=== PATIENT | female | born 1950 | race Caucasian/White ===

== ENCOUNTER 2016-04-16 23:35 | Inpatient (IN) | payer MEDICARE ==
[~2016-04-16 23:35] MED LIST: CALC250 PO; CHLO25 PO; CLON.1 PO; DUONI NEB; FLUT50SP EACH NARE; METO25 PO; POLY119S PO; POTA-243 PO; PROT40TA PO; SPIRCAP INH; THERM PO; THIA100T PO; ZOFR4TAB3 SL
[2016-04-16 23:40] VITALS: BP 83/62; PULSE 102; RESP 16; TEMP 99.9; O2SAT 100; O2SAT 97
[2016-04-16] MEDS ORDERED: SODIUM CHLOR 0.9% 1000 ML INJ 1,000 ML IV ONE ×2 (23:45)
[2016-04-17] VITALS (24 sets, daily range): BP systolic 70–128; BP diastolic 50–89; PULSE 85–106; RESP 16–20; TEMP 97.4–100.6; O2SAT 95–100
[2016-04-17 00:01] LABS: BLOOD GAS BASE EXCESS -5.6 mmol/L (-2-2); BLOOD GAS CARBOXYHEMOGLOBIN 3.6 % (0-4); BLOOD GAS HCO3 19 mmol/L (22-26); BLOOD GAS METHEMOGLOBIN 1.7 % (0-2); BLOOD GAS O2 HGB SATURATION 94 % (90-100); BLOOD GAS OXYGEN CONTENT 19.3 Vol % (12.0-20.0); BLOOD GAS PCO2 37 mmHg (38-42); BLOOD GAS PO2 237 mmHG (61-120); BLOOD GAS TOTAL HGB 14.2 G/DL (12.0-16.0); CRITICAL VALUE NO; DRAW SITE RT FEMORAL; FIO2 100 %; NUMBER OF ARTERIAL PUNCTURES 1; OXYGEN DEVICE VENTILATOR; STAT YES; TEMP CORR TO 98.6; ULNAR PULSE PRESENT; VENT SETTINGS AC/450/16/PEEP5
[2016-04-17] MEDS ORDERED: NOREPINEPHRINE 4 MG/4 ML AMP ONE (00:07)
[2016-04-17 00:16] LABS: BLOOD, URINE NEG (NEG); GLUCOSE,URINE NEG (NEG); HYALINE CAST, URINE 18 /lpf (RARE); KETONE, URINE NEG (NEG); MUCUS URINE FEW /lpf (OCC); NITRITE,URINE NEG (NEG); SQUAMOUS EPITHELIAL CELL URINE 2 /hpf (0-5); TRANSITIONAL EPI CELLS, URINE 1 /hpf; URINE COLOR YELLOW (YELLW/STRAW)
[2016-04-17 00:17] LABS: AUTOMATED NEUTROPHIL # 15.4 TH/MM3 (1.8-7.7); BASOPHIL % 0.1 % (0.0-2.0); HEMATOCRIT 41.1 % (35.0-46.0); LYMPH % 1.4 % (9.0-44.0); LYMPHOCYTE # 0.2 TH/MM3 (1.0-4.8); MEAN CELL VOLUME 92.7 FL (80.0-100.0); MEAN CORPUSCULAR HEMOGLOBIN 31.4 PG (27.0-34.0); MEAN CORPUSCULAR HGB CONC 33.9 % (32.0-36.0); MONO % 9.7 % (0.0-8.0); NEUT % 88.8 % (16.0-70.0); PLATELET COUNT 156 TH/MM3 (150-450); RED BLOOD COUNT 4.43 MIL/MM3 (4.00-5.30); RED CELL DISTRIBUTION WIDTH 16.1 % (11.6-17.2); WHITE BLOOD COUNT 17.3 TH/MM3 (4.0-11.0)
[2016-04-17 00:18] LABS: COMMENT (UR) CATH-CULT NOT IND; CULTURE IF INDICATED CATH CULTURE NOT IND
[2016-04-17] MEDS ORDERED: IOHEXOL 350 MG/ML 10 ML VIAL (for RAD DIAG) IV ONE (00:31)
[2016-04-17 00:32] LABS: APTT (PATIENT) 34.3 SEC (24.3-30.1); INTERNATIONAL NORMALIZED RATIO 1.1 RATIO; PROTHROMBIN TIME - PATIENT 12.2 SEC (9.8-11.6)
[2016-04-17 00:33] LABS: HEMO FLAGS AUTO DIFF
[2016-04-17 00:46] LABS: ALT (GPT) 12 U/L (10-53); ANION GAP 12 MEQ/L (5-15); AST (GOT) 19 U/L (15-37); BICARBONATE 22.2 MEQ/L (21.0-32.0); BLOOD UREA NITROGEN 76 MG/DL (7-18); CHLORIDE 94 MEQ/L (98-107); GLOMERULAR FILTRATION RATE 11 ML/MIN (>89); MAGNESIUM 0.6 MG/DL (1.5-2.5); POTASSIUM 4.6 MEQ/L (3.5-5.1); SODIUM (NA) 128 MEQ/L (136-145)
[2016-04-17 00:50] LABS: ALKALINE PHOSPHATASE 80 U/L (45-117)
--- NOTE | 2016-04-17 00:50 | RADRPT ---
EXAM DATE/TIME: 04/17/2016 00:28 [facility] COMPARISON: CT BRAIN W/O CONTRAST, November 23, 2015, 19:41. INDICATIONS : Altered mental status, unresponsive. RADIATION DOSE: 56.35 CTDIvol (mGy) MEDICAL HISTORY : Hypertension. Carcinoma, breast. SURGICAL HISTORY : None. ENCOUNTER: Initial ACUITY: 1 day PAIN SCALE: 2/10 LOCATION: cranial TECHNIQUE: Multiple contiguous axial images were obtained of the head. Using automated exposure control and adj ustment of the mA and/or kV according to patient size, radiation dose was kept as low as reasonably a chievable to obtain optimal diagnostic quality images. FINDINGS: There are no signs of intracranial hemorrhage or mass. Patchy decreased attenuation in the bilateral centrum semiovale and periventricular white matter identified most likely on the basis of chronic harshad rovascular ischemic disease. No fractures. CONCLUSION: No acute disease. Percy Barnes MD on April 17, 2016 at 0:48 Board Certified Radiologist. This report was verified electronically.
--- NOTE | 2016-04-17 00:57 | RADRPT ---
EXAM DATE/TIME: 04/17/2016 00:31 [facility] COMPARISON: CHEST SINGLE AP, November 23, 2015, 19:30. INDICATIONS : Found unresponsive. IV CONTRAST: 74 cc Omnipaque 350 (iohexol) IV RADIATION DOSE: 5.55 CTDIvol (mGy) MEDICAL HISTORY : Hypertension. Carcinoma, breast. COPD, CHF, a-fib SURGICAL HISTORY : right lumpectomy ENCOUNTER: Initial ACUITY: 1 day PAIN SCALE: Non-responsive LOCATION: chest TECHNIQUE: Volumetric scanning of the chest was performed using a pulmonary embolism protocol MIP images were re constructed. Using automated exposure control and adjustment of the mA and/or kV according to patien t size, radiation dose was kept as low as reasonably achievable to obtain optimal diagnostic quality images. FINDINGS: There are severe emphysematous changes noted bilaterally. There is dense consolidation seen in the en tire left lower lobe. There is also peripheral consolidation in the right lower lobe posteriorly. End otracheal tube is present and the tip terminates at the level of the akua. NG tube is also present terminating at the esophagogastric junction. A left adrenal mass is suspected measuring 2 Hounsfield units and incompletely evaluated on this study. Measures 3.8 x 2.4 cm likely representing an adenoma. There is a mass at the upper pole of the left kidney medially measuring 3.9 x 2.8 cm and 37 Hounsfie ld units which is incompletely evaluated on this study. There is excellent opacification of the pulmo nary arteries without evidence for pulmonary embolism. There is bilateral hilar adenopathy measuring up to 1.4 cm on the left and centimeters on the right. CONCLUSION: 1. Severe emphysema without evidence for pleural or embolism. 2. Bilateral hilar adenopathy, and dense bilateral pulmonary consolidation in the lower lobes left gr eater than right. 3. Left adrenal mass incompletely characterized, and left renal mass measuring soft tissue density. W orkup with MRI of the abdomen with and without contrast of these findings is recommended on a nonemer gent outpatient basis. 4. Mild nodularity seen within the right middle lobe abutting the fissure measuring 9 mm and 7 mm on image 95. Most likely nodular infiltrate suspected. There is linear atelectasis in the right middle l obe. Short interval followup CT in 3 months recommended. Percy Barnes MD on April 17, 2016 at 0:52 Board Certified Radiologist. This report was verified electronically.
--- NOTE | 2016-04-17 00:58 | PD ---
HPI Chief Complaint: respiratory failure Time Seen by Provider: 23:44 Travel History International Travel<30 days: No Contact w/Intl Traveler<30days: No History of Present Illness HPI 65-year-old woman, presents to the emergency department brought in by EMS intubated for respiratory distress. EMS states that they were called because the patient was having abdominal pain. They found her with the patient sitting on the floor begins chair in marked respiratory distress. 80% on room air. They're in the next few minutes she rapidly deteriorated waning mental status increased with shallow respirations. Systolic blood pressure was in the 60s, increase in the 80s with IV fluid. They intubated her after giving her 4 of Ativan and 20 mg of it, today. Medical hypertension is a history of hypertension COPD history of breast cancer and alcohol abuse. History Past Medical History Narrative Medical Hypertension COPD History of breast cancer Alcohol abuse Neuropathy Menopausal: Yes Social History Alcohol Use: Yes (2-6 DRINKS PER DAY) Tobacco Use: Yes (2 PK PER DAY) Allergies-Medications (Allergen,Severity, Reaction): Coded Allergies: Camphor (Verified Allergy, Unknown, Swelling, 11/23/15) Reported Meds & Prescriptions Reported Meds & Active Scripts Active Zofran ODT (Ondansetron HCl) 4 Mg Tab 4 Mg SL Q6HR PRN FOR NAUSEA/VOMITING Vitamin B1 (Thiamine HCl) 100 Mg Tab 100 Mg PO DAILY 30 Days Metoprolol Tartrate 25 mg (Metoprolol Tartrate) 25 Mg Tab 75 Mg PO Q8HR 30 Days Librium 25 mg Cap (Chlordiazepoxide) 25 Mg Cap 25 Mg PO TID 7 Days Catapres (Clonidine HCl) 0.1 Mg Tab 0.1 Mg PO Q6H PRN 14 Days Resp: Albuterol/Ipratropium 2.5 Mg/0.5 Mg (Albuterol/Ipratropium) 1 Ampule Nebu 1 Ampule NEB Q6HR NEB PRN Oscal-D 250 MG /125 UNITS Tab (Calcium/Vitamin D) 250 Mg Tab 250 Mg PO Q12HR Thera M Plus (Multivitamins/Minerals Therap) 1 Tab Tab 1 Tab PO DAILY Fluticasone Propionate (Nasal) 50 Mcg Spr 1 [place] EACH NARE BID 30 Days Spiriva Handihaler (Tiotropium [place]) 18 Mcg Cap 1 Puff INH DAILY 30 Days DO NOT SWALLOW CAPSULES Protonix (Pantoprazole Sodium) 40 Mg Tabdr 40 Mg PO DAILY Reported K-Dur (Potassium Chloride) 10 Meq Tabcr 20 Meq PO DAILY Miralax 119 Gm Bottle (Polyethylene Glycol) 119 Gm Powd 17 Gm PO DAILY 17 GRAMS = 1 TABLESPOON DISSOLVED IN 4 TO 8 OUNCES OF BEVERAGE Review of Systems ROS Limitations: Clinical Condition Physical Exam Narrative GENERAL: 65-year-old woman, obtunded, poorly perfused. SKIN: Cool and mottled. HEAD: Atraumatic. Normocephalic. EYES: Pupils equal and round. No scleral icterus. No injection or drainage. ENT: No nasal bleeding or discharge. Mucous membranes pink and moist. NECK: Trachea midline. Moderate JVD. CARDIOVASCULAR: Regular rate and rhythm. No murmur appreciated. RESPIRATORY: Coarse breath sounds throughout the posterior lung vera. Some gagging but minimal spontaneous respiratory effort. GASTROINTESTINAL: Abdomen soft, non-tender, nondistended. Hepatic and splenic margins not palpable. MUSCULOSKELETAL: No obvious deformities. Decreased muscle bulk. No edema. NEUROLOGICAL: Obtunded. Occasional gagging. No other purposeful movement. Data Data Last Documented VS Vital Signs Date Time Temp Pulse Resp B/P Pulse Ox O2 Delivery O2 Flow Rate FiO2 04/17/16 01:48 16 Ventilator 04/17/16 01:46 100 80 04/17/16 01:16 92 70/52 04/16/16 23:40 99.9 Orders Electrocardiogram (04/16/16 23:44) Complete Blood Count With Diff (04/16/16 23:44) Comprehensive Metabolic Panel (04/16/16 23:44) Prothrombin Time / Inr (Pt) (04/16/16 23:44) Act Partial Throm Time (Ptt) (04/16/16 23:44) Lactic Acid Sepsis Protocol (04/16/16 23:44) Magnesium (Mg) (04/16/16 23:44) Lipase (04/16/16 23:44) Troponin I (04/16/16 23:44) Urinalysis - C+S If Indicated (04/16/16 23:44) Influenzae A/B Antigen (04/16/16 23:44) Blood Culture (04/16/16 23:44) Chest, Single Ap (04/16/16 23:44) Arterial Blood Gas (Abg) (04/16/16 23:44) Blood Glucose (04/16/16 23:44) Ecg Monitoring (04/16/16 23:44) Iv Access Insert/Monitor (04/16/16 23:44) Oximetry (04/16/16 23:44) Oxygen Administration (04/16/16 23:44) Ed Poc Ultrasound (04/16/16 23:44) Sodium Chlor 0.9% 1000 Ml Inj (Ns 1000 M (04/16/16 23:45) Sodium Chlor 0.9% 1000 Ml Inj (Ns 1000 M (04/16/16 23:45) Norepinephrine Inj (Levophed Inj) (04/17/16 00:07) Ct Pulmonary Angiogram (04/17/16 ) Ct Brain W/O Iv Contrast(Rout) (04/17/16 23:44) Sodium Chlor 0.9% 1000 Ml Inj (Ns 1000 M (04/17/16 01:00) Sodium Chlor 0.9% 1000 Ml Inj (Ns 1000 M (04/17/16 01:00) Piperacil-Tazo 4.5 Gm Premix (Zosyn 4.5 (04/17/16 00:59) Azithromycin Inj (Zithromax Inj) (04/17/16 00:59) Ct Abd/Pel W/O Iv Contrast (04/17/16 ) Admit Order (Ed Use Only) (04/17/16 ) Labs Laboratory Tests Test 04/16/16 04/16/16 04/17/16 23:51 23:55 00:01 Blood Gas Puncture Site RT FEMORAL Blood Gas Patient Temperature 98.6 Blood Gas HCO3 19 mmol/L Blood Gas Base Excess -5.6 mmol/L Blood Gas Oxygen Saturation 94 % Arterial Blood pH 7.34 Arterial Blood Partial 37 mmHg Pressure CO2 Arterial Blood Partial 237 mmHG Pressure O2 Arterial Blood Oxygen Content 19.3 Vol % Arterial Blood 3.6 % Carboxyhemoglobin Arterial Blood Methemoglobin 1.7 % Blood Gas Hemoglobin 14.2 G/DL Oxygen Delivery Device VENTILATOR Blood Gas Ventilator Setting AC/450/16/PEEP5 Blood Gas Inspired Oxygen 100 % Lactic Acid Level 2.2 mmol/L White Blood Count 17.3 TH/MM3 Red Blood Count 4.43 MIL/MM3 Hemoglobin 13.9 GM/DL Hematocrit 41.1 % Mean Corpuscular Volume 92.7 FL Mean Corpuscular Hemoglobin 31.4 PG Mean Corpuscular Hemoglobin 33.9 % Concent Red Cell Distribution Width 16.1 % Platelet Count 156 TH/MM3 Mean Platelet Volume 7.6 FL Neutrophils (%) (Auto) 88.8 % Lymphocytes (%) (Auto) 1.4 % Monocytes (%) (Auto) 9.7 % Eosinophils (%) (Auto) 0.0 % Basophils (%) (Auto) 0.1 % Neutrophils # (Auto) 15.4 TH/MM3 Lymphocytes # (Auto) 0.2 TH/MM3 Monocytes # (Auto) 1.7 TH/MM3 Eosinophils # (Auto) 0.0 TH/MM3 Basophils # (Auto) 0.0 TH/MM3 CBC Comment AUTO DIFF Differential Total Cells 100 Counted Neutrophils % (Manual) 46 % Band Neutrophils % 38 % Monocytes % 10 % Neutrophils # (Manual) 15.6 TH/MM3 Metamyelocytes 5 % Myelocytes 1 % Differential Comment FINAL DIFF MANUAL Toxic Granulation 1+ Toxic Vacuolation PRESENT Platelet Estimate NORMAL Platelet Morphology Comment NORMAL Red Cell Morphology Comment NORMAL Prothrombin Time 12.2 SEC Prothromb Time International 1.1 RATIO Ratio Activated Partial 34.3 SEC Thromboplast Time Urine Color YELLOW Urine Turbidity HAZY Urine pH 5.0 Urine Specific [place] 1.019 Urine Protein TRACE mg/dL Urine Glucose (UA) NEG mg/dL Urine Ketones NEG mg/dL Urine Occult Blood NEG Urine Nitrite NEG Urine Bilirubin NEG Urine Urobilinogen 2.0 MG/DL Urine Leukocyte Esterase TRACE Urine RBC 2 /hpf Urine WBC 2 /hpf Urine Squamous Epithelial 2 /hpf Cells Urine Transitional Epithelial 1 /hpf Cells Urine Hyaline Casts 18 /lpf Urine Mucus FEW /lpf Microscopic Urinalysis Comment CATH-CULT NOT IND Sodium Level 128 MEQ/L Potassium Level 4.6 MEQ/L Chloride Level 94 MEQ/L Carbon Dioxide Level 22.2 MEQ/L Anion Gap 12 MEQ/L Blood Urea Nitrogen 76 MG/DL Creatinine 4.15 MG/DL Estimat Glomerular Filtration 11 ML/MIN Rate Random Glucose 93 MG/DL Calcium Level 8.1 MG/DL Magnesium Level 0.6 MG/DL Total Bilirubin 1.0 MG/DL Aspartate Amino Transf 19 U/L (AST/SGOT) Alanine Aminotransferase 12 U/L (ALT/SGPT) Alkaline Phosphatase 80 U/L Troponin I LESS THAN 0.02 NG/ML Total Protein 5.8 GM/DL Albumin 2.3 GM/DL Lipase 138 U/L [facility] Medical Decision Making Medical Screen Exam Complete: Yes Emergency Medical Condition: Yes Interpretation(s) My review of EKG: Sinus tachycardia rate of 103, normal axis, frequent ectopic beats, no definite evidence of acute ischemia. LABS: CBC remarkable for white count of 17,000 Elevated BUN and creatinine, hypoproteinemia Lipase normal Lactate 2.2 Coags unremarkable ABG 7.34/37/237/19, base excess -5.[address]: No acute disease. CT pulmonary angiogram: Adenopathy and infiltrates, but no PE. Differential Diagnosis Pneumonia, respiratory failure, COPD exacerbation, PE, sepsis, other Narrative Course Medical decision making 65-year-old presents emergency department respiratory failure and marked hypertension. Concern for PE. Patient was intubated prior to arrival. On arrival she was given IV fluids, additional IV access was obtained. A tight ultrasound shows what appeared to be a dilated right ventricle. She's taken for stat CT for pulmonary embolism. On my initial wet read this was negative. Official read is pending. Etiology of patient's symptoms is not clear. She'll be covered broadly for sepsis. She was started on vasopressors. She was given IV fluids. Critical Care Narrative Aggregate critical care time was 40 minutes. Time to perform other separately billable procedures was not included in the critical care time. My time did not include minutes spent treating any other patients simultaneously or on activities that did not directly contribute to the patient's treatment. The services I provided to this patient were to treat and/or prevent clinically significant deterioration that could result in: , worsening shock, unrecognized source of infection. I provided critical care services requiring my management, as noted below: Chart data review, documentation time, medication orders and management, vital sign assessments/reviewing monitor data, ordering and reviewing lab tests, ordering and interpreting/reviewing x-rays and diagnostic studies, care of the patient and discussion of the patient with the admitting physicians. Procedures Procedure Narrative Point of care ultrasound: Focus transthoracic ultrasounds performed by me at the bedside to evaluate for etiology of hypotension. No pneumothorax was seen. Views of the heart showed elevated was a little bit hyperdynamic, and RV appear to enlarge. No pericardial effusion was seen. Use of the abdomen showed a normal aorta without AAA. Diagnosis Primary Impression: Acute respiratory failure with hypoxia Additional Impression: Septic shock David Collins MD Apr 17, 2016 00:58
[2016-04-17] MEDS ORDERED: PIPERACIL-TAZO 4.5 GM PREMIX 100 ML IV STA (00:59)
[2016-04-17] MEDS ORDERED: AZITHROMYCIN INJ 500 MG in SODIUM CHLOR 0.9% 250 ML INJ 250 ML IV STA (00:59)
[2016-04-17] MEDS ORDERED: SODIUM CHLOR 0.9% 1000 ML INJ 1,000 ML IV ONE ×2 (01:00)
--- NOTE | 2016-04-17 01:04 | RADRPT ---
EXAM DATE/TIME: 04/17/2016 00:55 [facility] COMPARISON: CHEST SINGLE AP, November 23, 2015, 19:30. CT PULMONARY ANGIOGRAM, April 17, 2016, 0:31. INDICATIONS : Post intubation. Evaluate tube placement. MEDICAL HISTORY : Hypertension. Carcinoma, breast. SURGICAL HISTORY : Left humerus and shoulder ENCOUNTER: Initial ACUITY: 1 day PAIN SCORE: Non-responsive. LOCATION: Bilateral chest FINDINGS: Endotracheal tube is present and the tip terminates at the akua. Aortic calcification and cardiomeg odalis. EKG leads overlie the chest. NG tube tip at the distal esophageal region. There is consolidation within both lower lobes and prominence of the bilateral hilar shadows. Postsurgical changes q.d. lef t shoulder are noted with plate and screws fixation seen. There is a remote impacted right proximal h umerus fracture deformity identified. CONCLUSION: Endotracheal tube as described above. Percy Barnes MD on April 17, 2016 at 1:01 Board Certified Radiologist. This report was verified electronically.
[2016-04-17 01:32] LABS: BANDS 38 % (0-6); METAMYELOCYTES 5 % (0-1); MYELOCYTES 1 % (0-0); NEUTROPHIL # MANUAL DIFF 15.6 TH/MM3 (1.8-7.7); POLYS (SEG NEUTROPHILS) 46 % (16-70); SCAN/DIFF FINAL DIFF MANUAL; WBC DIFF SAMPLE 100
[2016-04-17 01:33] LABS: PLATELET ESTIMATE SMEAR NORMAL (NORMAL); PLATELET MORPHOLOGY NORMAL (NORMAL); TOXIC GRANULATION 1+ (NORMAL); TOXIC VACUOLATION PRESENT (NONE SEEN)
[2016-04-17 02:08] LABS: LACTIC ACID GHOST NOT REPORTABLE
[2016-04-17] MEDS ORDERED: ACETAMINOPHEN 325 MG TAB PO PRN (02:30)
[2016-04-17] MEDS ORDERED: CHLORHEXIDINE GLUCONATE 2 % 1 PACK (2 CLOTHS) TOP PRN (02:30)
[2016-04-17] MEDS ORDERED: MISCELLANEOUS NURSING INFORMATION XX SCH (02:30)
[2016-04-17] MEDS ORDERED: ONDANSETRON HCL 4 MG/2 ML VIAL IV PRN (02:30)
[2016-04-17] MEDS ORDERED: SODIUM CHLORIDE 0.9% FLUSH 5 ML FLUSH IV FLUSH PRN (02:30)
[2016-04-17] MEDS ORDERED: METOCLOPRAMIDE HCL 10 MG/2 ML VIAL IV PRN (02:30)
[2016-04-17] MEDS: ALBUMIN HUMAN 5% 25 GM/500 ML BOTTLE IV SCH ×2 (03:00→15:49)
[2016-04-17] MEDS ORDERED: BACL10TA PO (03:13)
[2016-04-17] MEDS ORDERED: GABA800T PO (03:13)
[2016-04-17] MEDS ORDERED: FLUT1SPR22 NASAL (03:13)
[2016-04-17] MEDS ORDERED: ATEN50TA PO (03:13)
[2016-04-17] MEDS ORDERED: ALBUAER3 INH (03:13)
[2016-04-17] MEDS ORDERED: BENA10TA PO (03:13)
[2016-04-17] MEDS ORDERED: IBAN150T3 PO (03:13)
[2016-04-17] MEDS ORDERED: FURO20TA PO (03:13)
[2016-04-17] MEDS ORDERED: TRIAPOW TOPICAL (03:13)
[2016-04-17] MEDS ORDERED: FURO1TAB60 PO (03:13)
[2016-04-17] MEDS ORDERED: SPIRCAP INH (03:13)
[2016-04-17] MEDS ORDERED: POTA-245 PO (03:13)
[2016-04-17] MEDS ORDERED: AMOX500C PO (03:13)
[2016-04-17] MEDS ORDERED: HYDR-3583 PO (03:13)
[2016-04-17] MEDS: CEFEPIME INJ 2,000 MG in SODIUM CHLORIDE 0.9% INJ 100 ML IV SCH (04:21)
--- NOTE | 2016-04-17 06:21 | HHI.HP ---
HPI Service Critical Care Medicine Primary Care Physician Unknown Admission Diagnosis respiratory failure, sepsis Diagnosis: Travel History International Travel<30 Days: No Contact w/Intl Traveler <30 Da: No History of Present Illness 65-year-old woman brought in by EMS intubated for respiratory distress, and abdominal pain. She has recently had relapse of alcohol dependency disease and was found sitting on the floor in marked respiratory distress. 80% on room air. Also her systolic blood pressure was in the 60s, increase into the 80s with IV fluid. Review of Systems ROS Unable to obtain, patient is sedated and intubated Past Family Social History Allergies: Coded Allergies: Camphor (Verified Allergy, Unknown, Swelling, 04/17/16) Past Medical History Hypertension COPD History of breast cancer Alcohol abuse Neuropathy Past Surgical History Unable to obtain, patient is sedated and intubated Reported Medications Triamcinolone Acetonide (Triamcinolone Acetonide (Topic) 1 Pow Pow 0.1 Units TOPICAL DIALY Spiriva Handihaler (Tiotropium Inh) 18 Mcg Cap 18 Mcg INH DAILY 1 capsule = 18 mcg Proair Hfa 8.5 GM Inh (Albuterol Sulfate) 90 Mcg/Act Aer 2 Puff INH Q4-6H PRN 108 mcg/actuation Lasix (Furosemide) 40 Mg Tab 40 Mg PO DAILY Klor-Con M20 (Potassium Chloride Microencaps) 20 Meq Tab 20 Meq PO DAILY Ibandronate (Ibandronate Sodium) 150 Mg Tab 150 Mg PO Q28D Hydrocodone-Acetaminophen 10-325 mg Tab 1 Tab PO Q6H PRN Gabapentin 800 Mg Tab 800 Mg PO DAILY Furosemide 20 Mg Tab 20 Mg PO DAILY Allergy Nasal [place] 24 Ho (Fluticasone Propionate (Nasal)) 50 Mcg/Act Spr 50 Aerosol NASAL DAILY Benazepril (Benazepril HCl) 10 Mg Tab 10 Mg PO DAILY Baclofen 10 Mg Tab 10 Mg PO TID Atenolol 50 Mg Tab 50 Mg PO DAILY Amoxicillin 500 Mg Cap 500 Mg PO DAILY unknown duration Active Ordered Medications Unable to obtain, patient is sedated and intubated Family History Unable to obtain, patient is sedated and intubated Social History Unable to obtain, patient is sedated and intubated; however known history of alcoholism Physical Exam Vital Signs Vital Signs Date Time Temp Pulse Resp B/P Pulse Ox O2 Delivery O2 Flow Rate FiO2 04/17/16 05:36 50 04/17/16 05:34 87 16 113/73 100 Ventilator 04/17/16 04:03 99 50 04/17/16 03:38 93 16 103/64 100 Ventilator 04/17/16 02:55 98 16 86/62 100 Ventilator 04/17/16 02:16 95 16 78/57 100 Ventilator 04/17/16 01:48 16 Ventilator 04/17/16 01:47 16 Ventilator 04/17/16 01:46 100 Ventilator 80 04/17/16 01:16 92 16 70/52 100 Ventilator 04/17/16 01:01 100 80 04/17/16 00:25 100 04/17/16 00:20 104 16 80/56 100 Ventilator 04/17/16 00:13 106 16 71/50 100 Ventilator 04/16/16 23:40 100 100 04/16/16 23:40 99.9 102 16 83/62 97 Physical Exam GENERAL: Well-nourished, well-developed patient. SKIN: Warm and dry. HEAD: Normocephalic. EYES: No scleral icterus. No injection or drainage. NECK: Supple, trachea midline. No JVD or lymphadenopathy. CARDIOVASCULAR: Regular rate and rhythm without murmurs, gallops, or rubs. RESPIRATORY: Breath sounds equal bilaterally. No accessory muscle use. GASTROINTESTINAL: Abdomen soft, non-tender, nondistended. MUSCULOSKELETAL: No cyanosis, or edema. BACK: Nontender without obvious deformity. No CVA tenderness. Laboratory Laboratory Tests Test 04/16/16 04/16/16 04/17/16 04/17/16 23:51 23:55 00:01 02:15 Blood Gas Puncture Site RT FEMORAL Blood Gas Patient Temperature 98.6 Blood Gas HCO3 19 Blood Gas Base Excess -5.6 Blood Gas Oxygen Saturation 94 Arterial Blood pH 7.34 Arterial Blood Partial 37 Pressure CO2 Arterial Blood Partial 237 Pressure O2 Arterial Blood Oxygen Content 19.3 Arterial Blood 3.6 Carboxyhemoglobin Arterial Blood Methemoglobin 1.7 Blood Gas Hemoglobin 14.2 Oxygen Delivery Device VENTILATOR Blood Gas Ventilator Setting AC/450/16/PEEP5 Blood Gas Inspired Oxygen 100 Lactic Acid Level 2.2 1.3 White Blood Count 17.3 Red Blood Count 4.43 Hemoglobin 13.9 Hematocrit 41.1 Mean Corpuscular Volume 92.7 Mean Corpuscular Hemoglobin 31.4 Mean Corpuscular Hemoglobin 33.9 Concent Red Cell Distribution Width 16.1 Platelet Count 156 Mean Platelet Volume 7.6 Neutrophils (%) (Auto) 88.8 Lymphocytes (%) (Auto) 1.4 Monocytes (%) (Auto) 9.7 Eosinophils (%) (Auto) 0.0 Basophils (%) (Auto) 0.1 Neutrophils # (Auto) 15.4 Lymphocytes # (Auto) 0.2 Monocytes # (Auto) 1.7 Eosinophils # (Auto) 0.0 Basophils # (Auto) 0.0 CBC Comment AUTO DIFF Differential Total Cells 100 Counted Neutrophils % (Manual) 46 Band Neutrophils % 38 Monocytes % 10 Neutrophils # (Manual) 15.6 Metamyelocytes 5 Myelocytes 1 Differential Comment FINAL DIFF MANUAL Toxic Granulation 1+ Toxic Vacuolation PRESENT Platelet Estimate NORMAL Platelet Morphology Comment NORMAL Red Cell Morphology Comment NORMAL Prothrombin Time 12.2 Prothromb Time International 1.1 Ratio Activated Partial 34.3 Thromboplast Time Urine Color YELLOW Urine Turbidity HAZY Urine pH 5.0 Urine Specific [place] 1.019 Urine Protein TRACE Urine Glucose (UA) NEG Urine Ketones NEG Urine Occult Blood NEG Urine Nitrite NEG Urine Bilirubin NEG Urine Urobilinogen 2.0 Urine Leukocyte Esterase TRACE Urine RBC 2 Urine WBC 2 Urine Squamous Epithelial 2 Cells Urine Transitional Epithelial 1 Cells Urine Hyaline Casts 18 Urine Mucus FEW Microscopic Urinalysis Comment CATH-CULT NOT IND Sodium Level 128 Potassium Level 4.6 Chloride Level 94 Carbon Dioxide Level 22.2 Anion Gap 12 Blood Urea Nitrogen 76 Creatinine 4.15 Estimat Glomerular Filtration 11 Rate Random Glucose 93 Calcium Level 8.1 Magnesium Level 0.6 Total Bilirubin 1.0 Aspartate Amino Transf 19 (AST/SGOT) Alanine Aminotransferase 12 (ALT/SGPT) Alkaline Phosphatase 80 Troponin I LESS THAN 0.02 Total Protein 5.8 Albumin 2.3 Lipase 138 Date/Time Procedure Status Source Growth 04/17/16 02:45 Aerobic Blood Culture Received Blood Peripheral Pending 04/17/16 02:45 Anaerobic Blood Culture Received Blood Peripheral Pending 04/17/16 00:01 Urine Culture Received Urine Catheterized Urine Pending Result Diagram: 04/17/16 0001 04/17/16 0001 Imaging Last [address] 04/17/16 [id number] Signed Impressions: Service Date/Time: Sunday, April 17, 2016 00:28 - CONCLUSION: No acute disease. Percy Barnes MD CT Angiography 04/17/16 0000 Signed Impressions: Service Date/Time: Sunday, April 17, 2016 00:31 - CONCLUSION: 1. Severe emphysema without evidence for pleural or embolism. 2. Bilateral hilar adenopathy, and dense bilateral pulmonary consolidation in the lower lobes left greater than right. 3. Left adrenal mass incompletely characterized, and left renal mass measuring soft tissue density. Workup with MRI of the abdomen with and without contrast of these findings is recommended on a nonemergent outpatient basis. 4. Mild nodularity seen within the right middle lobe abutting the fissure measuring 9 mm and 7 mm on image 95. Most likely nodular infiltrate suspected. There is linear atelectasis in the right middle lobe. Short interval followup CT in 3 months recommended. Percy Barnes MD Chest X-Ray 04/16/16 2344 Signed Impressions: Service Date/Time: Sunday, April 17, 2016 00:55 - CONCLUSION: Endotracheal tube as described above. Percy Barnes MD Assessment and Plan Problem List: (1) Acute respiratory failure with hypoxia ICD Code: J96.01 Status: Acute (2) Acute kidney injury ICD Code: N17.9 Status: Acute (3) Septic shock ICD Code: A41.9 Status: Acute (4) Alcohol abuse ICD Code: F10.10 Status: Chronic Assessment and Plan Respiratory failure - due to SIRS/Sepsis - mechanical ventilation - SBT when more alert and hemodynamically stable COPD - no exacerbation - no steroids - aerosols scheduled and PRN - resume home Spiriva when extubated ETOH dependency - versed gtt - CIWA when extubated SIRS - broad spectrum ATB - follow up cultures - de-escalate when cultures available YULIET - dehydration - aggressive fluid resuscitation - follow up creatinine and electrolytes Peripheral neuropathy - Gabapentin Renal and adrenal mass - MRI w and w/o when creatinine improves - 1 mg Dexamethasone suppression test when hemodynamically stable DVT/GI prophylaxis - Heparin/Protonix Critical Care: The total critical care time was 35 minutes. Time to perform other separately billable procedures was not included in the critical care time. Gurwinder Dow MD Apr 17, 2016 06:21
--- NOTE | 2016-04-17 06:44 | RADRPT ---
EXAM DATE/TIME: 04/17/2016 06:30 [place] COMPARISON: CT PULMONARY ANGIOGRAM, April 17, 2016, 0:31. INDICATIONS : Abdominal pain with palpitation, unresponsive. ORAL CONTRAST: No oral contrast ingested. RADIATION DOSE: 6.98 CTDIvol (mGy) MEDICAL HISTORY : Carcinoma, breast. Hypertension. Chronic obstructive pulmonary disease.ulcerm a-fib SURGICAL HISTORY : mastectomy ENCOUNTER: Initial ACUITY: 1 day PAIN SCALE: Non-responsive LOCATION: abdomen TECHNIQUE: Volumetric scanning of the abdomen and pelvis was performed. Using automated exposure control and ad justment of the mA and/or kV according to patient size, radiation dose was kept as low as reasonably achievable to obtain optimal diagnostic quality images. FINDINGS: There is consolidation with air bronchograms in both lower lobes left greater than right. The gallbla dder is distended. NG tube in the stomach. Moderate atherosclerotic calcification of the aorta and il iac vessels. Dumont catheter within the urinary bladder. Uterus is heterogeneous with calcified fibroi ds suspected. There is no evidence for bowel obstruction. There is moderate perinephric stranding or perinephric fluid bilaterally. There are bilateral renal cysts the largest at the midpole right kidne y measuring 2.1 cm. Upper pole left kidney demonstrates a high attenuation mass measuring 3.7 cm poss ibly a hemorrhagic or proteinaceous cyst, a solid mass not entirely excluded. Left adrenal mass is no kat measuring 3.7 x 2.8 cm. Degenerative changes of the spine are noted. Postsurgical changes to the left hip are noted with intramedullary al and femoral neck al and pin fixation. Remote right inferi or pubic ramus fracture deformity. CONCLUSION: 1. Mild distention of the gallbladder. 2. Bilateral renal cysts are noted as well as an indeterminate mass upper pole left kidney, probable hemorrhagic or proteinaceous cyst and can be further evaluated with MRI of the abdomen with and witho ut contrast on a nonemergent outpatient basis. 3. Bilateral lower lobe consolidation. 4. Indeterminate probable adenomas left adrenal mass. 5. Atherosclerosis. 6. Nodular infiltrate in the right middle lobe is seen. Percy Barnes MD on April 17, 2016 at 6:38 Board Certified Radiologist. This report was verified electronically.
[2016-04-17] MEDS: SODIUM CHLORIDE 0.9% FLUSH 5 ML FLUSH IV FLUSH SCH ×2 (08:55→20:31)
[2016-04-17] MEDS: HEPARIN SODIUM - SQ 10,000 UNITS/ML VIAL SQ SCH ×2 (08:55→20:31)
[2016-04-17] MEDS: PANTOPRAZOLE SODIUM 40 MG VIAL IV SCH (08:56)
[2016-04-17] MEDS: DOCUSATE SODIUM 100 MG/10 ML UDC G-TUBE SCH ×2 (08:56→20:31)
[2016-04-17] MEDS: ARTIFICIAL TEARS OPTH SOLN 15 ML BTL EACH EYE SCH ×2 (09:00→12:31)
[2016-04-17] MEDS ORDERED: NOREPINEPHRINE-DEXTROSE DRIP 250 ML IV ONE (10:23)
[2016-04-17 11:13] LABS: INDIRECT BILIRUBIN 0.4 MG/DL (0.0-0.8); TOTAL BILIRUBIN ADULT 1.1 MG/DL (0.2-1.0)
[2016-04-17] MEDS ORDERED: NOREPINEPHRINE-DEXTROSE DRIP 250 ML IV SCH (12:00)
[2016-04-17] MEDS ORDERED: TERBUTALINE INJ 1 MG/ML AMP SQ PRN (12:00)
[2016-04-17] MEDS ORDERED: LORazepam 2 MG/ML VIAL IV PUSH PRN (12:00)
[2016-04-17] MEDS: SODIUM CHLOR 0.9% 1000 ML INJ 1,000 ML IV SCH ×2 (12:19→21:58)
[2016-04-17] MEDS: METOCLOPRAMIDE HCL SYRUP 10 MG/10 ML UDC PO SCH ×2 (12:30→20:31)
[2016-04-17] MEDS: BENEPROTEIN POWDER 1 PACK G-TUBE SCH (12:31)
[2016-04-17] MEDS: THIAMINE INJ 100 MG in SODIUM CHLORIDE 0.9% INJ 100 ML IV SCH (13:04)
--- NOTE | 2016-04-17 16:26 | EKG ---
Date Performed: 04/16/2016 Time Performed: 23:57:03 PTAGE: 65 years EKG: SINUS TACHYCARDIA WITH FREQUENT ECTOPIC PREMATURE COMPLEXES IN A BIGEMINAL PATTERN BORDERLI NE RIGHT AXIS DEVIATION NONSPECIFIC T-WAVE ABNORMALITY ABNORMAL RHYTHM ECG PREVIOUS TRACING : 11/23/2015 19.57 Compared to prior tracing no significant change DOCTOR: Randolph Crouch Interpretating Date/Time 04/17/2016 16:24:29
[2016-04-17 17:02] LABS: BICARBONATE 18.8 MEQ/L (21.0-32.0); MAGNESIUM 0.8 MG/DL (1.5-2.5); POTASSIUM 3.9 MEQ/L (3.5-5.1)
[2016-04-17] MEDS: MIDAZOLAM 100 MG/ML INJ 100 ML IV SCH (20:23)
[2016-04-17] MEDS: RESP: ALBUTEROL 2.5 MG/IPRATROPIUM 0.5 MG NEB (PRN) INH (21:05)
[2016-04-18] VITALS (17 sets, daily range): BP systolic 116–164; BP diastolic 59–86; PULSE 81–128; RESP 9–24; TEMP 97.8–98.9; O2SAT 93–100
[2016-04-18] MEDS: ALBUMIN HUMAN 5% 25 GM/500 ML BOTTLE IV SCH ×2 (02:27→14:37)
[2016-04-18] MEDS: CEFEPIME INJ 2,000 MG in SODIUM CHLORIDE 0.9% INJ 100 ML IV SCH (03:03)
[2016-04-18 04:02] LABS: BICARBONATE 16.9 MEQ/L (21.0-32.0)
[2016-04-18] MEDS: METOCLOPRAMIDE HCL SYRUP 10 MG/10 ML UDC PO SCH ×3 (04:17→19:46)
[2016-04-18] MEDS: CHLORHEXIDINE GLUCONATE 2 % 1 PACK (2 CLOTHS) TOP SCH ×2 (04:17→04:27)
[2016-04-18 04:27] LABS: POTASSIUM 4.4 MEQ/L (3.5-5.1)
[2016-04-18] MEDS: PANTOPRAZOLE SODIUM 40 MG VIAL IV SCH (07:44)
[2016-04-18] MEDS: THIAMINE INJ 100 MG in SODIUM CHLORIDE 0.9% INJ 100 ML IV SCH (07:44)
[2016-04-18] MEDS: DOCUSATE SODIUM 100 MG/10 ML UDC G-TUBE SCH ×2 (07:44→19:46)
[2016-04-18] MEDS: SODIUM CHLOR 0.9% 1000 ML INJ 1,000 ML IV SCH ×2 (07:44→14:37)
[2016-04-18] MEDS: HEPARIN SODIUM - SQ 10,000 UNITS/ML VIAL SQ SCH ×2 (07:45→19:46)
[2016-04-18] MEDS: GABAPENTIN 400 MG CAP PO SCH (07:45)
[2016-04-18] MEDS: SODIUM CHLORIDE 0.9% FLUSH 5 ML FLUSH IV FLUSH SCH ×2 (07:45→19:46)
[2016-04-18] MEDS: ARTIFICIAL TEARS OPTH SOLN 15 ML BTL EACH EYE SCH ×3 (07:47→16:19)
[2016-04-18] MEDS: BENEPROTEIN POWDER 1 PACK G-TUBE SCH ×3 (07:48→16:19)
[2016-04-18 07:55] LABS: AUTOMATED NEUTROPHIL # 12.2 TH/MM3 (1.8-7.7); BASOPHIL % 0.2 % (0.0-2.0); EOSINOPHIL % 0.1 % (0.0-4.0); HEMATOCRIT 36.7 % (35.0-46.0); HEMO FLAGS DIFF FINAL; LYMPH % 5.1 % (9.0-44.0); LYMPHOCYTE # 0.7 TH/MM3 (1.0-4.8); MEAN CORPUSCULAR HEMOGLOBIN 31.5 PG (27.0-34.0); MEAN CORPUSCULAR HGB CONC 33.5 % (32.0-36.0); MONO % 9.9 % (0.0-8.0); NEUT % 84.7 % (16.0-70.0); PLATELET COUNT 110 TH/MM3 (150-450); RED BLOOD COUNT 3.91 MIL/MM3 (4.00-5.30); RED CELL DISTRIBUTION WIDTH 16.4 % (11.6-17.2); WHITE BLOOD COUNT 14.4 TH/MM3 (4.0-11.0)
[2016-04-18] MEDS: CHLORHEXIDINE 0.12% (ORAL KIT) 15 ML CUP MT SCH ×2 (08:00→19:46)
[2016-04-18] MEDS ORDERED: Vancomycin Consult Pharmacy 1 EA OTHER SCH (09:30)
--- NOTE | 2016-04-18 09:31 | HHI.CCPN ---
Subjective Remarks/Hospital Course 65-year-old woman brought in by EMS intubated for respiratory distress, and abdominal pain. She has recently had relapse of alcohol dependency disease and was found sitting on the floor in marked respiratory distress. 80% on room air. 04/18: Arrived severely dehydrated with YULIET and obtundation after excess alcohol consumption. Now tolerating PSV but fails weaning trial from ventilator. May need precedex for detox. She has developed a-fib with tachy- renzo. Several 6 sec asystolic pauses Transcutaneous pacer placed on demand mode Objective Vital Signs Date Time Temp Pulse Resp B/P Pulse Ox O2 Delivery O2 Flow Rate FiO2 04/18/16 08:07 100 40 04/18/16 04:00 97.8 81 10 126/74 04/17/16 19:00 Mechanical Ventilator Intake and Output 04/17/16 04/17/16 04/18/16 08:00 16:00 00:00 Intake Total 496 ml 630 ml Output Total 850 ml Balance -354 ml 630 ml Result Diagram: 04/18/16 0713 04/18/16 0313 Imaging Last [address] 04/17/162343 Signed Impressions: Service Date/Time: Sunday, April 17, 2016 00:28 - CONCLUSION: No acute disease. Percy Barnes MD CT Angiography 04/17/16 0000 Signed Impressions: Service Date/Time: Sunday, April 17, 2016 00:31 - CONCLUSION: 1. Severe emphysema without evidence for pleural or embolism. 2. Bilateral hilar adenopathy, and dense bilateral pulmonary consolidation in the lower lobes left greater than right. 3. Left adrenal mass incompletely characterized, and left renal mass measuring soft tissue density. Workup with MRI of the abdomen with and without contrast of these findings is recommended on a nonemergent outpatient basis. 4. Mild nodularity seen within the right middle lobe abutting the fissure measuring 9 mm and 7 mm on image 95. Most likely nodular infiltrate suspected. There is linear atelectasis in the right middle lobe. Short interval followup CT in 3 months recommended. Percy Barnes MD Chest X-Ray 04/16/16 [id number] Signed Impressions: Service Date/Time: Sunday, April 17, 2016 00:55 - CONCLUSION: Endotracheal tube as described above. Percy Barnes MD Objective Remarks GENERAL: Cachectic, ill-appearing patient. SKIN: Warm and dry. HEAD: Normocephalic. Atraumatic. NECK: Supple, trachea midline. Orally intubated. CARDIOVASCULAR: Regular rate and rhythm without murmurs, gallops, or rubs. No JVD. RESPIRATORY: Breath sounds equal bilaterally. No accessory muscle use. Copious secretions, foul appearing. GASTROINTESTINAL: Abdomen soft, non-tender, nondistended. MUSCULOSKELETAL: No cyanosis, or edema. Well perfused. NEURO: Minimal spontaneous limb movement. Breathes over vent. A/P Problem List: (1) Acute respiratory failure with hypoxia ICD Code: J96.01 Status: Acute (2) Acute kidney injury ICD Code: N17.9 Status: Acute (3) Septic shock ICD Code: A41.9 Status: Acute (4) Alcohol abuse ICD Code: F10.10 Status: Chronic Assessment and Plan Respiratory failure - due to SIRS/Sepsis - mechanical ventilation - SBT when more alert and hemodynamically stable -Sputum culture COPD - no exacerbation - no steroids - aerosols scheduled and PRN - resume home Spiriva when extubated ETOH dependency - versed gtt - CIWA when extubated -Start prededex for agitation. SIRS - broad spectrum ATB - follow up cultures - de-escalate when cultures available YULIET - dehydration - aggressive fluid resuscitation - follow up creatinine and electrolytes Peripheral neuropathy - Gabapentin Renal and adrenal mass - MRI w and w/o when creatinine improves ID - Gram + cocci in blood 04/17 DVT/GI prophylaxis - Heparin/Protonix Overall impression: Patient is critically ill having been found down and intoxicated. Bacteremia with G+ cocci and still largely obtunded. Anticipate problems with seizures. New asystolic episodes occurred after precedex started, now d/c'd. Critical care 44 mins Luis M Thomas MD Apr 18, 2016 09:31
[2016-04-18] MEDS ORDERED: VANCOMYCIN INJ 1,250 MG in SODIUM CHLOR 0.9% 250 ML INJ 250 ML IV ONE (11:00)
--- NOTE | 2016-04-18 12:58 | EKG ---
Date Performed: 04/17/2016 Time Performed: 21:48:06 PTAGE: 65 years EKG: Atrial flutter Lateral T wave changes are nonspecific Compared to previous tracing atrial f lutter has replaced Sinus rhythm Abnormal ECG NO PREVIOUS TRACING DOCTOR: Moissé Ro Interpretating Date/Time 04/18/2016 12:56:53
[2016-04-18] MEDS: DEXMEDETOMIDINE INJ 50 ML IV SCH (17:01)
[2016-04-18] MEDS ORDERED: CALCIUM CHLORIDE INJ 2 GM in SODIUM CHLORIDE 0.9% INJ 100 ML IV ONE (18:00)
[2016-04-18 18:48] LABS: BICARBONATE 19.4 MEQ/L (21.0-32.0); POTASSIUM 3.7 MEQ/L (3.5-5.1)
[2016-04-18 19:30] LABS: MAGNESIUM 0.9 MG/DL (1.5-2.5)
[2016-04-18] MEDS: LORazepam 2 MG/ML VIAL IV PUSH PRN (20:37)
[2016-04-18] MEDS: MIDAZOLAM 100 MG/ML INJ 100 ML IV SCH (23:15)
[2016-04-19] VITALS (20 sets, daily range): BP systolic 137–175; BP diastolic 79–99; PULSE 83–137; RESP 16–24; TEMP 97.3–100.5; O2SAT 94–98
[2016-04-19] MEDS: SODIUM CHLOR 0.9% 1000 ML INJ 1,000 ML IV SCH ×3 (00:20→15:46)
[2016-04-19] MEDS: LORazepam 2 MG/ML VIAL IV PUSH PRN ×2 (01:33→21:03)
[2016-04-19] MEDS: ALBUMIN HUMAN 5% 25 GM/500 ML BOTTLE IV SCH ×2 (02:16→15:45)
[2016-04-19] MEDS: CEFEPIME INJ 2,000 MG in SODIUM CHLORIDE 0.9% INJ 100 ML IV SCH (02:16)
[2016-04-19] MEDS: METOCLOPRAMIDE HCL SYRUP 10 MG/10 ML UDC PO SCH ×3 (03:44→19:54)
[2016-04-19] MEDS: CHLORHEXIDINE GLUCONATE 2 % 1 PACK (2 CLOTHS) TOP SCH (03:45)
[2016-04-19 04:16] LABS: BICARBONATE 18.6 MEQ/L (21.0-32.0); POTASSIUM 3.7 MEQ/L (3.5-5.1)
[2016-04-19] MEDS: DOCUSATE SODIUM 100 MG/10 ML UDC G-TUBE SCH ×2 (07:51→19:54)
[2016-04-19] MEDS: THIAMINE INJ 100 MG in SODIUM CHLORIDE 0.9% INJ 100 ML IV SCH (07:51)
[2016-04-19] MEDS: PANTOPRAZOLE SODIUM 40 MG VIAL IV SCH (07:51)
[2016-04-19] MEDS: GABAPENTIN 400 MG CAP PO SCH (07:51)
[2016-04-19] MEDS: SODIUM CHLORIDE 0.9% FLUSH 5 ML FLUSH IV FLUSH SCH ×2 (07:51→20:00)
[2016-04-19] MEDS: HEPARIN SODIUM - SQ 10,000 UNITS/ML VIAL SQ SCH ×2 (07:52→20:00)
[2016-04-19] MEDS: CHLORHEXIDINE 0.12% (ORAL KIT) 15 ML CUP MT SCH ×2 (07:55→19:55)
[2016-04-19] MEDS: ARTIFICIAL TEARS OPTH SOLN 15 ML BTL EACH EYE SCH ×3 (07:55→15:46)
[2016-04-19] MEDS: BENEPROTEIN POWDER 1 PACK G-TUBE SCH ×3 (07:55→15:46)
--- NOTE | 2016-04-19 11:00 | HHI.CCPN ---
Subjective Remarks/Hospital Course 65-year-old woman brought in by EMS intubated for respiratory distress, and abdominal pain. She has recently had relapse of alcohol dependency disease and was found sitting on the floor in marked respiratory distress. 80% on room air. 04/18: Arrived severely dehydrated with YULIET and obtundation after excess alcohol consumption. Now tolerating PSV but fails weaning trial from ventilator. May need precedex for detox. She has developed a-fib with tachy- renzo. Several 6 sec asystolic pauses Transcutaneous pacer placed on demand mode 04/19: Remains sedated, orally intubated on mechanical ventilation Objective Vital Signs Date Time Temp Pulse Resp B/P Pulse Ox O2 Delivery O2 Flow Rate FiO2 04/19/16 08:31 96 40 04/19/16 07:00 Mechanical Ventilator 04/19/16 06:00 83 04/19/16 04:00 100.2 16 137/81 Intake and Output 04/18/16 04/18/16 04/19/16 08:00 16:00 00:00 Intake Total 1180 ml 1700 ml 2213 ml Output Total 250 ml 300.0 ml 250 ml Balance 930 ml 1400.0 ml 1963 ml Result Diagram: 04/18/16 0713 04/19/16 0311 Imaging Last [address] 04/17/165 Signed Impressions: Service Date/Time: Sunday, April 17, 2016 00:28 - CONCLUSION: No acute disease. Percy Barnes MD CT Angiography 04/17/16 0000 Signed Impressions: Service Date/Time: Sunday, April 17, 2016 00:31 - CONCLUSION: 1. Severe emphysema without evidence for pleural or embolism. 2. Bilateral hilar adenopathy, and dense bilateral pulmonary consolidation in the lower lobes left greater than right. 3. Left adrenal mass incompletely characterized, and left renal mass measuring soft tissue density. Workup with MRI of the abdomen with and without contrast of these findings is recommended on a nonemergent outpatient basis. 4. Mild nodularity seen within the right middle lobe abutting the fissure measuring 9 mm and 7 mm on image 95. Most likely nodular infiltrate suspected. There is linear atelectasis in the right middle lobe. Short interval followup CT in 3 months recommended. Percy Barnes MD Chest X-Ray 04/16/16 2344 Signed Impressions: Service Date/Time: Sunday, April 17, 2016 00:55 - CONCLUSION: Endotracheal tube as described above. Percy Barnes MD Objective Remarks GENERAL: Cachectic, ill-appearing patient. SKIN: Warm and dry. HEAD: Normocephalic. Atraumatic. NECK: Supple, trachea midline. Orally intubated. CARDIOVASCULAR: Regular rate and rhythm without murmurs, gallops, or rubs. No JVD. RESPIRATORY: Breath sounds equal bilaterally. No accessory muscle use. Copious secretions, foul appearing. GASTROINTESTINAL: Abdomen soft, non-tender, nondistended. MUSCULOSKELETAL: No cyanosis, or edema. Well perfused. NEURO: Minimal spontaneous limb movement. Breathes over vent. A/P Problem List: (1) Acute respiratory failure with hypoxia ICD Code: J96.01 Status: Acute (2) Acute kidney injury ICD Code: N17.9 Status: Acute (3) Septic shock ICD Code: A41.9 Status: Acute (4) Alcohol abuse ICD Code: F10.10 Status: Chronic Assessment and Plan Respiratory failure - due to SIRS/Sepsis - mechanical ventilation - SBT when more alert and hemodynamically stable -Sputum culture COPD - no exacerbation - no steroids - aerosols scheduled and PRN - resume home Spiriva when extubated ETOH dependency - versed gtt - CIWA when extubated -Precedex discontinued due to bradycardia SIRS - broad spectrum ATB - follow up cultures - de-escalate when cultures available YULIET - dehydration - aggressive fluid resuscitation - follow up creatinine and electrolytes Peripheral neuropathy - Gabapentin Renal and adrenal mass - MRI w and w/o when creatinine improves ID - Gram + cocci in blood 04/17 DVT/GI prophylaxis - Heparin/Protonix Overall impression: Patient is critically ill having been found down and intoxicated. Bacteremia with G+ cocci and still largely obtunded. Anticipate problems with seizures. New asystolic episodes occurred after precedex started, now d/c'd. Critical care 40 mins Javid Strong MD Apr 19, 2016 11:00
[2016-04-19 16:11] LABS: BICARBONATE 20.5 MEQ/L (21.0-32.0); POTASSIUM 3.5 MEQ/L (3.5-5.1)
[2016-04-19] MEDS: MIDAZOLAM 100 MG/ML INJ 100 ML IV SCH (16:54)
[2016-04-20] VITALS (17 sets, daily range): BP systolic 133–168; BP diastolic 76–89; PULSE 100–118; RESP 15–21; TEMP 97.6–98.8; O2SAT 93–97
[2016-04-20 00:10] LABS: ALT (GPT) 12 U/L (10-53); ANION GAP 7 MEQ/L (5-15); AST (GOT) 17 U/L (15-37); BLOOD UREA NITROGEN 57 MG/DL (7-18); CHLORIDE 116 MEQ/L (98-107); GLOMERULAR FILTRATION RATE 46 ML/MIN (>89); POTASSIUM 3.5 MEQ/L (3.5-5.1); SODIUM (NA) 144 MEQ/L (136-145)
[2016-04-20 00:12] LABS: ALKALINE PHOSPHATASE 93 U/L (45-117); TOTAL BILIRUBIN ADULT 0.8 MG/DL (0.2-1.0)
[2016-04-20] MEDS: SODIUM CHLOR 0.9% 1000 ML INJ 1,000 ML IV SCH ×3 (00:13→16:47)
[2016-04-20] MEDS ORDERED: VANCOMYCIN 1,000 MG/NS 250 ML IV ONE ×2 (01:00)
[2016-04-20] MEDS: MORPHINE SULFATE 4 MG/ML INJ IV PRN ×4 (02:03→23:44)
[2016-04-20] MEDS: ALBUMIN HUMAN 5% 25 GM/500 ML BOTTLE IV SCH ×2 (02:04→14:14)
[2016-04-20] MEDS: CEFEPIME INJ 2,000 MG in SODIUM CHLORIDE 0.9% INJ 100 ML IV SCH (02:04)
[2016-04-20] MEDS: METOCLOPRAMIDE HCL SYRUP 10 MG/10 ML UDC PO SCH ×3 (03:51→20:12)
[2016-04-20] MEDS: CHLORHEXIDINE GLUCONATE 2 % 1 PACK (2 CLOTHS) TOP SCH (03:52)
[2016-04-20] MEDS: LORazepam 2 MG/ML VIAL IV PUSH PRN ×2 (04:02→23:06)
[2016-04-20 05:17] LABS: AUTOMATED NEUTROPHIL # 19.6 TH/MM3 (1.8-7.7); BASOPHIL # 0.1 TH/MM3 (0-0.2); BASOPHIL % 0.5 % (0.0-2.0); EOSINOPHIL # 0.1 TH/MM3 (0-0.4); EOSINOPHIL % 0.3 % (0.0-4.0); LYMPH % 4.1 % (9.0-44.0); MEAN CELL VOLUME 92.6 FL (80.0-100.0); MEAN CORPUSCULAR HEMOGLOBIN 31.1 PG (27.0-34.0); MEAN CORPUSCULAR HGB CONC 33.6 % (32.0-36.0); MONO % 12.2 % (0.0-8.0); NEUT % 82.9 % (16.0-70.0); PLATELET COUNT 49 TH/MM3 (150-450); RED BLOOD COUNT 3.99 MIL/MM3 (4.00-5.30); RED CELL DISTRIBUTION WIDTH 17.1 % (11.6-17.2); WHITE BLOOD COUNT 23.7 TH/MM3 (4.0-11.0)
[2016-04-20 05:18] LABS: HEMO FLAGS AUTO DIFF
[2016-04-20 06:32] LABS: BANDS 25 % (0-6); POLYS (SEG NEUTROPHILS) 68 % (16-70); SCAN/DIFF FINAL DIFF MANUAL; WBC DIFF SAMPLE 100
[2016-04-20 06:34] LABS: PLATELET ESTIMATE SMEAR LOW (NORMAL); PLATELET MORPHOLOGY NORMAL (NORMAL)
[2016-04-20] MEDS: PANTOPRAZOLE SODIUM 40 MG VIAL IV SCH (08:09)
[2016-04-20] MEDS: DOCUSATE SODIUM 100 MG/10 ML UDC G-TUBE SCH ×2 (08:11→20:12)
[2016-04-20] MEDS: CHLORHEXIDINE 0.12% (ORAL KIT) 15 ML CUP MT SCH ×2 (08:11→20:13)
[2016-04-20] MEDS: GABAPENTIN 400 MG CAP PO SCH (08:11)
[2016-04-20] MEDS: BENEPROTEIN POWDER 1 PACK G-TUBE SCH ×3 (08:12→18:16)
[2016-04-20] MEDS: SODIUM CHLORIDE 0.9% FLUSH 5 ML FLUSH IV FLUSH SCH ×2 (08:12→20:12)
[2016-04-20] MEDS: ARTIFICIAL TEARS OPTH SOLN 15 ML BTL EACH EYE SCH ×3 (08:12→18:16)
[2016-04-20] MEDS: THIAMINE INJ 100 MG in SODIUM CHLORIDE 0.9% INJ 100 ML IV SCH (08:12)
[2016-04-20] MEDS: HEPARIN SODIUM - SQ 10,000 UNITS/ML VIAL SQ SCH (09:00)
--- NOTE | 2016-04-20 11:28 | HHI.CCPN ---
Subjective Remarks/Hospital Course 65-year-old woman brought in by EMS intubated for respiratory distress, and abdominal pain. She has recently had relapse of alcohol dependency disease and was found sitting on the floor in marked respiratory distress. 80% on room air. 04/18: Arrived severely dehydrated with YULIET and obtundation after excess alcohol consumption. Now tolerating PSV but fails weaning trial from ventilator. May need precedex for detox. She has developed a-fib with tachy- renzo. Several 6 sec asystolic pauses Transcutaneous pacer placed on demand mode 04/19: Remains sedated, orally intubated on mechanical ventilation. 04/20: Remains sedated, orally intubated on mechanical ventilation. Daily C Pap trials. Objective Vital Signs Date Time Temp Pulse Resp B/P Pulse Ox O2 Delivery O2 Flow Rate FiO2 04/20/16 10:00 112 04/20/16 08:16 17 04/20/16 08:00 98.0 163/82 94 04/20/16 08:00 40 04/20/16 07:00 Mechanical Ventilator Intake and Output 04/19/16 04/19/16 04/20/16 08:00 16:00 00:00 Intake Total 1359 ml 2151 ml 1657 ml Output Total 350 ml 37 ml Balance 1009 ml 2114 ml 1657 ml Result Diagram: 04/20/16 0344 04/19/16 2347 Imaging Last [address] 04/17/16 2344 Signed Impressions: Service Date/Time: Sunday, April 17, 2016 00:28 - CONCLUSION: No acute disease. Percy Barnes MD CT Angiography 04/17/16 0000 Signed Impressions: Service Date/Time: Sunday, April 17, 2016 00:31 - CONCLUSION: 1. Severe emphysema without evidence for pleural or embolism. 2. Bilateral hilar adenopathy, and dense bilateral pulmonary consolidation in the lower lobes left greater than right. 3. Left adrenal mass incompletely characterized, and left renal mass measuring soft tissue density. Workup with MRI of the abdomen with and without contrast of these findings is recommended on a nonemergent outpatient basis. 4. Mild nodularity seen within the right middle lobe abutting the fissure measuring 9 mm and 7 mm on image 95. Most likely nodular infiltrate suspected. There is linear atelectasis in the right middle lobe. Short interval followup CT in 3 months recommended. Percy Barnes MD Chest X-Ray 04/16/16 4096 Signed Impressions: Service Date/Time: Sunday, April 17, 2016 00:55 - CONCLUSION: Endotracheal tube as described above. Percy Barnes MD Objective Remarks GENERAL: Cachectic, ill-appearing patient. SKIN: Warm and dry. HEAD: Normocephalic. Atraumatic. NECK: Supple, trachea midline. Orally intubated. CARDIOVASCULAR: Regular rate and rhythm without murmurs, gallops, or rubs. No JVD. RESPIRATORY: Orally intubated on mechanical ventilation, Breath sounds equal bilaterally. Scattered rhonchi no wheezing GASTROINTESTINAL: Abdomen soft, non-tender, nondistended. MUSCULOSKELETAL: No cyanosis, or edema. Well perfused. NEURO: Sedated, orally intubated, Minimal spontaneous limb movement. Breathes over vent. A/P Problem List: (1) Acute respiratory failure with hypoxia ICD Code: J96.01 Status: Acute (2) Acute kidney injury ICD Code: N17.9 Status: Acute (3) Septic shock ICD Code: A41.9 Status: Acute (4) Alcohol abuse ICD Code: F10.10 Status: Chronic Assessment and Plan Respiratory failure - due to SIRS/Sepsis - mechanical ventilation -Start daily C Pap trials -Sputum culture COPD - no exacerbation - no steroids - aerosols scheduled and PRN - resume home Spiriva when extubated ETOH dependency - versed gtt - CIWA when extubated -Precedex discontinued due to bradycardia SIRS - broad spectrum ATB - follow up cultures - de-escalate when cultures available YULIET - dehydration - aggressive fluid resuscitation - follow up creatinine and electrolytes Peripheral neuropathy - Gabapentin Renal and adrenal mass - MRI w and w/o when creatinine improves ID - Gram + cocci in blood 04/17 Heme: - Thrombocytopenia noted. Start subcutaneous heparin. Check HIT screen DVT/GI prophylaxis - Protonix. We will hold heparin starting 04/20 due to thrombocytopenia and check for HIT screen. Overall impression: Patient is critically ill having been found down and intoxicated. Bacteremia with G+ cocci and still largely obtunded. Anticipate problems with seizures. New asystolic episodes occurred after precedex started, now d/c'd. Time spent on critical care excluding procedures 30 mins Javid Strong MD Apr 20, 2016 11:28
[2016-04-20] MEDS ORDERED: POTASSIUM CHLOR 20 MEQ PREMIX 100 ML IV PRN ×2 (11:30)
[2016-04-20] MEDS ORDERED: MAGNESIUM OXIDE 400 MG TAB PO PRN (11:30)
[2016-04-20] MEDS ORDERED: SODIUM PHOSPHATE INJ 30 MMOL in SODIUM CHLOR 0.9% 250 ML INJ 240 ML IV PRN (11:30)
[2016-04-20] MEDS ORDERED: POTASSIUM PHOSPHATE INJ 30 MMOL in SODIUM CHLOR 0.9% 250 ML INJ 250 ML IV PRN (11:30)
[2016-04-20] MEDS ORDERED: POTASSIUM PHOSPHATE MONOBASIC 500 MG TAB PO/TUBE PRN (11:30)
[2016-04-20] MEDS ORDERED: POTASSIUM CL 40 MEQ/30 ML LIQ UDC PO/TUBE ONE (11:30)
[2016-04-20] MEDS ORDERED: POTASSIUM PHOSPHATE MONOBASIC 500 MG TAB PO PRN (11:30)
[2016-04-20] MEDS ORDERED: MAGNESIUM SULFATE INJ 4 GM in SODIUM CHLORIDE 0.9% INJ 92 ML IV PRN (11:30)
[2016-04-20] MEDS ORDERED: POTASSIUM CL 40 MEQ/30 ML LIQ UDC PO/TUBE PRN ×2 (11:30)
[2016-04-20 12:44] LABS: BLOOD GAS BASE EXCESS -8.4 mmol/L (-2-2); BLOOD GAS CARBOXYHEMOGLOBIN 1.5 % (0-4); BLOOD GAS HCO3 18 mmol/L (22-26); BLOOD GAS METHEMOGLOBIN 0.9 % (0-2); BLOOD GAS O2 HGB SATURATION 92 % (90-100); BLOOD GAS OXYGEN CONTENT 15.7 Vol % (12.0-20.0); BLOOD GAS PCO2 47 mmHg (38-42); BLOOD GAS PO2 79 mmHg (61-120); BLOOD GAS TOTAL HGB 12.1 G/DL (12.0-16.0); CRITICAL VALUE YES; TEMP CORR TO 98.6
[2016-04-20 12:45] LABS: DRAW SITE RT RADIAL; FIO2 40 %; NUMBER OF ARTERIAL PUNCTURES 1; OXYGEN DEVICE VENTILATOR; STAT NO; ULNAR PULSE PRESENT
[2016-04-21] VITALS (20 sets, daily range): BP systolic 114–171; BP diastolic 62–82; PULSE 96–123; RESP 12–16; TEMP 98.4–99.2; O2SAT 91–100
[2016-04-21] MEDS: SODIUM CHLOR 0.9% 1000 ML INJ 1,000 ML IV SCH ×3 (00:16→17:33)
[2016-04-21] MEDS ORDERED: VANCOMYCIN INJ 750 MG in SODIUM CHLOR 0.9% 250 ML INJ 250 ML IV SCH (01:00)
[2016-04-21] MEDS: ALBUMIN HUMAN 5% 25 GM/500 ML BOTTLE IV SCH ×2 (02:03→14:18)
[2016-04-21] MEDS: MORPHINE SULFATE 4 MG/ML INJ IV PRN ×6 (02:05→20:11)
[2016-04-21] MEDS: CEFEPIME INJ 2,000 MG in SODIUM CHLORIDE 0.9% INJ 100 ML IV SCH (03:28)
[2016-04-21] MEDS: METOCLOPRAMIDE HCL SYRUP 10 MG/10 ML UDC PO SCH ×3 (03:28→19:51)
[2016-04-21] MEDS: CHLORHEXIDINE GLUCONATE 2 % 1 PACK (2 CLOTHS) TOP SCH (04:00)
[2016-04-21] MEDS: LORazepam 2 MG/ML VIAL IV PUSH PRN ×4 (04:07→20:12)
[2016-04-21] MEDS: CHLORHEXIDINE 0.12% (ORAL KIT) 15 ML CUP MT SCH ×2 (08:40→19:51)
[2016-04-21] MEDS: PANTOPRAZOLE SODIUM 40 MG VIAL IV SCH (08:42)
[2016-04-21] MEDS: GABAPENTIN 400 MG CAP PO SCH (08:42)
[2016-04-21] MEDS: THIAMINE INJ 100 MG in SODIUM CHLORIDE 0.9% INJ 100 ML IV SCH (08:42)
[2016-04-21] MEDS: DOCUSATE SODIUM 100 MG/10 ML UDC G-TUBE SCH ×2 (08:42→19:51)
[2016-04-21] MEDS: ARTIFICIAL TEARS OPTH SOLN 15 ML BTL EACH EYE SCH ×3 (08:44→18:10)
[2016-04-21] MEDS ORDERED: INFLUENZA VIRUS VACCINE (QUADRIVALENT) 0.5 ML SYR IM ONE (10:00)
--- NOTE | 2016-04-21 11:04 | HHI.CCPN ---
Subjective Remarks/Hospital Course 65-year-old woman brought in by EMS intubated for respiratory distress, and abdominal pain. She has recently had relapse of alcohol dependency disease and was found sitting on the floor in marked respiratory distress. 80% on room air. 04/18: Arrived severely dehydrated with YULIET and obtundation after excess alcohol consumption. Now tolerating PSV but fails weaning trial from ventilator. May need precedex for detox. She has developed a-fib with tachy- renzo. Several 6 sec asystolic pauses Transcutaneous pacer placed on demand mode 04/19: Remains sedated, orally intubated on mechanical ventilation. 04/20: Remains sedated, orally intubated on mechanical ventilation. Daily C Pap trials. 04/21: Remains sedated/encephalopathic, orally intubated on mechanical ventilation. Blood cultures with staph aureus. Daily C Pap trials however neurologic status precludes extubation Objective Vital Signs Date Time Temp Pulse Resp B/P Pulse Ox O2 Delivery O2 Flow Rate FiO2 04/21/16 07:53 30 04/21/16 07:51 100 04/21/16 06:00 96 04/21/16 04:00 98.4 16 170/80 04/20/16 19:00 Mechanical Ventilator Intake and Output 04/20/16 04/20/16 04/21/16 08:00 16:00 00:00 Intake Total 1660 ml 1502 ml 1358 ml Output Total 600 ml 525 ml 700 ml Balance 1060 ml 977 ml 658 ml Result Diagram: 04/20/16 0344 04/20/16 1605 Other Results Microbiology Date/Time Procedure Status Source Growth 04/18/16 12:30 Gram Stain - Final Complete Sputum Endotracheal 04/18/16 12:30 Sputum Culture - Final Complete Staphylococcus Aureus Laboratory Tests Test 04/20/16 12:30 Blood Gas Puncture Site RT RADIAL Blood Gas Patient Temperature 98.6 Blood Gas HCO3 18 mmol/L (22-26) Blood Gas Base Excess -8.4 mmol/L (-2-2) Blood Gas Oxygen Saturation 92 % (90-100) Arterial Blood pH 7.21 (7.380-7.420) Arterial Blood Partial 47 mmHg (38-42) Pressure CO2 Arterial Blood Partial 79 mmHg Pressure O2 (61-120) Arterial Blood Oxygen Content 15.7 Vol % (12.0-20.0) Arterial Blood 1.5 % (0-4) Carboxyhemoglobin Arterial Blood Methemoglobin 0.9 % (0-2) Blood Gas Hemoglobin 12.1 G/DL (12.0-16.0) Oxygen Delivery Device VENTILATOR Blood Gas Ventilator Setting Blood Gas Inspired Oxygen 40 % Imaging Last [address] 04/17/16 2344 Signed Impressions: Service Date/Time: Sunday, April 17, 2016 00:28 - CONCLUSION: No acute disease. Percy Barnes MD CT Angiography 04/17/16 0000 Signed Impressions: Service Date/Time: Sunday, April 17, 2016 00:31 - CONCLUSION: 1. Severe emphysema without evidence for pleural or embolism. 2. Bilateral hilar adenopathy, and dense bilateral pulmonary consolidation in the lower lobes left greater than right. 3. Left adrenal mass incompletely characterized, and left renal mass measuring soft tissue density. Workup with MRI of the abdomen with and without contrast of these findings is recommended on a nonemergent outpatient basis. 4. Mild nodularity seen within the right middle lobe abutting the fissure measuring 9 mm and 7 mm on image 95. Most likely nodular infiltrate suspected. There is linear atelectasis in the right middle lobe. Short interval followup CT in 3 months recommended. Percy Barnes MD Chest X-Ray 04/16/16 2344 Signed Impressions: Service Date/Time: Sunday, April 17, 2016 00:55 - CONCLUSION: Endotracheal tube as described above. Percy Barnes MD Objective Remarks GENERAL: Cachectic, ill-appearing patient. SKIN: Warm and dry. HEAD: Normocephalic. Atraumatic. NECK: Supple, trachea midline. Orally intubated. CARDIOVASCULAR: Regular rate and rhythm without murmurs, gallops, or rubs. No JVD. RESPIRATORY: Orally intubated on mechanical ventilation, Breath sounds equal bilaterally. Scattered rhonchi no wheezing GASTROINTESTINAL: Abdomen soft, non-tender, nondistended. MUSCULOSKELETAL: No cyanosis, or edema. Well perfused. NEURO: Sedated, encephalopathic, orally intubated, Minimal spontaneous limb movement. Breathes over vent. A/P Problem List: (1) Acute respiratory failure with hypoxia ICD Code: J96.01 Status: Acute (2) Acute kidney injury ICD Code: N17.9 Status: Acute (3) Septic shock ICD Code: A41.9 Status: Acute (4) Alcohol abuse ICD Code: F10.10 Status: Chronic Assessment and Plan Respiratory failure - due to SIRS/Sepsis - mechanical ventilation -Start daily C Pap trials -Sputum culture COPD - no exacerbation - no steroids - aerosols scheduled and PRN - resume home Spiriva when extubated ETOH dependency - versed gtt held on 04/21, slow to wake up. Received morphine and Ativan when necessary overnight. - CIWA when extubated -Precedex discontinued due to bradycardia YULIET - dehydration - aggressive fluid resuscitation - follow up creatinine and electrolytes Peripheral neuropathy - Gabapentin Renal and adrenal mass - MRI w and w/o when creatinine improves ID Sepsis - broad spectrum ATB -on vancomycin/cefepime IV - follow up cultures -Blood cultures with staph aureus 04/17. Repeat blood cultures today. We'll obtain ID consult Heme: - Thrombocytopenia noted. Start subcutaneous heparin. Check HIT screen DVT/GI prophylaxis - Protonix. Held heparin (04/20) due to thrombocytopenia and check for HIT screen. Overall impression: Patient is critically ill having been found down and intoxicated. Bacteremia with G+ cocci and still largely obtunded. Anticipate problems with seizures. New asystolic episodes occurred after precedex started, now d/c'd. Time spent on critical care excluding procedures 30 mins Javid Strong MD Apr 21, 2016 11:04
[2016-04-21] MEDS: SODIUM CHLORIDE 0.9% FLUSH 5 ML FLUSH IV FLUSH SCH ×2 (11:19→19:51)
[2016-04-21] MEDS: BENEPROTEIN POWDER 1 PACK G-TUBE SCH ×3 (11:19→18:00)
[2016-04-21] MEDS ORDERED: CEFEPIME INJ 2,000 MG in SODIUM CHLORIDE 0.9% INJ 100 ML IV SCH (15:00)
--- NOTE | 2016-04-21 16:49 | PD.ID.CON ---
History of Present Illness Service ID Consult Requested By Dr. Javid Strong Critical Care Reason for Consult Evaluation and Mment of Sepsis, MSSA bacteremia and Pneumonia. Primary Care Physician Unknown Diagnoses: History of Present Illness Most of the history was obtained from review of medical records. is a 65 y/o with alcoholism who was found on the floor in resp distress and sating 80% on RA. EMS intubated for respiratory distress and abdominal pain. Admission vitals included a amina of 99.9 F, tachycardia, low BP and elevated lactic acid. Patient underwent sepsis workup. Was started on IV antibiotics. She appeared to be severely dehydrated with acute kidney injury and mental obtundation. She was tried on Precedex but went into asystole and Afib. At the time of my evaluation patient was in ISC, encephalopathic, intubated on ventilator. Blood cultures with MSSA, Sputum cultures with MSSA. UO good, secretions resp noted. No diarrhea, No rash. Patient was on Cefepime IV and Vanco IV. ID consulted for evaluation and Mment of Sepsis, MSSA bacteremia and Pneumonia. Review of Systems ROS Limitations: Intubated Past Family Social History Allergies: Coded Allergies: Dexmedetomidine (Verified Allergy, Severe, Arrhythmias, 04/18/16) ASYSTOLE 04/18/16 Precedex (Verified Allergy, Severe, Arrhythmias, 04/18/16) ASYSTOLE 04/18/16 Camphor (Verified Allergy, Unknown, Swelling, 04/17/16) Past Medical History Alcoholism GERD Osteoarthritis HTN Neuropathy Chronic pain Osteoporosis based on meds. Some infection prior to arrival as pt was on amoxicillin. COPD Past Surgical History Left shoulder hardware seen on imaging and scar on physical exam Reported Medications Reported Meds & Active Scripts Active Reported Triamcinolone Acetonide (Triamcinolone Acetonide (Topic) 1 Pow Pow 0.1 Units TOPICAL DIALY Spiriva Handihaler (Tiotropium Inh) 18 Mcg Cap 18 Mcg INH DAILY 1 capsule = 18 mcg Proair Hfa 8.5 GM Inh (Albuterol Sulfate) 90 Mcg/Act Aer 2 Puff INH Q4-6H PRN 108 mcg/actuation Lasix (Furosemide) 40 Mg Tab 40 Mg PO DAILY Klor-Con M20 (Potassium Chloride Microencaps) 20 Meq Tab 20 Meq PO DAILY Ibandronate (Ibandronate Sodium) 150 Mg Tab 150 Mg PO Q28D Hydrocodone-Acetaminophen 10-325 mg Tab 1 Tab PO Q6H PRN Gabapentin 800 Mg Tab 800 Mg PO DAILY Furosemide 20 Mg Tab 20 Mg PO DAILY Allergy Nasal [place] 24 Ho (Fluticasone Propionate (Nasal)) 50 Mcg/Act Spr 50 Aerosol NASAL DAILY Benazepril (Benazepril HCl) 10 Mg Tab 10 Mg PO DAILY Baclofen 10 Mg Tab 10 Mg PO TID Atenolol 50 Mg Tab 50 Mg PO DAILY Amoxicillin 500 Mg Cap 500 Mg PO DAILY unknown duration Active Ordered Medications Current Medications Medications (Trade) Dose Ordered Sig/Issa Route Start Time Stop Time Status Last Admin (NS Flush) 2 ml UNSCH PRN IV FLUSH 04/17/16 02:30 (NS Flush) 2 ml BID IV FLUSH 04/17/16 09:00 04/21/16 11:19 (Tylenol) 650 mg Q6H PRN PO 04/17/16 02:30 (Morphine Inj) 2 mg Q2H PRN IV 04/17/16 02:30 04/21/16 14:20 (Protonix Inj) 40 mg DAILY IV 04/17/16 09:00 04/21/16 08:42 (Tears Naturale Opth Soln) 1 drop TID EACH EYE 04/17/16 09:00 04/21/16 18:10 (Zofran Inj) 4 mg Q6H PRN IV 04/17/16 02:30 (Reglan Inj) 5 mg Q6H PRN IV 04/17/16 02:30 (Colace Liq) 100 mg Q12H G-TUBE 04/17/16 09:00 04/21/16 08:42 Miscellaneous Information 1 Q361D XX 04/17/16 02:30 (Chlorhexidine 2% Cloth) 3 pack Taper DAILY@04 TOP 04/17/16 04:00 04/13/17 03:59 04/21/16 04:00 Chlorhexidine Gluconate 3 pack 3 pack UNSCH PRN TOP 04/17/16 02:30 (Versed Inj) 100 ml @ 0 mls/hr TITRATE IV 04/17/16 02:30 04/19/16 16:54 Albumin Human 25 gm 25 gm Q12H IV 04/17/16 03:00 04/21/16 14:18 (Thiamine Inj/NS Inj) 101 ml @ 101 mls/hr DAILY IV 04/17/16 13:00 04/21/16 08:42 (Beneprotein Powder) 1 pack TID G-TUBE 04/17/16 13:00 04/21/16 18:00 (Reglan Liq) 5 mg Q8H PO 04/17/16 12:00 04/21/16 11:12 (Ativan Inj) 1 mg Q15M PRN IV PUSH 04/17/16 12:00 Lorazepam 1 mg 1 mg Q4H PRN IV PUSH 04/17/16 12:00 04/21/16 14:21 Sodium Chloride 1,000 ml @ 125 mls/hr Q8H IV 04/17/16 12:00 04/21/16 17:33 (Levophed-Dextrose Drip) 250 ml @ 0 mls/hr TITRATE IV 04/17/16 12:00 (Brethine Inj) 1 mg UNSCH PRN SQ 04/17/16 12:00 (Neurontin) 800 mg DAILY PO 04/18/16 09:00 04/21/16 08:42 Chlorhexidine Gluconate 15 ml 15 ml BID@08,20 MT 04/18/16 20:00 04/21/16 08:40 Potassium Chloride 100 ml @ 50 mls/hr Q2H PRN IV 04/20/16 11:30 (KCl 20 Meq Premix Inj) 100 ml @ 50 mls/hr Q2H PRN IV 04/20/16 11:30 Potassium Chloride 40 meq 40 meq UNSCH PRN PO/TUBE 04/20/16 11:30 Potassium Chloride 100 ml @ 25 mls/hr UNSCH PRN IV 04/20/16 11:30 Potassium Chloride 100 ml @ 50 mls/hr Q2H PRN IV 04/20/16 11:30 (Magnesium Sulfate Inj/NS Inj) 100 ml @ 50 mls/hr UNSCH PRN IV 04/20/16 11:30 Magnesium Oxide 800 mg 800 mg UNSCH PRN PO 04/20/16 11:30 (Magnesium Sulfate Inj/NS Inj) 100 ml @ 50 mls/hr UNSCH PRN IV 04/20/16 11:30 Potassium Phosphate 2000 mg 2,000 mg Q4H PRN PO 04/20/16 11:30 (Sodium Phosphate Inj/NS 250 ml Inj) 250 ml @ 42 mls/hr UNSCH PRN IV 04/20/16 11:30 (KCl 40 Meq/30 ml Liq) 40 meq UNSCH PRN PO/TUBE 04/20/16 11:30 Potassium Phosphate 2000 mg 2,000 mg UNSCH PRN PO/TUBE 04/20/16 11:30 (Potassium Phosphate Inj/NS 250 ml Inj) 260 ml @ 42 mls/hr UNSCH PRN IV 04/20/16 11:30 Miscellaneous Information SPECIFIC LAB TO BE CARA... ONCE ONCE XX 04/22/16 00:45 04/22/16 00:46 (Prostaphlin Inj/ NS Inj) 100 ml @ 200 mls/hr Q4H IV 04/21/16 16:00 04/21/16 17:33 Family History could not be obtained. Social History Chronic alcoholism Smoking ? IVDA history not known. Physical Exam Vital Signs Vital Signs Date Time Temp Pulse Resp B/P Pulse Ox O2 Delivery O2 Flow Rate FiO2 04/21/16 16:35 99 40 04/21/16 14:57 93 40 04/21/16 14:00 123 04/21/16 12:00 40 04/21/16 12:00 98.4 116 12 155/82 94 04/21/16 12:00 116 04/21/16 11:56 96 40 04/21/16 10:00 110 04/21/16 08:00 118 04/21/16 08:00 40 04/21/16 08:00 99.2 118 16 171/81 96 04/21/16 07:53 30 04/21/16 07:51 100 30 04/21/16 07:00 91 Mechanical Ventilator 40 04/21/16 06:00 96 04/21/16 04:14 94 40 04/21/16 04:00 107 04/21/16 04:00 98.4 107 16 170/80 96 04/21/16 04:00 40 04/21/16 02:00 108 04/21/16 01:03 96 40 04/21/16 00:00 108 04/21/16 00:00 40 04/21/16 00:00 98.7 108 16 163/78 96 04/20/16 22:04 97 40 04/20/16 22:00 100 04/20/16 20:00 40 04/20/16 20:00 110 04/20/16 20:00 97.6 110 17 168/86 95 04/20/16 19:32 97 40 04/20/16 19:00 97 Mechanical Ventilator 40 Physical Exam GENERAL: Thin built poorly nourished patient, in no apparent distress. SKIN: Spider naevi on chest. HEAD: Atraumatic. Normocephalic. No temporal or scalp tenderness. EYES: Pupils equal round and reactive. Extraocular motions intact. No scleral icterus. No injection or drainage. ENT: Intubated, NECK: Trachea midline. Supple, nontender, no meningeal signs. CARDIOVASCULAR: HS audible. RESPIRATORY: Breath sounds equal bilaterally with decrease in the bases. GASTROINTESTINAL: Abdomen soft, non-tender, nondistended. No hepato-splenomegaly , or palpable masses. No guarding. MUSCULOSKELETAL: Extremities without clubbing, cyanosis, or edema. No joint tenderness, effusion, or edema noted. No calf tenderness. Negative Homans sign bilaterally. NEUROLOGICAL: Lethargic, arousable to commands and deep stimuli. Follows simple commands like wiggling toes. Psych could not be assessed IV line sites with no e/o infection. Laboratory Date/Time Procedure Status Source Growth 04/21/16 14:33 Aerobic Blood Culture Received Blood Peripheral Pending 04/21/16 14:33 Anaerobic Blood Culture Received Blood Peripheral Pending 04/18/16 12:30 Gram Stain - Final Complete Sputum Endotracheal 04/18/16 12:30 Sputum Culture - Final Complete Staphylococcus Aureus 04/17/16 02:45 Aerobic Blood Culture - Preliminary Resulted Blood Peripheral NO GROWTH IN 4 DAYS 04/17/16 02:45 Anaerobic Blood Culture - Final Resulted Staphylococcus Aureus 04/17/16 02:15 Aerobic Blood Culture - Final Complete Blood Peripheral Staphylococcus Aureus 04/17/16 02:15 Anaerobic Blood Culture - Final Complete Staphylococcus Aureus 04/17/16 00:01 Urine Culture - Final Complete Urine Catheterized Urine Enterococcus Faecalis Lactobacillus Species Result Diagram: 04/20/16 0344 04/20/16 1605 Imaging Last Impressions Head CT 04/17/16 2344 Signed Impressions: Service Date/Time: Sunday, April 17, 2016 00:28 - CONCLUSION: No acute disease. Percy Barnes MD CT Angiography 04/17/16 0000 Signed Impressions: Service Date/Time: Sunday, April 17, 2016 00:31 - CONCLUSION: 1. Severe emphysema without evidence for pleural or embolism. 2. Bilateral hilar adenopathy, and dense bilateral pulmonary consolidation in the lower lobes left greater than right. 3. Left adrenal mass incompletely characterized, and left renal mass measuring soft tissue density. Workup with MRI of the abdomen with and without contrast of these findings is recommended on a nonemergent outpatient basis. 4. Mild nodularity seen within the right middle lobe abutting the fissure measuring 9 mm and 7 mm on image 95. Most likely nodular infiltrate suspected. There is linear atelectasis in the right middle lobe. Short interval followup CT in 3 months recommended. Percy Barnes MD Abdomen/Pelvis CT 04/17/16 0000 Signed Impressions: Service Date/Time: Sunday, April 17, 2016 06:30 - CONCLUSION: 1. Mild distention of the gallbladder. 2. Bilateral renal cysts are noted as well as an indeterminate mass upper pole left kidney, probable hemorrhagic or proteinaceous cyst and can be further evaluated with MRI of the abdomen with and without contrast on a nonemergent outpatient basis. 3. Bilateral lower lobe consolidation. 4. Indeterminate probable adenomas left adrenal mass. 5. Atherosclerosis. 6. Nodular infiltrate in the right middle lobe is seen. Percy Barnes MD Chest X-Ray 04/16/16 2344 Signed Impressions: Service Date/Time: Sunday, April 17, 2016 00:55 - CONCLUSION: Endotracheal tube as described above. Percy Barnes MD Assessment and Plan Assessment and Plan Severe Sepsis present on admission MSSA bacteremia MSSA pneumonia vs septic emboli Lactobacillus and Enterococcus faecalis in urine/UTI treated on admission. Likely not the source of infection. Acute metabolic encephalopathy: sepsis, alcoholism Acute renal failure: sepsis, prerenal. Thrombocytopenia: likely sepsis, ? meds. Will DC Vanco Recs DC Vanco IV (? cause of low platelets) DC Zosyn IV Repeat Blood cultures 2D ECHO to r/o endocarditis. Start Oxacillin IV more directed and first line treatment for disseminated MSSA infection. Check CRP. If encephalopathy persists may need MRI brain and LP to r/o septic emboli to the brain. At present appears to be related to sepsis. No neck stiffness. Opens eyes, follows simple commands. shakila RN and PIPER PATEL. Critical thinking and decision making. Time > 80 mins Sophia Strong MD Apr 21, 2016 16:49 Critical thinking and decision making. Time > 80 mins Sophia Strong MD Apr 21, 2016 16:49
[2016-04-21 17:17] LABS: HEPARIN AB OD 0.048 O.D. (0.000-0.300); HEPARIN INDUCED PLATELET AB NEGATIVE (NEGATIVE)
[2016-04-21] MEDS: OXACILLIN INJ 2 GM in SODIUM CHLORIDE 0.9% INJ 100 ML IV SCH ×2 (17:33→19:51)
[2016-04-21] MEDS: RESP: ALBUTEROL 2.5 MG/IPRATROPIUM 0.5 MG NEB (PRN) INH (19:25)
[2016-04-22] VITALS (18 sets, daily range): BP systolic 136–172; BP diastolic 73–87; PULSE 87–114; RESP 16–20; TEMP 98–99.1; O2SAT 92–100
[2016-04-22] MEDS: MORPHINE SULFATE 4 MG/ML INJ IV PRN ×3 (00:16→03:38)
[2016-04-22] MEDS: OXACILLIN INJ 2 GM in SODIUM CHLORIDE 0.9% INJ 100 ML IV SCH ×6 (00:16→19:56)
[2016-04-22] MEDS: SODIUM CHLOR 0.9% 1000 ML INJ 1,000 ML IV SCH ×3 (00:17→16:13)
[2016-04-22] MEDS ORDERED: PHARMACY ORDERED LAB XX ONE (00:45)
[2016-04-22] MEDS: hydrALAZINE HCL 20 MG/ML VIAL IV PRN (02:13)
[2016-04-22] MEDS: ALBUMIN HUMAN 5% 25 GM/500 ML BOTTLE IV SCH ×2 (02:13→15:11)
[2016-04-22] MEDS: RESP: ALBUTEROL 2.5 MG/IPRATROPIUM 0.5 MG NEB (PRN) INH ×4 (03:03→19:42)
[2016-04-22] MEDS: LORazepam 2 MG/ML VIAL IV PUSH PRN (03:33)
[2016-04-22] MEDS: METOCLOPRAMIDE HCL SYRUP 10 MG/10 ML UDC PO SCH ×3 (03:33→19:56)
[2016-04-22] MEDS: CHLORHEXIDINE GLUCONATE 2 % 1 PACK (2 CLOTHS) TOP SCH (04:26)
[2016-04-22] MEDS: GABAPENTIN 400 MG CAP PO SCH (08:44)
[2016-04-22] MEDS: DOCUSATE SODIUM 100 MG/10 ML UDC G-TUBE SCH ×2 (08:45→19:56)
[2016-04-22] MEDS: LACTULOSE SYRUP 20 GM/30 ML CUP PO SCH (08:45)
[2016-04-22] MEDS: THIAMINE INJ 100 MG in SODIUM CHLORIDE 0.9% INJ 100 ML IV SCH (08:45)
[2016-04-22] MEDS: CHLORHEXIDINE 0.12% (ORAL KIT) 15 ML CUP MT SCH ×2 (08:45→19:56)
[2016-04-22] MEDS: PANTOPRAZOLE SODIUM 40 MG VIAL IV SCH (08:45)
[2016-04-22] MEDS: SODIUM CHLORIDE 0.9% FLUSH 5 ML FLUSH IV FLUSH SCH ×2 (08:46→19:56)
[2016-04-22] MEDS: ARTIFICIAL TEARS OPTH SOLN 15 ML BTL EACH EYE SCH ×3 (08:46→16:29)
[2016-04-22] MEDS: BENEPROTEIN POWDER 1 PACK G-TUBE SCH ×3 (08:50→16:29)
--- NOTE | 2016-04-22 09:22 | HHI.CCPN ---
Subjective Remarks/Hospital Course 65-year-old woman brought in by EMS intubated for respiratory distress, and abdominal pain. She has recently had relapse of alcohol dependency disease and was found sitting on the floor in marked respiratory distress. 80% on room air. 04/18: Arrived severely dehydrated with YULIET and obtundation after excess alcohol consumption. Now tolerating PSV but fails weaning trial from ventilator. May need precedex for detox. She has developed a-fib with tachy- mark. Several 6 sec asystolic pauses Transcutaneous pacer placed on demand mode 04/19: Remains sedated, orally intubated on mechanical ventilation. 04/20: Remains sedated, orally intubated on mechanical ventilation. Daily C Pap trials. 04/21: Remains sedated/encephalopathic, orally intubated on mechanical ventilation. Blood cultures with staph aureus. Daily C Pap trials however neurologic status precludes extubation 04/22: remains significantly tachycardic overnight. also thrombocytopenic. remains encephalopathic. Objective Vital Signs Date Time Temp Pulse Resp B/P Pulse Ox O2 Delivery O2 Flow Rate FiO2 04/22/16 07:46 40 04/22/16 07:46 97 04/22/16 06:00 109 04/22/16 04:00 98.0 16 172/77 04/21/16 19:00 Mechanical Ventilator Intake and Output 04/21/16 04/21/16 04/22/16 08:00 16:00 00:00 Intake Total 1706 ml 1517 ml 1769 ml Output Total 650 ml 900 ml 725 ml Balance 1056 ml 617 ml 1044 ml Result Diagram: 04/20/16 0344 04/20/16 1605 Imaging Last [address] 04/17/16 2344 Signed Impressions: Service Date/Time: Sunday, April 17, 2016 00:28 - CONCLUSION: No acute disease. Percy Barnes MD CT Angiography 04/17/16 0000 Signed Impressions: Service Date/Time: Sunday, April 17, 2016 00:31 - CONCLUSION: 1. Severe emphysema without evidence for pleural or embolism. 2. Bilateral hilar adenopathy, and dense bilateral pulmonary consolidation in the lower lobes left greater than right. 3. Left adrenal mass incompletely characterized, and left renal mass measuring soft tissue density. Workup with MRI of the abdomen with and without contrast of these findings is recommended on a nonemergent outpatient basis. 4. Mild nodularity seen within the right middle lobe abutting the fissure measuring 9 mm and 7 mm on image 95. Most likely nodular infiltrate suspected. There is linear atelectasis in the right middle lobe. Short interval followup CT in 3 months recommended. Percy Barnes MD Chest X-Ray 04/16/16 3384 Signed Impressions: Service Date/Time: Sunday, April 17, 2016 00:55 - CONCLUSION: Endotracheal tube as described above. Percy Barnes MD Objective Remarks GENERAL: Cachectic, ill-appearing patient. SKIN: Warm and dry. HEAD: Normocephalic. Atraumatic. NECK: Supple, trachea midline. Orally intubated. CARDIOVASCULAR: tachycardic rate, irregularly irregular. No JVD. RESPIRATORY: Orally intubated on mechanical ventilation, Breath sounds equal bilaterally. Scattered rhonchi no wheezing GASTROINTESTINAL: Abdomen soft, non-tender, nondistended. MUSCULOSKELETAL: No cyanosis, or edema. Well perfused. NEURO: Sedated, encephalopathic, orally intubated, Minimal spontaneous limb movement. Breathes over vent. A/P Problem List: (1) Acute respiratory failure with hypoxia ICD Code: J96.01 Status: Acute (2) Acute kidney injury ICD Code: N17.9 Status: Acute (3) Septic shock ICD Code: A41.9 Status: Acute (4) Alcohol abuse ICD Code: F10.10 Status: Chronic Assessment and Plan Assessment: 65yF with h/o etoh dependence now with metabolic encephalopathy, acute hypoxic respiratory failure, tachy-mark syndrome. still persistently encephalopathic and critically ill. not on pathway. Acute Hypoxic Respiratory failure - due to SIRS/Sepsis - mechanical ventilation -Start daily C Pap trials -Sputum culture - mental status prevents extubation. not on pathway. COPD - no exacerbation - no steroids - aerosols scheduled and PRN - resume home Spiriva when extubated ETOH dependency - versed gtt held on 04/21, slow to wake up. Received morphine and Ativan when necessary overnight. - CIWA when extubated -Precedex discontinued due to bradycardia - will start prn haldol and hold on additional benzos given severe encephalopathy. - iv thiamine and MVI daily. Metabolic Encephalopathy - haldol prn - check ammonia level - thiamine and mvi daily - hold sedating meds. Tachy-Mark syndrome - now remains tachycardic. history of mark arrest with AV noreen blocking agents - will start esmolol drip for goal SBP < 160 and HR < [address]. [address] we can rapidly titrate if she becomes bradycardic. YULIET - dehydration - aggressive fluid resuscitation - follow up creatinine and electrolytes Peripheral neuropathy - hold gabapentin given sedation. will restart at lower dose when more awake. Renal and adrenal mass - MRI w and w/o when creatinine improves ID Sepsis - broad spectrum ATB -on vancomycin/cefepime IV - follow up cultures -Blood cultures with staph aureus 04/17. Repeat blood cultures pending. ID consult Heme: - Thrombocytopenia noted. HIT negative. subcutaneous heparin. DVT/GI prophylaxis - Protonix. SQH. SCDs. Overall impression: Patient is critically ill having been found down and intoxicated. Bacteremia with G+ cocci and still largely obtunded. Anticipate problems with seizures. New asystolic episodes occurred after precedex started, now d/c'd. Time spent on critical care excluding procedures 44 mins Ravinder Uribe MD Apr 22, 2016 09:22
[2016-04-22 09:38] LABS: AUTOMATED NEUTROPHIL # 14.3 TH/MM3 (1.8-7.7); BASOPHIL % 0.2 % (0.0-2.0); EOSINOPHIL # 0.1 TH/MM3 (0-0.4); EOSINOPHIL % 0.3 % (0.0-4.0); LYMPH % 3.5 % (9.0-44.0); LYMPHOCYTE # 0.6 TH/MM3 (1.0-4.8); MEAN CELL VOLUME 93.7 FL (80.0-100.0); MEAN CORPUSCULAR HEMOGLOBIN 31.9 PG (27.0-34.0); PLATELET COUNT 68 TH/MM3 (150-450); RED BLOOD COUNT 3.63 MIL/MM3 (4.00-5.30); RED CELL DISTRIBUTION WIDTH 16.8 % (11.6-17.2); WHITE BLOOD COUNT 16.6 TH/MM3 (4.0-11.0)
[2016-04-22 09:41] LABS: HEMO FLAGS AUTO DIFF
[2016-04-22 09:48] LABS: APTT (PATIENT) 44.7 SEC (24.3-30.1); INTERNATIONAL NORMALIZED RATIO 1.2 RATIO; PROTHROMBIN TIME - PATIENT 13.6 SEC (9.8-11.6)
[2016-04-22] MEDS: ESMOLOL DRIP INJ PREMIX 250 ML IV SCH ×2 (10:07→20:42)
[2016-04-22 10:11] LABS: PLATELET ESTIMATE SMEAR LOW (NORMAL); PLATELET MORPHOLOGY NORMAL (NORMAL); SCAN/DIFF AUTO DIFF CONFIRMED; TOXIC GRANULATION 1+ (NORMAL)
[2016-04-22 10:33] LABS: BICARBONATE 22.2 MEQ/L (21.0-32.0); INDIRECT BILIRUBIN 0.6 MG/DL (0.0-0.8); MAGNESIUM 0.7 MG/DL (1.5-2.5)
[2016-04-22 10:37] LABS: POTASSIUM 2.5 MEQ/L (3.5-5.1)
[2016-04-22] MEDS ORDERED: FUROSEMIDE 40 MG/4 ML VIAL IV PUSH ONE (10:45)
[2016-04-22] MEDS ORDERED: POTASSIUM CL 40 MEQ/30 ML LIQ UDC PO ONE (10:45)
[2016-04-22] MEDS ORDERED: MAGNESIUM SULFATE 4 GM PREMIX 100 ML IV ONE (11:00)
[2016-04-22] MEDS ORDERED: POTASSIUM PHOSPHATE INJ 30 MMOL in SODIUM CHLOR 0.9% 250 ML INJ 250 ML IV ONE (11:00)
[2016-04-22] MEDS: MULTIVITAMIN TAB PO SCH (11:46)
[2016-04-22] MEDS: POTASSIUM CHLOR 40 MEQ PREMIX 100 ML IV SCH ×2 (11:47→15:00)
[2016-04-22] MEDS ORDERED: MAGNESIUM SULFATE INJ 4 GM in SODIUM CHLORIDE 0.9% INJ 92 ML IV ONE (12:00)
--- NOTE | 2016-04-22 12:24 | RADRPT ---
EXAM DATE/TIME: 04/22/2016 12:00 [facility] COMPARISON: CHEST SINGLE AP, April 17, 2016, 0:55. INDICATIONS : Left subclavian line placement. MEDICAL HISTORY : Hypertension. Chronic obstructive pulmonary disease. SURGICAL HISTORY : mastectomy ENCOUNTER: Initial ACUITY: 4 - 6 days PAIN SCORE: Non-responsive. LOCATION: Bilateral chest FINDINGS: ET tube is at the akua directed towards the right main bronchus. Left subclavian catheter is in go od position. There is no pneumothorax. Moderate interstitial and alveolar opacities are present in both lungs. The heart is enlarged. Consolidative changes are present in the left base. CONCLUSION: There is no pneumothorax. ET tube at the akua directed towards the right main bronchus. Alessandro Tello MD FACR on April 22, 2016 at 12:22 Board Certified Radiologist. This report was verified electronically.
--- NOTE | 2016-04-22 13:29 | HHI.IDPN ---
Subjective Subjective Remarks is a 65 y/o with alcoholism who was found on the floor in resp distress and sating 80% on RA. EMS intubated for respiratory distress and abdominal pain. Admission vitals included a amina of 99.9 F, tachycardia, low BP and elevated lactic acid. Patient underwent sepsis workup. Was started on IV antibiotics. She appeared to be severely dehydrated with acute kidney injury and mental obtundation. ID following for Sepsis, MSSA bacteremia. No fever No rash No diarrhea WBC persistently elevated. Remains encephalopathic. Sedation stopped few days back but was on high dose sedatives. Does not open eyes spontaneously. Moved RUE for me spontaneously. RN reports moves all extremities. Antibiotics Oxacillin IV Lines Line sites with no e/o infection Past Medical History Alcoholism Allergies: Coded Allergies: Dexmedetomidine (Verified Allergy, Severe, Arrhythmias, 04/18/16) ASYSTOLE 04/18/16 Precedex (Verified Allergy, Severe, Arrhythmias, 04/18/16) ASYSTOLE 04/18/16 Camphor (Verified Allergy, Unknown, Swelling, 04/17/16) Objective . Vital Signs Date Time Temp Pulse Resp B/P Pulse Ox O2 Delivery O2 Flow Rate FiO2 04/22/16 11:13 95 40 04/22/16 07:46 40 04/22/16 07:46 97 40 04/22/16 07:00 98 Mechanical Ventilator 40 04/22/16 06:00 109 04/22/16 04:00 112 04/22/16 04:00 40 04/22/16 04:00 98.0 112 16 172/77 94 04/22/16 03:43 93 40 04/22/16 03:38 16 04/22/16 02:00 92 04/22/16 00:00 40 04/22/16 00:00 102 04/22/16 00:00 99.1 102 16 137/85 96 04/21/16 22:10 98 40 04/21/16 22:00 98 04/21/16 20:00 98.8 102 16 170/82 98 04/21/16 20:00 50 04/21/16 20:00 102 04/21/16 19:10 98 50 04/21/16 19:00 96 Mechanical Ventilator 50 04/21/16 18:00 105 04/21/16 16:35 99 40 04/21/16 16:00 104 1/31/17 16:00 98.9 104 16 114/62 91 04/21/16 16:00 60 04/21/16 14:57 93 40 04/21/16 14:00 123 04/21/16 04/21/16 04/22/16 15:00 23:00 07:00 Intake Total 1517 ml 1769 ml 2005 ml Output Total 900 ml 725 ml 1275 ml Balance 617 ml 1044 ml 730 ml Intake IV Total 1033 ml 950 ml 1134 ml Tube Feeding 284 ml 219 ml 271 ml Albumin 500 ml 500 ml Tube Irrigant 200 ml 100 ml 100 ml Output Urine Total 900 ml 725 ml 1275 ml # Bowel Movements 0 0 . Laboratory Tests Test 04/22/16 09:16 White Blood Count 16.6 TH/MM3 Red Blood Count 3.63 MIL/MM3 Hemoglobin 11.6 GM/DL Hematocrit 34.0 % Mean Corpuscular Volume 93.7 FL Mean Corpuscular Hemoglobin 31.9 PG Mean Corpuscular Hemoglobin 34.0 % Concent Red Cell Distribution Width 16.8 % Platelet Count 68 TH/MM3 Mean Platelet Volume 9.1 FL Neutrophils (%) (Auto) 86.0 % Lymphocytes (%) (Auto) 3.5 % Monocytes (%) (Auto) 10.0 % Eosinophils (%) (Auto) 0.3 % Basophils (%) (Auto) 0.2 % Neutrophils # (Auto) 14.3 TH/MM3 Lymphocytes # (Auto) 0.6 TH/MM3 Monocytes # (Auto) 1.7 TH/MM3 Eosinophils # (Auto) 0.1 TH/MM3 Basophils # (Auto) 0.0 TH/MM3 CBC Comment AUTO DIFF Differential Comment AUTO DIFF CONFIRMED Toxic Granulation 1+ Platelet Estimate LOW Platelet Morphology Comment NORMAL Laboratory Tests Test 04/20/16 04/21/16 04/22/16 04/22/16 16:05 15:49 09:16 10:13 Potassium Level 3.6 MEQ/L 2.5 MEQ/L C-Reactive Protein 12.00 MG/DL Sodium Level 155 MEQ/L Chloride Level 125 MEQ/L Carbon Dioxide Level 22.2 MEQ/L Anion Gap 8 MEQ/L Blood Urea Nitrogen 45 MG/DL Creatinine 0.65 MG/DL Estimat Glomerular Filtration 91 ML/MIN Rate Random Glucose 129 MG/DL Calcium Level 10.9 MG/DL Phosphorus Level 2.2 MG/DL Magnesium Level 0.7 MG/DL Total Bilirubin 1.0 MG/DL Direct Bilirubin 0.4 MG/DL Indirect Bilirubin 0.6 MG/DL Aspartate Amino Transf 6 U/L (AST/SGOT) Alanine Aminotransferase 8 U/L (ALT/SGPT) Alkaline Phosphatase 57 U/L Total Protein 5.3 GM/DL Albumin 3.1 GM/DL Ammonia 30 MCMOL/L Microbiology Date/Time Procedure Status Source Growth 04/21/16 14:28 Aerobic Blood Culture - Preliminary Resulted Blood Peripheral NO GROWTH IN 1 DAY 04/21/16 14:28 Anaerobic Blood Culture - Preliminary Resulted Blood Peripheral NO GROWTH IN 1 DAY 04/21/16 14:33 Aerobic Blood Culture - Preliminary Resulted Blood Peripheral NO GROWTH IN 1 DAY 04/21/16 14:33 Anaerobic Blood Culture - Preliminary Resulted Blood Peripheral NO GROWTH IN 1 DAY Imaging Last Impressions Chest X-Ray 04/22/16 0000 Signed Impressions: Service Date/Time: Friday, April 22, 2016 12:00 - CONCLUSION: There is no pneumothorax. ET tube at the akua directed towards the right main bronchus. Alessandro Tello MD FACR Head CT 04/17/16 2344 Signed Impressions: Service Date/Time: Sunday, April 17, 2016 00:28 - CONCLUSION: No acute disease. Percy Barnes MD CT Angiography 04/17/16 0000 Signed Impressions: Service Date/Time: Sunday, April 17, 2016 00:31 - CONCLUSION: 1. Severe emphysema without evidence for pleural or embolism. 2. Bilateral hilar adenopathy, and dense bilateral pulmonary consolidation in the lower lobes left greater than right. 3. Left adrenal mass incompletely characterized, and left renal mass measuring soft tissue density. Workup with MRI of the abdomen with and without contrast of these findings is recommended on a nonemergent outpatient basis. 4. Mild nodularity seen within the right middle lobe abutting the fissure measuring 9 mm and 7 mm on image 95. Most likely nodular infiltrate suspected. There is linear atelectasis in the right middle lobe. Short interval followup CT in 3 months recommended. Percy Barnes MD Abdomen/Pelvis CT 04/17/16 0000 Signed Impressions: Service Date/Time: Sunday, April 17, 2016 06:30 - CONCLUSION: 1. Mild distention of the gallbladder. 2. Bilateral renal cysts are noted as well as an indeterminate mass upper pole left kidney, probable hemorrhagic or proteinaceous cyst and can be further evaluated with MRI of the abdomen with and without contrast on a nonemergent outpatient basis. 3. Bilateral lower lobe consolidation. 4. Indeterminate probable adenomas left adrenal mass. 5. Atherosclerosis. 6. Nodular infiltrate in the right middle lobe is seen. Percy Barnes MD Physical Exam GENERAL: Thin built poorly nourished patient, in no apparent distress. SKIN: Spider naevi on chest. HEAD: Atraumatic. Normocephalic. No temporal or scalp tenderness. EYES: Pupils equal round and reactive. Extraocular motions intact. No scleral icterus. No injection or drainage. ENT: Intubated, NECK: Trachea midline. Supple, nontender, no meningeal signs. CARDIOVASCULAR: HS audible. RESPIRATORY: Breath sounds equal bilaterally with decrease in the bases. GASTROINTESTINAL: Abdomen soft, non-tender, nondistended. No hepato-splenomegaly , or palpable masses. No guarding. MUSCULOSKELETAL: Extremities without clubbing, cyanosis, or edema. No joint tenderness, effusion, or edema noted. No calf tenderness. Negative Homans sign bilaterally. NEUROLOGICAL: Lethargic, arousable to commands and deep stimuli. Follows simple commands like wiggling toes. Psych could not be assessed IV line sites with no e/o infection. Assessment & Plan Remarks Severe Sepsis present on admission MSSA bacteremia MSSA pneumonia vs septic emboli Lactobacillus and Enterococcus faecalis in urine/UTI treated on admission. Likely not the source of infection. Acute metabolic encephalopathy: sepsis, alcoholism Acute renal failure: sepsis, prerenal. Thrombocytopenia: likely sepsis, ? meds. Will DC Vanco Recs Repeat Blood cultures 2D ECHO to r/o endocarditis. May need YOLANDA if suspicious ECHO or persistent vegetation as source not clear. ? IVDA. Continue Oxacillin IV more directed and first line treatment for disseminated MSSA infection. Follow platelets. Would like to avoid LP given low platelets. If platelets continue to be low consider Hematology consult. Check MRI brain and LP to r/o septic emboli to the brain. shakila RN and PIPER PATEL. Critical thinking and decision making. Time > 40 mins Sophia Strong MD Apr 22, 2016 13:29 Sophia Strong MD Apr 22, 2016 13:29
--- NOTE | 2016-04-22 16:58 | PD.PROCEDR ---
Procedure Note Procedure Central Line Procedure Note Left subclavian triple lumen catheter Diagnosis: Metabolic encephalopathy Indications: Need for central pressure monitoring Consent: Written consent was obtained Anesthesia: Lidocaine locally Description of the Procedure: The patient was placed in the supine, mild- Trendelenburg position. The area was prepped and draped sterilely. A 19g needle was inserted under negative pressure aspiration and dark venous blood was obtained. A guidewire was inserted easily without resistance. A small incision was made using a #11 blade. Using a modified Seldinger technique, the dilator and 7 Polish, 20 cm catheter were advanced over the guidewire without resistance. All ports were aspirated and flushed, and had brisk blood return. The line was secured at 18 cm at the skin using 2-0 silk interrupted sutures. A Biopatch and Transparent sterile dressing were applied. There were no immediate complications noted. There was minimal EBL. The patient tolerated the procedure well. Ultrasound guidance was not used for this procedure A Chest x-ray has been ordered. I personally performed the procedure. Ravinder Uribe MD Apr 22, 2016 16:58
[2016-04-22] MEDS ORDERED: LIDOCAINE HCL 2% 100 MG/5 ML SYRINGE ONE (18:06)
[2016-04-22] MEDS ORDERED: ATROPINE SULFATE 1 MG/10 ML SYRINGE ONE (18:06)
[2016-04-22] MEDS ORDERED: EPINEPHrine HCL (1:10,000) 1 MG/10 ML SYRINGE ONE (18:06)
[2016-04-22] MEDS ORDERED: GADODIAMIDE PF 287 MG/ML 5 ML VIAL (for RAD MRI) IV ONE (18:29)
[2016-04-22 19:12] LABS: BICARBONATE 18.7 MEQ/L (21.0-32.0); MAGNESIUM 1.5 MG/DL (1.5-2.5); POTASSIUM 3.9 MEQ/L (3.5-5.1)
--- NOTE | 2016-04-22 19:47 | RADRPT ---
EXAM DATE/TIME: 04/22/2016 18:22 [facility] COMPARISON: CT BRAIN W/O CONTRAST, April 17, 2016, 0:28. INDICATIONS : Encephalitis. Septic emboli. CONTRAST: 13 cc Omniscan (gadodiamide) IV MEDICAL HISTORY : Carcinoma, breast. Chronic obstructive pulmonary disease. Congestive heart failure. Hypertension. SURGICAL HISTORY : Mastectomy, right. Bilateral shoulder and femur repair. ENCOUNTER: Subsequent ACUITY: 4-6 days PAIN SCORE: Nonresponsive. LOCATION: head. TECHNIQUE: Multiplanar, multisequence MRI of the brain was performed both prior to and following the administrat ion of paramagnetic contrast. FINDINGS: CEREBRUM: The ventricles are normal for age. No evidence of midline shift, mass lesion, hemorrhage or acute in farction. No extraaxial fluid collections are seen. The pituitary gland and suprasellar cistern are normal in configuration.WHITE MATTER: No significant signal abnormalities are seen in the white matter. POSTERIOR FOSSA: The cerebellum and brainstem are intact. The 4th ventricle is midline. The cerebellopontine angle is unremarkable. The cerebellar tonsils are normal in position. DIFFUSION IMAGING: No focal areas of restricted diffusion are seen. No evidence of acute infarction. EXTRACRANIAL: The visualized portions of the orbits and paranasal sinuses are unremarkable. POST-CONTRAST: No abnormal areas of parenchymal or dural enhancement. No evidence of blood-brain barrier breakdown. CONCLUSION: Unremarkable MRI brain. Ramez Kellogg MD on April 22, 2016 at 19:43 Board Certified Radiologist. This report was verified electronically.
--- NOTE | 2016-04-22 21:04 | EC ---
Study Study Date:04/22/2016 STUDY CONCLUSIONS SUMMARY - Left ventricle: The cavity size was normal. Wall thickness was normal. Systolic function was normal. The estimated ejection fraction was 65%. Wall motion was normal; there were no regional wall motion abnormalities. - Mitral valve: Mild regurgitation. - Right ventricle: The cavity size was dilated. RV function was decreased. - Right atrium: The atrium was normal in size. ? catheter in the R atrium. - Tricuspid valve: Moderate regurgitation. - Pulmonary arteries: Systolic pressure was moderately to severely increased. PA peak pressure: 68mm Hg (S). If LV function is below 40, please consider prescribing an ACEI or ARB or document rationale for non-use. PROCEDURE DATA STUDY STATUS: Elective. Procedure: Transthoracic echocardiography. Image quality was good. Scanning was performed from the parasternal, apical, and subcostal acoustic windows. Study completion: The patient tolerated the procedure well. Transthoracic echocardiography. M-mode, complete 2D, complete spectral Doppler, and color Doppler. Weight: Weight: 143.7lb. Patient status: Inpatient. CARDIAC ANATOMY LEFT VENTRICLE: The cavity size was normal. Wall thickness was normal. Systolic function was normal. The estimated ejection fraction was 65%. Wall motion was normal; there were no regional wall motion abnormalities. AORTIC VALVE: Trileaflet; mildly thickened, mildly calcified leaflets. Doppler: Transvalvular velocity was within the normal range. There was no stenosis. No regurgitation. Valve area: 1.93cm^2 (Vmax). Peak gradient: 14mm Hg (S). AORTA: Aortic root: The aortic root was normal in size. MITRAL VALVE: Structurally normal valve. Doppler: Transvalvular velocity was within the normal range. There was no evidence for stenosis. Mild regurgitation. Peak gradient: 4mm Hg (D). LEFT ATRIUM: The atrium was normal in size. RIGHT VENTRICLE: The cavity size was dilated. RV function was decreased. PULMONIC VALVE: Doppler: Transvalvular velocity was within the normal range. There was no evidence for stenosis. No regurgitation. TRICUSPID VALVE: Structurally normal valve. Doppler: Transvalvular velocity was within the normal range. Moderate regurgitation. PULMONARY ARTERY: The main pulmonary artery was normal-sized. Systolic pressure was moderately to severely increased. RIGHT ATRIUM: The atrium was normal in size. ? catheter in the R atrium. PERICARDIUM: There was no pericardial effusion. SYSTEMIC VEINS: Inferior vena cava: The vessel was normal in size. Patient weight: 143.7lb _Ejection fraction:_ 65-75% _Fractional shortening:_ 32% up to 5Kg 5-11.5Kg 11.6-22.9Kg 23-45Kg 45-57Kg Aortic Root 7-13 <17 13-22 17-27 17-27 LA diam 6-13 <23 24-38 33-47 37-40 RVID 10-17 7-15 7-15 7-18 8-17 LVIDd 12-22 <32 24-38 33-47 37-40 LVPW 2-4 3-6 5-7 6-8 7-8 IVS 2-4 3-6 5-7 6-8 7-8 BASIC MEASUREMENTS ADULT NORMAL Left ventricle LV internal dimension, ED, chordal level, *38.6 mm 43-52 PLAX LV internal dimension, ES, chordal level, 27.2 mm 23-38 PLAX Fractional shortening, chordal level, PLAX 30 % >29 LV posterior wall thickness, ED 8.38 mm IVS/LVPW ratio, ED 0.93 <1.3 Ventricular septum Septal thickness, ED 7.8 mm Aortic valve Leaflet separation 18 mm 15-26 Right ventricle RV internal dimension, ED, PLAX 32.3 mm 19-38 BASIC MEASUREMENTS ADULT NORMAL Aortic valve Leaflet separation 18 mm 15-26 Aorta Root diameter, ED 25 mm 20-37 Left atrium Anterior-posterior dimension, ES 31 mm 19-40 LA/aortic root ratio 1.24 DOPPLER MEASUREMENTS ADULT NORMAL Main pulmonary artery Pressure, S *68 mm Hg =30 Aortic valve Peak velocity, S 187 cm/s Peak gradient, S 14 mm Hg Valve area, Vmax 1.93 cm^2 Mitral valve Peak E-wave velocity 103 cm/s Peak A-wave velocity 45.9 cm/s Deceleration time *85 ms 150-230 Peak gradient, D 4 mm Hg Peak E/A ratio 2.2 Maximal regurgitant velocity 281 cm/s Tricuspid valve Regurgitant peak velocity 401 cm/s Peak RV-RA gradient, S 64 mm Hg Maximal regurgitant velocity 401 cm/s Systemic veins Estimated CVP 10 mm Hg Right ventricle RV pressure, S *76 mm Hg <30 Pulmonic valve Peak velocity, S 138 cm/s LEGEND: Mean values are shown as u=mean value. Asterisk (*) hill values outside specified normal range. Prepared and signed by Jeff King [id number]
[2016-04-23] VITALS (18 sets, daily range): BP systolic 140–159; BP diastolic 70–80; PULSE 77–95; RESP 16–25; TEMP 97.9–99.5; O2SAT 94–99
[2016-04-23] MEDS: SODIUM CHLOR 0.9% 1000 ML INJ 1,000 ML IV SCH ×2 (00:16→08:16)
[2016-04-23] MEDS: OXACILLIN INJ 2 GM in SODIUM CHLORIDE 0.9% INJ 100 ML IV SCH ×6 (00:18→20:29)
[2016-04-23] MEDS: RESP: ALBUTEROL 2.5 MG/IPRATROPIUM 0.5 MG NEB (PRN) INH ×3 (00:52→19:31)
[2016-04-23 01:03] LABS: POTASSIUM 3.2 MEQ/L (3.5-5.1)
[2016-04-23] MEDS: THIAMINE INJ 100 MG in SODIUM CHLORIDE 0.9% INJ 100 ML IV SCH (02:10)
[2016-04-23] MEDS: ALBUMIN HUMAN 5% 25 GM/500 ML BOTTLE IV SCH ×2 (03:26→16:01)
[2016-04-23] MEDS: CHLORHEXIDINE GLUCONATE 2 % 1 PACK (2 CLOTHS) TOP SCH (03:27)
[2016-04-23] MEDS: METOCLOPRAMIDE HCL SYRUP 10 MG/10 ML UDC PO SCH ×3 (03:27→20:30)
[2016-04-23] MEDS: ESMOLOL DRIP INJ PREMIX 250 ML IV SCH ×3 (03:50→21:05)
[2016-04-23 04:00] LABS: HEMATOCRIT 30.2 % (35.0-46.0); MEAN CELL VOLUME 94.1 FL (80.0-100.0); MEAN CORPUSCULAR HEMOGLOBIN 31.2 PG (27.0-34.0); MEAN CORPUSCULAR HGB CONC 33.2 % (32.0-36.0); PLATELET COUNT 74 TH/MM3 (150-450); RED BLOOD COUNT 3.21 MIL/MM3 (4.00-5.30); WHITE BLOOD COUNT 13.7 TH/MM3 (4.0-11.0)
[2016-04-23 04:11] LABS: REVIEW FLAG FINAL
[2016-04-23 04:34] LABS: ANION GAP 7 MEQ/L (5-15); BICARBONATE 24.6 MEQ/L (21.0-32.0); BLOOD UREA NITROGEN 49 MG/DL (7-18); CHLORIDE 123 MEQ/L (98-107); GLOMERULAR FILTRATION RATE 77 ML/MIN (>89); SODIUM (NA) 155 MEQ/L (136-145)
[2016-04-23 04:54] LABS: CALCIUM-PROTEIN CORRECTED ND MG/DL (8.5-10.1)
[2016-04-23] MEDS: POTASSIUM CHLOR 40 MEQ PREMIX 100 ML IV PRN ×2 (06:37→20:53)
[2016-04-23] MEDS: CHLORHEXIDINE 0.12% (ORAL KIT) 15 ML CUP MT SCH ×2 (08:00→20:29)
[2016-04-23] MEDS ORDERED: FUROSEMIDE 40 MG/4 ML VIAL IV PUSH ONE (08:45)
--- NOTE | 2016-04-23 08:50 | HHI.CCPN ---
Subjective Remarks/Hospital Course 65-year-old woman brought in by EMS intubated for respiratory distress, and abdominal pain. She has recently had relapse of alcohol dependency disease and was found sitting on the floor in marked respiratory distress. 80% on room air. 04/18: Arrived severely dehydrated with YULIET and obtundation after excess alcohol consumption. Now tolerating PSV but fails weaning trial from ventilator. May need precedex for detox. She has developed a-fib with tachy- mark. Several 6 sec asystolic pauses Transcutaneous pacer placed on demand mode 04/19: Remains sedated, orally intubated on mechanical ventilation. 04/20: Remains sedated, orally intubated on mechanical ventilation. Daily C Pap trials. 04/21: Remains sedated/encephalopathic, orally intubated on mechanical ventilation. Blood cultures with staph aureus. Daily C Pap trials however neurologic status precludes extubation 04/22: remains significantly tachycardic overnight. also thrombocytopenic. remains encephalopathic. 04/23: tachycardia controlled with esmolol overnight. more awake today, awakens to voice and opens eyes, but still does not follow commands. thrombocytopenia improving. echo on 04/22 with "? device in right atrium" although the patient has no known implantable devices. good diuresis with single dose of lasix yesterday. Objective Vital Signs Date Time Temp Pulse Resp B/P Pulse Ox O2 Delivery O2 Flow Rate FiO2 04/23/16 07:28 97 50 04/23/16 07:00 Mechanical Ventilator 04/23/16 06:00 93 04/23/16 04:00 99.0 16 140/73 Intake and Output 04/22/16 04/22/16 04/23/16 08:00 16:00 00:00 Intake Total 2005 ml 1416 ml 1353 ml Output Total 1275 ml 1120 ml 2000 ml Balance 730 ml 296 ml -647 ml Result Diagram: 04/23/16 0344 04/23/16 0344 Imaging Last [address] 04/17/16 8344 Signed Impressions: Service Date/Time: Sunday, April 17, 2016 00:28 - CONCLUSION: No acute disease. Percy Barnes MD CT Angiography 04/17/16 0000 Signed Impressions: Service Date/Time: Sunday, April 17, 2016 00:31 - CONCLUSION: 1. Severe emphysema without evidence for pleural or embolism. 2. Bilateral hilar adenopathy, and dense bilateral pulmonary consolidation in the lower lobes left greater than right. 3. Left adrenal mass incompletely characterized, and left renal mass measuring soft tissue density. Workup with MRI of the abdomen with and without contrast of these findings is recommended on a nonemergent outpatient basis. 4. Mild nodularity seen within the right middle lobe abutting the fissure measuring 9 mm and 7 mm on image 95. Most likely nodular infiltrate suspected. There is linear atelectasis in the right middle lobe. Short interval followup CT in 3 months recommended. Percy Barnes MD Chest X-Ray 04/16/16 9388 Signed Impressions: Service Date/Time: Sunday, April 17, 2016 00:55 - CONCLUSION: Endotracheal tube as described above. Percy Barnes MD Objective Remarks GENERAL: Cachectic, ill-appearing patient. SKIN: Warm and dry. HEAD: Normocephalic. Atraumatic. NECK: Supple, trachea midline. Orally intubated. CARDIOVASCULAR: normal rate, regular rhythm this AM, sinus by tele. No JVD. RESPIRATORY: Orally intubated on mechanical ventilation, Breath sounds equal bilaterally. Scattered rhonchi no wheezing GASTROINTESTINAL: Abdomen soft, non-tender, nondistended. MUSCULOSKELETAL: No cyanosis, or edema. Well perfused. NEURO: encephalopathic, orally intubated, withdraws x 4 and almost purposeful in RUE. opens eyes to voice. does not follow commands. A/P Problem List: (1) Acute respiratory failure with hypoxia ICD Code: J96.01 Status: Acute (2) Acute kidney injury ICD Code: N17.9 Status: Acute (3) Septic shock ICD Code: A41.9 Status: Acute (4) Alcohol abuse ICD Code: F10.10 Status: Chronic Assessment and Plan Assessment: 65yF with h/o etoh dependence now with metabolic encephalopathy, acute hypoxic respiratory failure, tachy-mark syndrome. still persistently encephalopathic and critically ill. not on pathway. She has an echogenicity in her right atrium that cannot be otherwise explained. when the echo was performed , she did not have any implantable devices in place. I have talked with Dr. Obando and we will pursue YOLANDA evaluation of the right atrium. Certainly given her staph bacteremia, this could be thrombus or mass. Her encephalopathy persists, although this is slightly improved from yesterday. Plan by systems: Neurologic: ETOH dependency Metabolic Encephalopathy Peripheral neuropathy - hold gabapentin given sedation. will restart at lower dose when more awake. - hold sedating meds. - versed gtt held on 04/21, slow to wake up. Received morphine and Ativan when necessary overnight. -Precedex discontinued due to bradycardia - prn haldol and hold on additional benzos given severe encephalopathy. - iv thiamine and MVI daily. Respiratory: Acute Hypoxic Respiratory failure COPD - no exacerbation - no steroids - aerosols scheduled and PRN - resume home Spiriva when extubated - due to SIRS/Sepsis - mechanical ventilation -continue daily C Pap trials. continues to fail for mental status. -Sputum culture - mental status prevents extubation. not on pathway. Cardiovascular: Tachy-Mark syndrome Possible right atrial thrombus/mass - back in sinus rhythm. currently controlled on esmolol drip. - will transition to per tube metoprolol and wean off esmolol today. - history of mark arrest with AV noreen blocking agents - Dr. Obando following, plan for YOLANDA today. Renal: YULIET- resolving. Acute intravascular volume overload Renal and adrenal mass - MRI w and w/o when creatinine improves and is more stable, possibly as early as tomorrow. - Lasix 40mg iv x 1 again today, goal net -1L/24h. -- Strict I/Os FEN/GI: Acute protein calorie malnutritionsevere Severe hypophosphatemia Severe hypokalemia Severe hypomagnesemia Tube feeds on hold for YOLANDA. Otherwise restart at goal. Aggressive replacement of electrolytes Heme/ID: Sepsis Thrombocytopenia - Thrombocytopenia noted. HIT negative. slowly improving. continue to monitor. - oxacillin for staph bacteremia. - follow up cultures -Blood cultures with staph aureus 04/17. -ID: Dr. Strong following. Endocrine: Hyperglycemia of critical illness -- SSI, medium scale, every 6 hours Prophylaxis: GI Prophylaxis Protonix DVT Prophylaxis -- SCDs Subcutaneous heparin. Hit negative. Lines: 04/22 left subclavian triple lumen catheter [place] Dispo: Remain in the intensive care unit. She remains critically ill. Overall impression: Patient is critically ill having been found down and intoxicated. Bacteremia with G+ cocci and still largely obtunded. This patient remains critically ill with one or more organ systems which are or may become a threat to life. I have spent in excess of 41 minutes discontinuously in the care and management of this patient. This time is exclusive of procedures, and includes, but is not limited to, evaluation of the patient, review of the medical record, discussions with family, consultants, nursing staff, or respiratory therapy, and documentation in the medical record. Ravinder Uribe MD Apr 23, 2016 08:49
[2016-04-23] MEDS: ARTIFICIAL TEARS OPTH SOLN 15 ML BTL EACH EYE SCH ×3 (09:00→18:00)
[2016-04-23] MEDS: SODIUM CHLORIDE 0.9% FLUSH 5 ML FLUSH IV FLUSH SCH ×2 (09:00→20:30)
[2016-04-23] MEDS: MULTIVITAMIN TAB PO SCH (09:00)
[2016-04-23] MEDS: PANTOPRAZOLE SOD 40 MG DELAYED RELEASE TAB PO SCH (09:00)
[2016-04-23] MEDS: DOCUSATE SODIUM 100 MG/10 ML UDC G-TUBE SCH ×2 (09:00→20:30)
[2016-04-23] MEDS: LACTULOSE SYRUP 20 GM/30 ML CUP PO SCH (09:00)
[2016-04-23] MEDS: BENEPROTEIN POWDER 1 PACK G-TUBE SCH ×3 (09:00→18:00)
[2016-04-23] MEDS ORDERED: PROPOFOL 500 MG/50 ML INJ 50 ML ONE (10:54)
[2016-04-23] MEDS: FREE WATER G-TUBE SCH ×4 (11:43→20:28)
[2016-04-23] MEDS ORDERED: MISCELLANEOUS NURSING INFORMATION XX PRN (11:45)
--- NOTE | 2016-04-23 12:03 | MB ---
cc: [facility] DATE OF CONSULTATION 04/23/2016 INDICATION Possible endocarditis/right atrial mass. HISTORY OF PRESENT ILLNESS History is obtained from the chart records. The patient was intubated and sedated. The patient is a 65-year-old female who was brought in back on April 18 by EMS for respiratory distress and abdominal pain. She has a history of alcohol dependency. She was severely dehydrated and obtunded. Over the course of her hospitalization, she has had atrial fibrillation with tachy-renzo and prolonged sinus pauses. She also has positive blood culture for Staph aureus. Echocardiogram was performed on April 22 which showed a possible mass in the right atrium, although visualization was difficult to appreciate. We are consulted for consideration of transesophageal echocardiogram. PAST MEDICAL HISTORY 1. Alcohol abuse. 2. Hypertension. 3. COPD. 4. History of breast cancer. 5. Neuropathy. MEDICATIONS See med reconciliation. FAMILY HISTORY Unable to obtain. SOCIAL HISTORY Unable to obtain. REVIEW OF SYSTEMS Unable to obtain. PHYSICAL EXAMINATION General: Intubated, sedated. Vital Signs: Pulse is 90, blood pressure 156/80 mmHg. Lungs: Clear to auscultation. Cardiovascular Exam: Irregularly irregular. Abdominal Exam: Nondistended. Extremities: No clubbing, cyanosis or edema. LABORATORY DATA WBC 32.7, hemoglobin is 10, platelet count 74. Sodium 155, potassium 3.0, BUN 49, creatinine 0.75. ASSESSMENT 1. Bacteremia. 2. Right atrial mass. 3. Severe pulmonary hypertension. PLAN We will plan for transesophageal echocardiogram to better to differentiate right atrial mass. Tube feed is on hold. Family consented to procedure. MD RANDY Cancino/TYRONE /11:42 AM /11:56 AM
--- NOTE | 2016-04-23 18:03 | HHI.IDPN ---
Subjective Subjective Remarks is a 65 y/o with alcoholism who was found on the floor in resp distress and sating 80% on RA. EMS intubated for respiratory distress and abdominal pain. Admission vitals included a amina of 99.9 F, tachycardia, low BP and elevated lactic acid. Patient underwent sepsis workup. Was started on IV antibiotics. She appeared to be severely dehydrated with acute kidney injury and mental obtundation. ID following for Sepsis, MSSA bacteremia. No fever No rash No diarrhea WBC trending down since regimen changed. Opening eyes spontaneously, Moving extremities spontaneously. Still remains lethargic but slightly less encephalopathic compared to yday. Antibiotics Oxacillin IV Lines Line sites with no e/o infection Past Medical History Alcoholism Allergies: Coded Allergies: Dexmedetomidine (Verified Allergy, Severe, Arrhythmias, 04/18/16) ASYSTOLE 04/18/16 Precedex (Verified Allergy, Severe, Arrhythmias, 04/18/16) ASYSTOLE 04/18/16 Camphor (Verified Allergy, Unknown, Swelling, 04/17/16) Objective . Vital Signs Date Time Temp Pulse Resp B/P Pulse Ox O2 Delivery O2 Flow Rate FiO2 04/23/16 16:00 77 04/23/16 16:00 97.9 93 25 159/72 97 04/23/16 15:28 97 50 04/23/16 14:00 90 04/23/16 12:00 86 04/23/16 12:00 97.9 87 23 145/70 94 04/23/16 12:00 50 04/23/16 11:36 94 50 04/23/16 10:00 90 04/23/16 08:00 50 04/23/16 08:00 93 04/23/16 08:00 99.5 93 16 156/80 96 04/23/16 07:28 97 50 04/23/16 07:00 96 Mechanical Ventilator 40 04/23/16 06:00 93 04/23/16 04:20 99 50 04/23/16 04:00 91 04/23/16 04:00 99.0 91 16 140/73 96 04/23/16 04:00 50 04/23/16 02:00 91 04/23/16 00:50 98 50 04/23/16 00:00 99.4 91 17 155/73 96 04/23/16 00:00 91 04/23/16 00:00 40 04/22/16 22:00 87 04/22/16 20:00 40 04/22/16 20:00 98.1 92 18 139/74 92 04/22/16 20:00 92 04/22/16 19:42 94 40 04/22/16 19:00 94 Mechanical Ventilator 40 04/22/16 04/22/16 04/23/16 15:00 23:00 07:00 Intake Total 1416 ml 1353 ml 1402 ml Output Total 1120 ml 2000 ml 1750 ml Balance 296 ml -647 ml -348 ml Intake IV Total 560 ml 507 ml 594 ml Tube Feeding 236 ml 226 ml 208 ml Albumin 500 ml 500 ml 500 ml Other 120 ml 120 ml 100 ml Output Urine Total 1120 ml 2000 ml 1750 ml # Bowel Movements 0 0 0 . Laboratory Tests Test 04/22/16 04/23/16 09:16 03:44 White Blood Count 16.6 TH/MM3 13.7 TH/MM3 Red Blood Count 3.63 MIL/MM3 3.21 MIL/MM3 Hemoglobin 11.6 GM/DL 10.0 GM/DL Hematocrit 34.0 % 30.2 % Mean Corpuscular Volume 93.7 FL 94.1 FL Mean Corpuscular Hemoglobin 31.9 PG 31.2 PG Mean Corpuscular Hemoglobin 34.0 % 33.2 % Concent Red Cell Distribution Width 16.8 % 17.0 % Platelet Count 68 TH/MM3 74 TH/MM3 Mean Platelet Volume 9.1 FL 9.2 FL Neutrophils (%) (Auto) 86.0 % Lymphocytes (%) (Auto) 3.5 % Monocytes (%) (Auto) 10.0 % Eosinophils (%) (Auto) 0.3 % Basophils (%) (Auto) 0.2 % Neutrophils # (Auto) 14.3 TH/MM3 Lymphocytes # (Auto) 0.6 TH/MM3 Monocytes # (Auto) 1.7 TH/MM3 Eosinophils # (Auto) 0.1 TH/MM3 Basophils # (Auto) 0.0 TH/MM3 CBC Comment AUTO DIFF Differential Comment AUTO DIFF CONFIRMED Toxic Granulation 1+ Platelet Estimate LOW Platelet Morphology Comment NORMAL Laboratory Tests Test 04/22/16 04/22/16 04/22/16 04/22/16 09:16 10:13 13:20 17:57 Sodium Level 155 MEQ/L 153 MEQ/L Potassium Level 2.5 MEQ/L 3.9 MEQ/L Chloride Level 125 MEQ/L 124 MEQ/L Carbon Dioxide Level 22.2 MEQ/L 18.7 MEQ/L Anion Gap 8 MEQ/L 10 MEQ/L Blood Urea Nitrogen 45 MG/DL 48 MG/DL Creatinine 0.65 MG/DL 0.77 MG/DL Estimat Glomerular Filtration 91 ML/MIN 75 ML/MIN Rate Random Glucose 129 MG/DL 119 MG/DL Calcium Level 10.9 MG/DL 11.3 MG/DL Phosphorus Level 2.2 MG/DL 4.4 MG/DL Magnesium Level 0.7 MG/DL 2.6 MG/DL 1.5 MG/DL Total Bilirubin 1.0 MG/DL Direct Bilirubin 0.4 MG/DL Indirect Bilirubin 0.6 MG/DL Aspartate Amino Transf 6 U/L (AST/SGOT) Alanine Aminotransferase 8 U/L (ALT/SGPT) Alkaline Phosphatase 57 U/L Total Protein 5.3 GM/DL Albumin 3.1 GM/DL Ammonia 30 MCMOL/L Test 04/22/16 04/23/16 04/23/16 23:50 03:44 10:47 Potassium Level 3.2 MEQ/L 3.0 MEQ/L 3.9 MEQ/L Phosphorus Level 3.0 MG/DL Sodium Level 155 MEQ/L Chloride Level 123 MEQ/L Carbon Dioxide Level 24.6 MEQ/L Anion Gap 7 MEQ/L Blood Urea Nitrogen 49 MG/DL Creatinine 0.75 MG/DL Estimat Glomerular Filtration 77 ML/MIN Rate Random Glucose 123 MG/DL Calcium Level 11.6 MG/DL Protein Corrected Calcium MG/DL Total Protein 5.7 GM/DL Microbiology Date/Time Procedure Status Source Growth 04/21/16 14:28 Aerobic Blood Culture - Preliminary Resulted Blood Peripheral NO GROWTH IN 2 DAYS 04/21/16 14:28 Anaerobic Blood Culture - Preliminary Resulted Blood Peripheral NO GROWTH IN 2 DAYS 04/21/16 14:33 Aerobic Blood Culture - Preliminary Resulted Blood Peripheral NO GROWTH IN 2 DAYS 04/21/16 14:33 Anaerobic Blood Culture - Preliminary Resulted Blood Peripheral NO GROWTH IN 2 DAYS Imaging Last Impressions Chest X-Ray 04/22/16 0000 Signed Impressions: Service Date/Time: Friday, April 22, 2016 12:00 - CONCLUSION: There is no pneumothorax. ET tube at the akua directed towards the right main bronchus. Alessandro Tello MD FACR Head CT 04/17/16 2344 Signed Impressions: Service Date/Time: Sunday, April 17, 2016 00:28 - CONCLUSION: No acute disease. ePrcy Barnes MD CT Angiography 04/17/16 0000 Signed Impressions: Service Date/Time: Sunday, April 17, 2016 00:31 - CONCLUSION: 1. Severe emphysema without evidence for pleural or embolism. 2. Bilateral hilar adenopathy, and dense bilateral pulmonary consolidation in the lower lobes left greater than right. 3. Left adrenal mass incompletely characterized, and left renal mass measuring soft tissue density. Workup with MRI of the abdomen with and without contrast of these findings is recommended on a nonemergent outpatient basis. 4. Mild nodularity seen within the right middle lobe abutting the fissure measuring 9 mm and 7 mm on image 95. Most likely nodular infiltrate suspected. There is linear atelectasis in the right middle lobe. Short interval followup CT in 3 months recommended. Percy Barnes MD Abdomen/Pelvis CT 04/17/16 0000 Signed Impressions: Service Date/Time: Sunday, April 17, 2016 06:30 - CONCLUSION: 1. Mild distention of the gallbladder. 2. Bilateral renal cysts are noted as well as an indeterminate mass upper pole left kidney, probable hemorrhagic or proteinaceous cyst and can be further evaluated with MRI of the abdomen with and without contrast on a nonemergent outpatient basis. 3. Bilateral lower lobe consolidation. 4. Indeterminate probable adenomas left adrenal mass. 5. Atherosclerosis. 6. Nodular infiltrate in the right middle lobe is seen. Percy Barnes MD Physical Exam GENERAL: Thin built poorly nourished patient, in no apparent distress. SKIN: Spider naevi on chest. HEAD: Atraumatic. Normocephalic. No temporal or scalp tenderness. EYES: Pupils equal round and reactive. Extraocular motions intact. No scleral icterus. No injection or drainage. ENT: Intubated, NECK: Trachea midline. Supple, nontender, no meningeal signs. CARDIOVASCULAR: HS audible. RESPIRATORY: Breath sounds equal bilaterally with decrease in the bases. GASTROINTESTINAL: Abdomen soft, non-tender, nondistended. No hepato-splenomegaly , or palpable masses. No guarding. MUSCULOSKELETAL: Extremities without clubbing, cyanosis, or edema. No joint tenderness, effusion, or edema noted. No calf tenderness. Negative Homans sign bilaterally. NEUROLOGICAL: Lethargic, arousable to commands and deep stimuli. Follows simple commands like wiggling toes. Psych could not be assessed IV line sites with no e/o infection. Assessment & Plan Remarks Severe Sepsis present on admission MSSA bacteremia MSSA pneumonia vs septic emboli Lactobacillus and Enterococcus faecalis in urine/UTI treated on admission. Likely not the source of infection. Acute metabolic encephalopathy: sepsis, alcoholism Acute renal failure: sepsis, prerenal. Thrombocytopenia: likely sepsis, ? meds. ? Vanco induced Recs Repeat Blood cultures YOLANDA negative. Continue Oxacillin IV more directed and first line treatment for disseminated MSSA infection. MRI brain negative Platelets improving slowly since Vanco IV stopped. Will follow trend. shakila RN and PIPER MD. Critical thinking and decision making. Time > 40 mins Sophia Strong MD Apr 23, 2016 18:03 Critical thinking and decision making. Time > 40 mins Sophia Strong MD Apr 23, 2016 18:03
[2016-04-23 18:33] LABS: BICARBONATE 26.5 MEQ/L (21.0-32.0); MAGNESIUM 1.3 MG/DL (1.5-2.5); POTASSIUM 3.1 MEQ/L (3.5-5.1)
[2016-04-23] MEDS ORDERED: PILL SPLITTER OTHER PRN (19:30)
[2016-04-23] MEDS: METOPROLOL TARTRATE 25 MG TAB PO SCH ×3 (20:28→23:40)
[2016-04-23] MEDS: MAGNESIUM SULFATE INJ 2 GM in SODIUM CHLORIDE 0.9% INJ 96 ML IV PRN (21:05)
[2016-04-24] VITALS (17 sets, daily range): BP systolic 116–171; BP diastolic 53–80; PULSE 69–92; RESP 16–25; TEMP 97.7–98.7; O2SAT 91–100
[2016-04-24] MEDS: OXACILLIN INJ 2 GM in SODIUM CHLORIDE 0.9% INJ 100 ML IV SCH ×6 (00:01→23:19)
[2016-04-24] MEDS: THIAMINE INJ 100 MG in SODIUM CHLORIDE 0.9% INJ 100 ML IV SCH (01:12)
[2016-04-24] MEDS: FREE WATER G-TUBE SCH ×4 (03:26→12:00)
[2016-04-24] MEDS: ALBUMIN HUMAN 5% 25 GM/500 ML BOTTLE IV SCH (03:26)
[2016-04-24] MEDS: METOCLOPRAMIDE HCL SYRUP 10 MG/10 ML UDC PO SCH ×3 (03:26→20:20)
[2016-04-24] MEDS: CHLORHEXIDINE GLUCONATE 2 % 1 PACK (2 CLOTHS) TOP SCH (03:26)
[2016-04-24 04:09] LABS: HEMATOCRIT 30.1 % (35.0-46.0); MEAN CELL VOLUME 93.1 FL (80.0-100.0); MEAN CORPUSCULAR HEMOGLOBIN 31.1 PG (27.0-34.0); MEAN CORPUSCULAR HGB CONC 33.4 % (32.0-36.0); PLATELET COUNT 110 TH/MM3 (150-450); RED BLOOD COUNT 3.24 MIL/MM3 (4.00-5.30); RED CELL DISTRIBUTION WIDTH 16.8 % (11.6-17.2); REVIEW FLAG FINAL; WHITE BLOOD COUNT 12.9 TH/MM3 (4.0-11.0)
[2016-04-24] MEDS: ESMOLOL DRIP INJ PREMIX 250 ML IV SCH ×4 (04:13→23:18)
[2016-04-24 04:26] LABS: BICARBONATE 27.1 MEQ/L (21.0-32.0); MAGNESIUM 1.6 MG/DL (1.5-2.5); POTASSIUM 3.5 MEQ/L (3.5-5.1)
[2016-04-24] MEDS: RESP: ALBUTEROL 2.5 MG/IPRATROPIUM 0.5 MG NEB (PRN) INH ×4 (04:41→20:17)
[2016-04-24] MEDS: MAGNESIUM SULFATE INJ 2 GM in SODIUM CHLORIDE 0.9% INJ 96 ML IV PRN (05:14)
[2016-04-24] MEDS: METOPROLOL TARTRATE 25 MG TAB PO SCH ×3 (06:08→20:20)
[2016-04-24] MEDS: CHLORHEXIDINE 0.12% (ORAL KIT) 15 ML CUP MT SCH ×2 (08:00→20:19)
[2016-04-24] MEDS: SODIUM CHLORIDE 0.9% FLUSH 5 ML FLUSH IV FLUSH SCH ×2 (09:00→21:00)
[2016-04-24] MEDS: LACTULOSE SYRUP 20 GM/30 ML CUP PO SCH (09:00)
[2016-04-24] MEDS: DOCUSATE SODIUM 100 MG/10 ML UDC G-TUBE SCH ×2 (09:00→20:20)
[2016-04-24] MEDS: ARTIFICIAL TEARS OPTH SOLN 15 ML BTL EACH EYE SCH ×2 (09:00→13:00)
[2016-04-24] MEDS: MULTIVITAMIN TAB PO SCH (09:00)
[2016-04-24] MEDS: PANTOPRAZOLE SOD 40 MG DELAYED RELEASE TAB PO SCH (09:00)
--- NOTE | 2016-04-24 13:29 | HHI.IDPN ---
Subjective Subjective Remarks is a 65 y/o with alcoholism who was found on the floor in resp distress and sating 80% on RA. EMS intubated for respiratory distress and abdominal pain. Admission vitals included a amina of 99.9 F, tachycardia, low BP and elevated lactic acid. Patient underwent sepsis workup. Was started on IV antibiotics. She appeared to be severely dehydrated with acute kidney injury and mental obtundation. ID following for Sepsis, MSSA bacteremia. No fever No rash No diarrhea WBC trending down since regimen changed. Opening eyes spontaneously, Moving extremities spontaneously. Still remains lethargic but slightly less encephalopathic compared to yday. Antibiotics Oxacillin IV Lines Line sites with no e/o infection Past Medical History Alcoholism Allergies: Coded Allergies: Dexmedetomidine (Verified Allergy, Severe, Arrhythmias, 04/18/16) ASYSTOLE 04/18/16 Precedex (Verified Allergy, Severe, Arrhythmias, 04/18/16) ASYSTOLE 04/18/16 Camphor (Verified Allergy, Unknown, Swelling, 04/17/16) Objective . Vital Signs Date Time Temp Pulse Resp B/P Pulse Ox O2 Delivery O2 Flow Rate FiO2 04/24/16 10:42 93 50 04/24/16 07:39 50 04/24/16 07:34 95 50 04/24/16 06:00 89 04/24/16 04:00 92 04/24/16 04:00 50 04/24/16 04:00 95 50 04/24/16 04:00 98.7 92 25 171/53 92 04/24/16 02:00 88 04/24/16 01:20 100 50 04/24/16 00:00 89 04/24/16 00:00 98.5 89 16 122/68 98 04/24/16 00:00 50 04/23/16 22:00 87 04/23/16 20:47 98 50 04/23/16 20:00 50 04/23/16 20:00 98.4 90 17 150/78 98 04/23/16 20:00 91 04/23/16 19:00 97 Mechanical Ventilator 50 04/23/16 18:00 95 04/23/16 16:00 77 04/23/16 16:00 97.9 93 25 159/72 97 04/23/16 15:28 97 50 04/23/16 14:00 90 04/23/16 04/23/16 04/24/16 15:00 23:00 07:00 Intake Total 1266 ml 993 ml 1023 ml Output Total 2250 ml 1225 ml 1200 ml Balance -984 ml -232 ml -177 ml Intake IV Total 940 ml 732 ml 763 ml Tube Feeding 176 ml 261 ml 260 ml Albumin 0 ml Other 150 ml Output Urine Total 2250 ml 1225 ml 1200 ml # Bowel Movements 0 0 . Laboratory Tests Test 04/23/16 04/24/16 03:44 03:10 White Blood Count 13.7 TH/MM3 12.9 TH/MM3 Red Blood Count 3.21 MIL/MM3 3.24 MIL/MM3 Hemoglobin 10.0 GM/DL 10.1 GM/DL Hematocrit 30.2 % 30.1 % Mean Corpuscular Volume 94.1 FL 93.1 FL Mean Corpuscular Hemoglobin 31.2 PG 31.1 PG Mean Corpuscular Hemoglobin 33.2 % 33.4 % Concent Red Cell Distribution Width 17.0 % 16.8 % Platelet Count 74 TH/MM3 110 TH/MM3 Mean Platelet Volume 9.2 FL 9.6 FL Laboratory Tests Test 04/22/16 04/22/16 04/23/16 04/23/16 17:57 23:50 03:44 10:47 Sodium Level 153 MEQ/L 155 MEQ/L Potassium Level 3.9 MEQ/L 3.2 MEQ/L 3.0 MEQ/L 3.9 MEQ/L Chloride Level 124 MEQ/L 123 MEQ/L Carbon Dioxide Level 18.7 MEQ/L 24.6 MEQ/L Anion Gap 10 MEQ/L 7 MEQ/L Blood Urea Nitrogen 48 MG/DL 49 MG/DL Creatinine 0.77 MG/DL 0.75 MG/DL Estimat Glomerular Filtration 75 ML/MIN 77 ML/MIN Rate Random Glucose 119 MG/DL 123 MG/DL Calcium Level 11.3 MG/DL 11.6 MG/DL Phosphorus Level 4.4 MG/DL 3.0 MG/DL Magnesium Level 1.5 MG/DL Protein Corrected Calcium MG/DL Total Protein 5.7 GM/DL Test 04/23/16 04/24/16 16:24 03:10 Sodium Level 155 MEQ/L 156 MEQ/L Potassium Level 3.1 MEQ/L 3.5 MEQ/L Chloride Level 122 MEQ/L 121 MEQ/L Carbon Dioxide Level 26.5 MEQ/L 27.1 MEQ/L Anion Gap 7 MEQ/L 8 MEQ/L Blood Urea Nitrogen 48 MG/DL 51 MG/DL Creatinine 0.74 MG/DL 0.73 MG/DL Estimat Glomerular Filtration 78 ML/MIN 80 ML/MIN Rate Random Glucose 113 MG/DL 112 MG/DL Calcium Level 11.8 MG/DL 11.9 MG/DL Protein Corrected Calcium MG/DL MG/DL Phosphorus Level 3.2 MG/DL 2.5 MG/DL Magnesium Level 1.3 MG/DL 1.6 MG/DL Total Protein 6.1 GM/DL 6.1 GM/DL Prealbumin 10 MG/DL Microbiology Date/Time Procedure Status Source Growth 04/21/16 14:28 Aerobic Blood Culture - Preliminary Resulted Blood Peripheral NO GROWTH IN 3 DAYS 04/21/16 14:28 Anaerobic Blood Culture - Preliminary Resulted Blood Peripheral NO GROWTH IN 3 DAYS 04/21/16 14:33 Aerobic Blood Culture - Preliminary Resulted Blood Peripheral NO GROWTH IN 3 DAYS 04/21/16 14:33 Anaerobic Blood Culture - Preliminary Resulted Blood Peripheral NO GROWTH IN 3 DAYS Imaging Last Impressions Chest X-Ray 04/22/16 0000 Signed Impressions: Service Date/Time: Friday, April 22, 2016 12:00 - CONCLUSION: There is no pneumothorax. ET tube at the akua directed towards the right main bronchus. Alessandro Tello MD FACR Head CT 04/17/16 2344 Signed Impressions: Service Date/Time: Sunday, April 17, 2016 00:28 - CONCLUSION: No acute disease. Percy Barnes MD CT Angiography 04/17/16 0000 Signed Impressions: Service Date/Time: Sunday, April 17, 2016 00:31 - CONCLUSION: 1. Severe emphysema without evidence for pleural or embolism. 2. Bilateral hilar adenopathy, and dense bilateral pulmonary consolidation in the lower lobes left greater than right. 3. Left adrenal mass incompletely characterized, and left renal mass measuring soft tissue density. Workup with MRI of the abdomen with and without contrast of these findings is recommended on a nonemergent outpatient basis. 4. Mild nodularity seen within the right middle lobe abutting the fissure measuring 9 mm and 7 mm on image 95. Most likely nodular infiltrate suspected. There is linear atelectasis in the right middle lobe. Short interval followup CT in 3 months recommended. Percy Barnes MD Abdomen/Pelvis CT 04/17/16 0000 Signed Impressions: Service Date/Time: Sunday, April 17, 2016 06:30 - CONCLUSION: 1. Mild distention of the gallbladder. 2. Bilateral renal cysts are noted as well as an indeterminate mass upper pole left kidney, probable hemorrhagic or proteinaceous cyst and can be further evaluated with MRI of the abdomen with and without contrast on a nonemergent outpatient basis. 3. Bilateral lower lobe consolidation. 4. Indeterminate probable adenomas left adrenal mass. 5. Atherosclerosis. 6. Nodular infiltrate in the right middle lobe is seen. Percy Barnes MD Physical Exam GENERAL: Thin built poorly nourished patient, in no apparent distress. SKIN: Spider naevi on chest. HEAD: Atraumatic. Normocephalic. No temporal or scalp tenderness. EYES: Pupils equal round and reactive. Extraocular motions intact. No scleral icterus. No injection or drainage. ENT: Intubated, NECK: Trachea midline. Supple, nontender, no meningeal signs. CARDIOVASCULAR: HS audible. RESPIRATORY: Breath sounds equal bilaterally with decrease in the bases. GASTROINTESTINAL: Abdomen soft, non-tender, nondistended. No hepato-splenomegaly , or palpable masses. No guarding. MUSCULOSKELETAL: Extremities without clubbing, cyanosis, or edema. No joint tenderness, effusion, or edema noted. No calf tenderness. Negative Homans sign bilaterally. NEUROLOGICAL: Lethargic, arousable to commands and deep stimuli. Follows simple commands like wiggling toes. Psych could not be assessed IV line sites with no e/o infection. Assessment & Plan Remarks Severe Sepsis present on admission MSSA bacteremia MSSA pneumonia vs septic emboli Lactobacillus and Enterococcus faecalis in urine/UTI treated on admission. Likely not the source of infection. Acute metabolic encephalopathy: sepsis, alcoholism Acute renal failure: sepsis, prerenal. Thrombocytopenia: likely sepsis, ? meds. ? Vanco induced Recs Repeat Blood cultures YOLANDA negative. Continue Oxacillin IV more directed and first line treatment for disseminated MSSA infection. MRI brain negative Platelets improving slowly since Vanco IV stopped. Will follow trend. shakila RN and [facility] . Sophia Strong MD Apr 24, 2016 13:29
--- NOTE | 2016-04-24 14:00 | HHI.CCPN ---
Subjective Remarks/Hospital Course 65-year-old woman brought in by EMS intubated for respiratory distress, and abdominal pain. She has recently had relapse of alcohol dependency disease and was found sitting on the floor in marked respiratory distress. 80% on room air. 04/18: Arrived severely dehydrated with YULIET and obtundation after excess alcohol consumption. Now tolerating PSV but fails weaning trial from ventilator. May need precedex for detox. She has developed a-fib with tachy- mark. Several 6 sec asystolic pauses Transcutaneous pacer placed on demand mode 04/19: Remains sedated, orally intubated on mechanical ventilation. 04/20: Remains sedated, orally intubated on mechanical ventilation. Daily C Pap trials. 04/21: Remains sedated/encephalopathic, orally intubated on mechanical ventilation. Blood cultures with staph aureus. Daily C Pap trials however neurologic status precludes extubation 04/22: remains significantly tachycardic overnight. also thrombocytopenic. remains encephalopathic. 04/23: tachycardia controlled with esmolol overnight. more awake today, awakens to voice and opens eyes, but still does not follow commands. thrombocytopenia improving. echo on 04/22 with "? device in right atrium" although the patient has no known implantable devices. good diuresis with single dose of Lasix yesterday. 04/24: Remains intubated off sedation, appears to track intermittently following commands. Sodium is 156, I have started D5 W at 125 mL per hour Objective Vital Signs Date Time Temp Pulse Resp B/P Pulse Ox O2 Delivery O2 Flow Rate FiO2 04/24/16 10:42 93 50 04/24/16 06:00 89 04/24/16 04:00 98.7 25 171/53 04/23/16 19:00 Mechanical Ventilator Intake and Output 04/23/16 04/23/16 04/24/16 08:00 16:00 00:00 Intake Total 1402 ml 1266 ml 993 ml Output Total 1750 ml 2250 ml 1225 ml Balance -348 ml -984 ml -232 ml Result Diagram: 04/24/16 0310 04/24/16 0310 Imaging Last [address] 04/17/16 8363 Signed Impressions: Service Date/Time: Sunday, April 17, 2016 00:28 - CONCLUSION: No acute disease. Percy Barnes MD CT Angiography 04/17/16 0000 Signed Impressions: Service Date/Time: Sunday, April 17, 2016 00:31 - CONCLUSION: 1. Severe emphysema without evidence for pleural or embolism. 2. Bilateral hilar adenopathy, and dense bilateral pulmonary consolidation in the lower lobes left greater than right. 3. Left adrenal mass incompletely characterized, and left renal mass measuring soft tissue density. Workup with MRI of the abdomen with and without contrast of these findings is recommended on a nonemergent outpatient basis. 4. Mild nodularity seen within the right middle lobe abutting the fissure measuring 9 mm and 7 mm on image 95. Most likely nodular infiltrate suspected. There is linear atelectasis in the right middle lobe. Short interval followup CT in 3 months recommended. Percy Barnes MD Chest X-Ray 04/16/16 2344 Signed Impressions: Service Date/Time: Sunday, April 17, 2016 00:55 - CONCLUSION: Endotracheal tube as described above. Percy Barnes MD Objective Remarks GENERAL: Critically ill-appearing patient, female SKIN: Warm and dry. HEAD: Normocephalic. Atraumatic. NECK: Supple, trachea midline. Orally intubated. CARDIOVASCULAR: normal rate, regular rhythm this AM, sinus by tele. No JVD. RESPIRATORY: Orally intubated on mechanical ventilation, Breath sounds equal bilaterally. Scattered rhonchi no wheezing GASTROINTESTINAL: Abdomen soft, non-tender, nondistended. MUSCULOSKELETAL: No cyanosis, or edema. Well perfused. NEURO: Encephalopathic, orally intubated, withdraws x 4 and follows commands intermittently in the upper and lower extremities. opens eyes to voice, tracks Urinary Catheter: Yes Assessment to: Continue A/P Problem List: (1) Acute respiratory failure with hypoxia ICD Code: J96.01 Status: Acute (2) Acute kidney injury ICD Code: N17.9 Status: Acute (3) Septic shock ICD Code: A41.9 Status: Acute (4) Alcohol abuse ICD Code: F10.10 Status: Chronic Assessment and Plan Assessment: 65yF with h/o etoh dependence now with metabolic encephalopathy, acute hypoxic respiratory failure, tachy-mark syndrome. still persistently encephalopathic and critically ill. She has an echogenicity in her right atrium that cannot be otherwise explained. when the echo was performed, she did not have any implantable devices in place. YOLANDA-prominent eustachian valve. Her encephalopathy persists, although this is slightly improved from yesterday. Plan by systems: Neurologic: Alcohol dependence Metabolic Encephalopathy Peripheral neuropathy - hold gabapentin given sedation. will restart at lower dose when more awake. - hold sedating meds. - versed gtt held on 04/21, slow to wake up. Morphine and Ativan when necessary - Precedex discontinued due to bradycardia - prn haldol and hold on additional benzos given severe encephalopathy. - iv thiamine and MVI daily. Respiratory: Acute Hypoxic Respiratory failure COPD - no exacerbation - no steroids - aerosols scheduled and PRN - resume home Spiriva when extubated - due to SIRS/Sepsis - mechanical ventilation - continue daily CPAP trials. continues to fail for mental status. - Sputum culture 04/18 MSSA - mental status prevents extubation Cardiovascular: Tachy-Mark syndrome Possible right atrial thrombus/mass - Back in sinus rhythm. continue beta doris - history of mark arrest with AV noreen blocking agents - Dr. Obando following, YOLANDA showed prominent eustachian valve. Renal: YULIET- resolving. Acute intravascular volume overload Renal and adrenal mass - MRI w and w/o when creatinine improves and is more stable - Lasix 40mg iv x 1 given yesterday - D5W at 125 mL per hour to correct hypernatremia -- Strict I/Os FEN/GI: Acute protein calorie malnutritionsevere Severe hypophosphatemia Severe hypokalemia Severe hypomagnesemia Tube feeds Aggressive replacement of electrolytes Heme/ID: Sepsis Thrombocytopenia - Thrombocytopenia noted. HIT negative. slowly improving. continue to monitor. - oxacillin for staph bacteremia. - follow up cultures -Blood culture, sputum culture with staph aureus 04/17. -ID: Dr. Strong following. Endocrine: Hyperglycemia of critical illness -- SSI, medium scale, every 6 hours Prophylaxis: GI Prophylaxis Protonix DVT Prophylaxis -- SCDs Subcutaneous heparin. Hit negative. Lines: 04/22 left subclavian triple lumen catheter [place] Dispo: Remain in the intensive care unit. She remains critically ill. Overall impression: Patient is critically ill having been found down and intoxicated. Bacteremia with MSSA and remains critically ill This patient remains critically ill with one or more organ systems which are or may become a threat to life. I have spent in excess of 35 minutes discontinuously in the care and management of this patient. This time is exclusive of procedures, and includes, but is not limited to, evaluation of the patient, review of the medical record, discussions with family, consultants, nursing staff, or respiratory therapy, and documentation in the medical record. Zohra Olivo MD Apr 24, 2016 14:00
[2016-04-24] MEDS: DEXTROSE 5% IN WATE 1000ML INJ 1,000 ML IV SCH ×2 (15:03→22:00)
[2016-04-25] VITALS (18 sets, daily range): BP systolic 110–157; BP diastolic 58–73; PULSE 73–97; RESP 17–24; TEMP 97.6–98.2; O2SAT 28–99
[2016-04-25] MEDS: ESMOLOL DRIP INJ PREMIX 250 ML IV SCH ×5 (00:12→15:00)
[2016-04-25] MEDS: OXACILLIN INJ 2 GM in SODIUM CHLORIDE 0.9% INJ 100 ML IV SCH ×6 (02:59→23:23)
[2016-04-25] MEDS: METOCLOPRAMIDE HCL SYRUP 10 MG/10 ML UDC PO SCH ×3 (02:59→20:15)
[2016-04-25] MEDS: ALBUMIN HUMAN 5% 25 GM/500 ML BOTTLE IV SCH ×2 (03:00→16:01)
[2016-04-25] MEDS: FREE WATER G-TUBE SCH ×7 (03:02→23:24)
[2016-04-25] MEDS: CHLORHEXIDINE GLUCONATE 2 % 1 PACK (2 CLOTHS) TOP SCH (03:07)
[2016-04-25] MEDS: RESP: ALBUTEROL 2.5 MG/IPRATROPIUM 0.5 MG NEB (PRN) INH ×2 (04:27→07:53)
[2016-04-25] MEDS: DEXTROSE 5% IN WATE 1000ML INJ 1,000 ML IV SCH ×3 (05:32→17:20)
[2016-04-25] MEDS: METOPROLOL TARTRATE 25 MG TAB PO SCH ×4 (05:32→21:20)
[2016-04-25 05:40] LABS: HEMATOCRIT 27.1 % (35.0-46.0); MEAN CORPUSCULAR HEMOGLOBIN 31.1 PG (27.0-34.0); MEAN CORPUSCULAR HGB CONC 32.7 % (32.0-36.0); PLATELET COUNT 119 TH/MM3 (150-450); RED BLOOD COUNT 2.85 MIL/MM3 (4.00-5.30); RED CELL DISTRIBUTION WIDTH 16.5 % (11.6-17.2); REVIEW FLAG FINAL; WHITE BLOOD COUNT 12.1 TH/MM3 (4.0-11.0)
[2016-04-25 06:12] LABS: BICARBONATE 26.3 MEQ/L (21.0-32.0); MAGNESIUM 1.6 MG/DL (1.5-2.5)
[2016-04-25] MEDS: BENEPROTEIN POWDER 1 PACK G-TUBE SCH ×3 (09:00→17:39)
[2016-04-25] MEDS: MULTIVITAMIN TAB PO SCH (09:00)
[2016-04-25] MEDS: PANTOPRAZOLE SOD 40 MG DELAYED RELEASE TAB PO SCH (09:00)
[2016-04-25] MEDS: CHLORHEXIDINE 0.12% (ORAL KIT) 15 ML CUP MT SCH ×2 (09:50→20:14)
[2016-04-25] MEDS: ARTIFICIAL TEARS OPTH SOLN 15 ML BTL EACH EYE SCH ×3 (09:50→17:39)
[2016-04-25] MEDS: SODIUM CHLORIDE 0.9% FLUSH 5 ML FLUSH IV FLUSH SCH ×2 (09:51→20:15)
[2016-04-25] MEDS: DOCUSATE SODIUM 100 MG/10 ML UDC G-TUBE SCH ×2 (09:51→20:15)
[2016-04-25] MEDS: LACTULOSE SYRUP 20 GM/30 ML CUP PO SCH (09:51)
[2016-04-25] MEDS: POTASSIUM CHLOR 40 MEQ PREMIX 100 ML IV PRN (11:53)
[2016-04-25] MEDS ORDERED: methylPREDNISolone SOD SUCC 125 MG/2 ML VIAL IV PUSH ONE (13:15)
[2016-04-25] MEDS ORDERED: POTASSIUM CL 40 MEQ/30 ML LIQ UDC PO ONE (13:45)
[2016-04-25] MEDS ORDERED: FUROSEMIDE 40 MG/4 ML VIAL IV PUSH ONE (13:45)
--- NOTE | 2016-04-25 13:45 | HHI.CCPN ---
Subjective Remarks/Hospital Course 65-year-old woman brought in by EMS intubated for respiratory distress, and abdominal pain. She has recently had relapse of alcohol dependency disease and was found sitting on the floor in marked respiratory distress. 80% on room air. 04/18: Arrived severely dehydrated with YULIET and obtundation after excess alcohol consumption. Now tolerating PSV but fails weaning trial from ventilator. May need precedex for detox. She has developed a-fib with tachy- mark. Several 6 sec asystolic pauses Transcutaneous pacer placed on demand mode 04/19: Remains sedated, orally intubated on mechanical ventilation. 04/20: Remains sedated, orally intubated on mechanical ventilation. Daily C Pap trials. 04/21: Remains sedated/encephalopathic, orally intubated on mechanical ventilation. Blood cultures with staph aureus. Daily C Pap trials however neurologic status precludes extubation 04/22: remains significantly tachycardic overnight. also thrombocytopenic. remains encephalopathic. 04/23: tachycardia controlled with esmolol overnight. more awake today, awakens to voice and opens eyes, but still does not follow commands. thrombocytopenia improving. echo on 04/22 with "? device in right atrium" although the patient has no known implantable devices. good diuresis with single dose of Lasix yesterday. 04/24: Remains intubated off sedation, appears to track intermittently following commands. Sodium is 156, I have started D5 W at 125 mL per hour 04/25: Intubated, not on sedation. Continues to fail CPAP due to tachypnea, resp distress. Extensive bilateral wheezing. IV steroids and scheduled DuoNeb started. NA 152 today Objective Vital Signs Date Time Temp Pulse Resp B/P Pulse Ox O2 Delivery O2 Flow Rate FiO2 04/25/16 11:52 92 50 04/25/16 08:00 98.0 77 20 149/72 04/25/16 07:00 Mechanical Ventilator Intake and Output 04/24/16 04/24/16 04/25/16 08:00 16:00 00:00 Intake Total 1023 ml 993 ml 1377 ml Output Total 1200 ml 800 ml 650 ml Balance -177 ml 193 ml 727 ml Result Diagram: 04/25/16 0525 04/25/16 0525 Imaging Last [address] 04/17/16 7085 Signed Impressions: Service Date/Time: Sunday, April 17, 2016 00:28 - CONCLUSION: No acute disease. Percy Barnes MD CT Angiography 04/17/16 0000 Signed Impressions: Service Date/Time: Sunday, April 17, 2016 00:31 - CONCLUSION: 1. Severe emphysema without evidence for pleural or embolism. 2. Bilateral hilar adenopathy, and dense bilateral pulmonary consolidation in the lower lobes left greater than right. 3. Left adrenal mass incompletely characterized, and left renal mass measuring soft tissue density. Workup with MRI of the abdomen with and without contrast of these findings is recommended on a nonemergent outpatient basis. 4. Mild nodularity seen within the right middle lobe abutting the fissure measuring 9 mm and 7 mm on image 95. Most likely nodular infiltrate suspected. There is linear atelectasis in the right middle lobe. Short interval followup CT in 3 months recommended. Percy Barnes MD Chest X-Ray 04/16/16 2344 Signed Impressions: Service Date/Time: Sunday, April 17, 2016 00:55 - CONCLUSION: Endotracheal tube as described above. Percy Barnes MD Objective Remarks GENERAL: Critically ill-appearing female SKIN: Warm and dry. HEAD: Normocephalic. Atraumatic. NECK: Supple, trachea midline. Orally intubated. CARDIOVASCULAR: normal rate, regular rhythm this AM, sinus by tele. No JVD. RESPIRATORY: Orally intubated on mechanical ventilation, Breath sounds equal bilaterally. Bilateral extensive wheezing GASTROINTESTINAL: Abdomen soft, non-tender, nondistended. MUSCULOSKELETAL: No cyanosis, or edema. Well perfused. NEURO: Encephalopathic, orally intubated, withdraws x 4 and follows commands intermittently in the upper and lower extremities. opens eyes to voice, tracks Urinary Catheter: Yes Assessment to: Continue A/P Problem List: (1) Acute respiratory failure with hypoxia ICD Code: J96.01 Status: Acute (2) Acute kidney injury ICD Code: N17.9 Status: Acute (3) Septic shock ICD Code: A41.9 Status: Acute (4) COPD exacerbation ICD Code: J44.1 Status: Acute (5) Alcohol abuse ICD Code: F10.10 Status: Chronic Assessment and Plan Assessment: 65yF with h/o etoh dependence now with metabolic encephalopathy, acute hypoxic respiratory failure, tachy-mark syndrome. still persistently encephalopathic and critically ill. She has an echogenicity in her right atrium that cannot be otherwise explained. when the echo was performed, she did not have any implantable devices in place. YOLANDA-prominent eustachian valve. Her encephalopathy persists, although this is slightly improved from yesterday. Plan by systems: Neurologic: Alcohol dependence Metabolic Encephalopathy Peripheral neuropathy - hold gabapentin given sedation. will restart at lower dose when more awake. - holding all sedating meds. - off versed gtt held on 04/21. Morphine and Ativan when necessary - Precedex discontinued due to bradycardia - prn haldol - iv thiamine and MVI daily. - MRI brain 04/22 normal study Respiratory: Acute Hypoxic Respiratory failure COPD - Acute exacerbation. Start IV Solumedrol 125 mg IV x1 and 60 q8 - DuoNeb scheduled and PRN - resume home Spiriva when extubated - mechanical ventilation - continue daily CPAP trials. continues to fail for tachypnea, resp distress. - Sputum culture 04/18 MSSA Cardiovascular: Tachy-Mark syndrome Possible right atrial thrombus/mass - Back in sinus rhythm. 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 Obando following, YOLANDA showed prominent eustachian valve. Renal: YULIET- resolving. Acute intravascular volume overload Renal and adrenal mass - MRI w and w/o when creatinine improves and is more stable - Lasix 40mg iv x 1 given yesterday, repeat dose today - D5W at 125 mL per hour to correct hypernatremia --Strict I/Os FEN/GI: Acute protein calorie malnutritionsevere Severe hypophosphatemia Severe hypokalemia Severe hypomagnesemia Tube feeds Aggressive replacement of electrolytes Heme/ID: Sepsis Thrombocytopenia - Thrombocytopenia noted. HIT negative. slowly improving. continue to monitor. - oxacillin for staph bacteremia. - follow up cultures -Blood culture, sputum culture with staph aureus 04/17. -ID: Dr. Strong following. Endocrine: Hyperglycemia of critical illness -- SSI, medium scale, every 6 hours Prophylaxis: GI Prophylaxis Protonix DVT Prophylaxis -- SCDs Subcutaneous heparin. Hit negative. Lines: 04/22 left subclavian triple lumen catheter [facility] Dispo: Remain in the intensive care unit. She remains critically ill. Overall impression: Patient is critically ill having been found down and intoxicated. Bacteremia with MSSA and remains critically ill, failing CPAP trials This patient remains critically ill with one or more organ systems which are or may become a threat to life. I have spent in excess of 35 minutes discontinuously in the care and management of this patient. This time is exclusive of procedures, and includes, but is not limited to, evaluation of the patient, review of the medical record, discussions with family, consultants, nursing staff, or respiratory therapy, and documentation in the medical record. Zohra Olivo MD Apr 25, 2016 13:45
--- NOTE | 2016-04-25 14:08 | RADRPT ---
EXAM DATE/TIME: 04/25/2016 13:53 [facility] COMPARISON: CHEST SINGLE AP, April 22, 2016, 12:00. INDICATIONS : Evaluate lung status. MEDICAL HISTORY : Hypertension. Chronic obstructive pulmonary disease. SURGICAL HISTORY : Mastectomy. ENCOUNTER: Initial ACUITY: 1 day PAIN SCORE: Non-responsive. LOCATION: Bilateral chest FINDINGS: A single view of the chest demonstrates cardiomegaly and bilateral patchy airspace disease. Small larry ateral pleural effusions. Endotracheal tube with tip in the right mainstem bronchus. Nasogastric tube with tip in stomach. Left subclavian central line stable in position. Osseous structures are intact . CONCLUSION: 1. Bilateral patchy air space disease. 2. Suspect small bilateral pleural effusions. 3. Endotracheal tube at the orifice of the right mainstem bronchus, this should be retracted 3-4 cm. Ramez Kellogg MD on April 25, 2016 at 14:06 Board Certified Radiologist. This report was verified electronically.
[2016-04-25] MEDS: RESP: ALBUTEROL 2.5 MG/IPRATROPIUM 0.5 MG NEB (SCH) NEB ×3 (15:54→23:31)
[2016-04-25] MEDS: MORPHINE SULFATE 4 MG/ML INJ IV PRN ×2 (17:39→23:23)
[2016-04-25] MEDS: methylPREDNISolone SOD SUCC 125 MG/2 ML VIAL IV PUSH SCH (21:20)
[2016-04-26] VITALS (18 sets, daily range): BP systolic 128–173; BP diastolic 64–88; PULSE 80–103; RESP 16–58; TEMP 97.8–98.3; O2SAT 93–100
[2016-04-26] MEDS: ALBUMIN HUMAN 5% 25 GM/500 ML BOTTLE IV SCH ×2 (02:12→15:15)
[2016-04-26] MEDS: MORPHINE SULFATE 4 MG/ML INJ IV PRN ×4 (02:12→21:35)
[2016-04-26] MEDS: RESP: ALBUTEROL 2.5 MG/IPRATROPIUM 0.5 MG NEB (SCH) NEB ×6 (03:28→23:15)
[2016-04-26] MEDS: CHLORHEXIDINE GLUCONATE 2 % 1 PACK (2 CLOTHS) TOP SCH (04:00)
[2016-04-26] MEDS: METOCLOPRAMIDE HCL SYRUP 10 MG/10 ML UDC PO SCH ×3 (04:37→21:34)
[2016-04-26] MEDS: OXACILLIN INJ 2 GM in SODIUM CHLORIDE 0.9% INJ 100 ML IV SCH ×5 (04:37→21:34)
[2016-04-26] MEDS: FREE WATER G-TUBE SCH ×4 (04:38→18:00)
[2016-04-26] MEDS: methylPREDNISolone SOD SUCC 125 MG/2 ML VIAL IV PUSH SCH ×2 (05:26→21:35)
[2016-04-26] MEDS: DEXTROSE 5% IN WATE 1000ML INJ 1,000 ML IV SCH (05:27)
[2016-04-26] MEDS: METOPROLOL TARTRATE 25 MG TAB PO SCH ×3 (05:27→21:35)
[2016-04-26 06:03] LABS: AUTOMATED NEUTROPHIL # 10.3 TH/MM3 (1.8-7.7); BASOPHIL % 0.1 % (0.0-2.0); HEMATOCRIT 24.6 % (35.0-46.0); HEMO FLAGS DIFF FINAL; LYMPH % 2.3 % (9.0-44.0); LYMPHOCYTE # 0.3 TH/MM3 (1.0-4.8); MEAN CORPUSCULAR HEMOGLOBIN 31.8 PG (27.0-34.0); MEAN CORPUSCULAR HGB CONC 33.9 % (32.0-36.0); MONO % 4.2 % (0.0-8.0); NEUT % 93.4 % (16.0-70.0); PLATELET COUNT 140 TH/MM3 (150-450); RED BLOOD COUNT 2.62 MIL/MM3 (4.00-5.30); RED CELL DISTRIBUTION WIDTH 16.8 % (11.6-17.2); WHITE BLOOD COUNT 11.1 TH/MM3 (4.0-11.0)
[2016-04-26 06:29] LABS: ALKALINE PHOSPHATASE 40 U/L (45-117); ALT (GPT) 8 U/L (10-53); ANION GAP 7 MEQ/L (5-15); AST (GOT) 5 U/L (15-37); BICARBONATE 27.1 MEQ/L (21.0-32.0); BLOOD UREA NITROGEN 43 MG/DL (7-18); CHLORIDE 110 MEQ/L (98-107); GLOMERULAR FILTRATION RATE 85 ML/MIN (>89); MAGNESIUM 1.3 MG/DL (1.5-2.5); POTASSIUM 3.4 MEQ/L (3.5-5.1); SODIUM (NA) 144 MEQ/L (136-145); TOTAL BILIRUBIN ADULT 0.5 MG/DL (0.2-1.0)
[2016-04-26] MEDS: POTASSIUM CHLOR 40 MEQ PREMIX 100 ML IV PRN (06:41)
--- NOTE | 2016-04-26 06:55 | RADRPT ---
EXAM DATE/TIME: 04/26/2016 06:11 [facility] COMPARISON: CHEST SINGLE AP, April 25, 2016, 13:53. INDICATIONS : Shortness of breath, possible pulmonary disease. MEDICAL HISTORY : Hypertension. Chronic obstructive pulmonary disease. SURGICAL HISTORY : Mastectomy ENCOUNTER: Subsequent ACUITY: 4 - 6 days PAIN SCORE: Non-responsive. LOCATION: Bilateral chest FINDINGS: Portable AP view of the chest demonstrates a normal-sized cardiac silhouette. ETT, NG tube, and left subclavian central line remain present. There are airspace opacities in the mid and lower lung zones bilaterally along with pleural based opacities. No pneumothorax is visualized. CONCLUSION: Stable chest x-ray with small bilateral pleural effusions and airspace consolidation in the mid and l ower lung zones bilaterally. Geovani Joya MD on April 26, 2016 at 6:53 Board Certified Radiologist. This report was verified electronically.
[2016-04-26] MEDS: CHLORHEXIDINE 0.12% (ORAL KIT) 15 ML CUP MT SCH ×2 (08:00→21:34)
[2016-04-26] MEDS: DOCUSATE SODIUM 100 MG/10 ML UDC G-TUBE SCH ×2 (08:22→21:34)
[2016-04-26] MEDS: LACTULOSE SYRUP 20 GM/30 ML CUP PO SCH (08:22)
[2016-04-26] MEDS: MULTIVITAMIN TAB PO SCH (08:23)
[2016-04-26] MEDS: PANTOPRAZOLE SOD 40 MG DELAYED RELEASE TAB PO SCH (08:23)
[2016-04-26] MEDS: THIAMINE HCL 100 MG TAB PO SCH (08:23)
[2016-04-26] MEDS: BENEPROTEIN POWDER 1 PACK G-TUBE SCH ×3 (09:00→17:32)
[2016-04-26] MEDS: MAGNESIUM SULFATE INJ 2 GM in SODIUM CHLORIDE 0.9% INJ 96 ML IV PRN (09:11)
[2016-04-26] MEDS: ARTIFICIAL TEARS OPTH SOLN 15 ML BTL EACH EYE SCH ×3 (09:18→17:32)
[2016-04-26] MEDS: SODIUM CHLORIDE 0.9% FLUSH 5 ML FLUSH IV FLUSH SCH ×2 (09:19→21:34)
[2016-04-26] MEDS ORDERED: BUMETANIDE INJ 1 MG/4 ML VIAL IV PUSH ONE (13:45)
--- NOTE | 2016-04-26 13:47 | HHI.CCPN ---
Subjective Remarks/Hospital Course 65-year-old woman brought in by EMS intubated for respiratory distress, and abdominal pain. She has recently had relapse of alcohol dependency disease and was found sitting on the floor in marked respiratory distress. 80% on room air. 04/18: Arrived severely dehydrated with YULIET and obtundation after excess alcohol consumption. Now tolerating PSV but fails weaning trial from ventilator. May need precedex for detox. She has developed a-fib with tachy- mark. Several 6 sec asystolic pauses Transcutaneous pacer placed on demand mode 04/19: Remains sedated, orally intubated on mechanical ventilation. 04/20: Remains sedated, orally intubated on mechanical ventilation. Daily C Pap trials. 04/21: Remains sedated/encephalopathic, orally intubated on mechanical ventilation. Blood cultures with staph aureus. Daily C Pap trials however neurologic status precludes extubation 04/22: remains significantly tachycardic overnight. also thrombocytopenic. remains encephalopathic. 04/23: tachycardia controlled with esmolol overnight. more awake today, awakens to voice and opens eyes, but still does not follow commands. thrombocytopenia improving. echo on 04/22 with "? device in right atrium" although the patient has no known implantable devices. good diuresis with single dose of Lasix yesterday. 04/24: Remains intubated off sedation, appears to track intermittently following commands. Sodium is 156, I have started D5 W at 125 mL per hour 04/25: Intubated, not on sedation. Continues to fail CPAP due to tachypnea, resp distress. Extensive bilateral wheezing. IV steroids and scheduled DuoNeb started. NA 152 today 04/26: Continues to fail C Pap trial due to tachypnea, respiratory distress and labored breathing. However wheezing is improving on IV steroids and breathing treatments, sodium is normal 144 today. Discontinue D5W. Neurologically more improved. Following commands and upper extremity Objective Vital Signs Date Time Temp Pulse Resp B/P Pulse Ox O2 Delivery O2 Flow Rate FiO2 04/26/16 12:05 93 45 04/26/16 12:00 98.3 100 28 136/66 04/26/16 07:00 Mechanical Ventilator Intake and Output 04/25/16 04/25/16 04/26/16 08:00 16:00 00:00 Intake Total 2389 ml 300 ml 2702 ml Output Total 700 ml 60.0 ml 2160 ml Balance 1689 ml 240.0 ml 542 ml Result Diagram: 04/26/1630 04/26/1630 Imaging Last [address] 04/17/164 Signed Impressions: Service Date/Time: Sunday, April 17, 2016 00:28 - CONCLUSION: No acute disease. Percy Barnes MD CT Angiography 04/17/16 0000 Signed Impressions: Service Date/Time: Sunday, April 17, 2016 00:31 - CONCLUSION: 1. Severe emphysema without evidence for pleural or embolism. 2. Bilateral hilar adenopathy, and dense bilateral pulmonary consolidation in the lower lobes left greater than right. 3. Left adrenal mass incompletely characterized, and left renal mass measuring soft tissue density. Workup with MRI of the abdomen with and without contrast of these findings is recommended on a nonemergent outpatient basis. 4. Mild nodularity seen within the right middle lobe abutting the fissure measuring 9 mm and 7 mm on image 95. Most likely nodular infiltrate suspected. There is linear atelectasis in the right middle lobe. Short interval followup CT in 3 months recommended. Percy Barnes MD Chest X-Ray 04/16/162343 Signed Impressions: Service Date/Time: Sunday, April 17, 2016 00:55 - CONCLUSION: Endotracheal tube as described above. Percy Barnes MD Objective Remarks GENERAL: Critically ill-appearing female, more awake today SKIN: Warm and dry. HEAD: Normocephalic. Atraumatic. NECK: Supple, trachea midline. Orally intubated. CARDIOVASCULAR: normal rate, regular rhythm this AM, sinus by tele. No JVD. RESPIRATORY: Orally intubated on mechanical ventilation, Breath sounds equal bilaterally. Bilateral extensive wheezing, labored breathing when placed on CPAP 5/5 GASTROINTESTINAL: Abdomen soft, non-tender, nondistended. MUSCULOSKELETAL: No cyanosis, or edema. Well perfused. NEURO: Encephalopathic, orally intubated, withdraws x 4 and follows commands in upper and lower extremities. A/P Problem List: (1) Acute respiratory failure with hypoxia ICD Code: J96.01 Status: Acute (2) Acute kidney injury ICD Code: N17.9 Status: Acute (3) Septic shock ICD Code: A41.9 Status: Acute (4) COPD exacerbation ICD Code: J44.1 Status: Acute (5) Alcohol abuse ICD Code: F10.10 Status: Chronic Assessment and Plan Assessment: 65yF with h/o etoh dependence now with metabolic encephalopathy, acute hypoxic respiratory failure, tachy-mark syndrome. still persistently encephalopathic and critically ill. She has an echogenicity in her right atrium that cannot be otherwise explained. when the echo was performed, she did not have any implantable devices in place. YOLANDA-prominent eustachian valve. Her encephalopathy persists, although this is slightly improved from yesterday. Plan by systems: Neurologic: Alcohol dependence Metabolic Encephalopathy Peripheral neuropathy - Holding gabapentin given sedation. will restart at lower dose when more awake. - holding all sedating meds. - off versed gtt held on 04/21. Morphine and Ativan when necessary - Precedex discontinued due to bradycardia - prn haldol - iv thiamine and MVI daily. - MRI brain 04/22 normal study Respiratory: Acute Hypoxic Respiratory failure Acute COPD exacerbation - Acute exacerbation. On Solumedrol 60 q8, reduce to 60 q12 - DuoNeb scheduled and PRN - resume home Spiriva when extubated - mechanical ventilation PRVC, Continue daily CPAP trials. continues to fail for tachypnea, resp distress. - May need trach VENT day 10 today - Sputum culture 04/18 MSSA Cardiovascular: Tachy-Mark syndrome Possible right atrial thrombus/mass - Back in sinus rhythm. 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 Obando following, YOLANDA showed prominent eustachian valve. Renal: YULIET- resolving. Acute intravascular volume overload Renal and adrenal mass - MRI w and w/o when creatinine improves and is more stable - Lasix 40mg iv x 1 last tow days, start Bumex 2 mg x1 and 1q mg BID (start ) - DC D5W at 125 mL per hour --Strict I/Os FEN/GI: Acute protein calorie malnutritionsevere Severe hypophosphatemia Severe hypokalemia Severe hypomagnesemia Tube feeds Aggressive replacement of electrolytes Heme/ID: Sepsis Thrombocytopenia - Thrombocytopenia noted. HIT negative. slowly improving. continue to monitor. - oxacillin for staph bacteremia. - follow up cultures - Blood culture, sputum culture with staph aureus 04/17. - ID: Dr. Strong following. Endocrine: Hyperglycemia of critical illness -- SSI, medium scale, every 6 hours Prophylaxis: GI Prophylaxis Protonix DVT Prophylaxis -- SCDs Subcutaneous heparin. Hit negative. Lines: 04/22 left subclavian triple lumen catheter [facility] Dispo: Remain in the intensive care unit. She remains critically ill. Overall impression: Patient is critically ill having been found down and intoxicated. Bacteremia with MSSA and remains critically ill, failing CPAP trials, may need tracheostomy This patient remains critically ill with one or more organ systems which are or may become a threat to life. I have spent in excess of 35 minutes discontinuously in the care and management of this patient. This time is exclusive of procedures, and includes, but is not limited to, evaluation of the patient, review of the medical record, discussions with family, consultants, nursing staff, or respiratory therapy, and documentation in the medical record. Zohra Olivo MD Apr 26, 2016 13:46
[2016-04-26] MEDS: POTASSIUM CL 40 MEQ/30 ML LIQ UDC PO SCH (14:35)
[2016-04-26] MEDS: BUMETANIDE INJ 1 MG/4 ML VIAL IV PUSH SCH (17:59)
[2016-04-27] VITALS (25 sets, daily range): BP systolic 118–169; BP diastolic 64–81; PULSE 73–110; RESP 16–31; TEMP 97.5–98.7; O2SAT 91–100
[2016-04-27] MEDS: FREE WATER G-TUBE SCH ×3 (00:29→12:00)
[2016-04-27] MEDS: OXACILLIN INJ 2 GM in SODIUM CHLORIDE 0.9% INJ 100 ML IV SCH ×6 (00:29→21:01)
[2016-04-27] MEDS: MORPHINE SULFATE 4 MG/ML INJ IV PRN ×4 (02:35→14:52)
[2016-04-27] MEDS: ALBUMIN HUMAN 5% 25 GM/500 ML BOTTLE IV SCH ×2 (02:35→14:41)
[2016-04-27] MEDS: RESP: ALBUTEROL 2.5 MG/IPRATROPIUM 0.5 MG NEB (SCH) NEB ×6 (03:44→23:21)
[2016-04-27] MEDS: CHLORHEXIDINE GLUCONATE 2 % 1 PACK (2 CLOTHS) TOP SCH (04:00)
[2016-04-27 04:29] LABS: HEMATOCRIT 23.4 % (35.0-46.0); MEAN CELL VOLUME 93.3 FL (80.0-100.0); MEAN CORPUSCULAR HEMOGLOBIN 31.8 PG (27.0-34.0); MEAN CORPUSCULAR HGB CONC 34.1 % (32.0-36.0); PLATELET COUNT 167 TH/MM3 (150-450); RED CELL DISTRIBUTION WIDTH 16.5 % (11.6-17.2); REVIEW FLAG FINAL; WHITE BLOOD COUNT 11.7 TH/MM3 (4.0-11.0)
[2016-04-27] MEDS: METOCLOPRAMIDE HCL SYRUP 10 MG/10 ML UDC PO SCH ×3 (04:31→20:00)
[2016-04-27 04:49] LABS: MAGNESIUM 1.5 MG/DL (1.5-2.5); POTASSIUM 3.4 MEQ/L (3.5-5.1)
[2016-04-27] MEDS: METOPROLOL TARTRATE 25 MG TAB PO SCH ×3 (05:23→22:00)
[2016-04-27] MEDS: POTASSIUM CHLOR 40 MEQ PREMIX 100 ML IV PRN (05:34)
[2016-04-27] MEDS: LACTULOSE SYRUP 20 GM/30 ML CUP PO SCH (08:06)
[2016-04-27] MEDS: DOCUSATE SODIUM 100 MG/10 ML UDC G-TUBE SCH ×2 (08:06→20:58)
[2016-04-27] MEDS: PANTOPRAZOLE SOD 40 MG DELAYED RELEASE TAB PO SCH (08:06)
[2016-04-27] MEDS: THIAMINE HCL 100 MG TAB PO SCH (08:06)
[2016-04-27] MEDS: POTASSIUM CL 40 MEQ/30 ML LIQ UDC PO SCH (08:06)
[2016-04-27] MEDS: ARTIFICIAL TEARS OPTH SOLN 15 ML BTL EACH EYE SCH ×3 (08:07→17:19)
[2016-04-27] MEDS: BENEPROTEIN POWDER 1 PACK G-TUBE SCH ×3 (08:07→17:19)
[2016-04-27] MEDS: methylPREDNISolone SOD SUCC 125 MG/2 ML VIAL IV PUSH SCH ×2 (08:08→21:01)
[2016-04-27] MEDS: BUMETANIDE INJ 1 MG/4 ML VIAL IV PUSH SCH ×2 (08:08→17:26)
[2016-04-27] MEDS: SODIUM CHLORIDE 0.9% FLUSH 5 ML FLUSH IV FLUSH SCH ×2 (08:08→21:12)
[2016-04-27] MEDS: MULTIVITAMIN TAB PO SCH (08:08)
[2016-04-27] MEDS: CHLORHEXIDINE 0.12% (ORAL KIT) 15 ML CUP MT SCH ×2 (08:08→20:00)
--- NOTE | 2016-04-27 10:36 | HHI.IDPN ---
Subjective Subjective Remarks is a 65 y/o with alcoholism who was found on the floor in resp distress and sating 80% on RA. EMS intubated for respiratory distress and abdominal pain. Admission vitals included a amina of 99.9 F, tachycardia, low BP and elevated lactic acid. Patient underwent sepsis workup. Was started on IV antibiotics. She appeared to be severely dehydrated with acute kidney injury and mental obtundation. ID following for Sepsis, MSSA bacteremia. No fever No rash No diarrhea Awake, appears restless trying to pull tubes. Reassured patient and explained to her that if she remains calm and tolerates CPAP weaning further may be possible. Antibiotics Oxacillin IV Lines Line sites with no e/o infection Past Medical History Alcoholism Allergies: Coded Allergies: Dexmedetomidine (Verified Allergy, Severe, Arrhythmias, 04/18/16) ASYSTOLE 04/18/16 Precedex (Verified Allergy, Severe, Arrhythmias, 04/18/16) ASYSTOLE 04/18/16 Camphor (Verified Allergy, Unknown, Swelling, 04/17/16) Objective . Vital Signs Date Time Temp Pulse Resp B/P Pulse Ox O2 Delivery O2 Flow Rate FiO2 04/27/16 10:00 90 04/27/16 09:40 96 45 04/27/16 08:12 100 45 04/27/16 08:12 23 04/27/16 08:11 45 04/27/16 08:08 100 45 04/27/16 08:00 45 04/27/16 08:00 84 04/27/16 08:00 98.6 89 26 136/64 100 04/27/16 07:00 96 Mechanical Ventilator 45 04/27/16 06:00 73 04/27/16 04:00 45 04/27/16 04:00 79 04/27/16 04:00 98.6 79 16 130/66 100 04/27/16 03:44 99 45 04/27/16 02:00 90 04/27/16 01:08 96 45 04/27/16 00:00 45 04/27/16 00:00 98.4 77 17 118/68 96 04/27/16 00:00 77 04/26/16 22:00 94 04/26/16 20:50 99 45 04/26/16 20:00 98 04/26/16 20:00 98.2 98 26 173/80 99 04/26/16 20:00 45 04/26/16 19:00 98 Mechanical Ventilator 45 04/26/16 18:53 92 04/26/16 17:00 45 04/26/16 16:56 95 45 04/26/16 16:00 98.3 103 58 166/88 04/26/16 16:00 45 04/26/16 16:00 101 04/26/16 14:00 100 04/26/16 12:05 93 45 04/26/16 12:00 45 04/26/16 12:00 98.3 100 28 136/66 04/26/16 12:00 100 04/26/16 04/26/16 04/27/16 15:00 23:00 07:00 Intake Total 1670 ml 1601 ml 379 ml Output Total 650 ml 3300 ml 550 ml Balance 1020 ml -1699 ml -171 ml Intake IV Total 855 ml 864 ml 168 ml Tube Feeding 215 ml 237 ml 211 ml Albumin 500 ml Other 600 ml Output Urine Total 650 ml 3300 ml 550 ml # Bowel Movements 1 . Laboratory Tests Test 04/26/16 04/27/16 05:30 04:00 White Blood Count 11.1 TH/MM3 11.7 TH/MM3 Red Blood Count 2.62 MIL/MM3 2.50 MIL/MM3 Hemoglobin 8.3 GM/DL 8.0 GM/DL Hematocrit 24.6 % 23.4 % Mean Corpuscular Volume 94.0 FL 93.3 FL Mean Corpuscular Hemoglobin 31.8 PG 31.8 PG Mean Corpuscular Hemoglobin 33.9 % 34.1 % Concent Red Cell Distribution Width 16.8 % 16.5 % Platelet Count 140 TH/MM3 167 TH/MM3 Mean Platelet Volume 9.6 FL 9.3 FL Neutrophils (%) (Auto) 93.4 % Lymphocytes (%) (Auto) 2.3 % Monocytes (%) (Auto) 4.2 % Eosinophils (%) (Auto) 0.0 % Basophils (%) (Auto) 0.1 % Neutrophils # (Auto) 10.3 TH/MM3 Lymphocytes # (Auto) 0.3 TH/MM3 Monocytes # (Auto) 0.5 TH/MM3 Eosinophils # (Auto) 0.0 TH/MM3 Basophils # (Auto) 0.0 TH/MM3 CBC Comment DIFF FINAL Differential Comment Laboratory Tests Test 04/25/16 04/26/16 04/27/16 17:40 05:30 04:00 Potassium Level 4.3 MEQ/L 3.4 MEQ/L 3.4 MEQ/L Sodium Level 144 MEQ/L 141 MEQ/L Chloride Level 110 MEQ/L 105 MEQ/L Carbon Dioxide Level 27.1 MEQ/L 27.0 MEQ/L Anion Gap 7 MEQ/L 9 MEQ/L Blood Urea Nitrogen 43 MG/DL 40 MG/DL Creatinine 0.69 MG/DL 0.61 MG/DL Estimat Glomerular Filtration 85 ML/MIN 98 ML/MIN Rate Random Glucose 133 MG/DL 108 MG/DL Calcium Level 10.9 MG/DL 10.8 MG/DL Phosphorus Level 3.4 MG/DL 2.7 MG/DL Magnesium Level 1.3 MG/DL 1.5 MG/DL Total Bilirubin 0.5 MG/DL Aspartate Amino Transf 5 U/L (AST/SGOT) Alanine Aminotransferase 8 U/L (ALT/SGPT) Alkaline Phosphatase 40 U/L Total Protein 5.9 GM/DL Albumin 3.8 GM/DL Microbiology Date/Time Procedure Status Source Growth 04/26/16 15:50 Gram Stain - Final Resulted Sputum Endotracheal 04/26/16 15:50 Sputum Culture Resulted Sputum Endotracheal Pending Imaging Last Impressions Chest X-Ray 04/22/16 0000 Signed Impressions: Service Date/Time: Friday, April 22, 2016 12:00 - CONCLUSION: There is no pneumothorax. ET tube at the akua directed towards the right main bronchus. Alessandro Tello MD FACR Head CT 04/17/16 2344 Signed Impressions: Service Date/Time: Sunday, April 17, 2016 00:28 - CONCLUSION: No acute disease. Percy Barnes MD CT Angiography 04/17/16 0000 Signed Impressions: Service Date/Time: Sunday, April 17, 2016 00:31 - CONCLUSION: 1. Severe emphysema without evidence for pleural or embolism. 2. Bilateral hilar adenopathy, and dense bilateral pulmonary consolidation in the lower lobes left greater than right. 3. Left adrenal mass incompletely characterized, and left renal mass measuring soft tissue density. Workup with MRI of the abdomen with and without contrast of these findings is recommended on a nonemergent outpatient basis. 4. Mild nodularity seen within the right middle lobe abutting the fissure measuring 9 mm and 7 mm on image 95. Most likely nodular infiltrate suspected. There is linear atelectasis in the right middle lobe. Short interval followup CT in 3 months recommended. Percy Barnes MD Abdomen/Pelvis CT 04/17/16 0000 Signed Impressions: Service Date/Time: Sunday, April 17, 2016 06:30 - CONCLUSION: 1. Mild distention of the gallbladder. 2. Bilateral renal cysts are noted as well as an indeterminate mass upper pole left kidney, probable hemorrhagic or proteinaceous cyst and can be further evaluated with MRI of the abdomen with and without contrast on a nonemergent outpatient basis. 3. Bilateral lower lobe consolidation. 4. Indeterminate probable adenomas left adrenal mass. 5. Atherosclerosis. 6. Nodular infiltrate in the right middle lobe is seen. Percy Barnes MD Physical Exam GENERAL: Thin built poorly nourished patient, in no apparent distress. SKIN: Spider naevi on chest. HEAD: Atraumatic. Normocephalic. No temporal or scalp tenderness. EYES: Pupils equal round and reactive. Extraocular motions intact. No scleral icterus. No injection or drainage. ENT: Intubated, NECK: Trachea midline. Supple, nontender, no meningeal signs. CARDIOVASCULAR: HS audible. RESPIRATORY: Breath sounds equal bilaterally with decrease in the bases. GASTROINTESTINAL: Abdomen soft, non-tender, nondistended. No hepato-splenomegaly , or palpable masses. No guarding. MUSCULOSKELETAL: Extremities without clubbing, cyanosis, or edema. No joint tenderness, effusion, or edema noted. No calf tenderness. Negative Homans sign bilaterally. NEUROLOGICAL: Lethargic, arousable to commands and deep stimuli. Follows simple commands like wiggling toes. Psych could not be assessed IV line sites with no e/o infection. Assessment & Plan Remarks Severe Sepsis present on admission MSSA bacteremia transient. MSSA pneumonia vs septic emboli Lactobacillus and Enterococcus faecalis in urine/UTI treated on admission. Likely not the source of infection. Acute metabolic encephalopathy: sepsis, alcoholism appears resolving. Acute renal failure: sepsis, prerenal. Thrombocytopenia: likely sepsis, ? meds. ? Vanco induced Recs Repeat Blood cultures YOLANDA negative. Continue Oxacillin IV more directed and first line treatment for disseminated MSSA infection. Check Hepatitis profile and HIV antibody screen. Concern for IVDA related bacteremia vs pneumonia as source of bacteremia. MRI brain negative. shakila RN and [facility] . Sophia Strogn MD Apr 27, 2016 10:25 Sophia Strong MD Apr 27, 2016 10:25
[2016-04-27 12:06] LABS: BLOOD GAS BASE EXCESS 3.7 mmol/L (-2-2); BLOOD GAS CARBOXYHEMOGLOBIN 1.8 % (0-4); BLOOD GAS HCO3 28 mmol/L (22-26); BLOOD GAS METHEMOGLOBIN 0.9 % (0-2); BLOOD GAS O2 HGB SATURATION 93 % (90-100); BLOOD GAS OXYGEN CONTENT 11.6 Vol % (12.0-20.0); BLOOD GAS PCO2 41 mmHg (38-42); BLOOD GAS PO2 79 mmHg (61-120); BLOOD GAS TOTAL HGB 8.7 G/DL (12.0-16.0); CRITICAL VALUE NO; DRAW SITE RT RADIAL; FIO2 40 %; NUMBER OF ARTERIAL PUNCTURES 1; OXYGEN DEVICE VENTILATOR; STAT NO; TEMP CORR TO 98.6; ULNAR PULSE PRESENT; VENT SETTINGS PEEP5/PS8
[2016-04-27] MEDS ORDERED: RESP: RACEPINEPHRINE 2.25% 0.5 ML NEB ONE (12:15)
--- NOTE | 2016-04-27 13:14 | HHI.CCPN ---
Subjective Remarks/Hospital Course 65-year-old woman brought in by EMS intubated for respiratory distress, and abdominal pain. She has recently had relapse of alcohol dependency disease and was found sitting on the floor in marked respiratory distress. 80% on room air. 04/18: Arrived severely dehydrated with YULIET and obtundation after excess alcohol consumption. Now tolerating PSV but fails weaning trial from ventilator. May need precedex for detox. She has developed a-fib with tachy- mark. Several 6 sec asystolic pauses Transcutaneous pacer placed on demand mode 04/19: Remains sedated, orally intubated on mechanical ventilation. 04/20: Remains sedated, orally intubated on mechanical ventilation. Daily C Pap trials. 04/21: Remains sedated/encephalopathic, orally intubated on mechanical ventilation. Blood cultures with staph aureus. Daily C Pap trials however neurologic status precludes extubation 04/22: remains significantly tachycardic overnight. also thrombocytopenic. remains encephalopathic. 04/23: tachycardia controlled with esmolol overnight. more awake today, awakens to voice and opens eyes, but still does not follow commands. thrombocytopenia improving. echo on 04/22 with "? device in right atrium" although the patient has no known implantable devices. good diuresis with single dose of Lasix yesterday. 04/24: Remains intubated off sedation, appears to track intermittently following commands. Sodium is 156, I have started D5 W at 125 mL per hour 04/25: Intubated, not on sedation. Continues to fail CPAP due to tachypnea, resp distress. Extensive bilateral wheezing. IV steroids and scheduled DuoNeb started. NA 152 today 04/26: Continues to fail C Pap trial due to tachypnea, respiratory distress and labored breathing. However wheezing is improving on IV steroids and breathing treatments, sodium is normal 144 today. Discontinue D5W. Neurologically more improved. Following commands and upper extremity 04/27: Tolerated C Pap better today and was weaned to extubation. Developed some respiratory distress placed on BiPAP, now breathing more comfortably. UO remains adequate Objective Vital Signs Date Time Temp Pulse Resp B/P Pulse Ox O2 Delivery O2 Flow Rate FiO2 04/27/16 12:45 97 40 04/27/16 12:30 Mask 6 04/27/16 10:40 22 04/27/16 10:00 90 04/27/16 08:00 98.6 136/64 Intake and Output 04/26/16 04/26/16 04/27/16 08:00 16:00 00:00 Intake Total 1286 ml 2170 ml 1101 ml Output Total 1425 ml 650 ml 3300 ml Balance -139 ml 1520 ml -2199 ml Result Diagram: 04/27/16 0400 04/27/16 0400 Other Results Laboratory Tests Test 04/27/16 11:48 Blood Gas Puncture Site RT RADIAL Blood Gas Patient Temperature 98.6 Blood Gas HCO3 28 mmol/L (22-26) Blood Gas Base Excess 3.7 mmol/L (-2-2) Blood Gas Oxygen Saturation 93 % (90-100) Arterial Blood pH 7.45 (7.380-7.420) Arterial Blood Partial 41 mmHg (38-42) Pressure CO2 Arterial Blood Partial 79 mmHg Pressure O2 (61-120) Arterial Blood Oxygen Content 11.6 Vol % (12.0-20.0) Arterial Blood 1.8 % (0-4) Carboxyhemoglobin Arterial Blood Methemoglobin 0.9 % (0-2) Blood Gas Hemoglobin 8.7 G/DL (12.0-16.0) Oxygen Delivery Device VENTILATOR Blood Gas Ventilator Setting PEEP5/PS8 Blood Gas Inspired Oxygen 40 % Imaging Last [address] 04/17/162343 Signed Impressions: Service Date/Time: Sunday, April 17, 2016 00:28 - CONCLUSION: No acute disease. Percy Barnes MD CT Angiography 04/17/16 0000 Signed Impressions: Service Date/Time: Sunday, April 17, 2016 00:31 - CONCLUSION: 1. Severe emphysema without evidence for pleural or embolism. 2. Bilateral hilar adenopathy, and dense bilateral pulmonary consolidation in the lower lobes left greater than right. 3. Left adrenal mass incompletely characterized, and left renal mass measuring soft tissue density. Workup with MRI of the abdomen with and without contrast of these findings is recommended on a nonemergent outpatient basis. 4. Mild nodularity seen within the right middle lobe abutting the fissure measuring 9 mm and 7 mm on image 95. Most likely nodular infiltrate suspected. There is linear atelectasis in the right middle lobe. Short interval followup CT in 3 months recommended. Percy Barnes MD Chest X-Ray 04/16/16 1977 Signed Impressions: Service Date/Time: Sunday, April 17, 2016 00:55 - CONCLUSION: Endotracheal tube as described above. Percy Barnes MD Objective Remarks GENERAL: Critically ill-appearing female, more awake today SKIN: Warm and dry. HEAD: Normocephalic. Atraumatic. NECK: Supple, trachea midline. Orally intubated. CARDIOVASCULAR: normal rate, regular rhythm this AM, sinus by tele. No JVD. RESPIRATORY: Orally intubated on mechanical ventilation, Breath sounds equal bilaterally. Bilateral minimal wheezing GASTROINTESTINAL: Abdomen soft, non-tender, nondistended. MUSCULOSKELETAL: No cyanosis, or edema. Well perfused. NEURO: Encephalopathic, orally intubated, withdraws x 4 and follows commands in upper and lower extremities. Urinary Catheter: Yes Assessment to: Continue A/P Problem List: (1) Acute respiratory failure with hypoxia ICD Code: J96.01 Status: Acute (2) Acute kidney injury ICD Code: N17.9 Status: Acute (3) Septic shock ICD Code: A41.9 Status: Acute (4) COPD exacerbation ICD Code: J44.1 Status: Acute (5) Alcohol abuse ICD Code: F10.10 Status: Chronic Assessment and Plan Assessment: 65yF with h/o etoh dependence now with metabolic encephalopathy, acute hypoxic respiratory failure, tachy-mark syndrome. still persistently encephalopathic and critically ill. She has an echogenicity in her right atrium that cannot be otherwise explained. when the echo was performed, she did not have any implantable devices in place. YOLANDA-prominent eustachian valve. Her encephalopathy persists, although this is slightly improved from yesterday. Plan by systems: Neurologic: Alcohol dependence Metabolic Encephalopathy Peripheral neuropathy - Holding gabapentin given sedation. will restart at lower dose when more awake. holding all sedating meds. - off versed gtt held on 04/21. Morphine when necessary - Precedex discontinued due to bradycardia. prn haldol - iv thiamine and MVI daily. - MRI brain 04/22 normal study Respiratory: Acute Hypoxic Respiratory failure Acute COPD exacerbation - Acute exacerbation. On Solumedrol 60 q12 - DuoNeb scheduled and PRN - resume home Spiriva when extubated - Extubated today, but required BiPAP almost immediately - May need trach if patient fails - Sputum culture 04/18 MSSA Cardiovascular: Tachy-Mark syndrome Possible right atrial thrombus/mass - Back in sinus rhythm. 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 Obando following, YOLANDA showed prominent eustachian valve. Renal: YULIET- resolving. Acute intravascular volume overload Renal and adrenal mass - MRI w and w/o when creatinine improves and is more stable - Lasix 40mg iv x 1 last tow days, start Bumex 2 mg x1 and 1q mg BID (start ) --Strict I/Os FEN/GI: Acute protein calorie malnutritionsevere Severe hypophosphatemia Severe hypokalemia Severe hypomagnesemia aggressive replacement of electrolytes Heme/ID: Sepsis Thrombocytopenia - Thrombocytopenia noted. HIT negative. slowly improving. continue to monitor. - oxacillin for staph bacteremia. - follow up cultures - Blood culture, sputum culture with staph aureus 04/17. - ID: Dr. Strong following. Endocrine: Hyperglycemia of critical illness -- SSI, medium scale, every 6 hours Prophylaxis: GI Prophylaxis Protonix DVT Prophylaxis -- SCDs Subcutaneous heparin. Hit negative. Lines: 04/22 left subclavian triple lumen catheter [place] Dispo: Remain in the intensive care unit. She remains critically ill. Overall impression: Patient is critically ill having been found down and intoxicated. Bacteremia with MSSA and remains critically ill, failing CPAP trials, may need tracheostomy This patient remains critically ill with one or more organ systems which are or may become a threat to life. I have spent in excess of 35 minutes discontinuously in the care and management of this patient. This time is exclusive of procedures, and includes, but is not limited to, evaluation of the patient, review of the medical record, discussions with family, consultants, nursing staff, or respiratory therapy, and documentation in the medical record. Zohra Olivo MD Apr 27, 2016 13:14
[2016-04-27] MEDS: HALOPERIDOL LACTATE 5 MG/ML AMP IV PRN ×2 (13:26→14:41)
[2016-04-27] MEDS ORDERED: MORPHINE SULFATE 4 MG/ML INJ IV PUSH PRN (14:00)
[2016-04-27] MEDS ORDERED: LORazepam 2 MG/ML VIAL IVP ONE (18:15)
[2016-04-27] MEDS ORDERED: LORazepam 2 MG/ML VIAL IVP PRN (18:15)
[2016-04-27 23:03] LABS: BLOOD GAS BASE EXCESS 5.1 mmol/L (-2-2); BLOOD GAS CARBOXYHEMOGLOBIN 1.9 % (0-4); BLOOD GAS HCO3 30 mmol/L (22-26); BLOOD GAS METHEMOGLOBIN 0.8 % (0-2); BLOOD GAS O2 HGB SATURATION 93 % (90-100); BLOOD GAS OXYGEN CONTENT 11.5 Vol % (12.0-20.0); BLOOD GAS PCO2 54 mmHg (38-42); BLOOD GAS PO2 82 mmHg (61-120); BLOOD GAS TOTAL HGB 8.8 G/DL (12.0-16.0); TEMP CORR TO 98.6
[2016-04-27 23:05] LABS: CRITICAL VALUE YES; DRAW SITE RT RADIAL; FIO2 80 %; NUMBER OF ARTERIAL PUNCTURES 1; OXYGEN DEVICE BiPAP; STAT YES; ULNAR PULSE PRESENT; VENT SETTINGS IPAP10/EPAP5
[2016-04-27] MEDS ORDERED: MIDAZOLAM 100 MG/ML INJ 100 ML IV SCH (23:45)
[2016-04-27] MEDS ORDERED: ETOMIDATE 40 MG/20 ML VIAL IV PUSH ONE (23:45)
[2016-04-27] MEDS ORDERED: fentaNYL DRIP 250 ML IV SCH (23:45)
[2016-04-27] MEDS ORDERED: ROCURONIUM INJ 100 MG/10 ML VIAL IV ONE (23:45)
[2016-04-28] VITALS (18 sets, daily range): BP systolic 131–160; BP diastolic 64–107; PULSE 70–106; RESP 16–26; TEMP 97.1–98.7; O2SAT 94–100
--- NOTE | 2016-04-28 00:05 | PD.PROCEDR ---
Procedure Note Procedure DATE: 04/28/16 PROCEDURE: Orotracheal intubation INDICATION: With acute hypoxemic respiratory failure DETAILS OF PROCEDURE The patient was placed in optimal position and preoxygenated with 100% FiO2 via bag valve mask. At the start oxygen saturation was 100%. The patient was administered 20 mg etomidate IV and 50 milligrams rocuronium IV. I entered the oropharynx with a size 4 GVL glidescope blade and obtained a grade 2 view of the airway. On single attempt a size 8.0 cuffed endotracheal tube was passed through the vocal cords. Correct tube location was confirmed with end tidal CO2 detector and by auscultating over bilateral lung vera. The endotracheal tube was secured with adhesive tape at a depth of 23 cm at the lips. The patient was connected to the ventilator. The patient tolerated the procedure well without any apparent complications. Oxygen saturations were maintained greater than 95% all times. STAT chest x-ray at time of dictation. Willie Soni MD Apr 28, 2016 00:05
[2016-04-28] MEDS: PROPOFOL 1000 MG/100 ML INJ 100 ML IV SCH ×4 (00:17→23:49)
--- NOTE | 2016-04-28 01:27 | RADRPT ---
EXAM DATE/TIME: 04/28/2016 01:17 [facility] COMPARISON: CHEST SINGLE AP, April 26, 2016, 6:11. INDICATIONS : Post intubation. MEDICAL HISTORY : Chronic obstructive pulmonary disease. Congestive heart failure. Carcinoma, breast. Hypertension. SURGICAL HISTORY : Mastectomy, right. ENCOUNTER: Subsequent ACUITY: 1 week PAIN SCORE: Non-responsive. LOCATION: Bilateral chest FINDINGS: Increasing consolidation of the left lung and left effusion. Right effusion and basilar airspace dise ase is stable. Endotracheal tube tip is noted at the akua. Enteric tube courses beneath the diaphra gm. Left subclavian line tip overlies the SVC. CONCLUSION: Endotracheal tube tip at the akua. Percy Barnes MD on April 28, 2016 at 1:26 Board Certified Radiologist. This report was verified electronically.
[2016-04-28 02:30] LABS: BLOOD GAS BASE EXCESS 6.4 mmol/L (-2-2); BLOOD GAS HCO3 30 mmol/L (22-26); BLOOD GAS METHEMOGLOBIN 0.9 % (0-2); BLOOD GAS O2 HGB SATURATION 94 % (90-100); BLOOD GAS OXYGEN CONTENT 11.1 Vol % (12.0-20.0); BLOOD GAS PCO2 41 mmHg (38-42); BLOOD GAS PO2 79 mmHg (61-120); BLOOD GAS TOTAL HGB 8.3 G/DL (12.0-16.0); CRITICAL VALUE NO; OXYGEN DEVICE VENTILATOR; TEMP CORR TO 98.6
[2016-04-28 02:31] LABS: DRAW SITE RT RADIAL; FIO2 80 %; NUMBER OF ARTERIAL PUNCTURES 1; ULNAR PULSE PRESENT; VENT SETTINGS PRVC
[2016-04-28 02:32] LABS: STAT NO
[2016-04-28] MEDS: CHLORHEXIDINE GLUCONATE 2 % 1 PACK (2 CLOTHS) TOP SCH (04:00)
[2016-04-28] MEDS: ALBUMIN HUMAN 5% 25 GM/500 ML BOTTLE IV SCH ×2 (04:17→13:43)
[2016-04-28] MEDS: METOCLOPRAMIDE HCL SYRUP 10 MG/10 ML UDC PO SCH ×3 (04:17→20:13)
[2016-04-28] MEDS: OXACILLIN INJ 2 GM in SODIUM CHLORIDE 0.9% INJ 100 ML IV SCH ×8 (04:19→23:49)
[2016-04-28 05:08] LABS: HEMATOCRIT 24.3 % (35.0-46.0); MEAN CELL VOLUME 93.3 FL (80.0-100.0); MEAN CORPUSCULAR HEMOGLOBIN 32.6 PG (27.0-34.0); MEAN CORPUSCULAR HGB CONC 34.9 % (32.0-36.0); PLATELET COUNT 206 TH/MM3 (150-450); RED BLOOD COUNT 2.61 MIL/MM3 (4.00-5.30); RED CELL DISTRIBUTION WIDTH 16.3 % (11.6-17.2); REVIEW FLAG FINAL; WHITE BLOOD COUNT 9.9 TH/MM3 (4.0-11.0)
[2016-04-28] MEDS: RESP: ALBUTEROL 2.5 MG/IPRATROPIUM 0.5 MG NEB (SCH) NEB ×5 (05:20→21:26)
[2016-04-28 05:25] LABS: BICARBONATE 30.2 MEQ/L (21.0-32.0); POTASSIUM 3.5 MEQ/L (3.5-5.1)
--- NOTE | 2016-04-28 05:53 | RADRPT ---
EXAM DATE/TIME: 04/28/2016 04:39 [facility] COMPARISON: MRI BRAIN W & W/O CONTRAST, April 22, 2016, 18:22. CHEST SINGLE AP, April 22, 2016, 12:00. C T ABDOMEN & PELVIS W/O CONTRAST, April 17, 2016, 6:30. CHEST SINGLE AP, April 17, 2016, 0:55. C T PULMONARY ANGIOGRAM, April 17, 2016, 0:31. CT BRAIN W/O CONTRAST, April 17, 2016, 0:28. POC U LTRASOUND ED, April 17, 2016, 0:05. INDICATIONS : Reposition Endotrachial tube. MEDICAL HISTORY : Chronic obstructive pulmonary disease. Congestive heart failure. Carcinoma, breast. Hypertension. SURGICAL HISTORY : Mastectomy, right. ENCOUNTER: Subsequent ACUITY: 1 week PAIN SCORE: Non-responsive. LOCATION: Bilateral chest FINDINGS: There is bilateral consolidation again seen in bilateral effusion suspected. Endotracheal tube tip te rminates 1 cm above the akua. Left subclavian line tip overlies the SVC. NG tube courses beneath th e diaphragm. CONCLUSION: Endotracheal tube as above. Percy Barnes MD on April 28, 2016 at 5:51 Board Certified Radiologist. This report was verified electronically.
[2016-04-28] MEDS: DOCUSATE SODIUM 100 MG/10 ML UDC G-TUBE SCH ×2 (08:21→20:14)
[2016-04-28] MEDS: POTASSIUM CL 40 MEQ/30 ML LIQ UDC PO SCH (08:21)
[2016-04-28] MEDS: LACTULOSE SYRUP 20 GM/30 ML CUP PO SCH (08:21)
[2016-04-28] MEDS: METOPROLOL TARTRATE 25 MG TAB PO SCH ×3 (08:21→21:00)
[2016-04-28] MEDS: THIAMINE HCL 100 MG TAB PO SCH (08:21)
[2016-04-28] MEDS: BUMETANIDE INJ 1 MG/4 ML VIAL IV PUSH SCH ×2 (08:21→17:09)
[2016-04-28] MEDS: methylPREDNISolone SOD SUCC 125 MG/2 ML VIAL IV PUSH SCH ×2 (08:21→20:14)
[2016-04-28] MEDS: MULTIVITAMIN TAB PO SCH (08:21)
[2016-04-28] MEDS: SODIUM CHLORIDE 0.9% FLUSH 5 ML FLUSH IV FLUSH SCH ×2 (08:22→20:14)
[2016-04-28] MEDS: CHLORHEXIDINE 0.12% (ORAL KIT) 15 ML CUP MT SCH ×2 (08:22→21:01)
[2016-04-28] MEDS: PANTOPRAZOLE SOD 40 MG DELAYED RELEASE TAB PO SCH (08:22)
[2016-04-28] MEDS: BENEPROTEIN POWDER 1 PACK G-TUBE SCH ×3 (08:22→17:09)
[2016-04-28] MEDS: ARTIFICIAL TEARS OPTH SOLN 15 ML BTL EACH EYE SCH ×3 (08:22→17:09)
--- NOTE | 2016-04-28 09:41 | HHI.CCPN ---
Subjective Remarks/Hospital Course 65-year-old woman brought in by EMS intubated for respiratory distress, and abdominal pain. She has recently had relapse of alcohol dependency disease and was found sitting on the floor in marked respiratory distress. 80% on room air. 04/18: Arrived severely dehydrated with YULIET and obtundation after excess alcohol consumption. Now tolerating PSV but fails weaning trial from ventilator. May need precedex for detox. She has developed a-fib with tachy- mark. Several 6 sec asystolic pauses Transcutaneous pacer placed on demand mode 04/19: Remains sedated, orally intubated on mechanical ventilation. 04/20: Remains sedated, orally intubated on mechanical ventilation. Daily C Pap trials. 04/21: Remains sedated/encephalopathic, orally intubated on mechanical ventilation. Blood cultures with staph aureus. Daily C Pap trials however neurologic status precludes extubation 04/22: remains significantly tachycardic overnight. also thrombocytopenic. remains encephalopathic. 04/23: tachycardia controlled with esmolol overnight. more awake today, awakens to voice and opens eyes, but still does not follow commands. thrombocytopenia improving. echo on 04/22 with "? device in right atrium" although the patient has no known implantable devices. good diuresis with single dose of Lasix yesterday. 04/24: Remains intubated off sedation, appears to track intermittently following commands. Sodium is 156, I have started D5 W at 125 mL per hour 04/25: Intubated, not on sedation. Continues to fail CPAP due to tachypnea, resp distress. Extensive bilateral wheezing. IV steroids and scheduled DuoNeb started. NA 152 today 04/26: Continues to fail C Pap trial due to tachypnea, respiratory distress and labored breathing. However wheezing is improving on IV steroids and breathing treatments, sodium is normal 144 today. Discontinue D5W. Neurologically more improved. Following commands and upper extremity 04/27: Tolerated C Pap better today and was weaned to extubation. Developed some respiratory distress placed on BiPAP, now breathing more comfortably. UO remains adequate 04/28: Patient was extubated yesterday after successful weaning trials, however decompensated requiring BiPAP initially, eventually was intubated at night by Dr. Soni. Chest x-ray shows worsening left-sided consolidation and effusion Objective Vital Signs Date Time Temp Pulse Resp B/P Pulse Ox O2 Delivery O2 Flow Rate FiO2 04/28/16 09:11 94 70 04/28/16 07:00 Mechanical Ventilator 04/28/16 06:00 81 04/28/16 04:00 97.8 16 131/64 04/27/16 23:50 15.00 Intake and Output 04/27/16 04/27/16 04/28/16 08:00 16:00 00:00 Intake Total 379 ml 0 ml 366 ml Output Total 550 ml 2600 ml 2600 ml Balance -171 ml -2600 ml -2234 ml Result Diagram: 04/28/16 0430 04/28/16 0430 Other Results Laboratory Tests Test 04/27/16 04/27/16 04/28/16 11:48 22:49 02:15 Blood Gas Puncture Site RT RADIAL RT RADIAL RT RADIAL Blood Gas Patient Temperature 98.6 98.6 98.6 Blood Gas HCO3 28 mmol/L 30 mmol/L 30 mmol/L (22-26) (22-26) (22-26) Blood Gas Base Excess 3.7 mmol/L 5.1 mmol/L 6.4 mmol/L (-2-2) (-2-2) (-2-2) Blood Gas Oxygen Saturation 93 % (90-100) 93 % (90-100) 94 % (90-100) Arterial Blood pH 7.45 7.36 7.48 (7.380-7.420) (7.380-7.420) (7.380-7.420) Arterial Blood Partial 41 mmHg (38-42) 54 mmHg (38-42) 41 mmHg (38-42) Pressure CO2 Arterial Blood Partial 79 mmHg 82 mmHg 79 mmHg Pressure O2 (61-120) (61-120) (61-120) Arterial Blood Oxygen Content 11.6 Vol % 11.5 Vol % 11.1 Vol % (12.0-20.0) (12.0-20.0) (12.0-20.0) Arterial Blood 1.8 % (0-4) 1.9 % (0-4) 2.0 % (0-4) Carboxyhemoglobin Arterial Blood Methemoglobin 0.9 % (0-2) 0.8 % (0-2) 0.9 % (0-2) Blood Gas Hemoglobin 8.7 G/DL 8.8 G/DL 8.3 G/DL (12.0-16.0) (12.0-16.0) (12.0-16.0) Oxygen Delivery Device VENTILATOR BiPAP VENTILATOR Blood Gas Ventilator Setting PEEP5/PS8 IPAP10/EPAP5 PRVC Blood Gas Inspired Oxygen 40 % 80 % 80 % Imaging Last [address] 04/17/16 2344 Signed Impressions: Service Date/Time: Sunday, April 17, 2016 00:28 - CONCLUSION: No acute disease. Percy Barnes MD CT Angiography 04/17/16 0000 Signed Impressions: Service Date/Time: Sunday, April 17, 2016 00:31 - CONCLUSION: 1. Severe emphysema without evidence for pleural or embolism. 2. Bilateral hilar adenopathy, and dense bilateral pulmonary consolidation in the lower lobes left greater than right. 3. Left adrenal mass incompletely characterized, and left renal mass measuring soft tissue density. Workup with MRI of the abdomen with and without contrast of these findings is recommended on a nonemergent outpatient basis. 4. Mild nodularity seen within the right middle lobe abutting the fissure measuring 9 mm and 7 mm on image 95. Most likely nodular infiltrate suspected. There is linear atelectasis in the right middle lobe. Short interval followup CT in 3 months recommended. Percy Barnes MD Chest X-Ray 04/16/16 0544 Signed Impressions: Service Date/Time: Sunday, April 17, 2016 00:55 - CONCLUSION: Endotracheal tube as described above. Percy Barnes MD Objective Remarks GENERAL: Critically ill-appearing female, intubated heavily sedated SKIN: Warm and dry. HEAD: Normocephalic. Atraumatic. NECK: Supple, trachea midline. Orally intubated. CARDIOVASCULAR: normal rate, regular rhythm this AM, sinus by tele. No JVD. RESPIRATORY: Orally intubated on mechanical ventilation, Breath sounds equal bilaterally. Bilateral wheezing GASTROINTESTINAL: Abdomen soft, non-tender, nondistended. MUSCULOSKELETAL: No cyanosis, or edema. Well perfused. NEURO: Intubated heavily sedated for ventilator synchrony, orally intubated, withdraws x 4 A/P Problem List: (1) Acute respiratory failure with hypoxia ICD Code: J96.01 Status: Acute (2) Acute kidney injury ICD Code: N17.9 Status: Acute (3) Septic shock ICD Code: A41.9 Status: Acute (4) COPD exacerbation ICD Code: J44.1 Status: Acute (5) Alcohol abuse ICD Code: F10.10 Status: Chronic Assessment and Plan Assessment: 65yF with h/o etoh dependence now with metabolic encephalopathy, acute hypoxic respiratory failure, tachy-mark syndrome. still persistently encephalopathic and critically ill. She has an echogenicity in her right atrium that cannot be otherwise explained. when the echo was performed, she did not have any implantable devices in place. YOLANDA-prominent eustachian valve. Her encephalopathy persists, although this is slightly improved from yesterday. Plan by systems: Neurologic: Alcohol dependence Metabolic Encephalopathy Peripheral neuropathy - On propofol and fentanyl for sedation and when synchrony - Precedex discontinued due to bradycardia. prn haldol - iv thiamine and MVI daily. - MRI brain 04/22 normal study - Holding gabapentin given sedation. will restart at lower dose when more awake. holding all sedating meds. Respiratory: Acute Hypoxic Respiratory failure Acute COPD exacerbation New L HCAP - Extubated 04/27/16 however respiratory decompensation in the evening requiring reintubation - Acute exacerbation of COPD. On Solumedrol 60 q12. DuoNeb scheduled and PRN - resume home Spiriva when extubated - Extubated today, but required BiPAP almost immediately - May need trach if patient fails - Sputum culture 04/18 MSSA - Reculture and start Zosyn, single dose vanc Cardiovascular: Tachy-Mark syndrome Possible right atrial thrombus/mass - Back in sinus rhythm. 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 Obando following, YOLANDA showed prominent eustachian valve. Renal: YULIET- resolving. Acute intravascular volume overload Renal and adrenal mass - MRI w and w/o when creatinine improves and is more stable - Lasix 40mg iv x 1 last tow days, start Bumex 2 mg x1 and 1q mg BID (start ) --Strict I/Os FEN/GI: Acute protein calorie malnutritionsevere Severe hypophosphatemia Severe hypokalemia Severe hypomagnesemia aggressive replacement of electrolytes Heme/ID: Sepsis Thrombocytopenia - CXR showing LLL consolidation - started on zosyn 3.375 GM IV q6 (renally adjusted antipseudomonal dosing) - Single dose of vancomycin - Thrombocytopenia noted. HIT negative. slowly improving. continue to monitor. - oxacillin for staph bacteremia. - follow up cultures, repeat sputum - Blood culture, sputum culture with staph aureus 04/17. - ID: Dr. Strong following. Endocrine: Hyperglycemia of critical illness -- SSI, medium scale, every 6 hours Prophylaxis: GI Prophylaxis Protonix DVT Prophylaxis --SCDs Subcutaneous heparin. Hit negative. Lines: 04/22 left subclavian triple lumen catheter [place] Dispo: Remain in the intensive care unit. She remains critically ill. Overall impression: Patient is critically ill having been found down and intoxicated. Bacteremia with MSSA and remains critically ill, failed extubation 04/27/16, reintubated in 8-10 hours. If continues to fail weaning, tracheostomy may be needed This patient remains critically ill with one or more organ systems which are or may become a threat to life. I have spent in excess of 35 minutes discontinuously in the care and management of this patient. This time is exclusive of procedures, and includes, but is not limited to, evaluation of the patient, review of the medical record, discussions with family, consultants, nursing staff, or respiratory therapy, and documentation in the medical record. Zohra Olivo MD Apr 28, 2016 09:41
[2016-04-28] MEDS ORDERED: VANCOMYCIN INJ 1,250 MG in SODIUM CHLOR 0.9% 250 ML INJ 250 ML IV ONE (10:00)
--- NOTE | 2016-04-28 11:15 | HHI.IDPN ---
Subjective Subjective Remarks is a 65 y/o with alcoholism who was found on the floor in resp distress and sating 80% on RA. EMS intubated for respiratory distress and abdominal pain. Admission vitals included a amina of 99.9 F, tachycardia, low BP and elevated lactic acid. Patient underwent sepsis workup. Was started on IV antibiotics. She appeared to be severely dehydrated with acute kidney injury and mental obtundation. ID following for Sepsis, MSSA bacteremia. No fever No rash No diarrhea Had to be reintubated. Now on low dose diprivan. Antibiotics Oxacillin IV Lines Line sites with no e/o infection Past Medical History Alcoholism Allergies: Coded Allergies: Dexmedetomidine (Verified Allergy, Severe, Arrhythmias, 04/18/16) ASYSTOLE 04/18/16 Precedex (Verified Allergy, Severe, Arrhythmias, 04/18/16) ASYSTOLE 04/18/16 Camphor (Verified Allergy, Unknown, Swelling, 04/17/16) Objective . Vital Signs Date Time Temp Pulse Resp B/P Pulse Ox O2 Delivery O2 Flow Rate FiO2 04/28/16 10:00 75 04/28/16 09:11 94 70 04/28/16 08:00 70 04/28/16 08:00 98.2 74 16 137/65 99 04/28/16 08:00 100 04/28/16 07:00 98 Mechanical Ventilator 70 04/28/16 06:00 81 04/28/16 05:10 98 80 04/28/16 04:00 100 04/28/16 04:00 97.8 76 16 131/64 94 04/28/16 04:00 77 04/28/16 02:00 79 04/28/16 01:50 96 80 04/28/16 00:00 106 04/28/16 00:00 100 04/28/16 00:00 97.1 106 16 160/77 99 04/27/16 23:55 94 80 04/27/16 23:50 100 15.00 100 04/27/16 23:15 97 60 04/27/16 22:00 106 04/27/16 21:00 96 45 04/27/16 20:00 97.5 97 23 150/77 93 04/27/16 20:00 97 04/27/16 19:00 Bi-Pap 40 04/27/16 18:00 87 04/27/16 16:39 96 40 04/27/16 16:00 98.7 110 29 169/81 91 04/27/16 16:00 110 04/27/16 14:57 22 04/27/16 14:00 87 04/27/16 12:45 99 Bi-Pap 40 04/27/16 12:45 97 40 04/27/16 12:30 Mask 6 04/27/16 12:20 98 40 04/27/16 12:00 98.7 93 31 160/78 98 04/27/16 12:00 93 04/27/16 12:00 45 04/27/16 04/27/16 04/28/16 15:00 23:00 07:00 Intake Total 0 ml 366 ml 807 ml Output Total 2600 ml 2600 ml 1425 ml Balance -2600 ml -2234 ml -618 ml Intake Oral 0 ml IV Total 366 ml 307 ml Albumin 500 ml Output Urine Total 2600 ml 2600 ml 1425 ml # Bowel Movements 2 0 0 . Laboratory Tests Test 04/27/16 04/28/16 04:00 04:30 White Blood Count 11.7 TH/MM3 9.9 TH/MM3 Red Blood Count 2.50 MIL/MM3 2.61 MIL/MM3 Hemoglobin 8.0 GM/DL 8.5 GM/DL Hematocrit 23.4 % 24.3 % Mean Corpuscular Volume 93.3 FL 93.3 FL Mean Corpuscular Hemoglobin 31.8 PG 32.6 PG Mean Corpuscular Hemoglobin 34.1 % 34.9 % Concent Red Cell Distribution Width 16.5 % 16.3 % Platelet Count 167 TH/MM3 206 TH/MM3 Mean Platelet Volume 9.3 FL 9.1 FL Laboratory Tests Test 04/27/16 04/28/16 04:00 04:30 Sodium Level 141 MEQ/L 142 MEQ/L Potassium Level 3.4 MEQ/L 3.5 MEQ/L Chloride Level 105 MEQ/L 103 MEQ/L Carbon Dioxide Level 27.0 MEQ/L 30.2 MEQ/L Anion Gap 9 MEQ/L 9 MEQ/L Blood Urea Nitrogen 40 MG/DL 41 MG/DL Creatinine 0.61 MG/DL 0.58 MG/DL Estimat Glomerular Filtration 98 ML/MIN 104 ML/MIN Rate Random Glucose 108 MG/DL 88 MG/DL Calcium Level 10.8 MG/DL 10.7 MG/DL Phosphorus Level 2.7 MG/DL Magnesium Level 1.5 MG/DL Microbiology Date/Time Procedure Status Source Growth 04/26/16 15:50 Gram Stain - Final Resulted Sputum Endotracheal 04/26/16 15:50 Sputum Culture - Preliminary Resulted Staphylococcus Aureus Imaging Last Impressions Chest X-Ray 04/22/16 0000 Signed Impressions: Service Date/Time: Friday, April 22, 2016 12:00 - CONCLUSION: There is no pneumothorax. ET tube at the akua directed towards the right main bronchus. Alessandro Tello MD FACR Head CT 04/17/16 2344 Signed Impressions: Service Date/Time: Sunday, April 17, 2016 00:28 - CONCLUSION: No acute disease. Percy Barnes MD CT Angiography 04/17/16 0000 Signed Impressions: Service Date/Time: Sunday, April 17, 2016 00:31 - CONCLUSION: 1. Severe emphysema without evidence for pleural or embolism. 2. Bilateral hilar adenopathy, and dense bilateral pulmonary consolidation in the lower lobes left greater than right. 3. Left adrenal mass incompletely characterized, and left renal mass measuring soft tissue density. Workup with MRI of the abdomen with and without contrast of these findings is recommended on a nonemergent outpatient basis. 4. Mild nodularity seen within the right middle lobe abutting the fissure measuring 9 mm and 7 mm on image 95. Most likely nodular infiltrate suspected. There is linear atelectasis in the right middle lobe. Short interval followup CT in 3 months recommended. Percy Barnes MD Abdomen/Pelvis CT 04/17/16 0000 Signed Impressions: Service Date/Time: Sunday, April 17, 2016 06:30 - CONCLUSION: 1. Mild distention of the gallbladder. 2. Bilateral renal cysts are noted as well as an indeterminate mass upper pole left kidney, probable hemorrhagic or proteinaceous cyst and can be further evaluated with MRI of the abdomen with and without contrast on a nonemergent outpatient basis. 3. Bilateral lower lobe consolidation. 4. Indeterminate probable adenomas left adrenal mass. 5. Atherosclerosis. 6. Nodular infiltrate in the right middle lobe is seen. Percy Barnes MD Physical Exam GENERAL: Thin built poorly nourished patient, in no apparent distress. SKIN: Spider naevi on chest. HEAD: Atraumatic. Normocephalic. No temporal or scalp tenderness. EYES: Pupils equal round and reactive. Extraocular motions intact. No scleral icterus. No injection or drainage. ENT: Intubated, NECK: Trachea midline. Supple, nontender, no meningeal signs. CARDIOVASCULAR: HS audible. RESPIRATORY: Breath sounds equal bilaterally with decrease in the bases. GASTROINTESTINAL: Abdomen soft, non-tender, nondistended. No hepato-splenomegaly , or palpable masses. No guarding. MUSCULOSKELETAL: Extremities without clubbing, cyanosis, or edema. No joint tenderness, effusion, or edema noted. No calf tenderness. Negative Homans sign bilaterally. NEUROLOGICAL: Lethargic, arousable to commands and deep stimuli. Follows simple commands like wiggling toes. Psych could not be assessed IV line sites with no e/o infection. Assessment & Plan Remarks Severe Sepsis present on admission MSSA bacteremia transient. MSSA pneumonia vs septic emboli Lactobacillus and Enterococcus faecalis in urine/UTI treated on admission. Likely not the source of infection. Acute metabolic encephalopathy: sepsis, alcoholism appears resolving. Acute renal failure: sepsis, prerenal. Thrombocytopenia: likely sepsis, ? meds. ? Vanco induced Recs Follow cultures YOLANDA negative. Continue Oxacillin IV more directed and first line treatment for disseminated MSSA infection. Follow HIV and Hep profile. MRI brain negative. Sophia eWlch RN, MD Apr 28, 2016 11:15
[2016-04-28] MEDS: PIPERACIL-TAZO 3.375 GM PREMIX 50 ML IV SCH ×3 (11:33→21:00)
[2016-04-29] VITALS (19 sets, daily range): BP systolic 110–147; BP diastolic 58–66; PULSE 74–108; RESP 16–18; TEMP 97.7–99; O2SAT 97–100
[2016-04-29] MEDS: RESP: ALBUTEROL 2.5 MG/IPRATROPIUM 0.5 MG NEB (SCH) NEB ×6 (00:11→18:44)
[2016-04-29] MEDS: CHLORHEXIDINE GLUCONATE 2 % 1 PACK (2 CLOTHS) TOP SCH (04:00)
[2016-04-29] MEDS: ALBUMIN HUMAN 5% 25 GM/500 ML BOTTLE IV SCH ×2 (04:07→14:38)
[2016-04-29] MEDS: PIPERACIL-TAZO 3.375 GM PREMIX 50 ML IV SCH ×2 (04:07→08:32)
[2016-04-29] MEDS: METOCLOPRAMIDE HCL SYRUP 10 MG/10 ML UDC PO SCH ×3 (04:08→20:45)
[2016-04-29] MEDS: OXACILLIN INJ 2 GM in SODIUM CHLORIDE 0.9% INJ 100 ML IV SCH ×5 (04:19→20:48)
[2016-04-29 04:46] LABS: AUTOMATED NEUTROPHIL # 8.8 TH/MM3 (1.8-7.7); BASOPHIL % 0.2 % (0.0-2.0); HEMATOCRIT 24.6 % (35.0-46.0); HEMO FLAGS DIFF FINAL; LYMPH % 3.8 % (9.0-44.0); LYMPHOCYTE # 0.4 TH/MM3 (1.0-4.8); MEAN CELL VOLUME 93.6 FL (80.0-100.0); MEAN CORPUSCULAR HEMOGLOBIN 31.6 PG (27.0-34.0); MEAN CORPUSCULAR HGB CONC 33.8 % (32.0-36.0); MONO % 8.4 % (0.0-8.0); NEUT % 87.6 % (16.0-70.0); PLATELET COUNT 257 TH/MM3 (150-450); RED BLOOD COUNT 2.63 MIL/MM3 (4.00-5.30); RED CELL DISTRIBUTION WIDTH 16.5 % (11.6-17.2); WHITE BLOOD COUNT 10.1 TH/MM3 (4.0-11.0)
[2016-04-29 05:07] LABS: ALT (GPT) 9 U/L (10-53); ANION GAP 9 MEQ/L (5-15); AST (GOT) 11 U/L (15-37); BICARBONATE 32.5 MEQ/L (21.0-32.0); BLOOD UREA NITROGEN 39 MG/DL (7-18); CHLORIDE 101 MEQ/L (98-107); GLOMERULAR FILTRATION RATE 85 ML/MIN (>89); POTASSIUM 3.5 MEQ/L (3.5-5.1); SODIUM (NA) 142 MEQ/L (136-145)
[2016-04-29 05:15] LABS: ALKALINE PHOSPHATASE 41 U/L (45-117); TOTAL BILIRUBIN ADULT 0.9 MG/DL (0.2-1.0)
[2016-04-29] MEDS: METOPROLOL TARTRATE 25 MG TAB PO SCH ×3 (05:31→23:16)
--- NOTE | 2016-04-29 06:32 | RADRPT ---
EXAM DATE/TIME: 04/29/2016 05:50 [facility] COMPARISON: CHEST SINGLE AP, April 28, 2016, 4:39. INDICATIONS : Shortness of breath. MEDICAL HISTORY : Chronic obstructive pulmonary disease. Congestive heart failure. Carcinoma, breast. Hypertension SURGICAL HISTORY : Mastectomy, right. ENCOUNTER: Subsequent ACUITY: 1 week PAIN SCORE: Non-responsive. LOCATION: Bilateral chest FINDINGS: Bilateral effusions and lower lobe consolidation, improved from before. Aortic calcification and card iomegaly. Endotracheal tube and left subclavian line, NG tube are noted. CONCLUSION: Improved aeration. Percy Barnes MD on April 29, 2016 at 6:31 Board Certified Radiologist. This report was verified electronically.
[2016-04-29] MEDS ORDERED: METOPROLOL TARTRATE 5 MG/5 ML VIAL ONE (07:36)
[2016-04-29] MEDS ORDERED: METOPROLOL TARTRATE 5 MG/5 ML VIAL IV ONE (07:45)
[2016-04-29] MEDS: CHLORHEXIDINE 0.12% (ORAL KIT) 15 ML CUP MT SCH ×2 (08:00→20:45)
[2016-04-29] MEDS: POTASSIUM CL 40 MEQ/30 ML LIQ UDC PO SCH (08:30)
[2016-04-29] MEDS: LACTULOSE SYRUP 20 GM/30 ML CUP PO SCH (08:30)
[2016-04-29] MEDS: ARTIFICIAL TEARS OPTH SOLN 15 ML BTL EACH EYE SCH ×3 (08:30→17:07)
[2016-04-29] MEDS: BUMETANIDE INJ 1 MG/4 ML VIAL IV PUSH SCH ×2 (08:30→17:07)
[2016-04-29] MEDS: DOCUSATE SODIUM 100 MG/10 ML UDC G-TUBE SCH ×2 (08:30→20:45)
[2016-04-29] MEDS: MULTIVITAMIN TAB PO SCH (08:30)
[2016-04-29] MEDS: THIAMINE HCL 100 MG TAB PO SCH (08:30)
[2016-04-29] MEDS: BENEPROTEIN POWDER 1 PACK G-TUBE SCH ×3 (08:30→17:07)
[2016-04-29] MEDS: methylPREDNISolone SOD SUCC 125 MG/2 ML VIAL IV PUSH SCH ×2 (08:31→20:45)
[2016-04-29] MEDS: SODIUM CHLORIDE 0.9% FLUSH 5 ML FLUSH IV FLUSH SCH ×2 (08:31→20:45)
[2016-04-29] MEDS: PANTOPRAZOLE SODIUM 40 MG VIAL IV PUSH SCH (08:32)
[2016-04-29] MEDS: hydrALAZINE HCL 20 MG/ML VIAL IV PRN (11:19)
--- NOTE | 2016-04-29 13:08 | EKG ---
Date Performed: 04/29/2016 Time Performed: 07:31:00 PTAGE: 65 years EKG: BASELINE ARTIFACT PRESENT. Probable atrial fibrillation with rapid ventricular response wit h PVC(s) Anterior T wave changes are nonspecific Abnormal ECG NO SIGNIFICANT CHANGE FROM PRIOR ELECTR OCARDIOGRAM. DOCTOR: Shaquille Pugh Interpretating Date/Time 04/29/2016 13:08:19
--- NOTE | 2016-04-29 15:37 | HHI.CCPN ---
Subjective Remarks/Hospital Course 65-year-old woman brought in by EMS intubated for respiratory distress, and abdominal pain. She has recently had relapse of alcohol dependency disease and was found sitting on the floor in marked respiratory distress. 80% on room air. 04/18: Arrived severely dehydrated with YULIET and obtundation after excess alcohol consumption. Now tolerating PSV but fails weaning trial from ventilator. May need precedex for detox. She has developed a-fib with tachy- mark. Several 6 sec asystolic pauses Transcutaneous pacer placed on demand mode 04/19: Remains sedated, orally intubated on mechanical ventilation. 04/20: Remains sedated, orally intubated on mechanical ventilation. Daily C Pap trials. 04/21: Remains sedated/encephalopathic, orally intubated on mechanical ventilation. Blood cultures with staph aureus. Daily C Pap trials however neurologic status precludes extubation 04/22: remains significantly tachycardic overnight. also thrombocytopenic. remains encephalopathic. 04/23: tachycardia controlled with esmolol overnight. more awake today, awakens to voice and opens eyes, but still does not follow commands. thrombocytopenia improving. echo on 04/22 with "? device in right atrium" although the patient has no known implantable devices. good diuresis with single dose of Lasix yesterday. 04/24: Remains intubated off sedation, appears to track intermittently following commands. Sodium is 156, I have started D5 W at 125 mL per hour 04/25: Intubated, not on sedation. Continues to fail CPAP due to tachypnea, resp distress. Extensive bilateral wheezing. IV steroids and scheduled DuoNeb started. NA 152 today 04/26: Continues to fail C Pap trial due to tachypnea, respiratory distress and labored breathing. However wheezing is improving on IV steroids and breathing treatments, sodium is normal 144 today. Discontinue D5W. Neurologically more improved. Following commands and upper extremity 04/27: Tolerated C Pap better today and was weaned to extubation. Developed some respiratory distress placed on BiPAP, now breathing more comfortably. UO remains adequate 04/28: Patient was extubated yesterday after successful weaning trials, however decompensated requiring BiPAP initially, eventually was intubated at night by Dr. Soni. Chest x-ray shows worsening left-sided consolidation and effusion 04/29: Awake alert on propofol. Able to follow commands. Will resume CPAP. CXR improved infiltrates-mild left lower lobe infiltrates. Developed Afib, received metoprolol now NSR Objective Vital Signs Date Time Temp Pulse Resp B/P Pulse Ox O2 Delivery O2 Flow Rate FiO2 04/29/16 14:56 100 40 04/29/16 14:00 89 04/29/16 12:00 98.6 16 113/59 04/28/16 07:00 Mechanical Ventilator 04/27/16 23:50 15.00 Intake and Output 04/28/16 04/28/16 04/29/16 08:00 16:00 00:00 Intake Total 807 ml 1306 ml 606 ml Output Total 1425 ml 2200 ml 1800 ml Balance -618 ml -894 ml -1194 ml Result Diagram: 04/29/16 0430 04/29/16 0430 Other Results Microbiology Date/Time Procedure Status Source Growth 04/26/16 15:50 Gram Stain - Final Complete Sputum Endotracheal 04/26/16 15:50 Sputum Culture - Final Complete Staphylococcus Aureus Imaging Last [address] 04/17/164 Signed Impressions: Service Date/Time: Sunday, April 17, 2016 00:28 - CONCLUSION: No acute disease. Percy Barnes MD CT Angiography 04/17/16 0000 Signed Impressions: Service Date/Time: Sunday, April 17, 2016 00:31 - CONCLUSION: 1. Severe emphysema without evidence for pleural or embolism. 2. Bilateral hilar adenopathy, and dense bilateral pulmonary consolidation in the lower lobes left greater than right. 3. Left adrenal mass incompletely characterized, and left renal mass measuring soft tissue density. Workup with MRI of the abdomen with and without contrast of these findings is recommended on a nonemergent outpatient basis. 4. Mild nodularity seen within the right middle lobe abutting the fissure measuring 9 mm and 7 mm on image 95. Most likely nodular infiltrate suspected. There is linear atelectasis in the right middle lobe. Short interval followup CT in 3 months recommended. Percy Barnes MD Chest X-Ray 04/16/162343 Signed Impressions: Service Date/Time: Sunday, April 17, 2016 00:55 - CONCLUSION: Endotracheal tube as described above. ePrcy Barnes MD Objective Remarks GENERAL: Critically ill-appearing female, intubated sedated SKIN: Warm and dry. HEAD: Normocephalic. Atraumatic. NECK: Supple, trachea midline. Orally intubated. CARDIOVASCULAR: normal rate, regular rhythm this AM, sinus by tele. No JVD. RESPIRATORY: Orally intubated on mechanical ventilation, Breath sounds equal bilaterally. Bilateral wheezing GASTROINTESTINAL: Abdomen soft, non-tender, nondistended. MUSCULOSKELETAL: No cyanosis, or edema. Well perfused. NEURO: Intubated sedated for ventilator synchrony, wakes up easily, follows commands Urinary Catheter: Yes Assessment to: Continue A/P Problem List: (1) Acute respiratory failure with hypoxia ICD Code: J96.01 Status: Acute (2) Acute kidney injury ICD Code: N17.9 Status: Acute (3) Septic shock ICD Code: A41.9 Status: Acute (4) COPD exacerbation ICD Code: J44.1 Status: Acute (5) Alcohol abuse ICD Code: F10.10 Status: Chronic Assessment and Plan Assessment: 65yF with h/o etoh dependence now with metabolic encephalopathy, acute hypoxic respiratory failure, tachy-mark syndrome. still persistently encephalopathic and critically ill. She has an echogenicity in her right atrium that cannot be otherwise explained. when the echo was performed, she did not have any implantable devices in place. YOLANDA-prominent eustachian valve. Her encephalopathy persists, although this is slightly improved from yesterday. Plan by systems: Neurologic: Alcohol dependence Metabolic Encephalopathy Peripheral neuropathy - On propofol and fentanyl for sedation and vent synchrony - prn haldol - iv thiamine and MVI daily. - MRI brain 04/22 normal study - Holding gabapentin given sedation. will restart at lower dose when more awake. holding all sedating meds. Respiratory: Acute Hypoxic Respiratory failure Acute COPD exacerbation New L HCAP - Extubated 04/27/16 however respiratory decompensation in the evening requiring reintubation - Acute exacerbation of COPD. On Solumedrol 60 q12. DuoNeb scheduled and PRN - resume home Spiriva when extubated - Resume CPAP trials, possible extubation one more time prior to trach as mental status significantly improved - Sputum culture 04/18 MSSA - Reculture and start Zosyn, single dose vanc Cardiovascular: Tachy-Mark syndrome Possible right atrial thrombus/mass - Back in sinus rhythm. 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 Obando following, YOLANDA showed prominent eustachian valve. Renal: YULIET- resolving. Acute intravascular volume overload Renal and adrenal mass - MRI w and w/o when creatinine improves and is more stable - Lasix 40mg iv x 1 last tow days, start Bumex 2 mg x1 and 1q mg BID (start ) --Strict I/Os FEN/GI: Acute protein calorie malnutritionsevere Severe hypophosphatemia Severe hypokalemia Severe hypomagnesemia aggressive replacement of electrolytes Heme/ID: Sepsis Thrombocytopenia - CXR showing LLL consolidation - started on zosyn 3.375 GM IV q6 (renally adjusted antipseudomonal dosing) Single dose of vancomycin - I will DC Zosyn as CXR back to base line - Continue oxacillin for staph bacteremia. - follow up cultures, repeat sputum - Blood culture, sputum culture with staph aureus 04/17. - ID: Dr. Strong following. - Thrombocytopenia noted. HIT negative. slowly improving. continue to monitor. Endocrine: Hyperglycemia of critical illness -- SSI, medium scale, every 6 hours Prophylaxis: GI Prophylaxis Protonix DVT Prophylaxis --SCDs Subcutaneous heparin. Hit negative. Lines: 04/22 left subclavian triple lumen catheter [facility] Dispo: Remain in the intensive care unit. She remains critically ill. Overall impression: Patient is critically ill having been found down and intoxicated. Bacteremia with MSSA and remains critically ill, failed extubation 04/27/16, reintubated in 8-10 hours. If continues to fail weaning, tracheostomy may be needed This patient remains critically ill with one or more organ systems which are or may become a threat to life. I have spent in excess of 35 minutes discontinuously in the care and management of this patient. This time is exclusive of procedures, and includes, but is not limited to, evaluation of the patient, review of the medical record, discussions with family, consultants, nursing staff, or respiratory therapy, and documentation in the medical record. Zohra Olivo MD Apr 29, 2016 15:36
[2016-04-29] MEDS ORDERED: FLUCONAZOLE 100 MG TAB PO SCH (21:00)
[2016-04-30] VITALS (19 sets, daily range): BP systolic 115–168; BP diastolic 58–93; PULSE 74–110; RESP 16–23; TEMP 97.7–98.4; O2SAT 95–100
[2016-04-30] MEDS: RESP: ALBUTEROL 2.5 MG/IPRATROPIUM 0.5 MG NEB (SCH) NEB ×7 (00:33→23:40)
[2016-04-30] MEDS: OXACILLIN INJ 2 GM in SODIUM CHLORIDE 0.9% INJ 100 ML IV SCH ×6 (00:47→20:31)
[2016-04-30] MEDS: PROPOFOL 1000 MG/100 ML INJ 100 ML IV SCH (00:49)
[2016-04-30] MEDS: CHLORHEXIDINE GLUCONATE 2 % 1 PACK (2 CLOTHS) TOP SCH ×2 (04:00→19:49)
[2016-04-30] MEDS: METOCLOPRAMIDE HCL SYRUP 10 MG/10 ML UDC PO SCH ×3 (04:18→20:00)
[2016-04-30] MEDS: ALBUMIN HUMAN 5% 25 GM/500 ML BOTTLE IV SCH ×2 (04:19→14:35)
[2016-04-30] MEDS: METOPROLOL TARTRATE 25 MG TAB PO SCH (05:03)
[2016-04-30] MEDS: LACTULOSE SYRUP 20 GM/30 ML CUP PO SCH (07:29)
[2016-04-30] MEDS: DOCUSATE SODIUM 100 MG/10 ML UDC G-TUBE SCH ×2 (07:41→20:32)
[2016-04-30] MEDS: PANTOPRAZOLE SODIUM 40 MG VIAL IV PUSH SCH (07:41)
[2016-04-30] MEDS: methylPREDNISolone SOD SUCC 125 MG/2 ML VIAL IV PUSH SCH ×2 (07:41→20:32)
[2016-04-30] MEDS: POTASSIUM CL 40 MEQ/30 ML LIQ UDC PO SCH (07:41)
[2016-04-30] MEDS: CHLORHEXIDINE 0.12% (ORAL KIT) 15 ML CUP MT SCH ×2 (07:42→20:33)
[2016-04-30] MEDS: ARTIFICIAL TEARS OPTH SOLN 15 ML BTL EACH EYE SCH ×3 (07:42→16:42)
[2016-04-30] MEDS: BUMETANIDE INJ 1 MG/4 ML VIAL IV PUSH SCH ×2 (07:42→17:32)
[2016-04-30] MEDS: MULTIVITAMIN TAB PO SCH (07:42)
[2016-04-30] MEDS: THIAMINE HCL 100 MG TAB PO SCH (07:42)
[2016-04-30] MEDS: BENEPROTEIN POWDER 1 PACK G-TUBE SCH ×3 (07:44→16:42)
[2016-04-30] MEDS: SODIUM CHLORIDE 0.9% FLUSH 5 ML FLUSH IV FLUSH SCH ×3 (07:45→20:31)
--- NOTE | 2016-04-30 08:41 | HHI.CCPN ---
Subjective Remarks/Hospital Course 65-year-old woman brought in by EMS intubated for respiratory distress, and abdominal pain. She has recently had relapse of alcohol dependency disease and was found sitting on the floor in marked respiratory distress. 80% on room air. 04/18: Arrived severely dehydrated with YULIET and obtundation after excess alcohol consumption. Now tolerating PSV but fails weaning trial from ventilator. May need precedex for detox. She has developed a-fib with tachy- mark. Several 6 sec asystolic pauses Transcutaneous pacer placed on demand mode 04/19: Remains sedated, orally intubated on mechanical ventilation. 04/20: Remains sedated, orally intubated on mechanical ventilation. Daily C Pap trials. 04/21: Remains sedated/encephalopathic, orally intubated on mechanical ventilation. Blood cultures with staph aureus. Daily C Pap trials however neurologic status precludes extubation 04/22: remains significantly tachycardic overnight. also thrombocytopenic. remains encephalopathic. 04/23: tachycardia controlled with esmolol overnight. more awake today, awakens to voice and opens eyes, but still does not follow commands. thrombocytopenia improving. echo on 04/22 with "? device in right atrium" although the patient has no known implantable devices. good diuresis with single dose of Lasix yesterday. 04/24: Remains intubated off sedation, appears to track intermittently following commands. Sodium is 156, I have started D5 W at 125 mL per hour 04/25: Intubated, not on sedation. Continues to fail CPAP due to tachypnea, resp distress. Extensive bilateral wheezing. IV steroids and scheduled DuoNeb started. NA 152 today 04/26: Continues to fail C Pap trial due to tachypnea, respiratory distress and labored breathing. However wheezing is improving on IV steroids and breathing treatments, sodium is normal 144 today. Discontinue D5W. Neurologically more improved. Following commands and upper extremity 04/27: Tolerated C Pap better today and was weaned to extubation. Developed some respiratory distress placed on BiPAP, now breathing more comfortably. UO remains adequate 04/28: Patient was extubated yesterday after successful weaning trials, however decompensated requiring BiPAP initially, eventually was intubated at night by Dr. Soni. Chest x-ray shows worsening left-sided consolidation and effusion 04/29: Awake alert on propofol. Able to follow commands. Will resume CPAP. CXR improved infiltrates-mild left lower lobe infiltrates. Developed Afib, received metoprolol now NSR 04/30: RASS 0. awake and alert. writing notes this AM. follows commands. has a history of failing trial of extubation. on SBT this AM. Objective Vital Signs Date Time Temp Pulse Resp B/P Pulse Ox O2 Delivery O2 Flow Rate FiO2 04/30/16 08:00 40 04/30/16 08:00 98.1 88 20 140/65 98 04/28/16 07:00 Mechanical Ventilator 04/27/16 23:50 15.00 Intake and Output 04/29/16 04/29/16 04/30/16 08:00 16:00 00:00 Intake Total 927 ml 1191 ml 477 ml Output Total 1000 ml 2000 ml 2100 ml Balance -73 ml -809 ml -1623 ml Result Diagram: 04/29/16 0430 04/29/16 0430 Imaging Last [address] 04/17/16 2344 Signed Impressions: Service Date/Time: Sunday, April 17, 2016 00:28 - CONCLUSION: No acute disease. Percy Barnes MD CT Angiography 04/17/16 0000 Signed Impressions: Service Date/Time: Sunday, April 17, 2016 00:31 - CONCLUSION: 1. Severe emphysema without evidence for pleural or embolism. 2. Bilateral hilar adenopathy, and dense bilateral pulmonary consolidation in the lower lobes left greater than right. 3. Left adrenal mass incompletely characterized, and left renal mass measuring soft tissue density. Workup with MRI of the abdomen with and without contrast of these findings is recommended on a nonemergent outpatient basis. 4. Mild nodularity seen within the right middle lobe abutting the fissure measuring 9 mm and 7 mm on image 95. Most likely nodular infiltrate suspected. There is linear atelectasis in the right middle lobe. Short interval followup CT in 3 months recommended. Pecry Barnes MD Chest X-Ray 04/16/161 Signed Impressions: Service Date/Time: Sunday, April 17, 2016 00:55 - CONCLUSION: Endotracheal tube as described above. Percy Barnes MD Objective Remarks GENERAL: Critically ill-appearing female, intubated SKIN: Warm and dry. HEAD: Normocephalic. Atraumatic. NECK: Supple, trachea midline. Orally intubated. CARDIOVASCULAR: normal rate, regular rhythm this AM, sinus by tele. No JVD. RESPIRATORY: Orally intubated on mechanical ventilation, Breath sounds equal bilaterally. Bilateral wheezing GASTROINTESTINAL: Abdomen soft, non-tender, nondistended. MUSCULOSKELETAL: No cyanosis, or edema. Well perfused. NEURO: Intubated, wakes up easily, follows commands. RASS 0. CAM -. A/P Problem List: (1) Acute respiratory failure with hypoxia ICD Code: J96.01 Status: Acute (2) Acute kidney injury ICD Code: N17.9 Status: Acute (3) Septic shock ICD Code: A41.9 Status: Acute (4) COPD exacerbation ICD Code: J44.1 Status: Acute (5) Alcohol abuse ICD Code: F10.10 Status: Chronic Assessment and Plan Assessment: 65yF with h/o etoh dependence now with metabolic encephalopathy, acute hypoxic respiratory failure, tachy-mark syndrome. encephalopathy has resolved. she remains critically ill. She is now awake following commands, although she has a history of failing trials of extubation. If she passes her SBT today, I think it is reasonable to give her an additional trial of extubation with BiPAP bridging if needed. However, if she fails again, she may require either tracheostomy or a goals of care discussion with her family, as I am not sure in my previous discussions with the family that she would want to pursue tracheostomy. For now, our goals remain aggressive, and given her past history of failing trials of extubation with persistent Type II respiratory failure, she remains critically ill at this time. Plan by systems: Neurologic: Alcohol dependence Metabolic Encephalopathy Peripheral neuropathy - On propofol for sedation and vent synchrony - prn haldol - po thiamine and MVI daily. - MRI brain 04/22 normal study - Holding gabapentin given sedation. holding all sedating meds. Respiratory: Acute Hypoxic Respiratory failure Acute COPD exacerbation New L HCAP - Extubated 04/27/16 however respiratory decompensation in the evening requiring reintubation 04/27. - Acute exacerbation of COPD. On Solumedrol 60 q12. DuoNeb scheduled and PRN - resume home Spiriva when extubated - SBT this AM. if she passes, we will cautiously pursue trial of extubation. - Sputum culture 04/18 MSSA - sputum culture 04/26 MSSA Cardiovascular: Tachy-Mark syndrome Possible right atrial thrombus/mass - Back in sinus rhythm. 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 Obando following, YOLANDA showed prominent eustachian valve. Renal: YULIET- resolving. Acute intravascular volume overload Renal and adrenal mass - MRI w and w/o when creatinine improves and is more stable - continue Bumex 1mg BID, still 6L up from admission and 4kg up from admission. --Strict I/Os FEN/GI: Acute protein calorie malnutritionsevere Severe hypophosphatemia Severe hypokalemia Severe hypomagnesemia aggressive replacement of electrolytes --TF at goal. Heme/ID: Sepsis Thrombocytopenia - CXR showing LLL consolidation - Continue oxacillin for staph bacteremia. - 04/26 sputum culture MSSA - Blood culture, sputum culture with staph aureus 04/17. - ID: Dr. Strong following. - Thrombocytopenia noted. HIT negative. slowly improving. continue to monitor. Endocrine: Hyperglycemia of critical illness -- SSI, medium scale, every 6 hours Prophylaxis: GI Prophylaxis Protonix DVT Prophylaxis --SCDs Subcutaneous heparin. Hit negative. Lines: 04/22 left subclavian triple lumen catheter [facility] Dispo: Remain in the intensive care unit. She remains critically ill. Overall impression: Patient is critically ill having been found down and intoxicated. Bacteremia with MSSA and remains critically ill, failed extubation 04/27/16, reintubated in 8-10 hours. If continues to fail weaning, tracheostomy may be needed This patient remains critically ill with one or more organ systems which are or may become a threat to life. I have spent in excess of 39 minutes discontinuously in the care and management of this patient. This time is exclusive of procedures, and includes, but is not limited to, evaluation of the patient, review of the medical record, discussions with family, consultants, nursing staff, or respiratory therapy, and documentation in the medical record. Ravinder Uribe MD Apr 30, 2016 08:41
--- NOTE | 2016-04-30 08:46 | PD.PROCEDR ---
Procedure Note Procedure I provided this service in 04/23/2016. Moderate Sedation Diagnosis: Metabolic encephalopathy Indications: Persistent MSSA bacteremia with transthoracic echocardiogram evidence of possible mass in the right atrium. Need for sedation for transesophageal echocardiogram. Consent: Written consent was obtained Planned Procedure: Transesophageal echocardiogram Airway Exam: Reassuring. Patient is orotracheally intubated. Sedation plan: IV propofol Total sedation time: 14 minutes Please see sedation record scanned into medical record. The patient's past medical history, allergies, medications, and prior airway records were reviewed. A time-out procedure was performed. The patient underwent the above planned procedure and tolerated it well. They remained hemodynamically stable throughout. At the conclusion of the case, the patient was back to neurologic baseline and their care was turned over to the bedside RN. No immediate complications noted. I personally performed the sedation. Ravinder Uribe MD Apr 30, 2016 08:46
[2016-04-30] MEDS: MORPHINE SULFATE 4 MG/ML INJ IV PRN (10:18)
[2016-04-30] MEDS ORDERED: HYDROmorphone HCL PF 1 MG/ML VIAL IV PUSH PRN (12:00)
--- NOTE | 2016-04-30 14:27 | HHI.IDPN ---
Subjective Subjective Remarks is a 65 y/o with alcoholism who was found on the floor in resp distress and sating 80% on RA. EMS intubated for respiratory distress and abdominal pain. Admission vitals included a amina of 99.9 F, tachycardia, low BP and elevated lactic acid. Patient underwent sepsis workup. Was started on IV antibiotics. She appeared to be severely dehydrated with acute kidney injury and mental obtundation. ID following for Sepsis, MSSA bacteremia, Pneumonia. No fever No rash No diarrhea Extubated 2nd attempt. Sitting in chair. Gets restless at times. Vitals stable at present time. Antibiotics Oxacillin IV Lines Line sites with no e/o infection Past Medical History Alcoholism Allergies: Coded Allergies: Dexmedetomidine (Verified Allergy, Severe, Arrhythmias, 04/18/16) ASYSTOLE 04/18/16 Precedex (Verified Allergy, Severe, Arrhythmias, 04/18/16) ASYSTOLE 04/18/16 Camphor (Verified Allergy, Unknown, Swelling, 04/17/16) Objective . Vital Signs Date Time Temp Pulse Resp B/P Pulse Ox O2 Delivery O2 Flow Rate FiO2 04/30/16 12:00 97.7 110 21 168/86 96 04/30/16 12:00 100 04/30/16 10:00 100 04/30/16 09:38 95 Nasal Cannula 3.00 04/30/16 09:25 95 Nasal Cannula 3 04/30/16 08:00 40 04/30/16 08:00 98.1 88 20 140/65 98 04/30/16 08:00 84 04/30/16 07:50 100 40 04/30/16 07:10 40 04/30/16 06:00 80 04/30/16 04:17 98 40 04/30/16 04:00 40 04/30/16 04:00 98.4 74 16 127/58 97 04/30/16 04:00 78 04/30/16 02:00 81 04/30/16 00:36 100 40 04/30/16 00:00 98.4 75 16 143/67 99 04/30/16 00:00 79 04/30/16 00:00 40 04/29/16 22:00 82 04/29/16 21:56 98 40 04/29/16 20:00 40 04/29/16 20:00 86 04/29/16 20:00 98.6 86 18 129/60 97 04/29/16 18:49 98 40 04/29/16 18:00 88 04/29/16 16:00 40 04/29/16 16:00 87 04/29/16 16:00 98.7 87 18 130/60 100 04/29/16 14:56 100 40 04/29/16 04/29/16 04/30/16 15:00 23:00 07:00 Intake Total 1191 ml 477 ml 933 ml Output Total 2000 ml 2100 ml 1000 ml Balance -809 ml -1623 ml -67 ml Intake Oral 0 ml 0 ml 0 ml IV Total 541 ml 417 ml 308 ml Tube Feeding 65 ml Albumin 500 ml 500 ml Other 150 ml 60 ml 60 ml Output Urine Total 2000 ml 2100 ml 1000 ml # Bowel Movements 1 0 2 . Laboratory Tests Test 04/29/16 04:30 White Blood Count 10.1 TH/MM3 Red Blood Count 2.63 MIL/MM3 Hemoglobin 8.3 GM/DL Hematocrit 24.6 % Mean Corpuscular Volume 93.6 FL Mean Corpuscular Hemoglobin 31.6 PG Mean Corpuscular Hemoglobin 33.8 % Concent Red Cell Distribution Width 16.5 % Platelet Count 257 TH/MM3 Mean Platelet Volume 8.5 FL Neutrophils (%) (Auto) 87.6 % Lymphocytes (%) (Auto) 3.8 % Monocytes (%) (Auto) 8.4 % Eosinophils (%) (Auto) 0.0 % Basophils (%) (Auto) 0.2 % Neutrophils # (Auto) 8.8 TH/MM3 Lymphocytes # (Auto) 0.4 TH/MM3 Monocytes # (Auto) 0.8 TH/MM3 Eosinophils # (Auto) 0.0 TH/MM3 Basophils # (Auto) 0.0 TH/MM3 CBC Comment DIFF FINAL Differential Comment Laboratory Tests Test 04/29/16 04:30 Sodium Level 142 MEQ/L Potassium Level 3.5 MEQ/L Chloride Level 101 MEQ/L Carbon Dioxide Level 32.5 MEQ/L Anion Gap 9 MEQ/L Blood Urea Nitrogen 39 MG/DL Creatinine 0.69 MG/DL Estimat Glomerular Filtration 85 ML/MIN Rate Random Glucose 97 MG/DL Calcium Level 10.6 MG/DL Total Bilirubin 0.9 MG/DL Aspartate Amino Transf 11 U/L (AST/SGOT) Alanine Aminotransferase 9 U/L (ALT/SGPT) Alkaline Phosphatase 41 U/L Total Protein 6.1 GM/DL Albumin 3.9 GM/DL Microbiology Date/Time Procedure Status Source Growth 04/29/16 05:35 Gram Stain - Final Resulted Sputum Endotracheal 04/29/16 05:35 Sputum Culture - Preliminary Resulted Sputum Endotracheal HEAVY GROWTH NORMAL RESPIRATORY JACEY... Imaging Last Impressions Chest X-Ray 04/22/16 0000 Signed Impressions: Service Date/Time: Friday, April 22, 2016 12:00 - CONCLUSION: There is no pneumothorax. ET tube at the akua directed towards the right main bronchus. Alessandro Tello MD FACR Head CT 04/17/16 2344 Signed Impressions: Service Date/Time: Sunday, April 17, 2016 00:28 - CONCLUSION: No acute disease. Percy Barnes MD CT Angiography 04/17/16 0000 Signed Impressions: Service Date/Time: Sunday, April 17, 2016 00:31 - CONCLUSION: 1. Severe emphysema without evidence for pleural or embolism. 2. Bilateral hilar adenopathy, and dense bilateral pulmonary consolidation in the lower lobes left greater than right. 3. Left adrenal mass incompletely characterized, and left renal mass measuring soft tissue density. Workup with MRI of the abdomen with and without contrast of these findings is recommended on a nonemergent outpatient basis. 4. Mild nodularity seen within the right middle lobe abutting the fissure measuring 9 mm and 7 mm on image 95. Most likely nodular infiltrate suspected. There is linear atelectasis in the right middle lobe. Short interval followup CT in 3 months recommended. Percy Barnes MD Abdomen/Pelvis CT 04/17/16 0000 Signed Impressions: Service Date/Time: Sunday, April 17, 2016 06:30 - CONCLUSION: 1. Mild distention of the gallbladder. 2. Bilateral renal cysts are noted as well as an indeterminate mass upper pole left kidney, probable hemorrhagic or proteinaceous cyst and can be further evaluated with MRI of the abdomen with and without contrast on a nonemergent outpatient basis. 3. Bilateral lower lobe consolidation. 4. Indeterminate probable adenomas left adrenal mass. 5. Atherosclerosis. 6. Nodular infiltrate in the right middle lobe is seen. Percy Barnes MD Physical Exam GENERAL: Thin built poorly nourished patient, in no apparent distress. SKIN: Spider naevi on chest. HEAD: Atraumatic. Normocephalic. No temporal or scalp tenderness. EYES: Pupils equal round and reactive. Extraocular motions intact. No scleral icterus. No injection or drainage. ENT: Intubated, NECK: Trachea midline. Supple, nontender, no meningeal signs. CARDIOVASCULAR: HS audible. RESPIRATORY: Breath sounds equal bilaterally with decrease in the bases. GASTROINTESTINAL: Abdomen soft, non-tender, nondistended. No hepato-splenomegaly , or palpable masses. No guarding. MUSCULOSKELETAL: Extremities without clubbing, cyanosis, or edema. No joint tenderness, effusion, or edema noted. No calf tenderness. Negative Homans sign bilaterally. NEUROLOGICAL: Lethargic, arousable to commands and deep stimuli. Follows simple commands like wiggling toes. Psych could not be assessed IV line sites with no e/o infection. Assessment & Plan Remarks Severe Sepsis present on admission MSSA bacteremia transient. MSSA pneumonia vs septic emboli Lactobacillus and Enterococcus faecalis in urine/UTI treated on admission. Likely not the source of infection. Acute metabolic encephalopathy: sepsis, alcoholism appears resolving. Acute renal failure: sepsis, prerenal. Thrombocytopenia: likely sepsis, ? meds. ? Vanco induced Recs Follow cultures YOLANDA negative. Continue Oxacillin IV plan on total of 2 weeks for bacteremia followed by oral if persistent pneumonia. MSSA bacteremia likely secondary to MSSA pneumonia. HIV and hepatitis profile negative. shakila RN Will follow next on Wednesday next 05/04/16 to assess if appropriate then to convert to oral regimen. As stated above 2 weeks IV are needed. Nettie Pires to cover for me this weekend. Sophia Strong MD Apr 30, 2016 14:27
[2016-04-30] MEDS: METOPROLOL TARTRATE 5 MG/5 ML VIAL IV PUSH SCH ×2 (14:34→20:28)
[2016-04-30] MEDS: POTASSIUM CHLOR 40 MEQ PREMIX 100 ML IV PRN ×2 (17:33→19:28)
[2016-04-30] MEDS ORDERED: ETOMIDATE 40 MG/20 ML VIAL IV PUSH ONE (18:45)
[2016-04-30] MEDS ORDERED: fentaNYL DRIP 250 ML IV SCH (18:45)
[2016-04-30] MEDS ORDERED: ROCURONIUM INJ 100 MG/10 ML VIAL IV ONE (18:45)
[2016-04-30] MEDS ORDERED: ROCURONIUM INJ 50 MG/5 ML VIAL ONE (18:46)
[2016-04-30] MEDS: MAGNESIUM SULFATE 1 GM PREMIX 100 ML IV SCH ×2 (19:04→19:40)
--- NOTE | 2016-04-30 19:04 | PD.PROCEDR ---
Procedure Note Procedure DATE: 04/30/16 PROCEDURE: Orotracheal intubation INDICATION:. Hypoxemic respiratory failure/inability to protect airway DETAILS OF PROCEDURE The patient was placed in optimal position and preoxygenated with 100% FiO2 via bag valve mask. At the start oxygen saturation was 100%. The patient was administered 20 mg etomidate IV and 50 mill grams rocuronium IV. I entered the oropharynx with a size 4 GVL glidescope blade and obtained a grade 3 view of the airway. On single attempt a size 8.0 cuffed endotracheal tube was passed through the vocal cords. Correct tube location was confirmed with end tidal CO2 detector and by auscultating over bilateral lung vera. The endotracheal tube was secured with adhesive tape at a depth of 21 cm at the lips. The patient was connected to the ventilator. The patient tolerated the procedure well without any apparent complications. Oxygen saturations were maintained greater than 95% all times. STAT chest x-ray pending at time of dictation. Willie Soni MD Apr 30, 2016 19:04
[2016-04-30] MEDS ORDERED: CHLORHEXIDINE 0.12% (ORAL KIT) 15 ML CUP MT SCH (20:00)
--- NOTE | 2016-04-30 20:25 | RADRPT ---
EXAM DATE/TIME: 04/30/2016 19:24 [facility] COMPARISON: CHEST SINGLE AP, April 29, 2016, 5:50. INDICATIONS : Evaluate intubation MEDICAL HISTORY : Chronic obstructive pulmonary disease. Congestive heart failure. Carcinoma, breast. Hypertension SURGICAL HISTORY : Mastectomy, right. ENCOUNTER: Subsequent ACUITY: 1 week PAIN SCORE: Non-responsive. LOCATION: Bilateral chest FINDINGS: Endotracheal tube tip is in satisfactory position. NG tube is in the stomach. Left central line in mccormack perior vena cava. Bilateral mostly basilar airspace disease. Small pleural effusions. No pneumothorax . Previous humeral fractures. CONCLUSION: 1. Bilateral mostly basilar airspace disease and small pleural effusions. Support apparatus in satisf actory position. Endotracheal tube tip at level of aortic arch. Julio Merchant MD on April 30, 2016 at 20:22 Board Certified Radiologist. This report was verified electronically.
[2016-05-01] VITALS (19 sets, daily range): BP systolic 106–130; BP diastolic 56–62; PULSE 77–110; RESP 15–19; TEMP 97.6–98.4; O2SAT 96–100
[2016-05-01] MEDS: OXACILLIN INJ 2 GM in SODIUM CHLORIDE 0.9% INJ 100 ML IV SCH ×6 (00:03→19:44)
[2016-05-01] MEDS: METOPROLOL TARTRATE 5 MG/5 ML VIAL IV PUSH SCH ×6 (00:04→19:43)
[2016-05-01 01:31] LABS: BLOOD GAS BASE EXCESS 5.3 mmol/L (-2-2); BLOOD GAS CARBOXYHEMOGLOBIN 1.7 % (0-4); BLOOD GAS HCO3 30 mmol/L (22-26); BLOOD GAS METHEMOGLOBIN 0.9 % (0-2); BLOOD GAS O2 HGB SATURATION 97 % (90-100); BLOOD GAS OXYGEN CONTENT 10.5 Vol % (12.0-20.0); BLOOD GAS PCO2 51 mmHg (38-42); BLOOD GAS PO2 175 mmHg (61-120); BLOOD GAS TOTAL HGB 7.4 G/DL (12.0-16.0); TEMP CORR TO 98.6
[2016-05-01 01:32] LABS: CRITICAL VALUE YES; DRAW SITE RT RADIAL; FIO2 60 %; NUMBER OF ARTERIAL PUNCTURES 1; OXYGEN DEVICE VENTILATOR; STAT NO; ULNAR PULSE PRESENT; VENT SETTINGS PRVC/AC
[2016-05-01] MEDS: RESP: ALBUTEROL 2.5 MG/IPRATROPIUM 0.5 MG NEB (SCH) NEB ×6 (03:29→23:46)
[2016-05-01] MEDS: METOCLOPRAMIDE HCL SYRUP 10 MG/10 ML UDC PO SCH ×3 (04:00→19:42)
[2016-05-01] MEDS: ALBUMIN HUMAN 5% 25 GM/500 ML BOTTLE IV SCH ×2 (04:01→15:08)
[2016-05-01] MEDS: PROPOFOL 1000 MG/100 ML INJ 100 ML IV SCH ×3 (04:12→19:42)
[2016-05-01 06:34] LABS: MAGNESIUM 1.8 MG/DL (1.5-2.5); POTASSIUM 3.4 MEQ/L (3.5-5.1)
[2016-05-01 06:44] LABS: MEAN CORPUSCULAR HEMOGLOBIN 32.4 PG (27.0-34.0); MEAN CORPUSCULAR HGB CONC 33.1 % (32.0-36.0); PLATELET COUNT 243 TH/MM3 (150-450); RED BLOOD COUNT 2.07 MIL/MM3 (4.00-5.30); RED CELL DISTRIBUTION WIDTH 17.3 % (11.6-17.2); WHITE BLOOD COUNT 10.2 TH/MM3 (4.0-11.0)
[2016-05-01 06:46] LABS: REVIEW FLAG FINAL
[2016-05-01 06:48] LABS: HEMATOCRIT 20.3 % (35.0-46.0)
--- NOTE | 2016-05-01 07:34 | HHI.CCPN ---
Subjective Remarks/Hospital Course 65-year-old woman brought in by EMS intubated for respiratory distress, and abdominal pain. She has recently had relapse of alcohol dependency disease and was found sitting on the floor in marked respiratory distress. 80% on room air. 04/18: Arrived severely dehydrated with YULIET and obtundation after excess alcohol consumption. Now tolerating PSV but fails weaning trial from ventilator. May need precedex for detox. She has developed a-fib with tachy- mark. Several 6 sec asystolic pauses Transcutaneous pacer placed on demand mode 04/19: Remains sedated, orally intubated on mechanical ventilation. 04/20: Remains sedated, orally intubated on mechanical ventilation. Daily C Pap trials. 04/21: Remains sedated/encephalopathic, orally intubated on mechanical ventilation. Blood cultures with staph aureus. Daily C Pap trials however neurologic status precludes extubation 04/22: remains significantly tachycardic overnight. also thrombocytopenic. remains encephalopathic. 04/23: tachycardia controlled with esmolol overnight. more awake today, awakens to voice and opens eyes, but still does not follow commands. thrombocytopenia improving. echo on 04/22 with "? device in right atrium" although the patient has no known implantable devices. good diuresis with single dose of Lasix yesterday. 04/24: Remains intubated off sedation, appears to track intermittently following commands. Sodium is 156, I have started D5 W at 125 mL per hour 04/25: Intubated, not on sedation. Continues to fail CPAP due to tachypnea, resp distress. Extensive bilateral wheezing. IV steroids and scheduled DuoNeb started. NA 152 today 04/26: Continues to fail C Pap trial due to tachypnea, respiratory distress and labored breathing. However wheezing is improving on IV steroids and breathing treatments, sodium is normal 144 today. Discontinue D5W. Neurologically more improved. Following commands and upper extremity 04/27: Tolerated C Pap better today and was weaned to extubation. Developed some respiratory distress placed on BiPAP, now breathing more comfortably. UO remains adequate 04/28: Patient was extubated yesterday after successful weaning trials, however decompensated requiring BiPAP initially, eventually was intubated at night by Dr. Soni. Chest x-ray shows worsening left-sided consolidation and effusion 04/29: Awake alert on propofol. Able to follow commands. Will resume CPAP. CXR improved infiltrates-mild left lower lobe infiltrates. Developed Afib, received metoprolol now NSR 04/30: RASS 0. awake and alert. writing notes this AM. follows commands. has a history of failing trial of extubation. on SBT this AM. 05/01: extubated yesterday, but poor compliance with pulmonary toilet, persistently encephalopathic despite following commands. tired out and re- intubated overnight. Hgb dropped to 6.9, currently rechecking. Also back in afib. Objective Vital Signs Date Time Temp Pulse Resp B/P Pulse Ox O2 Delivery O2 Flow Rate FiO2 05/01/16 06:00 86 05/01/16 04:04 100 50 05/01/16 04:00 98.0 18 106/58 04/30/16 09:38 Nasal Cannula 3.00 Intake and Output 04/30/16 04/30/16 05/01/16 08:00 16:00 00:00 Intake Total 933 ml 908 ml 830 ml Output Total 1000 ml 1300 ml 1600 ml Balance -67 ml -392 ml -770 ml Result Diagram: 05/01/16 0626 05/01/16 0540 Other Results Laboratory Tests Test 05/01/16 01:03 Blood Gas Puncture Site RT RADIAL Blood Gas Patient Temperature 98.6 Blood Gas HCO3 30 mmol/L (22-26) Blood Gas Base Excess 5.3 mmol/L (-2-2) Blood Gas Oxygen Saturation 97 % (90-100) Arterial Blood pH 7.39 (7.380-7.420) Arterial Blood Partial 51 mmHg (38-42) Pressure CO2 Arterial Blood Partial 175 mmHg Pressure O2 (61-120) Arterial Blood Oxygen Content 10.5 Vol % (12.0-20.0) Arterial Blood 1.7 % (0-4) Carboxyhemoglobin Arterial Blood Methemoglobin 0.9 % (0-2) Blood Gas Hemoglobin 7.4 G/DL (12.0-16.0) Oxygen Delivery Device VENTILATOR Blood Gas Ventilator Setting PRVC/AC Blood Gas Inspired Oxygen 60 % Imaging Last [address] 04/17/16 4614 Signed Impressions: Service Date/Time: Sunday, April 17, 2016 00:28 - CONCLUSION: No acute disease. Percy Barnes MD CT Angiography 04/17/16 0000 Signed Impressions: Service Date/Time: Sunday, April 17, 2016 00:31 - CONCLUSION: 1. Severe emphysema without evidence for pleural or embolism. 2. Bilateral hilar adenopathy, and dense bilateral pulmonary consolidation in the lower lobes left greater than right. 3. Left adrenal mass incompletely characterized, and left renal mass measuring soft tissue density. Workup with MRI of the abdomen with and without contrast of these findings is recommended on a nonemergent outpatient basis. 4. Mild nodularity seen within the right middle lobe abutting the fissure measuring 9 mm and 7 mm on image 95. Most likely nodular infiltrate suspected. There is linear atelectasis in the right middle lobe. Short interval followup CT in 3 months recommended. Percy Barnes MD Chest X-Ray 04/16/16 2344 Signed Impressions: Service Date/Time: Sunday, April 17, 2016 00:55 - CONCLUSION: Endotracheal tube as described above. Percy Barnes MD Objective Remarks GENERAL: Critically ill-appearing female, intubated SKIN: Warm and dry. HEAD: Normocephalic. Atraumatic. NECK: Supple, trachea midline. Orally intubated. CARDIOVASCULAR: tachycardic rate, irregularly irregular rhythm. No JVD. RESPIRATORY: Orally intubated on mechanical ventilation, Breath sounds equal bilaterally. Bilateral wheezing GASTROINTESTINAL: Abdomen soft, non-tender, nondistended. MUSCULOSKELETAL: No cyanosis, or edema. Well perfused. NEURO: Intubated, RASS -2. sedated. A/P Problem List: (1) Acute respiratory failure with hypoxia ICD Code: J96.01 Status: Acute (2) Acute kidney injury ICD Code: N17.9 Status: Acute (3) Septic shock ICD Code: A41.9 Status: Acute (4) COPD exacerbation ICD Code: J44.1 Status: Acute (5) Alcohol abuse ICD Code: F10.10 Status: Chronic Assessment and Plan Assessment: 65yF with h/o etoh dependence now with metabolic encephalopathy, acute hypoxic respiratory failure, tachy-mark syndrome. encephalopathy has resolved. she remains critically ill. About a week and a half ago I had a long conversation with Ms. Wiseman's family. They thought at that time that she probably had Wernicke's encephalopathy and that it has been long-standing and declining over the last few months to the point that she forgets things and has some mild difficulty doing her ADLs. At that time, she was very encephalopathic , and they were unsure if she would want to live with permanent health-care association. At that time, her mental status was improving, and we held out with aggressive care to see how she would do. They also state she continues to drink, and would not be happy with any quality of life where she did not return to drinking. At this point, she has now failed a trial of extubation twice, from a combination of acute on chronic deconditioning, malnutrition, poor pulmonary toilet, and persistent encephalopathy. I will re-engage the family today, but if their assessment of her wishes remains the same, I do not think she would want tracheostomy or aggressive medical care, and it may be time to transition to palliative care. I will consult palliative care and we will have ongoing goals of care discussions. For now, we will remain aggressive in our goals until we can discuss with the family, and she remains very critically ill. Plan by systems: Neurologic: Alcohol dependence Metabolic Encephalopathy Peripheral neuropathy Probable Wernicke's encephalopathy - On propofol for sedation and vent synchrony - prn haldol - po thiamine and MVI daily. - MRI brain 04/22 normal study - Holding gabapentin given sedation. holding all sedating meds. Respiratory: Acute Hypoxic Respiratory failure Acute COPD exacerbation New L HCAP - Extubated 04/27/16 however respiratory decompensation in the evening requiring reintubation 04/27. - extubated 04/30, reintubated that evening after about 8 hours, again for poor pulmonary toilet, decompensation. - Acute exacerbation of COPD. On Solumedrol 60 q12. DuoNeb scheduled and PRN - does not meet SBT criteria today. I think after 2 trials of extubation, both when she was medically optimized, suggest that her encephalopathy and deconditioning are barriers to successful weaning from mechanical ventilation. - Sputum culture 04/18 MSSA - sputum culture 04/26 MSSA Cardiovascular: Tachy-Mark syndrome Possible right atrial thrombus/mass - now back in afib. 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 Obando following, YOLANDA showed prominent eustachian valve. Renal: YULIET- resolving. Acute intravascular volume overload Renal and adrenal mass - MRI w and w/o when creatinine improves and is more stable - continue Bumex 1mg BID --Strict I/Os FEN/GI: Acute protein calorie malnutritionsevere Severe hypophosphatemia Severe hypokalemia Severe hypomagnesemia aggressive replacement of electrolytes --restart TF. Heme/ID: Sepsis Thrombocytopenia - CXR showing LLL consolidation - Continue oxacillin for staph bacteremia. - 04/26 sputum culture MSSA - Blood culture, sputum culture with staph aureus 04/17. - ID: Dr. Strong following. - Thrombocytopenia noted. HIT negative. slowly improving. continue to monitor. Endocrine: Hyperglycemia of critical illness -- SSI, medium scale, every 6 hours Prophylaxis: GI Prophylaxis Protonix DVT Prophylaxis --SCDs Subcutaneous heparin. Hit negative. Lines: 04/22 left subclavian triple lumen catheter [place] Dispo: Remain in the intensive care unit. She remains critically ill. Overall impression: Patient is critically ill having been found down and intoxicated. Bacteremia with MSSA and remains critically ill, failed extubation 04/27/16, 04/30/16. will discuss with family goals of care. Poor prognosis, short and long-term. This patient remains critically ill with one or more organ systems which are or may become a threat to life. I have spent in excess of 33 minutes discontinuously in the care and management of this patient. This time is exclusive of procedures, and includes, but is not limited to, evaluation of the patient, review of the medical record, discussions with family, consultants, nursing staff, or respiratory therapy, and documentation in the medical record. Ravinder Uribe MD May 01, 2016 07:34
[2016-05-01] MEDS: LACTULOSE SYRUP 20 GM/30 ML CUP PO SCH (07:50)
[2016-05-01] MEDS: DOCUSATE SODIUM 100 MG/10 ML UDC G-TUBE SCH ×2 (07:50→21:37)
[2016-05-01] MEDS: CHLORHEXIDINE 0.12% (ORAL KIT) 15 ML CUP MT SCH ×2 (07:50→19:42)
[2016-05-01] MEDS: methylPREDNISolone SOD SUCC 125 MG/2 ML VIAL IV PUSH SCH ×2 (07:51→21:37)
[2016-05-01] MEDS: POTASSIUM CL 40 MEQ/30 ML LIQ UDC PO SCH (07:51)
[2016-05-01] MEDS: BUMETANIDE INJ 1 MG/4 ML VIAL IV PUSH SCH ×2 (07:52→16:30)
[2016-05-01] MEDS: PANTOPRAZOLE SODIUM 40 MG VIAL IV PUSH SCH (07:52)
[2016-05-01] MEDS: ARTIFICIAL TEARS OPTH SOLN 15 ML BTL EACH EYE SCH ×3 (07:52→15:21)
[2016-05-01] MEDS: MULTIVITAMIN TAB PO SCH (07:53)
[2016-05-01] MEDS: THIAMINE HCL 100 MG TAB PO SCH (07:53)
[2016-05-01] MEDS: BENEPROTEIN POWDER 1 PACK G-TUBE SCH ×3 (07:53→15:21)
[2016-05-01 10:07] LABS: BASOPHIL % 0.2 % (0.0-2.0); EOSINOPHIL % 0.2 % (0.0-4.0); LYMPH % 2.7 % (9.0-44.0); LYMPHOCYTE # 0.3 TH/MM3 (1.0-4.8); MEAN CELL VOLUME 99.1 FL (80.0-100.0); MEAN CORPUSCULAR HEMOGLOBIN 32.2 PG (27.0-34.0); MEAN CORPUSCULAR HGB CONC 32.4 % (32.0-36.0); MONO % 9.4 % (0.0-8.0); NEUT % 87.5 % (16.0-70.0); PLATELET COUNT 249 TH/MM3 (150-450); RED BLOOD COUNT 2.12 MIL/MM3 (4.00-5.30); RED CELL DISTRIBUTION WIDTH 18.2 % (11.6-17.2); WHITE BLOOD COUNT 10.3 TH/MM3 (4.0-11.0)
[2016-05-01 10:09] LABS: HEMO FLAGS AUTO DIFF
--- NOTE | 2016-05-01 10:36 | PD.CONS ---
Consult Service Palliative Care Consult Requested By Dr. Uribe Primary Care Physician Unknown Reason for Consultation a. To assist with evaluation and management of symptoms including:pain b. To assist medical decision maker(s) with: better understanding of current medical conditions; weighing benefits/burdens of medical treatment options; making medical treatment decisions. HPI History of Present Illness Patient is 65-year-old with past medical history of hypertension, COPD, breast cancer, alcoholism, neuropathy who developed abdominal pain and was found to be on the floor with markedly severe respiratory distress by EMS on 04/16/2016. Patient rapidly deteriorated with waning mental status and increase shallow breathing. Patient was intubated by EMS. Systolic BP dropped to the 60s and patient was given IV fluids. Patient is transferred to the hospital. In the ER : * Temperature is 99.9, pulse is 102, respirations 16, blood pressure is a 3/6 2 , pulse ox 100% * WBC 17.3, hemoglobin is 13.9, hematocrit 21.1, platelet is 156 * Sodium was 128, potassium 4.6, chloride is 94, bicarbonate 22.2, creatinine 4.15, BUN was 76 * Troponin is 0.02, albumin is 2.3 * PT is 12.2, INR is 1.1, APTT is 34.3 * PH is 7.34, bicarbonate is 19, PCO2 is 37, PCO2 is 237 patient is on ventilator before meals * Urine culture was done and shows Enterococcus faecalis and lactobacillus * ET tube with tip on the akua. There is consolidation within both lower lobes and prominence of the bilateral hilar shadows. Remote impacted right proximal humerus fracture deformity identified. * CTA show severe emphysema without evidence of PE. Lateral hilar adenopathy and dense bilateral pulmonary consolidation in the lower lobes with left greater than right. There is mild nodularity seen in the right middle lobe abutting the fissures of measuring 9 mm x 7 mm. Most likely nodular infiltrate suspected. * Mild distention of the gallbladder. Bilateral renal cysts are noted as well as indeterminate mass upper pole left kidney. Bilateral lower lobe consolidation. Indeterminate probable adenomas left adrenal mass. Arthrosclerosis. Nodular infiltrate in the right middle lobe is seen. * Head CT shows no acute diseases. Critical medicine was consulted, patient was given IV fluids, broad-spectrum antibiotics, vasopressors. In terms of respiratory, patient fail did weaning trials initially and needed Precedex for detox. Patient got to the point where patient was extubated on however patient rapidly decompensated and required intubation on the same day. Patient again was extubated on 04/30/2016 but reintubated in the evening about 8 hours again due to poor pulmonary toilet, and subsequent decompensation. Sputum cultures were positive for MSSA 04/18 and on 04/26. In terms of cardiac. Patient initially developed A. fib with tachycardia and initial few days of hospitalization. Had been placed on transcutaneous pacers on demand mode. Patient placed on beta doris. Cardiology was consulted to and YOLANDA he shows prominent eustachian valve. In terms of nephrology-patient initial 4.15, patient was given IV fluids and acute kidney injury has resolved, creatinine 0.78 on 05/01/2016 Patient's again sputum culture shows MSSA. Patient has thrombocytopenia noted but HRT has been negative slowly improving. Neuro ballard, patient's headache MRI of the brain on 04/22/2016 which was unremarkable. Patient was able to follow commands, but remains confused and intensivists feels likely patient has some type of work he is encephalopathy due to long-standing alcohol abuse. In summary: Patient is a 65-year-old past medical history of hypertension, COPD , breast cancer, alcoholism, neuropathy, came in because of respiratory distress , and was intubated while being transferred by EMS. She had sepsis, and bilateral consolidation of the lungs. She has failed extubation multiple times and has been reintubated very quickly. Patient was extubated again on 04/30 but reintubated in the evening about 8 hours again due to poor pulmonary toilet, and subsequent decompensation. In addition patient H&H today was 6.7 and 20.3. Intensivists feels, pt has now failed a trial of extubation twice, from a combination of acute on chronic deconditioning, malnutrition, poor pulmonary toilet, and persistent encephalopathy. Palliative care was consulted to review goals of care. Pt can be awaken. She is able to follow commands. When testing for judgement, at times she is able to answer questions some question correctly (with nodding and shaking her head) such as on a clear chilo day the casimiro is blue? she would nod yes? At other times she would answer questions incorrectly. "on a well watered lawn, grass usual color is pink." She would nod yes. Inconsistent enough where I would say it is difficult for her to weigh the risk and benefits of medical decisions at this time. She did nod to say she is in pain. Could not give hx due to intubation. I called and spoke with pt's Spouse Bowen. He states pt has had problems with short term memory and has not been the same since pt had chemo. Pt's spouse also endorses she is a heavy drinker and has a family history of it. Discuss pt's challenges in weaning of the machines and the likely paz pt would need trach etc. Pt's spouse endorsed that pt would not want trach and be on these machine. He endorses if pt does not improve by Next Wednesday, he would signed the DNR and transition to comfort. Function/Cognitive Trajectory Pt's spouse stated she was still able to drive and live pretty independently. He state unfortunately he started drinking again. He states overall, she has poor short term memory and he feels its been that way since she had chemo therapy in 2005 for breast cancer. Review of Systems ROS Limitations: Clinical Condition, Uncooperative Respiratory: COMPLAINS OF: Shortness of breath Psychiatric: COMPLAINS OF: Confusion Past Family Social History Coded Allergies: Dexmedetomidine (Verified Allergy, Severe, Arrhythmias, 04/18/16) ASYSTOLE 04/18/16 Precedex (Verified Allergy, Severe, Arrhythmias, 04/18/16) ASYSTOLE 04/18/16 Camphor (Verified Allergy, Unknown, Swelling, 04/17/16) Past Medical History hypertension, COPD, breast cancer, alcoholism, neuropathy Reported Medications Triamcinolone Acetonide (Triamcinolone Acetonide (Topic) 1 Pow Pow 0.1 Units TOPICAL DIALY Spiriva Handihaler (Tiotropium Inh) 18 Mcg Cap 18 Mcg INH DAILY 1 capsule = 18 mcg Proair Hfa 8.5 GM Inh (Albuterol Sulfate) 90 Mcg/Act Aer 2 Puff INH Q4-6H PRN 108 mcg/actuation Lasix (Furosemide) 40 Mg Tab 40 Mg PO DAILY Klor-Con M20 (Potassium Chloride Microencaps) 20 Meq Tab 20 Meq PO DAILY Ibandronate (Ibandronate Sodium) 150 Mg Tab 150 Mg PO Q28D Hydrocodone-Acetaminophen 10-325 mg Tab 1 Tab PO Q6H PRN Gabapentin 800 Mg Tab 800 Mg PO DAILY Furosemide 20 Mg Tab 20 Mg PO DAILY Allergy Nasal [place] 24 Ho (Fluticasone Propionate (Nasal)) 50 Mcg/Act Spr 50 Aerosol NASAL DAILY Benazepril (Benazepril HCl) 10 Mg Tab 10 Mg PO DAILY Baclofen 10 Mg Tab 10 Mg PO TID Atenolol 50 Mg Tab 50 Mg PO DAILY Amoxicillin 500 Mg Cap 500 Mg PO DAILY unknown duration Current Medications Medications (Trade) Dose Ordered Sig/Issa Route Start Time Stop Time Status Last Admin (NS Flush) 2 ml UNSCH PRN IV FLUSH 04/17/16 02:30 (NS Flush) 2 ml BID IV FLUSH 04/17/16 09:00 04/30/16 20:31 (Tylenol) 650 mg Q6H PRN PO 04/17/16 02:30 (Tears Naturale Opth Soln) 1 drop TID EACH EYE 04/17/16 09:00 05/01/16 07:52 (Zofran Inj) 4 mg Q6H PRN IV 04/17/16 02:30 (Colace Liq) 100 mg Q12H G-TUBE 04/17/16 09:00 04/30/16 07:41 Miscellaneous Information 1 Q361D XX 04/17/16 02:30 (Chlorhexidine 2% Cloth) Taper DAILY@04 TOP 04/17/16 04:00 04/13/17 03:59 04/25/16 03:07 (Chlorhexidine 2% Cloth) 3 pack UNSCH PRN TOP 04/17/16 02:30 (Albumin 5% Inj) 25 gm Q12H IV 04/17/16 03:00 05/01/16 04:01 (Beneprotein Powder) 1 pack TID G-TUBE 04/17/16 13:00 05/01/16 07:53 (Reglan Liq) 5 mg Q8H PO 04/17/16 12:00 04/30/16 04:18 (Brethine Inj) 1 mg UNSCH PRN SQ 04/17/16 12:00 Gabapentin 800 mg 800 mg DAILY PO 04/18/16 09:00 Hold 04/22/16 08:44 Potassium Chloride 100 ml @ 50 mls/hr Q2H PRN IV 04/20/16 11:30 04/30/16 19:28 (KCl 20 Meq Premix Inj) 100 ml @ 50 mls/hr Q2H PRN IV 04/20/16 11:30 Potassium Chloride 40 meq 40 meq UNSCH PRN PO/TUBE 04/20/16 11:30 04/23/16 20:52 Potassium Chloride 100 ml @ 25 mls/hr UNSCH PRN IV 04/20/16 11:30 04/27/16 05:34 Potassium Chloride 100 ml @ 50 mls/hr Q2H PRN IV 04/20/16 11:30 05/01/16 06:49 (Magnesium Sulfate Inj/NS Inj) 100 ml @ 50 mls/hr UNSCH PRN IV 04/20/16 11:30 Magnesium Oxide 800 mg 800 mg UNSCH PRN PO 04/20/16 11:30 (Magnesium Sulfate Inj/NS Inj) 100 ml @ 50 mls/hr UNSCH PRN IV 04/20/16 11:30 04/26/16 09:11 Potassium Phosphate 2000 mg 2,000 mg Q4H PRN PO 04/20/16 11:30 (Sodium Phosphate Inj/NS 250 ml Inj) 250 ml @ 42 mls/hr UNSCH PRN IV 04/20/16 11:30 (KCl 40 Meq/30 ml Liq) 40 meq UNSCH PRN PO/TUBE 04/20/16 11:30 04/25/16 11:54 Potassium Phosphate 2000 mg 2,000 mg UNSCH PRN PO/TUBE 04/20/16 11:30 Potassium Phosphate 30 mmol/ Sodium Chloride 260 ml @ 42 mls/hr UNSCH PRN IV 04/20/16 11:30 (Prostaphlin Inj/ NS Inj) 100 ml @ 200 mls/hr Q4H IV 04/21/16 16:00 05/01/16 07:49 (Apresoline Inj) 20 mg Q2H PRN IV 04/21/16 19:00 04/29/16 11:19 (Lactulose Liq) 30 ml DAILY PO 04/22/16 09:00 04/29/16 08:30 (Vitamin B1) 100 mg DAILY PO 04/26/16 09:00 05/01/16 07:53 (Theragran) 1 tab DAILY PO 04/22/16 09:15 05/01/16 07:53 (Haldol Inj) 5 mg Q1H PRN IV 04/22/16 09:30 04/27/16 14:41 (Pill Splitter) 1 ea UNSCH PRN OTHER 04/23/16 19:30 (SoluMEDROL INJ) 60 mg Q12HR IV PUSH 04/26/16 21:00 05/01/16 07:51 (Bumex Inj) 1 mg BID@09,18 IV PUSH 04/26/16 18:00 05/01/16 07:52 (KCl 40 Meq/30 ml Liq) 40 meq DAILY PO 04/26/16 14:00 05/01/16 07:51 (Morphine Inj) 3 mg Q3H PRN IV PUSH 04/27/16 14:00 (Peridex 0.12% Liq) 15 ml BID@08,20 MT 04/28/16 08:00 05/01/16 07:50 (Protonix Inj) 40 mg DAILY IV PUSH 04/29/16 09:00 05/01/16 07:52 (Roxicodone) 5 mg Q4H PRN PO 04/30/16 12:00 (Dilaudid Pf Inj) 0.5 mg Q4H PRN IV PUSH 04/30/16 12:00 04/30/16 14:35 Metoprolol Tartrate 5 mg 5 mg Q4HR IV PUSH 04/30/16 16:00 05/01/16 04:01 Propofol 100 ml @ 0 mls/hr TITRATE IV 04/30/16 18:45 05/01/16 04:12 (fentaNYL DRIP) 250 ml @ 0 mls/hr TITRATE IV 04/30/16 18:45 Family History Both mom and dad abuse etoh. Father: htn, [place], COPD, cardiac arrest, carcinoma Mother: Thyroid, GERD. 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 Living Will: Never completed Health Care Surrogate: Never completed Durable Power of Helicopter Technician: Never completed Physical Exam Vital Signs Date Time Temp Pulse Resp B/P Pulse Ox O2 Delivery O2 Flow Rate FiO2 05/01/16 10:00 87 05/01/16 08:00 87 05/01/16 08:00 97.7 86 19 121/61 100 05/01/16 07:56 100 Ventilator 40 05/01/16 07:49 100 40 05/01/16 06:00 86 05/01/16 04:04 100 50 05/01/16 04:00 80 05/01/16 04:00 98.0 105 18 106/58 100 05/01/16 02:00 107 05/01/16 00:00 97.9 110 18 120/58 96 05/01/16 00:00 110 04/30/16 23:39 100 60 04/30/16 22:00 83 04/30/16 20:00 97.7 83 18 115/58 100 04/30/16 19:48 100 80 04/30/16 18:00 102 04/30/16 16:00 98.0 102 23 163/93 99 04/30/16 16:00 102 04/30/16 14:00 96 04/30/16 12:00 97.7 110 21 168/86 96 04/30/16 12:00 100 04/30/16 05/01/16 19:00 07:00 Intake Total 908 ml 1347 ml Output Total 1300 ml 2400 ml Balance -392 ml -1053 ml Intake Oral 0 ml 0 ml IV Total 285 ml 1287 ml Tube Feeding 23 ml 0 ml Albumin 500 ml Other 100 ml 60 ml Output Urine Total 1300 ml 2400 ml # Bowel Movements 3 0 Exam CONSTITUTIONAL/GENERAL: Pt intubated, open eyes interactive, but confused. SKIN: No jaundice, rashes, or lesions. Ecchymoses on upper extremities. No wounds seen anteriorly. Skin temperature appropriate. Not diaphoretic. HEAD: Atraumatic. Normocephalic. EYES: Pupils equal and round and reactive. Extraocular motions intact. No scleral icterus. No injection or drainage. Fundi not examined. ENT: Hearing grossly normal. Nose without bleeding or purulent drainage. ET tube NECK: Trachea midline. Supple, nontender. CARDIOVASCULAR: Regular rate and rhythm without murmurs, gallops, or rubs. No JVD. Peripheral pulses symmetric. RESPIRATORY/CHEST: Symmetric, decrease breath sounds bilaterally. GASTROINTESTINAL: Abdomen soft, non-tender, nondistended. GENITOURINARY: Without palpable bladder distension. Dumont catheter in place. MUSCULOSKELETAL: Extremities without clubbing. Edema of the upper and lower ext. LYMPHATICS: No palpable cervical or supraclavicular adenopathy. NEUROLOGICAL: Awake and alert. . Follows commands. Cognitively confused at times. Diagnostic Tests Laboratory Laboratory Tests Test 04/29/16 04/30/16 05/01/16 05/01/16 04:30 16:50 01:03 05:40 White Blood Count 10.1 TH/MM3 (4.0-11.0) Red Blood Count 2.63 MIL/MM3 (4.00-5.30) Hemoglobin 8.3 GM/DL (11.6-15.3) Hematocrit 24.6 % (35.0-46.0) Mean Corpuscular Volume 93.6 FL (80.0-100.0) Mean Corpuscular Hemoglobin 31.6 PG (27.0-34.0) Mean Corpuscular Hemoglobin 33.8 % Concent (32.0-36.0) Red Cell Distribution Width 16.5 % (11.6-17.2) Platelet Count 257 TH/MM3 (150-450) Mean Platelet Volume 8.5 FL (7.0-11.0) Neutrophils (%) (Auto) 87.6 % (16.0-70.0) Lymphocytes (%) (Auto) 3.8 % (9.0-44.0) Monocytes (%) (Auto) 8.4 % (0.0-8.0) Eosinophils (%) (Auto) 0.0 % (0.0-4.0) Basophils (%) (Auto) 0.2 % (0.0-2.0) Neutrophils # (Auto) 8.8 TH/MM3 (1.8-7.7) Lymphocytes # (Auto) 0.4 TH/MM3 (1.0-4.8) Monocytes # (Auto) 0.8 TH/MM3 (0-0.9) Eosinophils # (Auto) 0.0 TH/MM3 (0-0.4) Basophils # (Auto) 0.0 TH/MM3 (0-0.2) CBC Comment DIFF FINAL Differential Comment Sodium Level 142 MEQ/L 147 MEQ/L (136-145) (136-145) Potassium Level 3.5 MEQ/L 3.1 MEQ/L 3.4 MEQ/L (3.5-5.1) (3.5-5.1) (3.5-5.1) Chloride Level 101 MEQ/L 104 MEQ/L (98-107) (98-107) Carbon Dioxide Level 32.5 MEQ/L 33.0 MEQ/L (21.0-32.0) (21.0-32.0) Anion Gap 9 MEQ/L (5-15) 10 MEQ/L (5-15) Blood Urea Nitrogen 39 MG/DL (7-18) 47 MG/DL (7-18) Creatinine 0.69 MG/DL 0.78 MG/DL (0.50-1.00) (0.50-1.00) Estimat Glomerular Filtration 85 ML/MIN (>89) 74 ML/MIN (>89) Rate Random Glucose 97 MG/DL 93 MG/DL (74-106) (74-106) Calcium Level 10.6 MG/DL 9.6 MG/DL (8.5-10.1) (8.5-10.1) Total Bilirubin 0.9 MG/DL (0.2-1.0) Aspartate Amino Transf 11 U/L (15-37) (AST/SGOT) Alanine Aminotransferase 9 U/L (10-53) (ALT/SGPT) Alkaline Phosphatase 41 U/L (45-117) Total Protein 6.1 GM/DL (6.4-8.2) Albumin 3.9 GM/DL (3.4-5.0) Blood Gas Puncture Site RT RADIAL Blood Gas Patient Temperature 98.6 Blood Gas HCO3 30 mmol/L (22-26) Blood Gas Base Excess 5.3 mmol/L (-2-2) Blood Gas Oxygen Saturation 97 % (90-100) Arterial Blood pH 7.39 (7.380-7.420) Arterial Blood Partial 51 mmHg (38-42) Pressure CO2 Arterial Blood Partial 175 mmHg Pressure O2 (61-120) Arterial Blood Oxygen Content 10.5 Vol % (12.0-20.0) Arterial Blood 1.7 % (0-4) Carboxyhemoglobin Arterial Blood Methemoglobin 0.9 % (0-2) Blood Gas Hemoglobin 7.4 G/DL (12.0-16.0) Oxygen Delivery Device VENTILATOR Blood Gas Ventilator Setting PRVC/AC Blood Gas Inspired Oxygen 60 % Magnesium Level 1.8 MG/DL (1.5-2.5) Test 05/01/16 06:26 White Blood Count 10.2 TH/MM3 (4.0-11.0) Red Blood Count 2.07 MIL/MM3 (4.00-5.30) Hemoglobin 6.7 GM/DL (11.6-15.3) Hematocrit 20.3 % (35.0-46.0) Mean Corpuscular Volume 98.0 FL (80.0-100.0) Mean Corpuscular Hemoglobin 32.4 PG (27.0-34.0) Mean Corpuscular Hemoglobin 33.1 % Concent (32.0-36.0) Red Cell Distribution Width 17.3 % (11.6-17.2) Platelet Count 243 TH/MM3 (150-450) Mean Platelet Volume 8.1 FL (7.0-11.0) Result Diagram: 05/01/16 0626 05/01/16 0540 Microbiology Microbiology Date/Time Procedure Status Source Growth 04/29/16 05:35 Gram Stain - Final Resulted Sputum Endotracheal 04/29/16 05:35 Sputum Culture - Preliminary Resulted Sputum Endotracheal HEAVY GROWTH NORMAL RESPIRATORY JACEY... Patient/Family Conference Present at Family Conference: spouse over telephone Family Conference Time (mins): 45 Family Conference Location: Telephone Issues Discussed: * Palliative care role, purpose, approach * Additional medical, psychosocial, and spiritual history * Patients general health, functional status, and cognitive changes in the months leading up to the current hospitalization * Patient/family understanding of the current medical problems * Patient/family understanding of prognosis * Patients goals of care as best understood from advance directives and/or conversations and/or values * Current medical treatment options and benefits/burdens of those options * Likely scenarios comparing ongoing aggressive care with a transition to comfort measures only * Questions answered to the best of my ability * Palliative care contact information provided Assessment and Plan Disease Oriented Problem List: (1) COPD exacerbation (2) Acute encephalopathy Comment: likely multifactorial. etoh abuse, pt's spouse also feels pt was not the same since pt underwent chemo in 2005. (3) Hypoalbuminemia (4) Ulcer of sacral region, stage 1 (5) Alcohol abuse (6) Anemia (7) Tobacco abuse Symptom Scale: Pertinent Non-Medical Issues Psychosocial: Spiritual: Legal: Ethical issues impacting care: Important Contacts Dayday [place] [phone] Prognosis 65 year old with multiple hospitalization, has severe copd, encephlopathy. Multiple attempts for extubation in which pt have to be reintubated. Prognosis overall is poor. Code Status: Full Code Plan == [place]- She is able to follow commands. When testing for judgement, at times she is able to answer questions some question correctly (with nodding and shaking her head) such as on a clear chilo day the casimiro is blue? she would nod yes? At other times she would answer questions incorrectly. "on a well watered lawn, grass usual color is pink." She would nod yes. Inconsistent enough where I would say it is difficult for her to weigh the risk and benefits of medical decisions at this time. == Health Care Proxy- Spouse == dyspnea- defer to bi technical lead. == goals of care-I called and spoke with pt's Spouse Bowen. He states pt has had problems with short term memory and has not been the same since pt had chemo. Pt's spouse also endorses she is a heavy drinker and has a family history of it. Discuss pt's challenges in weaning of the machines and the likely paz pt would need trach etc. Pt's spouse endorsed that pt would not want trach and be on these machine. He endorses if pt does not improve by Next Wednesday, he would signed the DNR and transition to comfort. == palliative care will continue to follow. == case d/w attending. Time Spent Total Floor Time (mins): 70 Face to Face Time (mins): 40 Thank you for the opportunity to participate in the care of Ms. Wiseman. Attestation To help prompt me to consider important information that might be impacting today's encounter and assessment, information from prior notes written by myself or my colleagues may have been "brought forward" into today's note. My signature on this note, however, is an attestation that I personally performed the exam, history, and/or decision-making noted today, and, unless otherwise indicated, the interactions with patient, family, and staff as well as the review of records all occurred today. I also attest that the listed assessment and stated plan reflect my best clinical judgment today based on the combination of historical information, prior notes, and today's exam/ interactions. When time spent is documented, it refers only to time spent today by the signer, or if indicated, combined time spent today by collaborating physician/nurse practitioner. Davis Chong MD May 01, 2016 10:36
[2016-05-01 11:05] LABS: PLATELET ESTIMATE SMEAR NORMAL (NORMAL); PLATELET MORPHOLOGY NORMAL (NORMAL); SCAN/DIFF AUTO DIFF CONFIRMED
[2016-05-01 11:46] LABS: BICARBONATE 32.3 MEQ/L (21.0-32.0); MAGNESIUM 1.9 MG/DL (1.5-2.5); POTASSIUM 4.5 MEQ/L (3.5-5.1)
[2016-05-01] MEDS: SODIUM CHLORIDE 0.9% FLUSH 5 ML FLUSH IV FLUSH SCH (21:38)
[2016-05-02] VITALS (19 sets, daily range): BP systolic 116–158; BP diastolic 57–83; PULSE 80–94; RESP 16–21; TEMP 97.3–98.2; O2SAT 96–100
[2016-05-02] MEDS: OXACILLIN INJ 2 GM in SODIUM CHLORIDE 0.9% INJ 100 ML IV SCH ×7 (00:53→23:01)
[2016-05-02] MEDS: RESP: ALBUTEROL 2.5 MG/IPRATROPIUM 0.5 MG NEB (SCH) NEB ×5 (03:15→23:32)
[2016-05-02] MEDS: ALBUMIN HUMAN 5% 25 GM/500 ML BOTTLE IV SCH ×2 (03:44→16:01)
[2016-05-02] MEDS: CHLORHEXIDINE GLUCONATE 2 % 1 PACK (2 CLOTHS) TOP SCH (04:00)
[2016-05-02] MEDS: METOPROLOL TARTRATE 5 MG/5 ML VIAL IV PUSH SCH ×7 (04:00→23:01)
[2016-05-02] MEDS: METOCLOPRAMIDE HCL SYRUP 10 MG/10 ML UDC PO SCH ×3 (04:38→21:01)
[2016-05-02 05:40] LABS: HEMATOCRIT 24.9 % (35.0-46.0); MEAN CELL VOLUME 95.4 FL (80.0-100.0); MEAN CORPUSCULAR HEMOGLOBIN 32.3 PG (27.0-34.0); MEAN CORPUSCULAR HGB CONC 33.8 % (32.0-36.0); PLATELET COUNT 237 TH/MM3 (150-450); RED BLOOD COUNT 2.61 MIL/MM3 (4.00-5.30); RED CELL DISTRIBUTION WIDTH 17.3 % (11.6-17.2); REVIEW FLAG FINAL; WHITE BLOOD COUNT 10.5 TH/MM3 (4.0-11.0)
[2016-05-02] MEDS: PROPOFOL 1000 MG/100 ML INJ 100 ML IV SCH ×2 (05:56→19:28)
[2016-05-02 06:22] LABS: BICARBONATE 36.7 MEQ/L (21.0-32.0); POTASSIUM 3.1 MEQ/L (3.5-5.1)
[2016-05-02] MEDS: POTASSIUM CHLOR 40 MEQ PREMIX 100 ML IV PRN ×2 (06:33→07:09)
[2016-05-02] MEDS: BENEPROTEIN POWDER 1 PACK G-TUBE SCH ×3 (09:00→18:00)
[2016-05-02] MEDS: ARTIFICIAL TEARS OPTH SOLN 15 ML BTL EACH EYE SCH ×3 (10:30→18:06)
[2016-05-02] MEDS: CHLORHEXIDINE 0.12% (ORAL KIT) 15 ML CUP MT SCH ×2 (10:30→19:28)
[2016-05-02] MEDS: DOCUSATE SODIUM 100 MG/10 ML UDC G-TUBE SCH ×2 (10:31→21:01)
[2016-05-02] MEDS: PANTOPRAZOLE SODIUM 40 MG VIAL IV PUSH SCH (10:31)
[2016-05-02] MEDS: POTASSIUM CL 40 MEQ/30 ML LIQ UDC PO SCH (10:31)
[2016-05-02] MEDS: LACTULOSE SYRUP 20 GM/30 ML CUP PO SCH (10:31)
[2016-05-02] MEDS: methylPREDNISolone SOD SUCC 125 MG/2 ML VIAL IV PUSH SCH ×2 (10:32→21:02)
[2016-05-02] MEDS: BUMETANIDE INJ 1 MG/4 ML VIAL IV PUSH SCH ×2 (10:32→18:05)
[2016-05-02] MEDS: THIAMINE HCL 100 MG TAB PO SCH (10:32)
[2016-05-02] MEDS: SODIUM CHLORIDE 0.9% FLUSH 5 ML FLUSH IV FLUSH SCH ×2 (10:33→21:02)
[2016-05-02] MEDS: MULTIVITAMIN TAB PO SCH (10:36)
--- NOTE | 2016-05-02 10:41 | HHI.CCPN ---
Subjective Remarks/Hospital Course 65-year-old woman brought in by EMS intubated for respiratory distress, and abdominal pain. She has recently had relapse of alcohol dependency disease and was found sitting on the floor in marked respiratory distress. 80% on room air. 04/18: Arrived severely dehydrated with YULIET and obtundation after excess alcohol consumption. Now tolerating PSV but fails weaning trial from ventilator. May need precedex for detox. She has developed a-fib with tachy- mark. Several 6 sec asystolic pauses Transcutaneous pacer placed on demand mode 04/19: Remains sedated, orally intubated on mechanical ventilation. 04/20: Remains sedated, orally intubated on mechanical ventilation. Daily C Pap trials. 04/21: Remains sedated/encephalopathic, orally intubated on mechanical ventilation. Blood cultures with staph aureus. Daily C Pap trials however neurologic status precludes extubation 04/22: remains significantly tachycardic overnight. also thrombocytopenic. remains encephalopathic. 04/23: tachycardia controlled with esmolol overnight. more awake today, awakens to voice and opens eyes, but still does not follow commands. thrombocytopenia improving. echo on 04/22 with "? device in right atrium" although the patient has no known implantable devices. good diuresis with single dose of Lasix yesterday. 04/24: Remains intubated off sedation, appears to track intermittently following commands. Sodium is 156, I have started D5 W at 125 mL per hour 04/25: Intubated, not on sedation. Continues to fail CPAP due to tachypnea, resp distress. Extensive bilateral wheezing. IV steroids and scheduled DuoNeb started. NA 152 today 04/26: Continues to fail C Pap trial due to tachypnea, respiratory distress and labored breathing. However wheezing is improving on IV steroids and breathing treatments, sodium is normal 144 today. Discontinue D5W. Neurologically more improved. Following commands and upper extremity 04/27: Tolerated C Pap better today and was weaned to extubation. Developed some respiratory distress placed on BiPAP, now breathing more comfortably. UO remains adequate 04/28: Patient was extubated yesterday after successful weaning trials, however decompensated requiring BiPAP initially, eventually was intubated at night by Dr. Soni. Chest x-ray shows worsening left-sided consolidation and effusion 04/29: Awake alert on propofol. Able to follow commands. Will resume CPAP. CXR improved infiltrates-mild left lower lobe infiltrates. Developed Afib, received metoprolol now NSR 04/30: RASS 0. awake and alert. writing notes this AM. follows commands. has a history of failing trial of extubation. on SBT this AM. 05/01: extubated yesterday, but poor compliance with pulmonary toilet, persistently encephalopathic despite following commands. tired out and re- intubated overnight. Hgb dropped to 6.9, currently rechecking. Also back in afib. 05/02: no clinical changes overnight. family discussions yesterday, they understand she is not likely to improve to the point of permanently weaning from mechanical ventilation due to her underlying encephalopathy. family wishes to continue trial of aggressive care until Wednesday. 1 unit prbc yesterday for anemia, now stable and improved. Objective Vital Signs Date Time Temp Pulse Resp B/P Pulse Ox O2 Delivery O2 Flow Rate FiO2 05/02/16 08:25 100 35 05/02/16 08:00 85 05/02/16 04:00 97.3 16 125/73 05/01/16 07:56 Ventilator 04/30/16 09:38 3.00 Intake and Output 05/01/16 05/01/16 05/02/16 08:00 16:00 00:00 Intake Total 517 ml 547 ml 650 ml Output Total 800 ml 1600 ml 1300 ml Balance -283 ml -1053 ml -650 ml Result Diagram: 05/02/16 0515 05/02/16 0515 Imaging Last [address] 04/17/16 2344 Signed Impressions: Service Date/Time: Sunday, April 17, 2016 00:28 - CONCLUSION: No acute disease. Percy Barnes MD CT Angiography 04/17/16 0000 Signed Impressions: Service Date/Time: Sunday, April 17, 2016 00:31 - CONCLUSION: 1. Severe emphysema without evidence for pleural or embolism. 2. Bilateral hilar adenopathy, and dense bilateral pulmonary consolidation in the lower lobes left greater than right. 3. Left adrenal mass incompletely characterized, and left renal mass measuring soft tissue density. Workup with MRI of the abdomen with and without contrast of these findings is recommended on a nonemergent outpatient basis. 4. Mild nodularity seen within the right middle lobe abutting the fissure measuring 9 mm and 7 mm on image 95. Most likely nodular infiltrate suspected. There is linear atelectasis in the right middle lobe. Short interval followup CT in 3 months recommended. Percy Barnes MD Chest X-Ray 04/16/16 5105 Signed Impressions: Service Date/Time: Sunday, April 17, 2016 00:55 - CONCLUSION: Endotracheal tube as described above. Percy Barnes MD Objective Remarks GENERAL: Critically ill-appearing female, intubated SKIN: Warm and dry. HEAD: Normocephalic. Atraumatic. NECK: Supple, trachea midline. Orally intubated. CARDIOVASCULAR: tachycardic rate, irregularly irregular rhythm. No JVD. RESPIRATORY: Orally intubated on mechanical ventilation, Breath sounds equal bilaterally. Bilateral wheezing GASTROINTESTINAL: Abdomen soft, non-tender, nondistended. MUSCULOSKELETAL: No cyanosis, or edema. Well perfused. NEURO: Intubated, RASS -2. sedated. A/P Problem List: (1) Acute respiratory failure with hypoxia ICD Code: J96.01 Status: Acute (2) Acute kidney injury ICD Code: N17.9 Status: Acute (3) Septic shock ICD Code: A41.9 Status: Acute (4) COPD exacerbation ICD Code: J44.1 Status: Acute (5) Alcohol abuse ICD Code: F10.10 Status: Chronic Assessment and Plan Assessment: 65yF with h/o etoh dependence now with metabolic encephalopathy, acute hypoxic respiratory failure, tachy-mark syndrome. encephalopathy has resolved. she remains critically ill. About a week and a half ago I had a long conversation with Ms. Wiseman's family. They thought at that time that she probably had Wernicke's encephalopathy and that it has been long-standing and declining over the last few months to the point that she forgets things and has some mild difficulty doing her ADLs. At that time, she was very encephalopathic , and they were unsure if she would want to live with permanent health-care [facility] [place]. At that time, her mental status was improving, and we held out with aggressive care to see how she would do. They also state she continues to drink, and would not be happy with any quality of life where she did not return to drinking. At this point, she has now failed a trial of extubation twice, from a combination of acute on chronic deconditioning, malnutrition, poor pulmonary toilet, and persistent encephalopathy. Per the family, plan for short course of aggressive care until wednesday, and then transition to palliation at that point. For now, we will remain aggressive in our goals, and she remains very critically ill. Plan by systems: Neurologic: Alcohol dependence Metabolic Encephalopathy Peripheral neuropathy Probable Wernicke's encephalopathy - On propofol for sedation and vent synchrony - prn haldol - po thiamine and MVI daily. - MRI brain 04/22 normal study - Holding gabapentin given sedation. holding all sedating meds. Respiratory: Acute Hypoxic Respiratory failure Acute COPD exacerbation New L HCAP - Extubated 04/27/16 however respiratory decompensation in the evening requiring reintubation 04/27. - extubated 04/30, reintubated that evening after about 8 hours, again for poor pulmonary toilet, decompensation. - Acute exacerbation of COPD. On Solumedrol 60 q12. DuoNeb scheduled and PRN - does not meet SBT criteria today. I think after 2 trials of extubation, both when she was medically optimized, suggest that her encephalopathy and deconditioning are barriers to successful weaning from mechanical ventilation. - Sputum culture 04/18 MSSA - sputum culture 04/26 MSSA Cardiovascular: Tachy-Mark syndrome Possible right atrial thrombus/mass - now back in afib. 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 Obando following, YOLANDA showed prominent eustachian valve. Renal: YULIET- resolving. Acute intravascular volume overload Renal and adrenal mass - MRI w and w/o when creatinine improves and is more stable - continue Bumex 1mg BID --Strict I/Os FEN/GI: Acute protein calorie malnutritionsevere Severe hypophosphatemia Severe hypokalemia Severe hypomagnesemia aggressive replacement of electrolytes -- TFat goal. Heme/ID: Sepsis Thrombocytopenia - CXR showing LLL consolidation - Continue oxacillin for staph bacteremia. - 04/26 sputum culture MSSA - Blood culture, sputum culture with staph aureus 04/17. - ID: Dr. Strong following. - Thrombocytopenia noted. HIT negative. slowly improving. continue to monitor. Endocrine: Hyperglycemia of critical illness -- SSI, medium scale, every 6 hours Prophylaxis: GI Prophylaxis Protonix DVT Prophylaxis --SCDs Subcutaneous heparin. Hit negative. Lines: 2/1 left subclavian triple lumen catheter [facility] Dispo: Remain in the intensive care unit. She remains critically ill. Overall impression: Patient is critically ill having been found down and intoxicated. Bacteremia with MSSA and remains critically ill, failed extubation 04/27/16, 04/30/16. Poor prognosis, short and long-term. This patient remains critically ill with one or more organ systems which are or may become a threat to life. I have spent in excess of 31 minutes discontinuously in the care and management of this patient. This time is exclusive of procedures, and includes, but is not limited to, evaluation of the patient, review of the medical record, discussions with family, consultants, nursing staff, or respiratory therapy, and documentation in the medical record. Ravinder Uribe MD May 02, 2016 10:41
--- NOTE | 2016-05-02 15:49 | EKG ---
Date Performed: 05/02/2016 Time Performed: 01:39:38 PTAGE: 65 years EKG: Atrial fibrillation with multifocal PVCs or aberrant ventricular conduction Abnormal ECG PREVIOUS TRACING 04/29/2016 07.31.00 Likely no significant change, but there was significant b aseline artifact on prior EKG, which makes comparison difficult. DOCTOR: Scooter Rao Interpretating Date/Time 05/02/2016 15:49:19
[2016-05-03] VITALS (17 sets, daily range): BP systolic 107–140; BP diastolic 51–83; PULSE 74–106; RESP 17–21; TEMP 97.9–99.2; O2SAT 95–100
[2016-05-03] MEDS: RESP: ALBUTEROL 2.5 MG/IPRATROPIUM 0.5 MG NEB (SCH) NEB ×7 (02:19→23:06)
[2016-05-03] MEDS: ALBUMIN HUMAN 5% 25 GM/500 ML BOTTLE IV SCH (02:20)
[2016-05-03] MEDS: METOPROLOL TARTRATE 5 MG/5 ML VIAL IV PUSH SCH ×6 (03:32→23:26)
[2016-05-03] MEDS: CHLORHEXIDINE GLUCONATE 2 % 1 PACK (2 CLOTHS) TOP SCH (03:32)
[2016-05-03] MEDS: METOCLOPRAMIDE HCL SYRUP 10 MG/10 ML UDC PO SCH ×3 (03:32→19:47)
[2016-05-03] MEDS: OXACILLIN INJ 2 GM in SODIUM CHLORIDE 0.9% INJ 100 ML IV SCH ×6 (03:32→23:26)
[2016-05-03 04:07] LABS: HEMATOCRIT 23.1 % (35.0-46.0); MEAN CELL VOLUME 96.1 FL (80.0-100.0); MEAN CORPUSCULAR HEMOGLOBIN 32.7 PG (27.0-34.0); PLATELET COUNT 257 TH/MM3 (150-450); RED CELL DISTRIBUTION WIDTH 17.7 % (11.6-17.2); REVIEW FLAG FINAL; WHITE BLOOD COUNT 9.7 TH/MM3 (4.0-11.0)
[2016-05-03] MEDS: PROPOFOL 1000 MG/100 ML INJ 100 ML IV SCH ×2 (04:24→20:21)
[2016-05-03 04:33] LABS: BICARBONATE 31.6 MEQ/L (21.0-32.0); POTASSIUM 3.7 MEQ/L (3.5-5.1)
[2016-05-03] MEDS: DOCUSATE SODIUM 100 MG/10 ML UDC G-TUBE SCH ×2 (09:00→19:47)
[2016-05-03] MEDS: NUTRISOURCE FIBER POWDER 1 PACK G-TUBE SCH ×2 (09:00→20:21)
[2016-05-03] MEDS: BENEPROTEIN POWDER 1 PACK G-TUBE SCH ×3 (09:00→17:01)
[2016-05-03] MEDS: LACTULOSE SYRUP 20 GM/30 ML CUP PO SCH (09:00)
--- NOTE | 2016-05-03 09:05 | HHI.CCPN ---
Subjective Remarks/Hospital Course 65-year-old woman brought in by EMS intubated for respiratory distress, and abdominal pain. She has recently had relapse of alcohol dependency disease and was found sitting on the floor in marked respiratory distress. 80% on room air. 04/18: Arrived severely dehydrated with YULIET and obtundation after excess alcohol consumption. Now tolerating PSV but fails weaning trial from ventilator. May need precedex for detox. She has developed a-fib with tachy- mark. Several 6 sec asystolic pauses Transcutaneous pacer placed on demand mode 04/19: Remains sedated, orally intubated on mechanical ventilation. 04/20: Remains sedated, orally intubated on mechanical ventilation. Daily C Pap trials. 04/21: Remains sedated/encephalopathic, orally intubated on mechanical ventilation. Blood cultures with staph aureus. Daily C Pap trials however neurologic status precludes extubation 04/22: remains significantly tachycardic overnight. also thrombocytopenic. remains encephalopathic. 04/23: tachycardia controlled with esmolol overnight. more awake today, awakens to voice and opens eyes, but still does not follow commands. thrombocytopenia improving. echo on 04/22 with "? device in right atrium" although the patient has no known implantable devices. good diuresis with single dose of Lasix yesterday. 04/24: Remains intubated off sedation, appears to track intermittently following commands. Sodium is 156, I have started D5 W at 125 mL per hour 04/25: Intubated, not on sedation. Continues to fail CPAP due to tachypnea, resp distress. Extensive bilateral wheezing. IV steroids and scheduled DuoNeb started. NA 152 today 04/26: Continues to fail C Pap trial due to tachypnea, respiratory distress and labored breathing. However wheezing is improving on IV steroids and breathing treatments, sodium is normal 144 today. Discontinue D5W. Neurologically more improved. Following commands and upper extremity 04/27: Tolerated C Pap better today and was weaned to extubation. Developed some respiratory distress placed on BiPAP, now breathing more comfortably. UO remains adequate 04/28: Patient was extubated yesterday after successful weaning trials, however decompensated requiring BiPAP initially, eventually was intubated at night by Dr. Soni. Chest x-ray shows worsening left-sided consolidation and effusion 04/29: Awake alert on propofol. Able to follow commands. Will resume CPAP. CXR improved infiltrates-mild left lower lobe infiltrates. Developed Afib, received metoprolol now NSR 04/30: RASS 0. awake and alert. writing notes this AM. follows commands. has a history of failing trial of extubation. on SBT this AM. 05/01: extubated yesterday, but poor compliance with pulmonary toilet, persistently encephalopathic despite following commands. tired out and re- intubated overnight. Hgb dropped to 6.9, currently rechecking. Also back in afib. 05/02: no clinical changes overnight. family discussions yesterday, they understand she is not likely to improve to the point of permanently weaning from mechanical ventilation due to her underlying encephalopathy. family wishes to continue trial of aggressive care until Wednesday. 1 unit prbc yesterday for anemia, now stable and improved. 05/03: new diarrhea today, but wbc normal, afebrile. otherwise awake and alert. continuing trial of aggressive medical care until wednesday. Objective Vital Signs Date Time Temp Pulse Resp B/P Pulse Ox O2 Delivery O2 Flow Rate FiO2 05/03/16 07:56 35 05/03/16 07:56 100 05/03/16 06:00 74 05/03/16 04:00 98.4 18 123/57 05/01/16 07:56 Ventilator 04/30/16 09:38 3.00 Intake and Output 05/02/16 05/02/16 05/03/16 08:00 16:00 00:00 Intake Total 734 ml 969 ml 1119 ml Output Total 850 ml 1025 ml 1475 ml Balance -116 ml -56 ml -356 ml Result Diagram: 05/03/16 0346 05/03/16 0346 Imaging Last [address] 04/17/16 2344 Signed Impressions: Service Date/Time: Sunday, April 17, 2016 00:28 - CONCLUSION: No acute disease. Percy Barnes MD CT Angiography 04/17/16 0000 Signed Impressions: Service Date/Time: Sunday, April 17, 2016 00:31 - CONCLUSION: 1. Severe emphysema without evidence for pleural or embolism. 2. Bilateral hilar adenopathy, and dense bilateral pulmonary consolidation in the lower lobes left greater than right. 3. Left adrenal mass incompletely characterized, and left renal mass measuring soft tissue density. Workup with MRI of the abdomen with and without contrast of these findings is recommended on a nonemergent outpatient basis. 4. Mild nodularity seen within the right middle lobe abutting the fissure measuring 9 mm and 7 mm on image 95. Most likely nodular infiltrate suspected. There is linear atelectasis in the right middle lobe. Short interval followup CT in 3 months recommended. Percy Barnes MD Chest X-Ray 04/16/16 5295 Signed Impressions: Service Date/Time: Sunday, April 17, 2016 00:55 - CONCLUSION: Endotracheal tube as described above. Percy Barnes MD Objective Remarks GENERAL: Critically ill-appearing female, intubated SKIN: Warm and dry. HEAD: Normocephalic. Atraumatic. NECK: Supple, trachea midline. Orally intubated. CARDIOVASCULAR: tachycardic rate, irregularly irregular rhythm. No JVD. RESPIRATORY: Orally intubated on mechanical ventilation, Breath sounds equal bilaterally. Bilateral wheezing GASTROINTESTINAL: Abdomen soft, non-tender, nondistended. MUSCULOSKELETAL: No cyanosis, or edema. Well perfused. NEURO: Intubated, RASS -2. sedated. A/P Problem List: (1) Acute respiratory failure with hypoxia ICD Code: J96.01 Status: Acute (2) Acute kidney injury ICD Code: N17.9 Status: Acute (3) Septic shock ICD Code: A41.9 Status: Acute (4) COPD exacerbation ICD Code: J44.1 Status: Acute (5) Alcohol abuse ICD Code: F10.10 Status: Chronic Assessment and Plan Assessment: 65yF with h/o etoh dependence now with metabolic encephalopathy, acute hypoxic respiratory failure, tachy-mark syndrome. encephalopathy has resolved. she remains critically ill. About a week and a half ago I had a long conversation with Ms. Wiseman's family. They thought at that time that she probably had Wernicke's encephalopathy and that it has been long-standing and declining over the last few months to the point that she forgets things and has some mild difficulty doing her ADLs. At that time, she was very encephalopathic , and they were unsure if she would want to live with [facility] [place]. At that time, her mental status was improving, and we held out with aggressive care to see how she would do. They also state she continues to drink, and would not be happy with any quality of life where she did not return to drinking. At this point, she has now failed a trial of extubation twice, from a combination of acute on chronic deconditioning, malnutrition, poor pulmonary toilet, and persistent encephalopathy. Per the family, plan for short course of aggressive care until wednesday, and then transition to palliation at that point. For now, we will remain aggressive in our goals, and she remains very critically ill. Plan by systems: Neurologic: Alcohol dependence Metabolic Encephalopathy Peripheral neuropathy Probable Wernicke's encephalopathy - On propofol for sedation and vent synchrony - prn haldol - po thiamine and MVI daily. - MRI brain 04/22 normal study - Holding gabapentin given sedation. holding all sedating meds. Respiratory: Acute Hypoxic Respiratory failure Acute COPD exacerbation New L HCAP - Extubated 04/27/16 however respiratory decompensation in the evening requiring reintubation 04/27. - extubated 04/30, reintubated that evening after about 8 hours, again for poor pulmonary toilet, decompensation. - Acute exacerbation of COPD. On Solumedrol 60 q12. DuoNeb scheduled and PRN - does not meet SBT criteria today. I think after 2 trials of extubation, both when she was medically optimized, suggest that her encephalopathy and deconditioning are barriers to successful weaning from mechanical ventilation. - Sputum culture 04/18 MSSA - sputum culture 04/26 MSSA Cardiovascular: Tachy-Mark syndrome Possible right atrial thrombus/mass - now back in afib. 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 Obando following, YOLANDA showed prominent eustachian valve. Renal: YULIET- resolving. Acute intravascular volume overload Renal and adrenal mass - MRI w and w/o when creatinine improves and is more stable - decrease Bumex to 0.5mg BID --Strict I/Os FEN/GI: Acute protein calorie malnutritionsevere Severe hypophosphatemia Severe hypokalemia Severe hypomagnesemia Diarrhea aggressive replacement of electrolytes -- TF at goal. -- hold bowel regimen today, add fiber to TF. Heme/ID: Sepsis Thrombocytopenia - CXR showing LLL consolidation - Continue oxacillin for staph bacteremia. - 04/26 sputum culture MSSA - Blood culture, sputum culture with staph aureus 04/17. - ID: Dr. Strong following. - Thrombocytopenia noted. HIT negative. slowly improving. continue to monitor. Endocrine: Hyperglycemia of critical illness -- SSI, medium scale, every 6 hours Prophylaxis: GI Prophylaxis Protonix DVT Prophylaxis --SCDs Subcutaneous heparin. Hit negative. Lines: 04/22 left subclavian triple lumen catheter- will attempt to obtain piv and d/c cvl. [facility] Dispo: Remain in the intensive care unit. She remains critically ill. Overall impression: Patient is critically ill having been found down and intoxicated. Bacteremia with MSSA and remains critically ill, failed extubation 04/27/16, 04/30/16. Poor prognosis, short and long-term. This patient remains critically ill with one or more organ systems which are or may become a threat to life. I have spent in excess of 35 minutes discontinuously in the care and management of this patient. This time is exclusive of procedures, and includes, but is not limited to, evaluation of the patient, review of the medical record, discussions with family, consultants, nursing staff, or respiratory therapy, and documentation in the medical record. Ravinder Uribe MD May 03, 2016 09:05
[2016-05-03] MEDS: SODIUM CHLORIDE 0.9% FLUSH 5 ML FLUSH IV FLUSH SCH ×2 (10:24→20:20)
[2016-05-03] MEDS: CHLORHEXIDINE 0.12% (ORAL KIT) 15 ML CUP MT SCH ×2 (10:25→19:46)
[2016-05-03] MEDS: ARTIFICIAL TEARS OPTH SOLN 15 ML BTL EACH EYE SCH ×3 (10:25→17:01)
[2016-05-03] MEDS: THIAMINE HCL 100 MG TAB PO SCH (10:26)
[2016-05-03] MEDS: MULTIVITAMIN TAB PO SCH (10:26)
[2016-05-03] MEDS: PANTOPRAZOLE SODIUM 40 MG VIAL IV PUSH SCH (10:26)
[2016-05-03] MEDS: POTASSIUM CL 40 MEQ/30 ML LIQ UDC PO SCH (10:26)
[2016-05-03] MEDS: predniSONE 5 MG/5 ML CUP PO SCH (11:59)
[2016-05-03] MEDS: BUMETANIDE INJ 1 MG/4 ML VIAL IV PUSH SCH (17:00)
[2016-05-03 23:18] LABS: HEMATOCRIT 25.2 % (35.0-46.0); MEAN CELL VOLUME 96.3 FL (80.0-100.0); MEAN CORPUSCULAR HEMOGLOBIN 32.4 PG (27.0-34.0); MEAN CORPUSCULAR HGB CONC 33.6 % (32.0-36.0); PLATELET COUNT 284 TH/MM3 (150-450); RED BLOOD COUNT 2.61 MIL/MM3 (4.00-5.30); RED CELL DISTRIBUTION WIDTH 17.3 % (11.6-17.2); REVIEW FLAG FINAL
[2016-05-03 23:32] LABS: BICARBONATE 34.7 MEQ/L (21.0-32.0); MAGNESIUM 1.5 MG/DL (1.5-2.5); POTASSIUM 3.4 MEQ/L (3.5-5.1)
[2016-05-03] MEDS: POTASSIUM CHLOR 40 MEQ PREMIX 100 ML IV PRN (23:49)
[2016-05-04] VITALS (18 sets, daily range): BP systolic 109–144; BP diastolic 58–84; PULSE 87–110; RESP 18–24; TEMP 97.9–98.7; O2SAT 94–100
[2016-05-04] MEDS: MAGNESIUM SULFATE INJ 2 GM in SODIUM CHLORIDE 0.9% INJ 96 ML IV PRN (00:23)
[2016-05-04] MEDS: OXACILLIN INJ 2 GM in SODIUM CHLORIDE 0.9% INJ 100 ML IV SCH ×5 (03:02→20:04)
[2016-05-04] MEDS: METOCLOPRAMIDE HCL SYRUP 10 MG/10 ML UDC PO SCH ×3 (03:02→20:00)
[2016-05-04] MEDS: CHLORHEXIDINE GLUCONATE 2 % 1 PACK (2 CLOTHS) TOP SCH (03:02)
[2016-05-04] MEDS: METOPROLOL TARTRATE 5 MG/5 ML VIAL IV PUSH SCH ×5 (03:02→20:04)
[2016-05-04] MEDS: RESP: ALBUTEROL 2.5 MG/IPRATROPIUM 0.5 MG NEB (SCH) NEB ×6 (03:41→23:15)
[2016-05-04] MEDS: CHLORHEXIDINE 0.12% (ORAL KIT) 15 ML CUP MT SCH ×2 (08:52→20:04)
[2016-05-04] MEDS: DOCUSATE SODIUM 100 MG/10 ML UDC G-TUBE SCH ×2 (09:00→20:03)
[2016-05-04] MEDS: BENEPROTEIN POWDER 1 PACK G-TUBE SCH ×3 (09:00→17:18)
[2016-05-04] MEDS: LACTULOSE SYRUP 20 GM/30 ML CUP PO SCH (09:00)
[2016-05-04] MEDS: MULTIVITAMIN TAB PO SCH (09:00)
[2016-05-04] MEDS: POTASSIUM CL 40 MEQ/30 ML LIQ UDC PO SCH (10:19)
[2016-05-04] MEDS: SODIUM CHLORIDE 0.9% FLUSH 5 ML FLUSH IV FLUSH SCH ×2 (10:19→20:05)
[2016-05-04] MEDS: PANTOPRAZOLE SODIUM 40 MG VIAL IV PUSH SCH (10:19)
[2016-05-04] MEDS: BUMETANIDE INJ 1 MG/4 ML VIAL IV PUSH SCH ×2 (10:19→17:21)
[2016-05-04] MEDS: THIAMINE HCL 100 MG TAB PO SCH (10:20)
[2016-05-04] MEDS: ARTIFICIAL TEARS OPTH SOLN 15 ML BTL EACH EYE SCH ×3 (10:22→17:18)
[2016-05-04] MEDS: predniSONE 5 MG/5 ML CUP PO SCH (10:23)
[2016-05-04] MEDS: NUTRISOURCE FIBER POWDER 1 PACK G-TUBE SCH ×2 (10:23→20:05)
[2016-05-04] MEDS: FREE WATER G-TUBE SCH ×2 (12:30→17:18)
--- NOTE | 2016-05-04 12:35 | HHI.CCPN ---
Subjective Remarks/Hospital Course 65-year-old woman brought in by EMS intubated for respiratory distress, and abdominal pain. She has recently had relapse of alcohol dependency disease and was found sitting on the floor in marked respiratory distress. 80% on room air. 04/18: Arrived severely dehydrated with YULIET and obtundation after excess alcohol consumption. Now tolerating PSV but fails weaning trial from ventilator. May need precedex for detox. She has developed a-fib with tachy- mark. Several 6 sec asystolic pauses Transcutaneous pacer placed on demand mode 04/19: Remains sedated, orally intubated on mechanical ventilation. 04/20: Remains sedated, orally intubated on mechanical ventilation. Daily C Pap trials. 04/21: Remains sedated/encephalopathic, orally intubated on mechanical ventilation. Blood cultures with staph aureus. Daily C Pap trials however neurologic status precludes extubation 04/22: remains significantly tachycardic overnight. also thrombocytopenic. remains encephalopathic. 04/23: tachycardia controlled with esmolol overnight. more awake today, awakens to voice and opens eyes, but still does not follow commands. thrombocytopenia improving. echo on 04/22 with "? device in right atrium" although the patient has no known implantable devices. good diuresis with single dose of Lasix yesterday. 04/24: Remains intubated off sedation, appears to track intermittently following commands. Sodium is 156, I have started D5 W at 125 mL per hour 04/25: Intubated, not on sedation. Continues to fail CPAP due to tachypnea, resp distress. Extensive bilateral wheezing. IV steroids and scheduled DuoNeb started. NA 152 today 04/26: Continues to fail C Pap trial due to tachypnea, respiratory distress and labored breathing. However wheezing is improving on IV steroids and breathing treatments, sodium is normal 144 today. Discontinue D5W. Neurologically more improved. Following commands and upper extremity 04/27: Tolerated C Pap better today and was weaned to extubation. Developed some respiratory distress placed on BiPAP, now breathing more comfortably. UO remains adequate 04/28: Patient was extubated yesterday after successful weaning trials, however decompensated requiring BiPAP initially, eventually was intubated at night by Dr. Soni. Chest x-ray shows worsening left-sided consolidation and effusion 04/29: Awake alert on propofol. Able to follow commands. Will resume CPAP. CXR improved infiltrates-mild left lower lobe infiltrates. Developed Afib, received metoprolol now NSR 04/30: RASS 0. awake and alert. writing notes this AM. follows commands. has a history of failing trial of extubation. on SBT this AM. 05/01: extubated yesterday, but poor compliance with pulmonary toilet, persistently encephalopathic despite following commands. tired out and re- intubated overnight. Hgb dropped to 6.9, currently rechecking. Also back in afib. 05/02: no clinical changes overnight. family discussions yesterday, they understand she is not likely to improve to the point of permanently weaning from mechanical ventilation due to her underlying encephalopathy. family wishes to continue trial of aggressive care until Wednesday. 1 unit prbc yesterday for anemia, now stable and improved. 05/03: new diarrhea today, but wbc normal, afebrile. otherwise awake and alert. continuing trial of aggressive medical care until Wednesday. 05/04: Patient is awake on the vent, follows commands. Has failed extubation twice. According to palliative care notes, family request aggressive care until Wednesday and probably transition to comfort measures at that point Objective Vital Signs Date Time Temp Pulse Resp B/P Pulse Ox O2 Delivery O2 Flow Rate FiO2 05/04/16 11:21 100 35 05/04/16 08:00 97.9 97 20 109/58 05/01/16 07:56 Ventilator 04/30/16 09:38 3.00 Intake and Output 05/03/16 05/03/16 05/04/16 08:00 16:00 00:00 Intake Total 1261 ml 810 ml 641 ml Output Total 1050 ml 750 ml 1000 ml Balance 211 ml 60 ml -359 ml Result Diagram: 05/03/16 2257 05/03/16 2257 Imaging Last [address] 04/17/16 2344 Signed Impressions: Service Date/Time: Sunday, April 17, 2016 00:28 - CONCLUSION: No acute disease. Percy Barnes MD CT Angiography 04/17/16 0000 Signed Impressions: Service Date/Time: Sunday, April 17, 2016 00:31 - CONCLUSION: 1. Severe emphysema without evidence for pleural or embolism. 2. Bilateral hilar adenopathy, and dense bilateral pulmonary consolidation in the lower lobes left greater than right. 3. Left adrenal mass incompletely characterized, and left renal mass measuring soft tissue density. Workup with MRI of the abdomen with and without contrast of these findings is recommended on a nonemergent outpatient basis. 4. Mild nodularity seen within the right middle lobe abutting the fissure measuring 9 mm and 7 mm on image 95. Most likely nodular infiltrate suspected. There is linear atelectasis in the right middle lobe. Short interval followup CT in 3 months recommended. Percy Barnes MD Chest X-Ray 04/16/16 3499 Signed Impressions: Service Date/Time: Sunday, April 17, 2016 00:55 - CONCLUSION: Endotracheal tube as described above. Percy aBrnes MD Objective Remarks GENERAL: Critically ill-appearing female, intubated, awake on the vent SKIN: Warm and dry. HEAD: Normocephalic. Atraumatic. NECK: Supple, trachea midline. Orally intubated. CARDIOVASCULAR: tachycardic rate, irregularly irregular rhythm. No JVD. RESPIRATORY: Orally intubated on mechanical ventilation, Breath sounds equal bilaterally. Bilateral wheezing, improved GASTROINTESTINAL: Abdomen soft, non-tender, nondistended. MUSCULOSKELETAL: No cyanosis, or edema. Well perfused. NEURO: Intubated, wide awake, follows commands A/P Problem List: (1) Acute respiratory failure with hypoxia ICD Code: J96.01 Status: Acute (2) Acute kidney injury ICD Code: N17.9 Status: Acute (3) Septic shock ICD Code: A41.9 Status: Acute (4) COPD exacerbation ICD Code: J44.1 Status: Acute (5) Alcohol abuse ICD Code: F10.10 Status: Chronic Assessment and Plan Assessment: 65yF with h/o etoh dependence now with metabolic encephalopathy, acute hypoxic respiratory failure, tachy-mark syndrome. encephalopathy has resolved. she remains critically ill. About a week and a half ago I had a long conversation with Ms. Wiseman's family. They thought at that time that she probably had Wernicke's encephalopathy and that it has been long-standing and declining over the last few months to the point that she forgets things and has some mild difficulty doing her ADLs. At that time, she was very encephalopathic , and they were unsure if she would want to [place] [facility] At that time, her mental status was improving, and we held out with aggressive care to see how she would do. They also state she continues to drink, and would not be happy with any quality of life where she did not return to drinking. At this point, she has now failed a trial of extubation twice, from a combination of acute on chronic deconditioning, malnutrition, poor pulmonary toilet, and persistent encephalopathy. Per the family, plan for short course of aggressive care until Wednesday, and then transition to palliation at that point. For now, we will remain aggressive in our goals, and she remains very critically ill. Plan by systems: Neurologic: Alcohol dependence Metabolic Encephalopathy Peripheral neuropathy Probable Wernicke's encephalopathy - As needed propofol for sedation and vent synchrony - prn haldol - po thiamine and MVI daily. - MRI brain 04/22 normal study - Holding gabapentin given sedation. holding all sedating meds. Respiratory: Acute Hypoxic Respiratory failure Acute COPD exacerbation New L HCAP - Extubated 04/27/16 however respiratory decompensation in the evening requiring reintubation 04/27. - extubated 04/30, reintubated that evening after about 8 hours, again for poor pulmonary toilet, decompensation. - Acute exacerbation of COPD. On Solumedrol 60 q12. DuoNeb scheduled and PRN - does not meet SBT criteria today. I think after 2 trials of extubation, both when she was medically optimized, suggest that her encephalopathy and deconditioning are barriers to successful weaning from mechanical ventilation. - Recommend wean to extubation Wednesday when family is ready and transition to comfort measures if she fails - Sputum culture 04/18 MSSA - sputum culture 04/26 MSSA Cardiovascular: Tachy-Mark syndrome Possible right atrial thrombus/mass - now back in afib. 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 Obando following, YOLANDA showed prominent eustachian valve. Renal: YULIET- resolving. Acute intravascular volume overload Renal and adrenal mass - MRI w and w/o when creatinine was recommended- will hold off as patient may transition to comfort measures - Bumex to 0.5mg BID. Free water 200 q6 --Strict I/Os FEN/GI: Acute protein calorie malnutritionsevere Severe hypophosphatemia Severe hypokalemia Severe hypomagnesemia Diarrhea aggressive replacement of electrolytes -- TF at goal. -- Hold bowel regimen, added fiber to TF. Heme/ID: Sepsis Thrombocytopenia - CXR showing LLL consolidation - Continue oxacillin for staph bacteremia. - 04/26 sputum culture MSSA - Blood culture, sputum culture with staph aureus 04/17. - ID: Dr. Strong following. - Thrombocytopenia noted. HIT negative. slowly improving. continue to monitor. Endocrine: Hyperglycemia of critical illness -- SSI, medium scale, every 6 hours Prophylaxis: GI Prophylaxis Protonix DVT Prophylaxis --SCDs Subcutaneous heparin. Hit negative. Dispo: Remain in the intensive care unit. She remains critically ill. Plan for wean to extubation if patient ready on Wednesday per family request. If patient fails will transition immediately to comfort measures. Discussed with palliative care Dr. Chong Overall impression: Patient is critically ill having been found down and intoxicated. Bacteremia with MSSA and remains critically ill, failed extubation 04/27/16, 04/30/16. Poor prognosis, short and long-term. This patient remains critically ill with one or more organ systems which are or may become a threat to life. I have spent in excess of 35 minutes discontinuously in the care and management of this patient. This time is exclusive of procedures, and includes, but is not limited to, evaluation of the patient, review of the medical record, discussions with family, consultants, nursing staff, or respiratory therapy, and documentation in the medical record. Zohra Olivo MD May 04, 2016 12:35
[2016-05-04] MEDS: PROPOFOL 1000 MG/100 ML INJ 100 ML IV SCH (15:49)
--- NOTE | 2016-05-04 16:03 | HHI.HCPN ---
Reason for visit a. To assist with evaluation and management of symptoms including:pain b. To assist medical decision maker(s) with: better understanding of current medical conditions; weighing benefits/burdens of medical treatment options; making medical treatment decisions. Subjective/Interval History Pt alert and open eyes follow commands. Still not consistent with questions. Able to nod yes and no, and able to answer some questions. On some questions like "On a clear chilo day during noon time, is the casimiro pink." Would just open eyes and not answer. Pt's family was at bedside when I was testing capacity. They endorse she has had chronic short term memory problem, and see that pt cannot weigh the risk and benefits of medical decisions. Pt's family include and pt's sister. Pt nod yes to pain but could not elaborate. Brought Forward from [facility] 05/01/2016. Patient is 65-year-old with past medical history of hypertension, COPD, breast cancer, alcoholism, neuropathy who developed abdominal pain and was found to be on the floor with markedly severe respiratory distress by EMS on 04/16/2016. Patient rapidly deteriorated with waning mental status and increase shallow breathing. Patient was intubated by EMS. Systolic BP dropped to the 60s and patient was given IV fluids. Patient is transferred to the hospital. In the ER : * Temperature is 99.9, pulse is 102, respirations 16, blood pressure is a 3/6 2 , pulse ox 100% * WBC 17.3, hemoglobin is 13.9, hematocrit 21.1, platelet is 156 * Sodium was 128, potassium 4.6, chloride is 94, bicarbonate 22.2, creatinine 4.15, BUN was 76 * Troponin is 0.02, albumin is 2.3 * PT is 12.2, INR is 1.1, APTT is 34.3 * PH is 7.34, bicarbonate is 19, PCO2 is 37, PCO2 is 237 patient is on ventilator before meals * Urine culture was done and shows Enterococcus faecalis and lactobacillus * ET tube with tip on the akau. There is consolidation within both lower lobes and prominence of the bilateral hilar shadows. Remote impacted right proximal humerus fracture deformity identified. * CTA show severe emphysema without evidence of PE. Lateral hilar adenopathy and dense bilateral pulmonary consolidation in the lower lobes with left greater than right. There is mild nodularity seen in the right middle lobe abutting the fissures of measuring 9 mm x 7 mm. Most likely nodular infiltrate suspected. * Mild distention of the gallbladder. Bilateral renal cysts are noted as well as indeterminate mass upper pole left kidney. Bilateral lower lobe consolidation. Indeterminate probable adenomas left adrenal mass. Arthrosclerosis. Nodular infiltrate in the right middle lobe is seen. * Head CT shows no acute diseases. Critical medicine was consulted, patient was given IV fluids, broad-spectrum antibiotics, vasopressors. In terms of respiratory, patient fail did weaning trials initially and needed Precedex for detox. Patient got to the point where patient was extubated on however patient rapidly decompensated and required intubation on the same day. Patient again was extubated on 04/30/2016 but reintubated in the evening about 8 hours again due to poor pulmonary toilet, and subsequent decompensation. Sputum cultures were positive for MSSA 04/18 and on 04/26. In terms of cardiac. Patient initially developed A. fib with tachycardia and initial few days of hospitalization. Had been placed on transcutaneous pacers on demand mode. Patient placed on beta doris. Cardiology was consulted to and YOLANDA he shows prominent eustachian valve. In terms of nephrology-patient initial 4.15, patient was given IV fluids and acute kidney injury has resolved, creatinine 0.78 on 05/01/2016 Patient's again sputum culture shows MSSA. Patient has thrombocytopenia noted but HRT has been negative slowly improving. Neuro ballard, patient's headache MRI of the brain on 04/22/2016 which was unremarkable. Patient was able to follow commands, but remains confused and intensivists feels likely patient has some type of work he is encephalopathy due to long-standing alcohol abuse. In summary: Patient is a 65-year-old past medical history of hypertension, COPD , breast cancer, alcoholism, neuropathy, came in because of respiratory distress , and was intubated while being transferred by EMS. She had sepsis, and bilateral consolidation of the lungs. She has failed extubation multiple times and has been reintubated very quickly. Patient was extubated again on 04/30 but reintubated in the evening about 8 hours again due to poor pulmonary toilet, and subsequent decompensation. In addition patient H&H today was 6.7 and 20.3. Intensivists feels, pt has now failed a trial of extubation twice, from a combination of acute on chronic deconditioning, malnutrition, poor pulmonary toilet, and persistent encephalopathy. Palliative care was consulted to review goals of care. Pt can be awaken. She is able to follow commands. When testing for judgement, at times she is able to answer questions some question correctly (with nodding and shaking her head) such as on a clear chilo day the casimiro is blue? she would nod yes? At other times she would answer questions incorrectly. "on a well watered lawn, grass usual color is pink." She would nod yes. Inconsistent enough where I would say it is difficult for her to weigh the risk and benefits of medical decisions at this time. She did nod to say she is in pain. Could not give hx due to intubation. I called and spoke with pt's Spouse Bowen. He states pt has had problems with short term memory and has not been the same since pt had chemo. Pt's spouse also endorses she is a heavy drinker and has a family history of it. Discuss pt's challenges in weaning of the machines and the likely paz pt would need trach etc. Pt's spouse endorsed that pt would not want trach and be on these machine. He endorses if pt does not improve by Next Wednesday, he would signed the DNR and transition to comfort. Family/friend interactions Met with pt's and pt's Sister at bedside. Talk to him and said, likely he can be medically extubated, but likely will failed again, and likely will decline. He endorse pt would not be on nursing home live support and would not want trach. Inform family likely will cpap trials but likely will not tolerate as the last 2 times. He states he will sign the DNR on wednesday and bring hospice on board then. Family ask when medical extubation happens, he prefers to be here, likely at 10:00 to 10:30am. Spouse wants patient to remain a full code until Wednesday. Advance Directives Living Will: Never completed Health Care Surrogate: Never completed Durable Power of Transition Mgr: Never completed Objective Vital Signs Date Time Temp Pulse Resp B/P Pulse Ox O2 Delivery O2 Flow Rate FiO2 05/04/16 15:06 96 35 05/04/16 12:00 35 05/04/16 12:00 87 05/04/16 12:00 98.3 87 24 133/64 99 05/04/16 11:21 100 35 05/04/16 10:00 98 05/04/16 08:50 35 05/04/16 08:50 35 05/04/16 08:05 35 05/04/16 08:00 97.9 97 20 109/58 95 05/04/16 08:00 95 35 05/04/16 08:00 35 05/04/16 08:00 108 05/04/16 06:00 94 05/04/16 04:00 98.7 98 21 129/64 94 05/04/16 04:00 35 05/04/16 04:00 98 05/04/16 03:41 98 35 05/04/16 02:00 96 05/04/16 00:00 98.7 110 18 144/60 100 05/04/16 00:00 110 05/04/16 00:00 35 05/03/16 23:41 98 35 05/03/16 22:00 106 05/03/16 20:00 99.2 106 20 140/83 100 05/03/16 20:00 100 35 05/03/16 20:00 106 05/03/16 20:00 35 05/03/16 18:00 86 05/03/16 16:00 35 05/03/16 16:00 97.9 92 21 129/70 95 05/03/16 16:00 92 Intake & Output 05/04/16 05/04/16 07:00 19:00 Intake Total 1592 ml 430 ml Output Total 1800 ml Balance -208 ml 430 ml IV Total 801 ml Tube Feeding 491 ml Other 300 ml 430 ml Output Urine Total 1800 ml # Bowel Movements 2 Physical Exam CONSTITUTIONAL/GENERAL: Pt intubated, open eyes interactive, but confused. SKIN: No jaundice, rashes, or lesions. Ecchymoses on upper extremities. No wounds seen anteriorly. Skin temperature appropriate. Not diaphoretic. HEAD: Atraumatic. Normocephalic. EYES: Pupils equal and round and reactive. Extraocular motions intact. No scleral icterus. No injection or drainage. Fundi not examined. ENT: Hearing grossly normal. Nose without bleeding or purulent drainage. ET tube NECK: Trachea midline. Supple, nontender. CARDIOVASCULAR: Regular rate and rhythm without murmurs, gallops, or rubs. No JVD. Peripheral pulses symmetric. RESPIRATORY/CHEST: Symmetric, decrease breath sounds bilaterally. GASTROINTESTINAL: Abdomen soft, non-tender, nondistended. GENITOURINARY: Without palpable bladder distension. Dumont catheter in place. MUSCULOSKELETAL: Extremities without clubbing. Edema of the upper and lower ext. LYMPHATICS: No palpable cervical or supraclavicular adenopathy. NEUROLOGICAL: Awake and alert. . Follows commands. Cognitively confused at times. Diagnostic Tests Laboratory Laboratory Tests Test 05/01/16 05/02/16 05/03/16 05/03/16 18:44 05:15 03:46 22:57 Blood Type A POSITIVE Antibody Screen NEGATIVE Crossmatch Leukocyte-Reduced Red Blood Cells Blood Bank Comment White Blood Count 10.5 TH/MM3 9.7 TH/MM3 10.0 TH/MM3 (4.0-11.0) (4.0-11.0) (4.0-11.0) Red Blood Count 2.61 MIL/MM3 2.40 MIL/MM3 2.61 MIL/MM3 (4.00-5.30) (4.00-5.30) (4.00-5.30) Hemoglobin 8.4 GM/DL 7.8 GM/DL 8.5 GM/DL (11.6-15.3) (11.6-15.3) (11.6-15.3) Hematocrit 24.9 % 23.1 % 25.2 % (35.0-46.0) (35.0-46.0) (35.0-46.0) Mean Corpuscular Volume 95.4 FL 96.1 FL 96.3 FL (80.0-100.0) (80.0-100.0) (80.0-100.0) Mean Corpuscular Hemoglobin 32.3 PG 32.7 PG 32.4 PG (27.0-34.0) (27.0-34.0) (27.0-34.0) Mean Corpuscular Hemoglobin 33.8 % 34.0 % 33.6 % Concent (32.0-36.0) (32.0-36.0) (32.0-36.0) Red Cell Distribution Width 17.3 % 17.7 % 17.3 % (11.6-17.2) (11.6-17.2) (11.6-17.2) Platelet Count 237 TH/MM3 257 TH/MM3 284 TH/MM3 (150-450) (150-450) (150-450) Mean Platelet Volume 8.4 FL 8.3 FL 8.4 FL (7.0-11.0) (7.0-11.0) (7.0-11.0) Sodium Level 149 MEQ/L 148 MEQ/L 149 MEQ/L (136-145) (136-145) (136-145) Potassium Level 3.1 MEQ/L 3.7 MEQ/L 3.4 MEQ/L (3.5-5.1) (3.5-5.1) (3.5-5.1) Chloride Level 103 MEQ/L 107 MEQ/L 108 MEQ/L (98-107) (98-107) (98-107) Carbon Dioxide Level 36.7 MEQ/L 31.6 MEQ/L 34.7 MEQ/L (21.0-32.0) (21.0-32.0) (21.0-32.0) Anion Gap 9 MEQ/L (5-15) 9 MEQ/L (5-15) 6 MEQ/L (5-15) Blood Urea Nitrogen 51 MG/DL (7-18) 59 MG/DL (7-18) 64 MG/DL (7-18) Creatinine 0.84 MG/DL 0.88 MG/DL 0.87 MG/DL (0.50-1.00) (0.50-1.00) (0.50-1.00) Estimat Glomerular Filtration 68 ML/MIN (>89) 64 ML/MIN (>89) 65 ML/MIN (>89) Rate Random Glucose 161 MG/DL 132 MG/DL 114 MG/DL (74-106) (74-106) (74-106) Calcium Level 9.6 MG/DL 10.0 MG/DL 10.1 MG/DL (8.5-10.1) (8.5-10.1) (8.5-10.1) Magnesium Level 1.5 MG/DL (1.5-2.5) Result Diagram: 05/03/16225605/03/162256 Assessment and Plan Disease Oriented Problem List: (1) COPD exacerbation (2) Acute encephalopathy Comment: likely multifactorial. etoh abuse, pt's spouse also feels pt was not the same since pt underwent chemo in 2005. (3) Hypoalbuminemia (4) Ulcer of sacral region, stage 1 (5) Alcohol abuse (6) Anemia (7) Tobacco abuse Symptom Scale: Pertinent Non-Medical Issues Psychosocial: Spiritual: Legal: Ethical issues impacting care: Important Contacts Dayday Wiseman [phone] Prognosis 65 year old with multiple hospitalization, has severe copd, encephlopathy. Multiple attempts for extubation in which pt have to be reintubated. Prognosis overall is poor. Code Status: Full Code Plan == [place]- She is able to follow commands. When testing for judgement, at times she is able to answer questions some question correctly (with nodding and shaking her head) such as on a clear chilo day the casimiro is blue? she would nod yes? At other times she would answer questions incorrectly. "on a well watered lawn, grass usual color is pink." She would nod yes. Test was done at bedside with family. From history, pt's spouse and sister stated she has had very poor short term memory. Managing Consultant Clinical Professor Dr. Soni also has noted the same thing. Pt I feel does not have capacity to weight the risk and benefits of medical decisions. == Health Care Proxy- Spouse == dyspnea- defer to rn wellness. == goals of care-Met with pt's and pt's Sister at bedside. Talk to spouse and said, likely she can be medically extubated, but likely will failed again, and likely will decline. He endorse pt would not be on nursing home live support and would not want trach. Inform family likely will cpap trials but likely will not tolerate as the last 2 times. He states he will sign the DNR on wednesday and bring hospice on board then. Family ask when medical extubation happens, he prefers to be here, likely at 10:00 to 10:30am. Spouse wants patient to remain a full code until Wednesday. == pain-Pt nod yes to pain but could not elaborate. == palliative care will continue to follow. == case d/w attending. Time Spent Total Floor Time (mins): 55 Face to Face Time (mins): 40 Attestation To help prompt me to consider important information that might be impacting today's encounter and assessment, information from prior notes written by myself or my colleagues may have been "brought forward" into today's note. My signature on this note, however, is an attestation that I personally performed the exam, history, and/or decision-making noted today, and, unless otherwise indicated, the interactions with patient, family, and staff as well as the review of records all occurred today. I also attest that the listed assessment and stated plan reflect my best clinical judgment today based on the combination of historical information, prior notes, and today's exam/ interactions. When time spent is documented, it refers only to time spent today by the signer, or if indicated, combined time spent today by collaborating physician/nurse practitioner. Davis Chong MD May 04, 2016 16:03
--- NOTE | 2016-05-04 16:34 | HHI.IDPN ---
Subjective Subjective Remarks is a 65 y/o with alcoholism who was found on the floor in resp distress and sating 80% on RA. EMS intubated for respiratory distress and abdominal pain. Admission vitals included a amina of 99.9 F, tachycardia, low BP and elevated lactic acid. Patient underwent sepsis workup. Was started on IV antibiotics. She appeared to be severely dehydrated with acute kidney injury and mental obtundation. ID following for Sepsis, MSSA bacteremia, Pneumonia. No fever No rash No diarrhea Extubated and reintubated same day for 2nd time. Family has no plans to trach and PEG. Antibiotics Oxacillin IV Lines Line sites with no e/o infection Past Medical History Alcoholism Allergies: Coded Allergies: Dexmedetomidine (Verified Allergy, Severe, Arrhythmias, 04/18/16) ASYSTOLE 04/18/16 Precedex (Verified Allergy, Severe, Arrhythmias, 04/18/16) ASYSTOLE 04/18/16 Camphor (Verified Allergy, Unknown, Swelling, 04/17/16) Objective . Vital Signs Date Time Temp Pulse Resp B/P Pulse Ox O2 Delivery O2 Flow Rate FiO2 05/04/16 16:00 96 05/04/16 16:00 98.1 96 18 113/68 97 05/04/16 15:06 96 35 05/04/16 14:00 87 05/04/16 12:00 35 05/04/16 12:00 87 05/04/16 12:00 98.3 87 24 133/64 99 05/04/16 11:21 100 35 05/04/16 10:00 98 05/04/16 08:50 35 05/04/16 08:50 35 05/04/16 08:05 35 05/04/16 08:00 97.9 97 20 109/58 95 05/04/16 08:00 95 35 05/04/16 08:00 35 05/04/16 08:00 108 05/04/16 06:00 94 05/04/16 04:00 98.7 98 21 129/64 94 05/04/16 04:00 35 05/04/16 04:00 98 05/04/16 03:41 98 35 05/04/16 02:00 96 05/04/16 00:00 98.7 110 18 144/60 100 05/04/16 00:00 110 05/04/16 00:00 35 05/03/16 23:41 98 35 05/03/16 22:00 106 05/03/16 20:00 99.2 106 20 140/83 100 05/03/16 20:00 100 35 05/03/16 20:00 106 05/03/16 20:00 35 05/03/16 18:00 86 05/03/16 05/03/16 05/04/16 15:00 23:00 07:00 Intake Total 810 ml 641 ml 951 ml Output Total 750 ml 1000 ml 800 ml Balance 60 ml -359 ml 151 ml IV Total 324 ml 315 ml 486 ml Tube Feeding 306 ml 266 ml 225 ml Tube Irrigant 180 ml Other 60 ml 240 ml Output Urine Total 750 ml 1000 ml 800 ml # Bowel Movements 0 2 . Laboratory Tests Test 05/03/16 05/03/16 03:46 22:57 White Blood Count 9.7 TH/MM3 10.0 TH/MM3 Red Blood Count 2.40 MIL/MM3 2.61 MIL/MM3 Hemoglobin 7.8 GM/DL 8.5 GM/DL Hematocrit 23.1 % 25.2 % Mean Corpuscular Volume 96.1 FL 96.3 FL Mean Corpuscular Hemoglobin 32.7 PG 32.4 PG Mean Corpuscular Hemoglobin 34.0 % 33.6 % Concent Red Cell Distribution Width 17.7 % 17.3 % Platelet Count 257 TH/MM3 284 TH/MM3 Mean Platelet Volume 8.3 FL 8.4 FL Laboratory Tests Test 05/03/16 05/03/16 03:46 22:57 Sodium Level 148 MEQ/L 149 MEQ/L Potassium Level 3.7 MEQ/L 3.4 MEQ/L Chloride Level 107 MEQ/L 108 MEQ/L Carbon Dioxide Level 31.6 MEQ/L 34.7 MEQ/L Anion Gap 9 MEQ/L 6 MEQ/L Blood Urea Nitrogen 59 MG/DL 64 MG/DL Creatinine 0.88 MG/DL 0.87 MG/DL Estimat Glomerular Filtration 64 ML/MIN 65 ML/MIN Rate Random Glucose 132 MG/DL 114 MG/DL Calcium Level 10.0 MG/DL 10.1 MG/DL Magnesium Level 1.5 MG/DL Imaging Last Impressions Chest X-Ray 04/22/16 0000 Signed Impressions: Service Date/Time: Friday, April 22, 2016 12:00 - CONCLUSION: There is no pneumothorax. ET tube at the akua directed towards the right main bronchus. Alessandro Tello MD FACR Head CT 04/17/16 2344 Signed Impressions: Service Date/Time: Sunday, April 17, 2016 00:28 - CONCLUSION: No acute disease. Percy Barnes MD CT Angiography 04/17/16 0000 Signed Impressions: Service Date/Time: Sunday, April 17, 2016 00:31 - CONCLUSION: 1. Severe emphysema without evidence for pleural or embolism. 2. Bilateral hilar adenopathy, and dense bilateral pulmonary consolidation in the lower lobes left greater than right. 3. Left adrenal mass incompletely characterized, and left renal mass measuring soft tissue density. Workup with MRI of the abdomen with and without contrast of these findings is recommended on a nonemergent outpatient basis. 4. Mild nodularity seen within the right middle lobe abutting the fissure measuring 9 mm and 7 mm on image 95. Most likely nodular infiltrate suspected. There is linear atelectasis in the right middle lobe. Short interval followup CT in 3 months recommended. Percy Barnes MD Abdomen/Pelvis CT 04/17/16 0000 Signed Impressions: Service Date/Time: Sunday, April 17, 2016 06:30 - CONCLUSION: 1. Mild distention of the gallbladder. 2. Bilateral renal cysts are noted as well as an indeterminate mass upper pole left kidney, probable hemorrhagic or proteinaceous cyst and can be further evaluated with MRI of the abdomen with and without contrast on a nonemergent outpatient basis. 3. Bilateral lower lobe consolidation. 4. Indeterminate probable adenomas left adrenal mass. 5. Atherosclerosis. 6. Nodular infiltrate in the right middle lobe is seen. Percy Barnes MD Physical Exam GENERAL: Thin built poorly nourished patient, in no apparent distress. SKIN: Spider naevi on chest. HEAD: Atraumatic. Normocephalic. No temporal or scalp tenderness. EYES: Pupils equal round and reactive. Extraocular motions intact. No scleral icterus. No injection or drainage. ENT: Intubated, NECK: Trachea midline. Supple, nontender, no meningeal signs. CARDIOVASCULAR: HS audible. RESPIRATORY: Breath sounds equal bilaterally with decrease in the bases. GASTROINTESTINAL: Abdomen soft, non-tender, nondistended. No hepato-splenomegaly , or palpable masses. No guarding. MUSCULOSKELETAL: Extremities without clubbing, cyanosis, or edema. No joint tenderness, effusion, or edema noted. No calf tenderness. Negative Homans sign bilaterally. NEUROLOGICAL: Lethargic, arousable to commands and deep stimuli. Follows simple commands like wiggling toes. Psych could not be assessed IV line sites with no e/o infection. Assessment & Plan Remarks MSSA bacteremia transient s/p 2 weeks of IV Oxacillin. MSSA pneumonia Acute resp failure: reintubated. Failed twice. Trach and PEG offered to family. Recs CXR today follow up on pneumonia. Continue Oxacillin IV plan s/p 2 weeks Oxacillin IV for MSSA sepsis. shakila Vuong: family may withdraw in next few days possibly. Sophia Strong MD May 04, 2016 16:34
--- NOTE | 2016-05-04 17:47 | RADRPT ---
EXAM DATE/TIME: 05/04/2016 17:09 [facility] COMPARISON: CHEST SINGLE AP, April 30, 2016, 19:24. INDICATIONS : Short of breath, evaluate pneumonia MEDICAL HISTORY : COPD, CHF, BEAST CA, HYPERTENSION SURGICAL HISTORY : Mastectomy, right. ENCOUNTER: Subsequent ACUITY: 1 week PAIN SCORE: Non-responsive. LOCATION: Bilateral chest FINDINGS: A single AP portable semierect view of the chest was obtained andendotracheal tube in place with the tip approximately 2-3 cm above the akua. A nasogastric tube is seen coursing through the esophagus into the stomach. The left subclavian central venous line remains in place. The heart size is at the upper limits of normal. Hazy opacity remains at both lung bases. This appears mildly improved on the left. Atherosclerotic calcifications are present in the aorta. The left costophrenic angle is mildly blunted. CONCLUSION: 1. Mild interval improvement in opacity in the left lung. 2. Residual opacity at both lung bases with small left effusion. Jon Setin MD on May 04, 2016 at 17:44 Board Certified Radiologist. This report was verified electronically.
[2016-05-05] VITALS (16 sets, daily range): BP systolic 102–141; BP diastolic 59–84; PULSE 74–94; RESP 17–22; TEMP 97.3–99.3; O2SAT 97–100
[2016-05-05] MEDS: METOPROLOL TARTRATE 5 MG/5 ML VIAL IV PUSH SCH ×6 (00:25→20:51)
[2016-05-05] MEDS: RESP: ALBUTEROL 2.5 MG/IPRATROPIUM 0.5 MG NEB (SCH) NEB ×5 (03:45→20:11)
[2016-05-05] MEDS: OXACILLIN INJ 2 GM in SODIUM CHLORIDE 0.9% INJ 100 ML IV SCH ×7 (03:51→20:50)
[2016-05-05] MEDS: CHLORHEXIDINE GLUCONATE 2 % 1 PACK (2 CLOTHS) TOP SCH (03:52)
[2016-05-05] MEDS: METOCLOPRAMIDE HCL SYRUP 10 MG/10 ML UDC PO SCH ×3 (03:52→20:50)
[2016-05-05 05:08] LABS: HEMATOCRIT 24.8 % (35.0-46.0); MEAN CELL VOLUME 95.7 FL (80.0-100.0); MEAN CORPUSCULAR HEMOGLOBIN 32.4 PG (27.0-34.0); MEAN CORPUSCULAR HGB CONC 33.8 % (32.0-36.0); PLATELET COUNT 277 TH/MM3 (150-450); RED CELL DISTRIBUTION WIDTH 16.7 % (11.6-17.2); REVIEW FLAG FINAL; WHITE BLOOD COUNT 8.4 TH/MM3 (4.0-11.0)
[2016-05-05 05:17] LABS: BICARBONATE 33.1 MEQ/L (21.0-32.0); POTASSIUM 3.2 MEQ/L (3.5-5.1)
[2016-05-05] MEDS: POTASSIUM CHLOR 40 MEQ PREMIX 100 ML IV PRN (05:27)
[2016-05-05] MEDS: FREE WATER G-TUBE SCH ×4 (05:31→17:26)
[2016-05-05] MEDS: BENEPROTEIN POWDER 1 PACK G-TUBE SCH ×3 (09:00→17:26)
[2016-05-05] MEDS: NUTRISOURCE FIBER POWDER 1 PACK G-TUBE SCH ×2 (09:00→20:51)
[2016-05-05] MEDS: LACTULOSE SYRUP 20 GM/30 ML CUP PO SCH (09:00)
[2016-05-05] MEDS: PROPOFOL 1000 MG/100 ML INJ 100 ML IV SCH (09:06)
[2016-05-05] MEDS: PANTOPRAZOLE SODIUM 40 MG VIAL IV PUSH SCH (09:07)
[2016-05-05] MEDS: CHLORHEXIDINE 0.12% (ORAL KIT) 15 ML CUP MT SCH ×2 (09:07→20:51)
[2016-05-05] MEDS: BUMETANIDE INJ 1 MG/4 ML VIAL IV PUSH SCH ×2 (09:07→17:26)
[2016-05-05] MEDS: MULTIVITAMIN TAB PO SCH (09:08)
[2016-05-05] MEDS: POTASSIUM CL 40 MEQ/30 ML LIQ UDC PO SCH (09:08)
[2016-05-05] MEDS: SODIUM CHLORIDE 0.9% FLUSH 5 ML FLUSH IV FLUSH SCH ×2 (09:08→20:51)
[2016-05-05] MEDS: ARTIFICIAL TEARS OPTH SOLN 15 ML BTL EACH EYE SCH ×3 (09:08→17:26)
[2016-05-05] MEDS: THIAMINE HCL 100 MG TAB PO SCH (09:08)
[2016-05-05] MEDS: DOCUSATE SODIUM 100 MG/10 ML UDC G-TUBE SCH ×2 (09:08→20:51)
[2016-05-05] MEDS: predniSONE 5 MG/5 ML CUP PO SCH (09:09)
--- NOTE | 2016-05-05 12:23 | HHI.HCPN ---
Reason for visit a. To assist with evaluation and management of symptoms including:pain b. To assist medical decision maker(s) with: better understanding of current medical conditions; weighing benefits/burdens of medical treatment options; making medical treatment decisions. Subjective/Interval History Pt alert and open eyes follow commands. Still not consistent with questions. Pt is in restraints. Despite that I still reviewed that likely there will be another trial of extubation tomorrow, and likely will get shortness of breath as before and could not tolerate. If she does not get reintubated, likely you will pass. She nods, and just seems anxious to remove the tubes. Its questionable how much she understands, but pt did nod and seems amenable to plan, not to reintubate. Brought Forward from [facility]'s [facility] 05/01/2016. Patient is 65-year-old with past medical history of hypertension, COPD, breast cancer, alcoholism, neuropathy who developed abdominal pain and was found to be on the floor with markedly severe respiratory distress by EMS on 04/16/2016. Patient rapidly deteriorated with waning mental status and increase shallow breathing. Patient was intubated by EMS. Systolic BP dropped to the 60s and patient was given IV fluids. Patient is transferred to the hospital. In the ER : * Temperature is 99.9, pulse is 102, respirations 16, blood pressure is a 3/6 2 , pulse ox 100% * WBC 17.3, hemoglobin is 13.9, hematocrit 21.1, platelet is 156 * Sodium was 128, potassium 4.6, chloride is 94, bicarbonate 22.2, creatinine 4.15, BUN was 76 * Troponin is 0.02, albumin is 2.3 * PT is 12.2, INR is 1.1, APTT is 34.3 * PH is 7.34, bicarbonate is 19, PCO2 is 37, PCO2 is 237 patient is on ventilator before meals * Urine culture was done and shows Enterococcus faecalis and lactobacillus * ET tube with tip on the akua. There is consolidation within both lower lobes and prominence of the bilateral hilar shadows. Remote impacted right proximal humerus fracture deformity identified. * CTA show severe emphysema without evidence of PE. Lateral hilar adenopathy and dense bilateral pulmonary consolidation in the lower lobes with left greater than right. There is mild nodularity seen in the right middle lobe abutting the fissures of measuring 9 mm x 7 mm. Most likely nodular infiltrate suspected. * Mild distention of the gallbladder. Bilateral renal cysts are noted as well as indeterminate mass upper pole left kidney. Bilateral lower lobe consolidation. Indeterminate probable adenomas left adrenal mass. Arthrosclerosis. Nodular infiltrate in the right middle lobe is seen. * Head CT shows no acute diseases. Critical medicine was consulted, patient was given IV fluids, broad-spectrum antibiotics, vasopressors. In terms of respiratory, patient fail did weaning trials initially and needed Precedex for detox. Patient got to the point where patient was extubated on however patient rapidly decompensated and required intubation on the same day. Patient again was extubated on 04/30/2016 but reintubated in the evening about 8 hours again due to poor pulmonary toilet, and subsequent decompensation. Sputum cultures were positive for MSSA 04/18 and on 04/26. In terms of cardiac. Patient initially developed A. fib with tachycardia and initial few days of hospitalization. Had been placed on transcutaneous pacers on demand mode. Patient placed on beta doris. Cardiology was consulted to and YOLANDA he shows prominent eustachian valve. In terms of nephrology-patient initial 4.15, patient was given IV fluids and acute kidney injury has resolved, creatinine 0.78 on 05/01/2016 Patient's again sputum culture shows MSSA. Patient has thrombocytopenia noted but HRT has been negative slowly improving. Neuro ballrad, patient's headache MRI of the brain on 04/22/2016 which was unremarkable. Patient was able to follow commands, but remains confused and intensivists feels likely patient has some type of work he is encephalopathy due to long-standing alcohol abuse. In summary: Patient is a 65-year-old past medical history of hypertension, COPD , breast cancer, alcoholism, neuropathy, came in because of respiratory distress , and was intubated while being transferred by EMS. She had sepsis, and bilateral consolidation of the lungs. She has failed extubation multiple times and has been reintubated very quickly. Patient was extubated again on 04/30 but reintubated in the evening about 8 hours again due to poor pulmonary toilet, and subsequent decompensation. In addition patient H&H today was 6.7 and 20.3. Intensivists feels, pt has now failed a trial of extubation twice, from a combination of acute on chronic deconditioning, malnutrition, poor pulmonary toilet, and persistent encephalopathy. Palliative care was consulted to review goals of care. Pt can be awaken. She is able to follow commands. When testing for judgement, at times she is able to answer questions some question correctly (with nodding and shaking her head) such as on a clear chilo day the casimiro is blue? she would nod yes? At other times she would answer questions incorrectly. "on a well watered lawn, grass usual color is pink." She would nod yes. Inconsistent enough where I would say it is difficult for her to weigh the risk and benefits of medical decisions at this time. She did nod to say she is in pain. Could not give hx due to intubation. I called and spoke with pt's Spouse Bowen. He states pt has had problems with short term memory and has not been the same since pt had chemo. Pt's spouse also endorses she is a heavy drinker and has a family history of it. Discuss pt's challenges in weaning of the machines and the likely paz pt would need trach etc. Pt's spouse endorsed that pt would not want trach and be on these machine. He endorses if pt does not improve by Next Wednesday, he would signed the DNR and transition to comfort. Family/friend interactions I spoke with Mr. Wiseman over the phone. Reviewed the conversation I had with patient. 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 == Mr. Wiseman confirms he will change to DNR tomorrow (no reintubation/cpr/acls) == Should she fail medical extubation, and get shortness of breath, not to intubate. He does not want Bipap. == He does not want Hospice right away after extubation. == He is amenable to comfort meds should she be uncomfortable (dilaudid, ativan prn dyspnea). == He understands if she gets dyspneic again, without intubation, pt will pass away. == He would like medical extubation (not terminal) to take place at around 10: 00 am if possible. Advance Directives Living Will: Never completed Health Care Surrogate: Never completed Durable Power of Seed Cleaning Machine Operator: Never completed Objective Vital Signs Date Time Temp Pulse Resp B/P Pulse Ox O2 Delivery O2 Flow Rate FiO2 05/05/16 11:38 98 35 05/05/16 10:00 81 05/05/16 08:00 98.3 84 20 141/84 98 05/05/16 08:00 84 05/05/16 08:00 35 05/05/16 07:57 97 35 05/05/16 06:00 75 05/05/16 04:00 97.3 75 17 132/69 100 05/05/16 04:00 99 35 05/05/16 04:00 35 05/05/16 04:00 75 05/05/16 02:00 78 05/05/16 00:00 89 05/05/16 00:00 99.3 74 18 102/70 100 05/05/16 00:00 35 05/04/16 23:15 100 35 05/04/16 22:44 97 35 05/04/16 22:00 88 05/04/16 20:16 99 35 05/04/16 20:00 92 05/04/16 20:00 98.1 92 20 136/84 100 05/04/16 20:00 35 05/04/16 18:00 94 05/04/16 16:00 96 05/04/16 16:00 98.1 96 18 113/68 97 05/04/16 16:00 35 05/04/16 15:06 96 35 05/04/16 14:00 87 Intake & Output 05/05/16 05/05/16 07:00 19:00 Intake Total 1491 ml Output Total 1600 ml Balance -109 ml IV Total 528 ml Tube Feeding 463 ml Tube Irrigant 500 ml Output Urine Total 1600 ml Stool Total 0 ml # Bowel Movements 0 Physical Exam CONSTITUTIONAL/GENERAL: Pt intubated, open eyes interactive, but confused. SKIN: No jaundice, rashes, or lesions. Ecchymoses on upper extremities. No wounds seen anteriorly. Skin temperature appropriate. Not diaphoretic. HEAD: Atraumatic. Normocephalic. EYES: Pupils equal and round and reactive. Extraocular motions intact. No scleral icterus. No injection or drainage. Fundi not examined. ENT: Hearing grossly normal. Nose without bleeding or purulent drainage. ET tube NECK: Trachea midline. Supple, nontender. CARDIOVASCULAR: Regular rate and rhythm without murmurs, gallops, or rubs. No JVD. Peripheral pulses symmetric. RESPIRATORY/CHEST: Symmetric, decrease breath sounds bilaterally. GASTROINTESTINAL: Abdomen soft, non-tender, nondistended. GENITOURINARY: Without palpable bladder distension. Dumont catheter in place. MUSCULOSKELETAL: Extremities without clubbing. Edema of the upper and lower ext. LYMPHATICS: No palpable cervical or supraclavicular adenopathy. NEUROLOGICAL: Awake and alert. . Follows commands. Cognitively confused at times. Diagnostic Tests Laboratory Laboratory Tests Test 05/03/16 05/03/16 05/05/16 03:46 22:57 04:45 White Blood Count 9.7 TH/MM3 10.0 TH/MM3 8.4 TH/MM3 (4.0-11.0) (4.0-11.0) (4.0-11.0) Red Blood Count 2.40 MIL/MM3 2.61 MIL/MM3 2.60 MIL/MM3 (4.00-5.30) (4.00-5.30) (4.00-5.30) Hemoglobin 7.8 GM/DL 8.5 GM/DL 8.4 GM/DL (11.6-15.3) (11.6-15.3) (11.6-15.3) Hematocrit 23.1 % 25.2 % 24.8 % (35.0-46.0) (35.0-46.0) (35.0-46.0) Mean Corpuscular Volume 96.1 FL 96.3 FL 95.7 FL (80.0-100.0) (80.0-100.0) (80.0-100.0) Mean Corpuscular Hemoglobin 32.7 PG 32.4 PG 32.4 PG (27.0-34.0) (27.0-34.0) (27.0-34.0) Mean Corpuscular Hemoglobin 34.0 % 33.6 % 33.8 % Concent (32.0-36.0) (32.0-36.0) (32.0-36.0) Red Cell Distribution Width 17.7 % 17.3 % 16.7 % (11.6-17.2) (11.6-17.2) (11.6-17.2) Platelet Count 257 TH/MM3 284 TH/MM3 277 TH/MM3 (150-450) (150-450) (150-450) Mean Platelet Volume 8.3 FL 8.4 FL 8.0 FL (7.0-11.0) (7.0-11.0) (7.0-11.0) Sodium Level 148 MEQ/L 149 MEQ/L 146 MEQ/L (136-145) (136-145) (136-145) Potassium Level 3.7 MEQ/L 3.4 MEQ/L 3.2 MEQ/L (3.5-5.1) (3.5-5.1) (3.5-5.1) Chloride Level 107 MEQ/L 108 MEQ/L 105 MEQ/L (98-107) (98-107) (98-107) Carbon Dioxide Level 31.6 MEQ/L 34.7 MEQ/L 33.1 MEQ/L (21.0-32.0) (21.0-32.0) (21.0-32.0) Anion Gap 9 MEQ/L (5-15) 6 MEQ/L (5-15) 8 MEQ/L (5-15) Blood Urea Nitrogen 59 MG/DL (7-18) 64 MG/DL (7-18) 65 MG/DL (7-18) Creatinine 0.88 MG/DL 0.87 MG/DL 0.88 MG/DL (0.50-1.00) (0.50-1.00) (0.50-1.00) Estimat Glomerular Filtration 64 ML/MIN (>89) 65 ML/MIN (>89) 64 ML/MIN (>89) Rate Random Glucose 132 MG/DL 114 MG/DL 114 MG/DL (74-106) (74-106) (74-106) Calcium Level 10.0 MG/DL 10.1 MG/DL 10.1 MG/DL (8.5-10.1) (8.5-10.1) (8.5-10.1) Magnesium Level 1.5 MG/DL (1.5-2.5) Result Diagram: 05/05/1644405/05/16444 Assessment and Plan Disease Oriented Problem List: (1) COPD exacerbation (2) Acute encephalopathy Comment: likely multifactorial. etoh abuse, pt's spouse also feels pt was not the same since pt underwent chemo in 2005. (3) Hypoalbuminemia (4) Ulcer of sacral region, stage 1 (5) Alcohol abuse (6) Anemia (7) Tobacco abuse Symptom Scale: Pertinent Non-Medical Issues Psychosocial: Spiritual: Legal: Ethical issues impacting care: Important Contacts Dayday Wiseman [phone] Prognosis 65 year old with multiple hospitalization, has severe copd, encephlopathy. Multiple attempts for extubation in which pt have to be reintubated. Prognosis overall is poor. Code Status: Full Code Plan == [place]- She is able to follow commands, but since I have been following her , she has not been able to answer questions consistently correctly. Pt is in restraints. Despite that I still reviewed that there will be another trial of extubation tomorrow, and likely will get shortness of breath as before and could not tolerate. If she does not get reintubated, likely you will pass. She nods, and just seems anxious to remove the tubes. From history, pt's spouse and sister stated she has had very poor short term memory. Hair Colorist Dr. 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 I feel does not have capacity to weight the risk and benefits of medical decisions. == Health Care Proxy- Spouse == dyspnea- defer to solar installer technician. == goals of care- I spoke with Mr. Wiseman over the phone. Reviewed the conversation I had with patient. 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 Mr. Wiseman confirms he will change to DNR tomorrow (no reintubation/cpr/acls) == Should she fail medical extubation, and get shortness of breath, not to intubate. He does not want Bipap. == He does not want Hospice right away after extubation. == He is amenable to comfort meds should she be uncomfortable (dilaudid, ativan prn dyspnea). == He understands if she gets dyspneic again, without intubation, pt will pass away. == He would like medical extubation (not terminal) to take place at around 10: 00 am if possible. == pain-Pt nod yes to pain but could not elaborate. == palliative care will continue to follow. == case d/w attending. Time Spent Total Floor Time (mins): 40 >50% Counseling/Coord of Care: Yes Attestation To help prompt me to consider important information that might be impacting today's encounter and assessment, information from prior notes written by myself or my colleagues may have been "brought forward" into today's note. My signature on this note, however, is an attestation that I personally performed the exam, history, and/or decision-making noted today, and, unless otherwise indicated, the interactions with patient, family, and staff as well as the review of records all occurred today. I also attest that the listed assessment and stated plan reflect my best clinical judgment today based on the combination of historical information, prior notes, and today's exam/ interactions. When time spent is documented, it refers only to time spent today by the signer, or if indicated, combined time spent today by collaborating physician/nurse practitioner. Davis Chong MD May 05, 2016 12:23
[2016-05-06] VITALS (14 sets, daily range): BP systolic 114–132; BP diastolic 56–97; PULSE 77–106; RESP 17–24; TEMP 98–98.2; O2SAT 91–99
[2016-05-06] MEDS: RESP: ALBUTEROL 2.5 MG/IPRATROPIUM 0.5 MG NEB (SCH) NEB ×4 (00:17→11:03)
[2016-05-06] MEDS: FREE WATER G-TUBE SCH ×3 (01:12→11:58)
[2016-05-06] MEDS: OXACILLIN INJ 2 GM in SODIUM CHLORIDE 0.9% INJ 100 ML IV SCH ×4 (01:12→12:00)
[2016-05-06] MEDS: METOPROLOL TARTRATE 5 MG/5 ML VIAL IV PUSH SCH ×4 (01:15→11:55)
[2016-05-06 03:29] LABS: HEMATOCRIT 24.4 % (35.0-46.0); MEAN CELL VOLUME 95.9 FL (80.0-100.0); MEAN CORPUSCULAR HEMOGLOBIN 32.2 PG (27.0-34.0); MEAN CORPUSCULAR HGB CONC 33.5 % (32.0-36.0); PLATELET COUNT 268 TH/MM3 (150-450); RED BLOOD COUNT 2.54 MIL/MM3 (4.00-5.30); RED CELL DISTRIBUTION WIDTH 16.6 % (11.6-17.2); REVIEW FLAG FINAL; WHITE BLOOD COUNT 9.2 TH/MM3 (4.0-11.0)
[2016-05-06 04:00] LABS: BICARBONATE 31.7 MEQ/L (21.0-32.0); POTASSIUM 3.5 MEQ/L (3.5-5.1)
[2016-05-06] MEDS: CHLORHEXIDINE GLUCONATE 2 % 1 PACK (2 CLOTHS) TOP SCH (04:14)
[2016-05-06] MEDS: METOCLOPRAMIDE HCL SYRUP 10 MG/10 ML UDC PO SCH ×2 (04:14→11:58)
[2016-05-06] MEDS: PROPOFOL 1000 MG/100 ML INJ 100 ML IV SCH (04:16)
[2016-05-06] MEDS: CHLORHEXIDINE 0.12% (ORAL KIT) 15 ML CUP MT SCH (07:51)
[2016-05-06] MEDS: predniSONE 5 MG/5 ML CUP PO SCH (07:55)
[2016-05-06] MEDS: POTASSIUM CL 40 MEQ/30 ML LIQ UDC PO SCH (07:56)
[2016-05-06] MEDS: THIAMINE HCL 100 MG TAB PO SCH (07:56)
[2016-05-06] MEDS: MULTIVITAMIN TAB PO SCH (07:56)
[2016-05-06] MEDS: PANTOPRAZOLE SODIUM 40 MG VIAL IV PUSH SCH (07:57)
[2016-05-06] MEDS: ARTIFICIAL TEARS OPTH SOLN 15 ML BTL EACH EYE SCH ×2 (07:57→11:58)
[2016-05-06] MEDS: SODIUM CHLORIDE 0.9% FLUSH 5 ML FLUSH IV FLUSH SCH (08:00)
[2016-05-06] MEDS: DOCUSATE SODIUM 100 MG/10 ML UDC G-TUBE SCH (08:00)
[2016-05-06] MEDS: NUTRISOURCE FIBER POWDER 1 PACK G-TUBE SCH (08:01)
[2016-05-06] MEDS: LACTULOSE SYRUP 20 GM/30 ML CUP PO SCH (08:01)
[2016-05-06] MEDS: BENEPROTEIN POWDER 1 PACK G-TUBE SCH ×2 (08:01→11:58)
[2016-05-06] MEDS: BUMETANIDE INJ 1 MG/4 ML VIAL IV PUSH SCH (09:52)
--- NOTE | 2016-05-06 10:23 | HHI.CCPN ---
Subjective Remarks/Hospital Course Note for 05/05/16: 65-year-old woman brought in by EMS intubated for respiratory distress, and abdominal pain. She has recently had relapse of alcohol dependency disease and was found sitting on the floor in marked respiratory distress. 80% on room air. 04/18: Arrived severely dehydrated with YULIET and obtundation after excess alcohol consumption. Now tolerating PSV but fails weaning trial from ventilator. May need precedex for detox. She has developed a-fib with tachy- mark. Several 6 sec asystolic pauses Transcutaneous pacer placed on demand mode 04/19: Remains sedated, orally intubated on mechanical ventilation. 04/20: Remains sedated, orally intubated on mechanical ventilation. Daily C Pap trials. 04/21: Remains sedated/encephalopathic, orally intubated on mechanical ventilation. Blood cultures with staph aureus. Daily C Pap trials however neurologic status precludes extubation 04/22: remains significantly tachycardic overnight. also thrombocytopenic. remains encephalopathic. 04/23: tachycardia controlled with esmolol overnight. more awake today, awakens to voice and opens eyes, but still does not follow commands. thrombocytopenia improving. echo on 04/22 with "? device in right atrium" although the patient has no known implantable devices. good diuresis with single dose of Lasix yesterday. 04/24: Remains intubated off sedation, appears to track intermittently following commands. Sodium is 156, I have started D5 W at 125 mL per hour 04/25: Intubated, not on sedation. Continues to fail CPAP due to tachypnea, resp distress. Extensive bilateral wheezing. IV steroids and scheduled DuoNeb started. NA 152 today 04/26: Continues to fail C Pap trial due to tachypnea, respiratory distress and labored breathing. However wheezing is improving on IV steroids and breathing treatments, sodium is normal 144 today. Discontinue D5W. Neurologically more improved. Following commands and upper extremity 04/27: Tolerated C Pap better today and was weaned to extubation. Developed some respiratory distress placed on BiPAP, now breathing more comfortably. UO remains adequate 04/28: Patient was extubated yesterday after successful weaning trials, however decompensated requiring BiPAP initially, eventually was intubated at night by Dr. Soni. Chest x-ray shows worsening left-sided consolidation and effusion 04/29: Awake alert on propofol. Able to follow commands. Will resume CPAP. CXR improved infiltrates-mild left lower lobe infiltrates. Developed Afib, received metoprolol now NSR 04/30: RASS 0. awake and alert. writing notes this AM. follows commands. has a history of failing trial of extubation. on SBT this AM. 05/01: extubated yesterday, but poor compliance with pulmonary toilet, persistently encephalopathic despite following commands. tired out and re- intubated overnight. Hgb dropped to 6.9, currently rechecking. Also back in afib. 05/02: no clinical changes overnight. family discussions yesterday, they understand she is not likely to improve to the point of permanently weaning from mechanical ventilation due to her underlying encephalopathy. family wishes to continue trial of aggressive care until Wednesday. 1 unit prbc yesterday for anemia, now stable and improved. 05/03: new diarrhea today, but wbc normal, afebrile. otherwise awake and alert. continuing trial of aggressive medical care until Wednesday. 05/04: Patient is awake on the vent, follows commands. Has failed extubation twice. According to palliative care notes, family request aggressive care until Wednesday and probably transition to comfort measures at that point 05/05: Plan extubation tomorrow with transition to hospice if fails. Discussed in detail with family and Dr. Chong. Objective Vital Signs Date Time Temp Pulse Resp B/P Pulse Ox O2 Delivery O2 Flow Rate FiO2 05/06/16 07:50 97 35 05/06/16 06:00 77 05/06/16 04:00 98.0 19 132/97 Intake and Output 05/05/16 05/05/16 05/06/16 08:00 16:00 00:00 Intake Total 606 ml 1111 ml 665 ml Output Total 600 ml 1875 ml 1315 ml Balance 6 ml -764 ml -650 ml Result Diagram: 05/06/16 0315 05/06/16 0315 Imaging Last [address] 04/17/16 2344 Signed Impressions: Service Date/Time: Sunday, April 17, 2016 00:28 - CONCLUSION: No acute disease. Percy Barnes MD CT Angiography 04/17/16 0000 Signed Impressions: Service Date/Time: Sunday, April 17, 2016 00:31 - CONCLUSION: 1. Severe emphysema without evidence for pleural or embolism. 2. Bilateral hilar adenopathy, and dense bilateral pulmonary consolidation in the lower lobes left greater than right. 3. Left adrenal mass incompletely characterized, and left renal mass measuring soft tissue density. Workup with MRI of the abdomen with and without contrast of these findings is recommended on a nonemergent outpatient basis. 4. Mild nodularity seen within the right middle lobe abutting the fissure measuring 9 mm and 7 mm on image 95. Most likely nodular infiltrate suspected. There is linear atelectasis in the right middle lobe. Short interval followup CT in 3 months recommended. Percy Barnes MD Chest X-Ray 04/16/16 5668 Signed Impressions: Service Date/Time: Sunday, April 17, 2016 00:55 - CONCLUSION: Endotracheal tube as described above. Percy Barnes MD Objective Remarks GENERAL: Critically ill-appearing female. SKIN: Warm, dry. HEAD: Normocephalic. Atraumatic. NECK: Supple, trachea midline. Orally intubated. CARDIOVASCULAR: tachycardic rate, irregularly irregular rhythm. No JVD. RESPIRATORY: Orally intubated on mechanical ventilation, Breath sounds equal bilaterally. Bilateral light wheezing. GASTROINTESTINAL: Abdomen soft, non-tender, nondistended. MUSCULOSKELETAL: No cyanosis, or edema. Well perfused. NEURO: Intubated, wide awake, follows commands A/P Problem List: (1) Acute respiratory failure with hypoxia ICD Code: J96.01 Status: Acute (2) Acute kidney injury ICD Code: N17.9 Status: Acute (3) Septic shock ICD Code: A41.9 Status: Acute (4) COPD exacerbation ICD Code: J44.1 Status: Acute (5) Alcohol abuse ICD Code: F10.10 Status: Chronic Assessment and Plan Assessment: 65yF with h/o etoh dependence now with metabolic encephalopathy, acute hypoxic respiratory failure, tachy-mark syndrome. encephalopathy has resolved. she remains critically ill. About a week and a half ago I had a long conversation with Ms. Wiseman's family. They thought at that time that she probably had Wernicke's encephalopathy and that it has been long-standing and declining over the last few months to the point that she forgets things and has some mild difficulty doing her ADLs. At that time, she was very encephalopathic , and they were unsure if she would want [place] [facility] At that time, her mental status was improving, and we held out with aggressive care to see how she would do. They also state she continues to drink, and would not be happy with any quality of life where she did not return to drinking. At this point, she has now failed a trial of extubation twice, from a combination of acute on chronic deconditioning, malnutrition, poor pulmonary toilet, and persistent encephalopathy. Per the family, plan for short course of aggressive care until Wednesday, and then transition to palliation at that point. For now, we will remain aggressive in our goals, and she remains very critically ill. Plan by systems: Neurologic: Alcohol dependence Metabolic Encephalopathy Peripheral neuropathy Probable Wernicke's encephalopathy - As needed propofol for sedation and vent synchrony - prn haldol - po thiamine and MVI daily. - MRI brain 04/22 normal study - Holding gabapentin given sedation. holding all sedating meds. Respiratory: Acute Hypoxic Respiratory failure Acute COPD exacerbation New L HCAP - Extubated 04/27/16 however respiratory decompensation in the evening requiring reintubation 04/27. - extubated 04/30, reintubated that evening after about 8 hours, again for poor pulmonary toilet, decompensation. - Acute exacerbation of COPD. On Solumedrol 60 q12. DuoNeb scheduled and PRN - does not meet SBT criteria today. I think after 2 trials of extubation, both when she was medically optimized, suggest that her encephalopathy and deconditioning are barriers to successful weaning from mechanical ventilation. - Recommend wean to extubation Wednesday when family is ready and transition to comfort measures if she fails - Sputum culture 04/18 MSSA - sputum culture 04/26 MSSA Cardiovascular: Tachy-Mark syndrome Possible right atrial thrombus/mass - now back in afib. 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 Obando following, YOLANDA showed prominent eustachian valve. Renal: YULIET- resolving. Acute intravascular volume overload Renal and adrenal mass - MRI w and w/o when creatinine was recommended- will hold off as patient may transition to comfort measures - Bumex to 0.5mg BID. Free water 200 q6 --Strict I/Os FEN/GI: Acute protein calorie malnutritionsevere Severe hypophosphatemia Severe hypokalemia Severe hypomagnesemia Diarrhea aggressive replacement of electrolytes -- TF at goal. -- Hold bowel regimen, added fiber to TF. Heme/ID: Sepsis Thrombocytopenia - CXR showing LLL consolidation - Continue oxacillin for staph bacteremia. - 04/26 sputum culture MSSA - Blood culture, sputum culture with staph aureus 04/17. - ID: Dr. Strong following. - Thrombocytopenia noted. HIT negative. slowly improving. continue to monitor. Endocrine: Hyperglycemia of critical illness -- SSI, medium scale, every 6 hours Prophylaxis: GI Prophylaxis Protonix DVT Prophylaxis --SCDs Subcutaneous heparin. Hit negative. Dispo: Remain in the intensive care unit. She remains critically ill. Plan for wean to extubation if patient ready on Wednesday per family request. If patient fails will transition immediately to comfort measures. Discussed with palliative care Dr. Chong Overall impression: Patient is critically ill having been found down and intoxicated. Bacteremia with MSSA and remains critically ill, failed extubation 04/27/16, 04/30/16. Poor prognosis, short and long-term. Luis M Thomas MD May 06, 2016 10:22
--- NOTE | 2016-05-06 10:28 | HHI.CCPN ---
Subjective Remarks/Hospital Course Note for 05/06/16: 65-year-old woman brought in by EMS intubated for respiratory distress, and abdominal pain. She has recently had relapse of alcohol dependency disease and was found sitting on the floor in marked respiratory distress. 80% on room air. 04/18: Arrived severely dehydrated with YULIET and obtundation after excess alcohol consumption. Now tolerating PSV but fails weaning trial from ventilator. May need precedex for detox. She has developed a-fib with tachy- mark. Several 6 sec asystolic pauses Transcutaneous pacer placed on demand mode 04/19: Remains sedated, orally intubated on mechanical ventilation. 04/20: Remains sedated, orally intubated on mechanical ventilation. Daily C Pap trials. 04/21: Remains sedated/encephalopathic, orally intubated on mechanical ventilation. Blood cultures with staph aureus. Daily C Pap trials however neurologic status precludes extubation 04/22: remains significantly tachycardic overnight. also thrombocytopenic. remains encephalopathic. 04/23: tachycardia controlled with esmolol overnight. more awake today, awakens to voice and opens eyes, but still does not follow commands. thrombocytopenia improving. echo on 04/22 with "? device in right atrium" although the patient has no known implantable devices. good diuresis with single dose of Lasix yesterday. 04/24: Remains intubated off sedation, appears to track intermittently following commands. Sodium is 156, I have started D5 W at 125 mL per hour 04/25: Intubated, not on sedation. Continues to fail CPAP due to tachypnea, resp distress. Extensive bilateral wheezing. IV steroids and scheduled DuoNeb started. NA 152 today 04/26: Continues to fail C Pap trial due to tachypnea, respiratory distress and labored breathing. However wheezing is improving on IV steroids and breathing treatments, sodium is normal 144 today. Discontinue D5W. Neurologically more improved. Following commands and upper extremity 04/27: Tolerated C Pap better today and was weaned to extubation. Developed some respiratory distress placed on BiPAP, now breathing more comfortably. UO remains adequate 04/28: Patient was extubated yesterday after successful weaning trials, however decompensated requiring BiPAP initially, eventually was intubated at night by Dr. Soni. Chest x-ray shows worsening left-sided consolidation and effusion 04/29: Awake alert on propofol. Able to follow commands. Will resume CPAP. CXR improved infiltrates-mild left lower lobe infiltrates. Developed Afib, received metoprolol now NSR 04/30: RASS 0. awake and alert. writing notes this AM. follows commands. has a history of failing trial of extubation. on SBT this AM. 05/01: extubated yesterday, but poor compliance with pulmonary toilet, persistently encephalopathic despite following commands. tired out and re- intubated overnight. Hgb dropped to 6.9, currently rechecking. Also back in afib. 05/02: no clinical changes overnight. family discussions yesterday, they understand she is not likely to improve to the point of permanently weaning from mechanical ventilation due to her underlying encephalopathy. family wishes to continue trial of aggressive care until Wednesday. 1 unit prbc yesterday for anemia, now stable and improved. 05/03: new diarrhea today, but wbc normal, afebrile. otherwise awake and alert. continuing trial of aggressive medical care until Wednesday. 05/04: Patient is awake on the vent, follows commands. Has failed extubation twice. According to palliative care notes, family request aggressive care until Wednesday and probably transition to comfort measures at that point 05/05: Plan extubation tomorrow with transition to hospice if fails. Discussed in detail with family and Dr. Chong. 05/06: Family has gathered; appear comfortable for plans for extubation and DNR status after. Objective Vital Signs Date Time Temp Pulse Resp B/P Pulse Ox O2 Delivery O2 Flow Rate FiO2 05/06/16 07:50 97 35 05/06/16 06:00 77 05/06/16 04:00 98.0 19 132/97 Intake and Output 05/05/16 05/05/16 05/06/16 08:00 16:00 00:00 Intake Total 606 ml 1111 ml 665 ml Output Total 600 ml 1875 ml 1315 ml Balance 6 ml -764 ml -650 ml Result Diagram: 05/06/16 0315 05/06/16 0315 Imaging Last [address] 04/17/16 2074 Signed Impressions: Service Date/Time: Sunday, April 17, 2016 00:28 - CONCLUSION: No acute disease. Percy Barnes MD CT Angiography 04/17/16 0000 Signed Impressions: Service Date/Time: Sunday, April 17, 2016 00:31 - CONCLUSION: 1. Severe emphysema without evidence for pleural or embolism. 2. Bilateral hilar adenopathy, and dense bilateral pulmonary consolidation in the lower lobes left greater than right. 3. Left adrenal mass incompletely characterized, and left renal mass measuring soft tissue density. Workup with MRI of the abdomen with and without contrast of these findings is recommended on a nonemergent outpatient basis. 4. Mild nodularity seen within the right middle lobe abutting the fissure measuring 9 mm and 7 mm on image 95. Most likely nodular infiltrate suspected. There is linear atelectasis in the right middle lobe. Short interval followup CT in 3 months recommended. Percy Barnes MD Chest X-Ray 04/16/16 2344 Signed Impressions: Service Date/Time: Sunday, April 17, 2016 00:55 - CONCLUSION: Endotracheal tube as described above. Percy Barnes MD Objective Remarks GENERAL: Critically ill-appearing female. SKIN: Warm, dry. HEAD: Normocephalic. Atraumatic. NECK: Supple, trachea midline. Orally intubated. CARDIOVASCULAR: tachycardic rate, irregularly irregular rhythm. No JVD. RESPIRATORY: Orally intubated on mechanical ventilation, Breath sounds equal bilaterally. Bilateral light wheezing. GASTROINTESTINAL: Abdomen soft, non-tender, nondistended. BS few. MUSCULOSKELETAL: No cyanosis, or edema. Well perfused. NEURO: Intubated, wide awake, follows commands A/P Problem List: (1) Acute respiratory failure with hypoxia ICD Code: J96.01 Status: Acute (2) Acute kidney injury ICD Code: N17.9 Status: Acute (3) Septic shock ICD Code: A41.9 Status: Acute (4) COPD exacerbation ICD Code: J44.1 Status: Acute (5) Alcohol abuse ICD Code: F10.10 Status: Chronic Assessment and Plan Assessment: 65yF with h/o etoh dependence now with metabolic encephalopathy, acute hypoxic respiratory failure, tachy-mark syndrome. encephalopathy has resolved. she remains critically ill. About a week and a half ago I had a long conversation with Ms. Wiseman's family. They thought at that time that she probably had Wernicke's encephalopathy and that it has been long-standing and declining over the last few months to the point that she forgets things and has some mild difficulty doing her ADLs. At that time, she was very encephalopathic , and they were unsure if she would want to live with [facility]. At that time, her mental status was improving, and we held out with aggressive care to see how she would do. They also state she continues to drink, and would not be happy with any quality of life where she did not return to drinking. At this point, she has now failed a trial of extubation twice, from a combination of acute on chronic deconditioning, malnutrition, poor pulmonary toilet, and persistent encephalopathy. Per the family, plan for short course of aggressive care until Wednesday, and then transition to palliation at that point. For now, we will remain aggressive in our goals, and she remains very critically ill. Plan by systems: Neurologic: Alcohol dependence Metabolic Encephalopathy Peripheral neuropathy Probable Wernicke's encephalopathy - As needed propofol for sedation and vent synchrony - prn haldol - po thiamine and MVI daily. - MRI brain 04/22 normal study - Holding gabapentin given sedation. holding all sedating meds. Respiratory: Acute Hypoxic Respiratory failure Acute COPD exacerbation New L HCAP - Extubated 04/27/16 however respiratory decompensation in the evening requiring reintubation 04/27. - extubated 04/30, reintubated that evening after about 8 hours, again for poor pulmonary toilet, decompensation. - Acute exacerbation of COPD. On Solumedrol 60 q12. DuoNeb scheduled and PRN - does not meet SBT criteria today. I think after 2 trials of extubation, both when she was medically optimized, suggest that her encephalopathy and deconditioning are barriers to successful weaning from mechanical ventilation. - Recommend wean to extubation Wednesday when family is ready and transition to comfort measures if she fails - Sputum culture 04/18 MSSA - sputum culture 04/26 MSSA Cardiovascular: Tachy-Mark syndrome Possible right atrial thrombus/mass - now back in afib. 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 Obando following, YOLANDA showed prominent eustachian valve. Renal: YULIET- resolving. Acute intravascular volume overload Renal and adrenal mass - MRI w and w/o when creatinine was recommended- will hold off as patient may transition to comfort measures - Bumex to 0.5mg BID. Free water 200 q6 --Strict I/Os FEN/GI: Acute protein calorie malnutritionsevere Severe hypophosphatemia Severe hypokalemia Severe hypomagnesemia Diarrhea aggressive replacement of electrolytes -- TF at goal. -- Hold bowel regimen, added fiber to TF. Heme/ID: Sepsis Thrombocytopenia - CXR showing LLL consolidation - Continue oxacillin for staph bacteremia. - 04/26 sputum culture MSSA - Blood culture, sputum culture with staph aureus 04/17. - ID: Dr. Strong following. - Thrombocytopenia noted. HIT negative. slowly improving. continue to monitor. Endocrine: Hyperglycemia of critical illness -- SSI, medium scale, every 6 hours Prophylaxis: GI Prophylaxis Protonix DVT Prophylaxis --SCDs Subcutaneous heparin. Hit negative. Dispo: Remain in the intensive care unit. She remains critically ill. Plan for wean to extubation if patient ready on Wednesday per family request. If patient fails will transition immediately to comfort measures. Discussed with palliative care Dr. Chong Overall impression: Patient is critically ill having been found down and intoxicated. Bacteremia with MSSA and remains critically ill, failed extubation 04/27/16, 04/30/16. Poor prognosis, short and long-term. Plan at family request, with Palliative Care help, is to extubate and not re-intubate. All family present (5) appear to agree on the choice. Luis M Thomas MD May 06, 2016 10:28
[2016-05-06] MEDS ORDERED: HYOSCYAMINE 0.5 MG/ML AMP IV ONE (10:30)
[2016-05-06] MEDS ORDERED: LORazepam 2 MG/ML VIAL IV PUSH PRN (10:30)
--- NOTE | 2016-05-06 10:56 | HHI.HCPN ---
Reason for visit a. To assist with evaluation and management of symptoms including: shortness of breath, anxiety and agitation. b. To assist medical decision maker(s) with: better understanding of current medical conditions; weighing benefits/burdens of medical treatment options; making medical treatment decisions. (Ariana Adler) Subjective/Interval History Patient seen in ICU. She remains intubated on mechanical ventilation, ongoing CPAP -35% FiO2 since 05/04/16. Patient alert, following some commands, nodding head to yes/no questions but not consistently. Attempting to communicate by mouthing words. Afebrile, stable BP. WBC 9.2, Hgb 8.2, pl 268. Na 126, K 3.5, Bun/creat 66/0.87. , pt's sister and nieces Rafaela and Delphine at bedside. Medical update provided. Reviewed plan for medical extubation scheduled for this morning. Family electing for DNR/DNI and no BiPAP. Discussed expected illness trajectory and poor prognosis given her multiple fails at extubation requiring reintubation , profound physical deconditioning, acute events and multiple comorbidities. Reviewed life expectancy of hours to days if illness runs its natural course. Hospice philosophy and benefits introduced, family electing to transition patient to comfort-directed care with hospice after extubation. Plan to transfer to Hospice care center for symptom management and EOL care. Ongoing emotional support and active listening provided. . Family/friend interactions See interval note. . (Ariana Adler) Advance Directives Living Will: Never completed Health Care Surrogate: Never completed Durable Power of Fitter Hand: Never completed (Ariana Adler) Advance Directive Specifics Health Care Surrogate(s): As per [place] law, healthcare proxy decision fall to pt's . . Documented care wishes: No living will has been completed. . Significant change in goals: NO CODE. Medical extubation this morning. Transition pt to comfort-directed care after medical extubation. Plan for discharge to hospice care center for symptom management and EOL care. . (Ariana Adler) Objective Vital Signs Date Time Temp Pulse Resp B/P Pulse Ox O2 Delivery O2 Flow Rate FiO2 05/06/16 07:50 97 35 05/06/16 06:00 77 05/06/16 04:01 97 35 05/06/16 04:00 35 05/06/16 04:00 98.0 86 19 132/97 96 05/06/16 04:00 86 05/06/16 02:00 81 05/06/16 00:18 98 35 05/06/16 00:00 98.0 80 17 114/56 99 05/06/16 00:00 35 05/06/16 00:00 80 05/05/16 22:00 87 05/05/16 20:11 97 35 05/05/16 20:00 92 05/05/16 20:00 35 05/05/16 20:00 98.1 92 21 104/59 97 05/05/16 18:00 91 05/05/16 16:14 99 35 05/05/16 16:00 94 05/05/16 16:00 98.0 94 20 128/63 99 05/05/16 16:00 35 05/05/16 14:00 86 05/05/16 12:00 98.1 87 22 125/72 97 05/05/16 12:00 35 05/05/16 12:00 87 05/05/16 11:38 98 35 Intake & Output 05/06/16 05/06/16 07:00 19:00 Intake Total 1451 ml Output Total 2115 ml Balance -664 ml IV Total 627 ml Tube Feeding 504 ml Other 320 ml Output Urine Total 2115 ml # Bowel Movements 0 Physical Exam CONSTITUTIONAL/GENERAL: ill looking female in no acute distress. Pt intubated, opening eyes and attempting to communicate by nodding head to yes/no questions and mouthing words. SKIN: No jaundice, rashes, or lesions. Ecchymoses on upper extremities. No wounds seen anteriorly. Skin temperature appropriate. Not diaphoretic. HEAD: Atraumatic. Normocephalic. EYES: Pupils equal and round and reactive.No scleral icterus. No injection or drainage. ENT: Hearing appears normal. Nose without bleeding or purulent drainage. ET/OG tube. CARDIOVASCULAR: Regular rate and rhythm without murmurs, gallops, or rubs. Peripheral pulses symmetric. RESPIRATORY/CHEST: Symmetric, coarse breath sounds bilaterally. GASTROINTESTINAL: Abdomen soft, non-tender, nondistended. active bowel sounds. GENITOURINARY: Without palpable bladder distension. Dumont catheter in place. MUSCULOSKELETAL: Extremities without clubbing. Edema of the upper and lower ext. NEUROLOGICAL: Awake and alert. . Follows some commands. . (Ariana Adler) Diagnostic Tests Laboratory Laboratory Tests Test 05/03/16 05/05/16 05/06/16 22:57 04:45 03:15 White Blood Count 10.0 TH/MM3 8.4 TH/MM3 9.2 TH/MM3 (4.0-11.0) (4.0-11.0) (4.0-11.0) Red Blood Count 2.61 MIL/MM3 2.60 MIL/MM3 2.54 MIL/MM3 (4.00-5.30) (4.00-5.30) (4.00-5.30) Hemoglobin 8.5 GM/DL 8.4 GM/DL 8.2 GM/DL (11.6-15.3) (11.6-15.3) (11.6-15.3) Hematocrit 25.2 % 24.8 % 24.4 % (35.0-46.0) (35.0-46.0) (35.0-46.0) Mean Corpuscular Volume 96.3 FL 95.7 FL 95.9 FL (80.0-100.0) (80.0-100.0) (80.0-100.0) Mean Corpuscular Hemoglobin 32.4 PG 32.4 PG 32.2 PG (27.0-34.0) (27.0-34.0) (27.0-34.0) Mean Corpuscular Hemoglobin 33.6 % 33.8 % 33.5 % Concent (32.0-36.0) (32.0-36.0) (32.0-36.0) Red Cell Distribution Width 17.3 % 16.7 % 16.6 % (11.6-17.2) (11.6-17.2) (11.6-17.2) Platelet Count 284 TH/MM3 277 TH/MM3 268 TH/MM3 (150-450) (150-450) (150-450) Mean Platelet Volume 8.4 FL 8.0 FL 8.0 FL (7.0-11.0) (7.0-11.0) (7.0-11.0) Sodium Level 149 MEQ/L 146 MEQ/L 146 MEQ/L (136-145) (136-145) (136-145) Potassium Level 3.4 MEQ/L 3.2 MEQ/L 3.5 MEQ/L (3.5-5.1) (3.5-5.1) (3.5-5.1) Chloride Level 108 MEQ/L 105 MEQ/L 105 MEQ/L (98-107) (98-107) (98-107) Carbon Dioxide Level 34.7 MEQ/L 33.1 MEQ/L 31.7 MEQ/L (21.0-32.0) (21.0-32.0) (21.0-32.0) Anion Gap 6 MEQ/L (5-15) 8 MEQ/L (5-15) 9 MEQ/L (5-15) Blood Urea Nitrogen 64 MG/DL (7-18) 65 MG/DL (7-18) 66 MG/DL (7-18) Creatinine 0.87 MG/DL 0.88 MG/DL 0.87 MG/DL (0.50-1.00) (0.50-1.00) (0.50-1.00) Estimat Glomerular Filtration 65 ML/MIN (>89) 64 ML/MIN (>89) 65 ML/MIN (>89) Rate Random Glucose 114 MG/DL 114 MG/DL 94 MG/DL (74-106) (74-106) (74-106) Calcium Level 10.1 MG/DL 10.1 MG/DL 10.3 MG/DL (8.5-10.1) (8.5-10.1) (8.5-10.1) Magnesium Level 1.5 MG/DL (1.5-2.5) (Ariana Adler) Result Diagram: 05/06/165 05/06/16314 Imaging Last Impressions Chest X-Ray 05/04/16 0000 Signed Impressions: Service Date/Time: Wednesday, May 04, 2016 17:09 - CONCLUSION: 1. Mild interval improvement in opacity in the left lung. 2. Residual opacity at both lung bases with small left effusion. Jon Stein MD Brain MRI 04/22/16 0000 Signed Impressions: Service Date/Time: Friday, April 22, 2016 18:22 - CONCLUSION: Unremarkable MRI brain. Ramez Kellogg MD Head CT 04/17/16 2344 Signed Impressions: Service Date/Time: Sunday, April 17, 2016 00:28 - CONCLUSION: No acute disease. Percy Barnes MD CT Angiography 04/17/16 0000 Signed Impressions: Service Date/Time: Sunday, April 17, 2016 00:31 - CONCLUSION: 1. Severe emphysema without evidence for pleural or embolism. 2. Bilateral hilar adenopathy, and dense bilateral pulmonary consolidation in the lower lobes left greater than right. 3. Left adrenal mass incompletely characterized, and left renal mass measuring soft tissue density. Workup with MRI of the abdomen with and without contrast of these findings is recommended on a nonemergent outpatient basis. 4. Mild nodularity seen within the right middle lobe abutting the fissure measuring 9 mm and 7 mm on image 95. Most likely nodular infiltrate suspected. There is linear atelectasis in the right middle lobe. Short interval followup CT in 3 months recommended. Percy Barnes MD Abdomen/Pelvis CT 04/17/16 0000 Signed Impressions: Service Date/Time: Sunday, April 17, 2016 06:30 - CONCLUSION: 1. Mild distention of the gallbladder. 2. Bilateral renal cysts are noted as well as an indeterminate mass upper pole left kidney, probable hemorrhagic or proteinaceous cyst and can be further evaluated with MRI of the abdomen with and without contrast on a nonemergent outpatient basis. 3. Bilateral lower lobe consolidation. 4. Indeterminate probable adenomas left adrenal mass. 5. Atherosclerosis. 6. Nodular infiltrate in the right middle lobe is seen. Percy Barnes MD (Ariana Adler [facility]) Assessment and Plan Disease Oriented Problem List: (1) Acute respiratory failure with hypoxia (2) COPD exacerbation (3) Acute encephalopathy Comment: likely multifactorial. etoh abuse, pt's spouse also feels pt was not the same since pt underwent chemo in 2005. (4) Alcohol abuse (5) Anemia Symptom Scale: (1) Dyspnea 0-10 Scale: Unable to quantify Comment: Remain intubated on mech ventilation. (2) Anxiety 0-10 Scale: Unable to quantify Comment: Secondary to dyspnea. (3) Agitation 0-10 Scale: Unable to quantify (4) Debility 0-10 Scale: Unable to quantify Comment: Progressive. Profound physical deconditioning. Pertinent Non-Medical Issues Psychosocial: . Retired. Spiritual: No spiritual affiliation. Legal: NO living will has been completed. Ethical issues impacting care: No living will completed. . Important Contacts Dayday Wiseman [phone] Prognosis 65 year old with multiple hospitalization, has severe COPD, encephalopathy. Multiple attempts for extubation in which pt have to be reintubated. Prognosis overall is poor. Code Status: No Code Plan * CODE STATUS: NO CODE. 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 As per [place] law, healthcare proxy decision fall to pt's . * GOALS OF CARE: Plan for medical extubation this morning, family electing to transition pt to comfort-directed care with hospice after extubation. , pt's sister and nieces Rafaela and Delphine at bedside. Medical update provided. Reviewed plan for medical extubation scheduled for this morning. Family electing for DNR/DNI and no BiPAP. Discussed expected illness trajectory and poor prognosis given her multiple fails at extubation requiring reintubation, profound physical deconditioning, acute events and multiple comorbidities. Reviewed life expectancy of hours to days if illness runs its natural course. Hospice philosophy and benefits introduced, family electing to transition patient to comfort-directed care with hospice after extubation. Plan to transfer to Hospice care center for symptom management and EOL care. * Hospice consult made. * SYMPTOMS: ==Dyspnea, secondary to ARDS/COPD exacerbation. Dilaudid and Ativan available as needed. ==Oropharyngeal secretions, Levsin added prior to extubation and as needed. ==Anxiety: Ativan as needed. ==Agitation: Haldol as needed. * Anticipatory guidance provided to family. Ongoing emotional support and active listening provided. * All questions have been answered in great detail. * Case discussed with Dr. Chong, Dr. Thomas and bedside RN. * Palliative care contact information has been provided to family. * Palliative care to f/u as needed. . (Ariana Adler) Time Spent Total Floor Time (mins): 45 (Total time to include review and summarization or medical records, physical exam, bedside conversation with family and case discussion with med staff. ) >50% Counseling/Coord of Care: Yes (Ariana Adler) Attestation To help prompt me to consider important information that might be impacting today's encounter and assessment, information from prior notes written by myself or my colleagues may have been "brought forward" into today's note. My signature on this note, however, is an attestation that I personally performed the exam, history, and/or decision-making noted today, and, unless otherwise indicated, the interactions with patient, family, and staff as well as the review of records all occurred today. I also attest that the listed assessment and stated plan reflect my best clinical judgment today based on the combination of historical information, prior notes, and today's exam/ interactions. When time spent is documented, it refers only to time spent today by the signer, or if indicated, combined time spent today by collaborating physician/nurse practitioner. (Ariana Adler) Collaborating MD Comments Chart reviewed. Case discussed with palliative care GREASER OPERATOR. Above GREASER OPERATOR note reviewed and I concur. . (Fly Vides MD) Ariana Adler May 06, 2016 10:56 Fly Vides MD May 10, 2016 08:15
[2016-05-06] MEDS ORDERED: HYOSCYAMINE 0.5 MG/ML AMP IV PRN (11:00)
[2016-05-06] MEDS ORDERED: HYDROmorphone HCL PF 1 MG/ML VIAL IV PUSH PRN (12:00)
--- NOTE | 2016-05-08 09:27 | MD ---
cc: ANJU REAVES MD ADMISSION DATE: 04/17/2016 DISCHARGE DATE: 05/06/2016 MAJOR DISCHARGE DIAGNOSIS Acute on chronic respiratory distress. MAJOR PROCEDURE PERFORMED 1. Endotracheal intubation and mechanical ventilation. 2. CAT scan of the head. 3. Brain MRI. 4. Abdominal, pelvis and chest CAT scan. 5. CT angiography. HOSPITAL COURSE This 65-year-old woman presented through the emergency department requiring intubation and mechanical ventilation for severe respiratory distress. She was found at her house intoxicated sitting on the floor, severely dehydrated and in respiratory distress. She had recently begun consuming alcoholic again, a product for which she had previously had a dependency problem. She underwent aggressive fluid resuscitation but could not be successfully weaned from mechanical ventilation. She grew enterococcus and lactobacillus species from her urine and ultimately grew staph aureus from her blood stream, recognizing this to be severe sepsis. This was treated with appropriate antibiotic coverage, however, as time progressed it became apparent that she could not wean successfully from mechanical ventilation. A plan was made with the family to have her undergo compassionate extubation and subsequently made DNR status. She was transferred to the Hospice service on May 06, 2016 following extubation. CONDITION ON DISCHARGE Deteriorating. Mookie Reaves MD [facility]/ /9:59 AM /9:19 AM
== END 2016-05-06 16:29 | disposition hospice, inpatient (51) | DRG 870 ==
LOC: NEPC 23:35 → NEDA 04-17 02:03 → N03B 04-17 06:40
PROVIDERS: ADMIT Internal Medicine Critical Care Medicine; ATTEND Internal Medicine Critical Care Medicine
PROC: 5A1955Z Respiratory Ventilation, Greater than 96 Consecutive Hours (ICD-10-PCS; principal; 2016-04-17)
PROC: 02HV33Z Insertion of Infusion Device into Superior Vena Cava, Percutaneous Approach (ICD-10-PCS; 2016-04-22)
PROC: B246ZZ4 Ultrasonography of Right and Left Heart, Transesophageal (ICD-10-PCS; 2016-04-23)
PROC: 0BH17EZ Insertion of Endotracheal Airway into Trachea, Via Natural or Artificial Opening (ICD-10-PCS; 2016-04-28)
PROC: 0BH17EZ Insertion of Endotracheal Airway into Trachea, Via Natural or Artificial Opening (ICD-10-PCS; 2016-04-30)
PROC: 30233N1 Transfusion of Nonautologous Red Blood Cells into Peripheral Vein, Percutaneous Approach (ICD-10-PCS; 2016-05-01)
DX: A41.01 Sepsis due to Methicillin susceptible Staphylococcus aureus (principal); J96.01 Acute respiratory failure with hypoxia; R65.21 Severe sepsis with septic shock; E43 Unspecified severe protein-calorie malnutrition; G93.41 Metabolic encephalopathy; Z51.5 Encounter for palliative care; N17.9 Acute kidney failure, unspecified; J18.9 Pneumonia, unspecified organism; J15.211 Pneumonia due to Methicillin susceptible Staphylococcus aureus; I46.9 Cardiac arrest, cause unspecified; E87.0 Hyperosmolality and hypernatremia; E51.2 Wernicke's encephalopathy; J44.0 Chronic obstructive pulmonary disease with (acute) lower respiratory infection; J44.1 Chronic obstructive pulmonary disease with (acute) exacerbation; N39.0 Urinary tract infection, site not specified; I27.2 Other secondary pulmonary hypertension; I49.5 Sick sinus syndrome; E86.0 Dehydration; I48.91 Unspecified atrial fibrillation; G62.9 Polyneuropathy, unspecified; I10 Essential (primary) hypertension; E27.9 Disorder of adrenal gland, unspecified; K21.9 Gastro-esophageal reflux disease without esophagitis; N28.1 Cyst of kidney, acquired; D69.59 Other secondary thrombocytopenia; D64.9 Anemia, unspecified; E87.70 Fluid overload, unspecified; E83.39 Other disorders of phosphorus metabolism; E83.42 Hypomagnesemia; E87.6 Hypokalemia; R73.9 Hyperglycemia, unspecified; L98.429 Non-pressure chronic ulcer of back with unspecified severity; M19.90 Unspecified osteoarthritis, unspecified site; M81.0 Age-related osteoporosis without current pathological fracture; F10.229 Alcohol dependence with intoxication, unspecified; F41.9 Anxiety disorder, unspecified; F17.210 Nicotine dependence, cigarettes, uncomplicated; Y95 Nosocomial condition; Z66 Do not resuscitate; Z78.1 Physical restraint status; Z85.3 Personal history of malignant neoplasm of breast
CPT/HCPCS: 31500; 36430; 36556; 36600; 70450; 70553; 71010; 71275; 74176; 76937; 80048; 80053; 80074; 80076; 80202; 81001; 82140; 82570; 82805; 82948; 83605; 83690; 83735; 83935; 84100; 84132; 84134; 84155; 84300; 84484; 85007; 85025; 85027; 85610; 85730; 86022; 86140; 86403; 86703; 86850; 86900; 86901; 86920; 87040; 87070; 87077; 87086; 87147; 87186; 87205; 87641; 93005; 93306; 93312; 93320; 93325; 94002; 94003; 94150; 94640; 94664; 94667; 94668; 94799; 96374; A9579; C9113; C9399; J0171; J0360; J0456; J0461; J0692; J1120; J1170; J1630; J1644; J1940; J1980; J2060; J2250; J2270; J2543; J2700; J2930; J3370; J3411; J3475; J3480; J7030; J7050; J7070; J7512; P9016; P9045; Q9967